=== PATIENT | female | born 1955 | race Hispanic/Latino ===

== ENCOUNTER 2018-09-09 21:10 | Inpatient (IN) | payer MEDICARE, MEDICAID ==
[2018-09-09 21:12] VITALS: BMI 30.7
[2018-09-09] MEDS ORDERED: Etomidate 20 mg/10ml Inj IV ONE (21:19)
[2018-09-09] MEDS ORDERED: Succinylcholine 200 mg/10 ml Inj IV ONE (21:19)
[2018-09-09] MEDS ORDERED: Etomidate 20 mg/10ml Inj IVP STA (21:20)
--- NOTE | 2018-09-09 21:39 | ED PDOC ---
Arrival/HPI - General Time Seen by Provider: 09/09/18 21:28 Historian: Family, EMS - Critical Care Critical Care Minutes: 30 minutes - History of Present Illness Narrative History of Present Illness (Text): 09/09/18 21:36 62 year old female, whose past medical history includes diverticulitis, hypertension, diabetes, depression, and dementia, presents to the emergency department by EMS after being found unresponsive. Patient history and info is given by EMS and by family who arrived later. As per EMS, patient has had an apparent benzodiazepine overdose. Patient is noted to be sonorous, with shallow respiration, and is nonverbal. Family arrived producing empty bottle of Xanax that was filled on 08/29/18. HPI and ROS limited due to patient condition. Time/Duration: Prior to Arrival Symptom Onset: Gradual Symptom Course: Unchanged Context: Home Past Medical History - Provider Review Nursing Documentation Reviewed: Yes Family/Social History - Physician Review Nursing Documentation Reviewed: Yes Family/Social History: No Known Family HX Allergies/Home Meds Allergies/Adverse Reactions: Allergies No Known Allergies Allergy (Verified 09/09/18 21:12) Home Medications: Home Meds Medication Instructions Recorded Confirmed ALPRAZolam [Xanax] 1 tab PO PRN PRN 09/09/18 09/10/18 Glipizide [Glipizide ER] 1 tab PO BID 09/09/18 09/09/18 Levothyroxine [Synthroid] 1 tab PO QAM 09/09/18 09/09/18 Meclizine [Meclizine*] 1 tab PO DAILY 09/09/18 09/10/18 Metoprolol Succinate XL [Toprol XL] 1 tab PO DAILY 09/09/18 09/09/18 Venlafaxine [Effexor XR] 1 cap PO DAILY 09/09/18 09/10/18 Vortioxetine Hydrobromide 1 tab PO DAILY 09/09/18 09/10/18 [Trintellix] lamoTRIgine [Lamictal] 1 tab PO BID 09/09/18 09/10/18 Dapagliflozin Propanediol [Farxiga] 5 mg PO DAILY 09/10/18 09/10/18 Enalapril Maleate 5 mg PO DAILY 09/10/18 09/10/18 Linagliptin [Tradjenta] 1 tab PO DAILY 09/10/18 09/10/18 Lisinopril [Zestril] 1 tab PO DAILY 09/10/18 09/10/18 Sennosides/Docusate Sodium [Ra 2 tab PO HS 09/10/18 09/10/18 Senna Plus Tablet] Review of Systems - Physician Review All systems were reviewed & negative as marked: Yes - Review of Systems Systems not reviewed;Unavailable: Intubated Physical Exam Respiratory Rate: Mechanically Ventilated Mental Status: Positive for: Lethargic Finger Stick Blood Glucose: 221 - Systems Exam Head: Present: Atraumatic, Normocephalic Pupils: Present: PERRL Conjunctiva: Present: Normal Neck: Present: Normal Range of Motion Respiratory/Chest: Present: Clear to Auscultation, Respiratory Distress, Decreased Breath Sounds, Other (ET Tube above the jessica) Cardiovascular: Present: Normal S1, S2, Tachycardic. No: Murmurs Abdomen: No: Tenderness, Distention, Peritoneal Signs Upper Extremity: Present: Normal Inspection. No: Cyanosis, Edema Lower Extremity: Present: Normal Inspection. No: Edema Neurological: Present: Motor Func Grossly Intact, Normal Sensory Function Skin: Present: Warm, Dry, Normal Color. No: Rashes Medical Decision Making ED Course and Treatment: 09/09/18 21:50 Impression: 62 year old female presents by EMS unresponsive Plan: -- ABG -- EKG -- Labs -- Chest X-ray -- Ventilator -- Reassess and disposition Prior Visits: Notes and results from previous visits were reviewed. Progress Notes: PROCEDURE: INTUBATION Performed by the emergency provider Time: 21:05 Consent: Discussion of the risks, benefits, and alternatives to the procedure, along with informed consent was precluded by the urgency of the procedure and the patient condition. Timeout: A timeout to verify the correct patient, procedure, and site was performed. Indication: respiratory failure- drug overdose Pre-oxygenation: [id number] Medications: etomidate. See MAR for details. ETT Size: 7.5 Confirmation: Cords directly visualized as tube passed, good bilateral breath sounds, positive CO2 detector color change, tube fogging, adequate chest rise, improving pulse oximetry reading, improved skin color, and absence of gastric sounds,. ETT Secured: The cuff was inflated and the tube was secured appropriately at a distance of 23cm at the lip. Post-Procedure: There were no immediate complications. CXR Confirmation: Yes 09/09/18 21:54 Case was discussed with pesticide use medical coordinator and Dr Norwood, patient will be on ICU for respiratory failure due to drug overdose. 09/10/18 02:31 Chest X-ray shows: ET tube above the Jessica EKG shows: Sinus tachycardia @101bpm Septal infarct Nonspecific STT wave changes - RAD Interpretation Radiology Orders: 09/09/18 21:30 CHEST PORTABLE [RAD] Stat - Scribe Statement The provider has reviewed the documentation as recorded by the Paulina August Provider Scribe Attestation: All medical record entries made by the Scribe were at my direction and personally dictated by me. I have reviewed the chart and agree that the record accurately reflects my personal performance of the history, physical exam, m edical decision making, and the department course for this patient. I have also personally directed, reviewed, and agree with the discharge instructions and disposition. Disposition/Present on Arrival - Present on Arrival Any Indicators Present on Arrival: No History of DVT/PE: No History of Uncontrolled Diabetes: No Urinary Catheter: No History of Decub. Ulcer: No History Surgical Site Infection Following: None - Disposition Have Diagnosis and Disposition been Completed?: Yes Diagnosis: Respiratory failure, Drug overdose Disposition: HOSPITALIZED Disposition Time: 23:15 Patient Plan: Admission Patient Problems: Current Active Problems Problem Status Onset Drug overdose Acute Respiratory failure Acute Condition: CRITICAL
[2018-09-09 21:42] LABS: HEMOGLOBIN 16.6 g/dL (12.0-16.0); MEAN CELL VOLUME 89.5 fl (80.0-105.0); MEAN CORPUSCULAR HEMOGLOBIN 30.1 pg (25.0-35.0); MEAN CORPUSCULAR HGB CONC 33.7 g/dl (31.0-37.0); MEAN PLATELET VOLUME 9.1 fl (7.0-11.0); RBC 5.51 10^6/uL (3.5-6.1); RED CELL DISTRIBUTION WIDTH 12.7 % (11.5-14.5); WHITE BLOOD COUNT 14.3 10^3/uL (4.5-11.0)
[2018-09-09 21:49] LABS: INR 1.13; PARTIAL THROMBOPLASTIN TIME 25.7 Seconds (25.1-36.5); PROTHROMBIN TIME 12.9 SECONDS (9.4-12.5)
[2018-09-09 21:52] LABS: ACETAMINOPHEN < 10.0 ug/ml (10.0-20.0); SALICYLATE < 1 mg/dL (2.0-20.0)
[2018-09-09 21:53] LABS: ALB/GLOB RATIO 1.1 (1.1-1.8); ALBUMIN 4.7 g/dL (3.0-4.8); ALT/SGPT 27 U/L (7-56); AST/SGOT 33 U/L (14-36); BLOOD UREA NITROGEN 7 mg/dL (7-21); CALCIUM 10.2 mg/dL (8.4-10.5); GFR NON-AFRICAN AMERICAN > 60
[2018-09-09 21:57] LABS: ARTERIAL BLOOD GAS HCO3 24.8 mmol/L (21-28); ARTERIAL BLOOD GAS HEMOGLOBIN 15.5 g/dL (11.7-17.4); ARTERIAL BLOOD GAS O2 CAPACITY 21.3 mL/dl (16-24); ARTERIAL BLOOD GAS O2 CONTENT 21.2 ML/dl (15-23); ARTERIAL BLOOD GAS O2 SAT 99.6 % (95-98); ARTERIAL BLOOD GAS PCO2 42 mm/Hg (35-45); ARTERIAL BLOOD GAS PH 7.38 (7.35-7.45); ARTERIAL BLOOD GAS TCO2 26.1 mmol.L (22-28)
[2018-09-09 22:04] LABS: TROPONIN I < 0.01 ng/mL
[2018-09-09] MEDS ORDERED: Sodium Chloride 0.9% 1,000 ML IV STA (23:02)
[2018-09-09 23:51] LABS: PHENCYCLIDINE, UR NEGATIVE (NEGATIVE)
[2018-09-09 23:59] LABS: BARBITURATES, UR NEGATIVE (NEGATIVE); BENZODIAZEPINES, UR POSITIVE (NEGATIVE); OPIATES, UR NEGATIVE (NEGATIVE)
--- NOTE | 2018-09-10 02:05 | CP.PCM.HP ---
<John Andrade - Last Filed: 09/10/18 01:43> History of Present Illness - History of Present Illness History of Present Illness: John Andrade DO PGY1 Internal Medicine Production Recorder - Medicine H&P CC: AMS / Resp Failure 2/2 Benzo OD Of note patient is intubated and altered at this time; Hx gathered from EMS report as well as previous chart review. Of note patient has multiple charts previous N# is [id number] w/ PMH of anxiety, depression, diabetes, diverticulitis, gallstone, hypertension, hypercholesterolemia, hypothyroidism, presented to [facility] on 09/10 w/ c/o of AMS and Respiratory depression after being found down in field by family. As per EMS report patient was minimally responsive / lethargic and unable to protect airway; subsequently intubated in the field. Patient was also noted to be found w/ a empty bottle of xanax in field. ROS unobtainable due to patient condition PMH: Anxiety, Depression, Diabetes, Diverticulitis, Gallstones, HTN, HLD, HoThyroid PSH: Cholecystectomy, Tonsillectomy PMD: Unknown Home Rx: Unable to verify with pharmacy; Allergies: NKDA as per prior documentation Social: Unable to assess; None reported as per prior documentation Present on Admission - Present on Admission Any Indicators Present on Admission: No Review of Systems - Review of Systems Systems not reviewed;Unavailable: Acuity of Condition Past Patient History - Past Social History Smoking Status: Smoker Currrent Status Unknown - CARDIAC Hx Cardiac Disorders: No - PSYCHIATRIC Hx Anxiety: Yes Hx Bipolar Disorder: Yes Hx Depression: Yes Hx Substance Use: (unknown) - SURGICAL HISTORY Other/Comment: R arm sugery - ANESTHESIA Hx Anesthesia: No Meds Allergies/Adverse Reactions: Allergies Allergy/AdvReac Type Severity Reaction Status Date / Time No Known Allergies Allergy Verified 09/09/18 21:12 Physical Exam - Constitutional Additional comments: Lethargic / Confused - Head Exam Head Exam: ATRAUMATIC, NORMOCEPHALIC Additional comments: ET tube in place -21cm - Eye Exam Additional comments: Pupils equal round; sluggish - ENT Exam Additional comments: ET tube in place - Respiratory Exam Respiratory Exam: Clear to Auscultation Bilateral Additional comments: No crackles appreciated - Cardiovascular Exam Cardiovascular Exam: RRR, +S1, +S2 - GI/Abdominal Exam GI & Abdominal Exam: Normal Bowel Sounds, Soft. absent: Tenderness - Extremities Exam Extremities exam: Positive for: pedal pulses present - Neurological Exam Additional comments: Lethargic/ Somnolent Arousable to verbal stimuli / sternal rub Raas -1 - Skin Skin Exam: Dry, Intact, Normal Color, Warm Results - Vital Signs Recent Vital Signs: Last Vital Signs Temp 97.0 F L 09/09/18 22:54 Pulse 87 09/09/18 23:34 Resp 15 09/09/18 23:34 BP 157/100 H 09/09/18 23:34 Pulse Ox 100 09/09/18 23:34 - Labs Result Diagrams: 09/09/18 21:37 09/09/18 21:37 Labs: Laboratory Results - last 24 hr 09/09/18 09/09/18 09/09/18 21:30 21:37 21:37 WBC RBC Hgb Hct MCV MCH MCHC RDW Plt Count MPV PT INR APTT pCO2 pO2 HCO3 ABG pH ABG Total CO2 ABG O2 Saturation ABG O2 Content ABG Base Excess ABG Hemoglobin ABG Carboxyhemoglobin POC ABG HHb (Measured) ABG Methemoglobin ABG O2 Capacity Hgb O2 Saturation FiO2 Sodium 137 Potassium 3.9 Chloride 98 Carbon Dioxide 27 Anion Gap 16 BUN 7 Creatinine 0.6 L Est GFR ( Amer) > 60 Est GFR (Non-Af Amer) > 60 Random Glucose 246 H Calcium 10.2 Total Bilirubin 0.7 AST 33 ALT 27 Alkaline Phosphatase 200 H Lactate Dehydrogenase 458 Total Creatine Kinase 34 L Troponin I < 0.01 Total Protein 8.9 H Albumin 4.7 Globulin 4.1 Albumin/Globulin Ratio 1.1 Salicylates Urine Opiates Screen Negative Urine Methadone Screen Negative Acetaminophen Ur Barbiturates Screen Negative Ur Phencyclidine Scrn Negative Ur Amphetamines Screen Negative U Benzodiazepines Scrn Positive H U Oth Cocaine Metabols Negative U Cannabinoids Screen Negative Alcohol, Quantitative < 10 09/09/18 09/09/18 09/09/18 21:37 21:37 21:37 WBC 14.3 H RBC 5.51 Hgb 16.6 H Hct 49.3 H MCV 89.5 MCH 30.1 MCHC 33.7 RDW 12.7 Plt Count 385 MPV 9.1 PT 12.9 H INR 1.13 APTT 25.7 pCO2 pO2 HCO3 ABG pH ABG Total CO2 ABG O2 Saturation ABG O2 Content ABG Base Excess ABG Hemoglobin ABG Carboxyhemoglobin POC ABG HHb (Measured) ABG Methemoglobin ABG O2 Capacity Hgb O2 Saturation FiO2 Sodium Potassium Chloride Carbon Dioxide Anion Gap BUN Creatinine Est GFR ( Amer) Est GFR (Non-Af Amer) Random Glucose Calcium Total Bilirubin AST ALT Alkaline Phosphatase Lactate Dehydrogenase Total Creatine Kinase Troponin I Total Protein Albumin Globulin Albumin/Globulin Ratio Salicylates < 1 L Urine Opiates Screen Urine Methadone Screen Acetaminophen < 10.0 L Ur Barbiturates Screen Ur Phencyclidine Scrn Ur Amphetamines Screen U Benzodiazepines Scrn U Oth Cocaine Metabols U Cannabinoids Screen Alcohol, Quantitative 09/09/18 21:55 WBC RBC Hgb Hct MCV MCH MCHC RDW Plt Count MPV PT INR APTT pCO2 42 pO2 128.0 H HCO3 24.8 ABG pH 7.38 ABG Total CO2 26.1 ABG O2 Saturation 99.6 H ABG O2 Content 21.2 ABG Base Excess -0.5 ABG Hemoglobin 15.5 ABG Carboxyhemoglobin 2.1 H POC ABG HHb (Measured) 0.4 ABG Methemoglobin 1.0 ABG O2 Capacity 21.3 Hgb O2 Saturation 96.4 FiO2 70.0 Sodium Potassium Chloride Carbon Dioxide Anion Gap BUN Creatinine Est GFR ( Amer) Est GFR (Non-Af Amer) Random Glucose Calcium Total Bilirubin AST ALT Alkaline Phosphatase Lactate Dehydrogenase Total Creatine Kinase Troponin I Total Protein Albumin Globulin Albumin/Globulin Ratio Salicylates Urine Opiates Screen Urine Methadone Screen Acetaminophen Ur Barbiturates Screen Ur Phencyclidine Scrn Ur Amphetamines Screen U Benzodiazepines Scrn U Oth Cocaine Metabols U Cannabinoids Screen Alcohol, Quantitative Assessment & Plan - Assessment and Plan (Free Text) Assessment: 62F w/ PMH of anxiety, depression, diabetes, diverticulitis, gallstone, hypertension, hypercholesterolemia, hypothyroidism, presented to [facility] ED on 09/10 w/ c/o of AMS and Respiratory depression 2/2 benzo OD. Patient admitted to ICU for management of respiratory depression and AMS. Assessment upon admission: Respiratory failure 2/2 xanax overdose AMS 2/2 xanax overdose Hx Anxiety/ Depression Hx DM Hx HTN Hx HLD Hx Hypothyroidism Plan: Neuro Patient intubated Lethargic 2/2 Benzo OD UDS +Benzos only No need for flumazenil at this time If patient agitated on vent can sedate w/ ketamine/ propofol if needed [place] Q4 RASS -1 ; Maintain RASS -1 to -2 Reorient as needed Hx psych disorder; psych consulted appreciate reccs Pulm Patient intubated in field; unable to protect airway; ABG post intubation wnl 09/09 CXR - RLL shows infiltrate Afebrile; elevated WBC Will give x1 dose zosyn for empiric aspiration pna coverage Repeat CXR in AM Repeat ABG in AM Protective lung ventilation strategy Maintain O2 Sat >95% Aspiration precautions Cardio S1S2 RRR Maintaining pressure well w/o pressor support Hx HTN - normotensive No need for antiHTN at this time Continue monitoring Maintain Map >65 Endocrinology Hx DM + Hx Hypothyroidism Will start patient on ISS LOW w/ fingersticks Q6H Synthroid dose uncertain; will verify w/ PMD/Pharmacy in AM prior to restarting GI: Hx HLD Resume anti-lipid rx once stable NPO Protonix Nephro BUN/Cr - 7/0.6 Maintain euvolemia Maintain electrolyte balance ID: Leukocytosis appreciated CXR w/ RLL infiltrate Will give x1 dose zosyn for empiric coverage BCX/UCX pending PPX: Protonix Lovenox Patient was seen, examined, and discussed w/ attending Dr. Enma ANDRADE DO PGY1 - INTERNAL MEDICINE HIRED HELP - Date & Time Date: 09/10/18 Time: 02:56 <Yoni Norwood - Last Filed: 09/10/18 06:44> Results - Vital Signs Recent Vital Signs: Last Vital Signs Temp 97.0 F L 09/09/18 22:54 Pulse 92 H 09/10/18 02:51 Resp 15 09/10/18 02:51 BP 150/82 09/10/18 02:51 Pulse Ox 100 09/10/18 02:51 - Labs Result Diagrams: 09/09/18 21:37 09/09/18 21:37 Labs: Laboratory Results - last 24 hr 09/09/18 09/09/18 09/09/18 21:30 21:37 21:37 WBC RBC Hgb Hct MCV MCH MCHC RDW Plt Count MPV PT INR APTT pCO2 pO2 HCO3 ABG pH ABG Total CO2 ABG O2 Saturation ABG O2 Content ABG Base Excess ABG Hemoglobin ABG Carboxyhemoglobin POC ABG HHb (Measured) ABG Methemoglobin ABG O2 Capacity Hgb O2 Saturation FiO2 Sodium 137 Potassium 3.9 Chloride 98 Carbon Dioxide 27 Anion Gap 16 BUN 7 Creatinine 0.6 L Est GFR ( Amer) > 60 Est GFR (Non-Af Amer) > 60 POC Glucose (mg/dL) Random Glucose 246 H Calcium 10.2 Total Bilirubin 0.7 AST 33 ALT 27 Alkaline Phosphatase 200 H Lactate Dehydrogenase 458 Total Creatine Kinase 34 L Troponin I < 0.01 Total Protein 8.9 H Albumin 4.7 Globulin 4.1 Albumin/Globulin Ratio 1.1 Salicylates Urine Opiates Screen Negative Urine Methadone Screen Negative Acetaminophen Ur Barbiturates Screen Negative Ur Phencyclidine Scrn Negative Ur Amphetamines Screen Negative U Benzodiazepines Scrn Positive H U Oth Cocaine Metabols Negative U Cannabinoids Screen Negative Alcohol, Quantitative < 10 09/09/18 09/09/18 09/09/18 21:37 21:37 21:37 WBC 14.3 H RBC 5.51 Hgb 16.6 H Hct 49.3 H MCV 89.5 MCH 30.1 MCHC 33.7 RDW 12.7 Plt Count 385 MPV 9.1 PT 12.9 H INR 1.13 APTT 25.7 pCO2 pO2 HCO3 ABG pH ABG Total CO2 ABG O2 Saturation ABG O2 Content ABG Base Excess ABG Hemoglobin ABG Carboxyhemoglobin POC ABG HHb (Measured) ABG Methemoglobin ABG O2 Capacity Hgb O2 Saturation FiO2 Sodium Potassium Chloride Carbon Dioxide Anion Gap BUN Creatinine Est GFR ( Amer) Est GFR (Non-Af Amer) POC Glucose (mg/dL) Random Glucose Calcium Total Bilirubin AST ALT Alkaline Phosphatase Lactate Dehydrogenase Total Creatine Kinase Troponin I Total Protein Albumin Globulin Albumin/Globulin Ratio Salicylates < 1 L Urine Opiates Screen Urine Methadone Screen Acetaminophen < 10.0 L Ur Barbiturates Screen Ur Phencyclidine Scrn Ur Amphetamines Screen U Benzodiazepines Scrn U Oth Cocaine Metabols U Cannabinoids Screen Alcohol, Quantitative 09/09/18 09/10/18 21:55 04:12 WBC RBC Hgb Hct MCV MCH MCHC RDW Plt Count MPV PT INR APTT pCO2 42 pO2 128.0 H HCO3 24.8 ABG pH 7.38 ABG Total CO2 26.1 ABG O2 Saturation 99.6 H ABG O2 Content 21.2 ABG Base Excess -0.5 ABG Hemoglobin 15.5 ABG Carboxyhemoglobin 2.1 H POC ABG HHb (Measured) 0.4 ABG Methemoglobin 1.0 ABG O2 Capacity 21.3 Hgb O2 Saturation 96.4 FiO2 70.0 Sodium Potassium Chloride Carbon Dioxide Anion Gap BUN Creatinine Est GFR ( Amer) Est GFR (Non-Af Amer) POC Glucose (mg/dL) 243 H Random Glucose Calcium Total Bilirubin AST ALT Alkaline Phosphatase Lactate Dehydrogenase Total Creatine Kinase Troponin I Total Protein Albumin Globulin Albumin/Globulin Ratio Salicylates Urine Opiates Screen Urine Methadone Screen Acetaminophen Ur Barbiturates Screen Ur Phencyclidine Scrn Ur Amphetamines Screen U Benzodiazepines Scrn U Oth Cocaine Metabols U Cannabinoids Screen Alcohol, Quantitative Attending/Attestation - Attestation I have personally seen and examined this patient.: Yes I have fully participated in the care of the patient.: Yes I have reviewed all pertinent clinical information: Yes
[2018-09-10] MEDS ORDERED: Piperacillin/Tazobact 3.375 gm 100 ML IVPB STA (02:35)
[2018-09-10] MEDS: Insulin Reg-LOW-Coverage SC SCH ×4 (04:26→21:47)
[2018-09-10 06:44] LABS: BASO # 0.03 K/mm3 (0.0-2.0); BASO % 0.1 % (0.0-3.0); EOS % 0.1 % (1.5-5.0); GRAN # 17.15 (1.4-6.5); GRAN % 81.9 % (50.0-68.0); HEMOGLOBIN 15.4 g/dL (12.0-16.0); LYMPH # 2.6 (1.2-3.4); LYMPH % 12.6 % (22.0-35.0); MEAN CELL VOLUME 89.4 fl (80.0-105.0); MEAN CORPUSCULAR HEMOGLOBIN 30.1 pg (25.0-35.0); MEAN CORPUSCULAR HGB CONC 33.7 g/dl (31.0-37.0); MEAN PLATELET VOLUME 9.1 fl (7.0-11.0); MONO # 1.1 (0.1-0.6); MONO % 5.3 % (1.0-6.0); RBC 5.11 10^6/uL (3.5-6.1); RED CELL DISTRIBUTION WIDTH 12.8 % (11.5-14.5); WHITE BLOOD COUNT 20.9 10^3/uL (4.5-11.0)
--- NOTE | 2018-09-10 06:52 | CP.PCM.CON ---
<Izaiah Ayala - Last Filed: 09/10/18 14:15> History of Present Illness - History of Present Illness History of Present Illness: Izaiah Ayala, PGY-1 Consult Note for ICU CC: AMS / Resp Failure 2/2 Benzo OD Ms. Randle is a 62 F with past medical history of anxiety, depression, diabetes, diverticulitis, gallstone, hypertension, hypercholesterolemia and hypothyroidism who presented to [facility] with AMS and respiratory depression after being found down in field by family. As per EMS report, patient was minimally responsive, lethargic and unable to protect her airway. Patient was subsequently intubated and sedated. Patient was noted by family to be found with an empty bottle of xanax which was filled 08/29/18. Per nursing, poison control was contacted overnight. History has been gathered from EMS report as well as previous chart review. Of note patient has multiple charts previous N# is [id number] ROS unobtainable due to patient condition. PMH: Anxiety, Depression, Diabetes, Diverticulitis, Gallstones, HTN, HLD, Hypothyroid PSH: Cholecystectomy, Tonsillectomy PMD: Unknown Home Rx: Unable to verify with pharmacy; Allergies: NKDA as per prior documentation Social: Unable to assess; None reported as per prior documentation Review of Systems - Review of Systems Systems not reviewed;Unavailable: Intubated Review of Systems: 12 point ROS unable to be ascertained due to clinical condition. Past Patient History - Past Social History Smoking Status: Smoker Currrent Status Unknown - CARDIAC Hx Cardiac Disorders: No - PSYCHIATRIC Hx Anxiety: Yes Hx Bipolar Disorder: Yes Hx Depression: Yes Hx Substance Use: (unknown) - SURGICAL HISTORY Other/Comment: R arm sugery - ANESTHESIA Hx Anesthesia: No Meds Allergies/Adverse Reactions: Allergies Allergy/AdvReac Type Severity Reaction Status Date / Time No Known Allergies Allergy Verified 09/09/18 21:12 - Medications Medications: Current Medications Enoxaparin Sodium (Lovenox) 40 mg SC DAILY [facility]; Protocol Sodium Chloride (Sodium Chloride 0.9%) 1,000 mls @ 75 mls/hr IV .[id number] [facility] Insulin Human Regular (Humulin R Low) 0 units SC Q6H [facility]; Protocol Last Admin: 09/10/18 04:26 Dose: Not Given Lorazepam (Ativan) 1 mg IVP Q2H PRN; Protocol PRN Reason: Seizure activity Pantoprazole Sodium (Protonix Inj) 40 mg IVP DAILY [facility] Physical Exam - Additional Findings Additional findings: - Constitutional Additional comments: Lethargic / responsive to painful stimuli - Head Exam Head Exam: ATRAUMATIC, NORMOCEPHALIC Additional comments: - Eye Exam Additional comments: Pupils equal round; sluggish and mydriatic - ENT Exam Additional comments: ET tube in place 25 at lip - Respiratory Exam Respiratory Exam: Clear to Auscultation Bilateral Additional comments: No wheezes, rales or crackles appreciated - Cardiovascular Exam Cardiovascular Exam: RRR, +S1, +S2 - GI/Abdominal Exam GI & Abdominal Exam: Normal Bowel Sounds, Soft. absent: Tenderness - Extremities Exam Extremities exam: Positive for: pedal pulses present - Neurological Exam Additional comments: Somnolent Arousable to sternal rub - Skin Skin Exam: Dry, Intact, Normal Color, Warm Results - Vital Signs Recent Vital Signs: Last Vital Signs Temp 97.0 F L 09/09/18 22:54 Pulse 92 H 09/10/18 02:51 Resp 15 09/10/18 02:51 BP 150/82 09/10/18 02:51 Pulse Ox 100 09/10/18 02:51 - Labs Result Diagrams: 09/10/18 05:25 09/10/18 05:25 Labs: Laboratory Results - last 24 hr 09/09/18 09/09/18 09/09/18 21:30 21:37 21:37 WBC RBC Hgb Hct MCV MCH MCHC RDW Plt Count MPV Gran % Lymph % (Auto) Upson % (Auto) Eos % (Auto) Baso % (Auto) Gran # Lymph # (Auto) Upson # (Auto) Eos # (Auto) Baso # (Auto) PT INR APTT pCO2 pO2 HCO3 ABG pH ABG Total CO2 ABG O2 Saturation ABG O2 Content ABG Base Excess ABG Hemoglobin ABG Carboxyhemoglobin POC ABG HHb (Measured) ABG Methemoglobin ABG O2 Capacity Hgb O2 Saturation FiO2 Sodium 137 Potassium 3.9 Chloride 98 Carbon Dioxide 27 Anion Gap 16 BUN 7 Creatinine 0.6 L Est GFR ( Amer) > 60 Est GFR (Non-Af Amer) > 60 POC Glucose (mg/dL) Random Glucose 246 H Calcium 10.2 Total Bilirubin 0.7 AST 33 ALT 27 Alkaline Phosphatase 200 H Lactate Dehydrogenase 458 Total Creatine Kinase 34 L Troponin I < 0.01 Total Protein 8.9 H Albumin 4.7 Globulin 4.1 Albumin/Globulin Ratio 1.1 Salicylates Urine Opiates Screen Negative Urine Methadone Screen Negative Acetaminophen Ur Barbiturates Screen Negative Ur Phencyclidine Scrn Negative Ur Amphetamines Screen Negative U Benzodiazepines Scrn Positive H U Oth Cocaine Metabols Negative U Cannabinoids Screen Negative Alcohol, Quantitative < 10 09/09/18 09/09/18 09/09/18 21:37 21:37 21:37 WBC 14.3 H RBC 5.51 Hgb 16.6 H Hct 49.3 H MCV 89.5 MCH 30.1 MCHC 33.7 RDW 12.7 Plt Count 385 MPV 9.1 Gran % Lymph % (Auto) Upson % (Auto) Eos % (Auto) Baso % (Auto) Gran # Lymph # (Auto) Upson # (Auto) Eos # (Auto) Baso # (Auto) PT 12.9 H INR 1.13 APTT 25.7 pCO2 pO2 HCO3 ABG pH ABG Total CO2 ABG O2 Saturation ABG O2 Content ABG Base Excess ABG Hemoglobin ABG Carboxyhemoglobin POC ABG HHb (Measured) ABG Methemoglobin ABG O2 Capacity Hgb O2 Saturation FiO2 Sodium Potassium Chloride Carbon Dioxide Anion Gap BUN Creatinine Est GFR ( Amer) Est GFR (Non-Af Amer) POC Glucose (mg/dL) Random Glucose Calcium Total Bilirubin AST ALT Alkaline Phosphatase Lactate Dehydrogenase Total Creatine Kinase Troponin I Total Protein Albumin Globulin Albumin/Globulin Ratio Salicylates < 1 L Urine Opiates Screen Urine Methadone Screen Acetaminophen < 10.0 L Ur Barbiturates Screen Ur Phencyclidine Scrn Ur Amphetamines Screen U Benzodiazepines Scrn U Oth Cocaine Metabols U Cannabinoids Screen Alcohol, Quantitative 09/09/18 09/10/18 09/10/18 21:55 04:12 05:25 WBC 20.9 H D RBC 5.11 Hgb 15.4 Hct 45.7 MCV 89.4 MCH 30.1 MCHC 33.7 RDW 12.8 Plt Count 342 MPV 9.1 Gran % 81.9 H Lymph % (Auto) 12.6 L Upson % (Auto) 5.3 Eos % (Auto) 0.1 L Baso % (Auto) 0.1 Gran # 17.15 H Lymph # (Auto) 2.6 Upson # (Auto) 1.1 H Eos # (Auto) 0.0 Baso # (Auto) 0.03 PT INR APTT pCO2 42 pO2 128.0 H HCO3 24.8 ABG pH 7.38 ABG Total CO2 26.1 ABG O2 Saturation 99.6 H ABG O2 Content 21.2 ABG Base Excess -0.5 ABG Hemoglobin 15.5 ABG Carboxyhemoglobin 2.1 H POC ABG HHb (Measured) 0.4 ABG Methemoglobin 1.0 ABG O2 Capacity 21.3 Hgb O2 Saturation 96.4 FiO2 70.0 Sodium Potassium Chloride Carbon Dioxide Anion Gap BUN Creatinine Est GFR ( Amer) Est GFR (Non-Af Amer) POC Glucose (mg/dL) 243 H Random Glucose Calcium Total Bilirubin AST ALT Alkaline Phosphatase Lactate Dehydrogenase Total Creatine Kinase Troponin I Total Protein Albumin Globulin Albumin/Globulin Ratio Salicylates Urine Opiates Screen Urine Methadone Screen Acetaminophen Ur Barbiturates Screen Ur Phencyclidine Scrn Ur Amphetamines Screen U Benzodiazepines Scrn U Oth Cocaine Metabols U Cannabinoids Screen Alcohol, Quantitative Assessment & Plan - Assessment and Plan (Free Text) Assessment: Ms. Randle is a 62 year old F w/ PMH of anxiety, depression, diabetes, diverticulitis, gallstone, hypertension, hypercholesterolemia and hypo thyroidism, who presented in AMS and respiratory depression 2/2 benzo overdose. Patient intubated and admitted to ICU for management of respiratory depression and AMS. Plan: Neuro - Responds to painful stimuli - 09/09/[address] shows age appropriate cerebral atrophy, mild microvascular disease, no acute intracranial pathology - Patient intubated on mechanical ventilation 50/5/15/500 - Lethargic 2/2 Benzo OD, currently not agitated - UDS +Benzos only - [place] Q4 - Maintain RASS 0 to -2 - Reorient as needed - Hx psych disorder; Dr. Jacobson consulted - recs appreciated Pulm - Patient intubated in field; unable to protect airway; ABG post intubation wnl - 09/09 CXR - RLL shows infiltrate - Afebrile; elevated WBC - S/p 1 dose zosyn for empiric aspiration PNA coverage, will begin Rocephin 1 g and Azithro 500 mg daily - 09/10/18 Repeat CXR shows perihilar fullness. - 09/10/18 Repeat ABG shows - Protective lung ventilation strategy - Maintain O2 Sat >95% - Aspiration precautions Cardio - S1S2 RRR - EKG on admission shows Sinus tachycardia @101bpm, Septal infarct , Nonspecific STT wave changes - Maintaining pressure well w/o pressor support - Hx HTN - normotensive at this time - No need for antiHTN at this time - Continue monitoring - Maintain Map > 65 Endocrinology - Hx DM + Hx Hypothyroidism - F/U TSH - ISS LOW w/ fingersticks Q6H - Synthroid dose uncertain; will verify w/ PMD/Pharmacy in AM prior to restarting - Maintain euglycemia 110-180 GI: - NGT in place - Hx HLD - Resume anti-lipid rx once stable - NPO - Protonix Nephro - BUN/Cr - 7/0.6 - Maintain euvolemia, NS @ 75 cc/hr - Diehl in place, output not recorded in system - Maintain electrolyte balance ID: - Leukocytosis increased 20.9, Febrile O/N 100.5 - F/U procal, UA - Tylenol 650 q6 for fever - CXR w/ RLL infiltrate - 1 dose zosyn for empiric coverage, continue with Unasyn - BCX/UCX pending PPX: - Protonix 40 - Lovenox 40 IVP Patient seen, case reviewed and plan approved by Dr. Macy Bowden. Izaiah Ayala, PGY-1 <Josué Bowden - Last Filed: 09/10/18 17:49> Meds - Medications Medications: Current Medications Acetaminophen (Tylenol 325mg Tab) 650 mg PO Q6H PRN PRN Reason: Fever >100.4 F Last Admin: 09/10/18 09:49 Dose: 650 mg Enoxaparin Sodium (Lovenox) 40 mg SC DAILY [facility]; Protocol Last Admin: 09/10/18 09:49 Dose: 40 mg Sodium Chloride (Sodium Chloride 0.9%) 1,000 mls @ 75 mls/hr IV .[id number] [facility]ONYA Last Admin: 09/10/18 16:44 Dose: 75 mls/hr Ceftriaxone Sodium (Rocephin 1 Gram Ivpb) 1 gm in 100 mls @ 100 mls/hr IVPB DAILY [facility]; Protocol Stop: 09/14/18 10:59 Last Admin: 09/10/18 15:30 Dose: 100 mls/hr Azithromycin (Zithromax 500mg In Ns) 500 mg in 250 mls @ 167 mls/hr IVPB DAILY [facility]; Protocol Last Admin: 09/10/18 15:30 Dose: 167 mls/hr Insulin Human Regular (Humulin R Low) 0 units SC Q6H [facility]; Protocol Last Admin: 09/10/18 15:45 Dose: 3 units Pantoprazole Sodium (Protonix Inj) 40 mg IVP DAILY [facility] Last Admin: 09/10/18 09:50 Dose: 40 mg Results - Vital Signs Recent Vital Signs: Last Vital Signs Temp 100.9 F H 09/10/18 10:49 Pulse 113 H 09/10/18 13:28 Resp 17 09/10/18 04:05 BP 122/70 09/10/18 08:00 Pulse Ox 99 09/10/18 08:20 - Labs Result Diagrams: 09/10/18 05:25 09/10/18 05:25 Labs: Laboratory Results - last 24 hr 09/09/18 09/09/18 09/09/18 21:30 21:37 21:37 WBC RBC Hgb Hct MCV MCH MCHC RDW Plt Count MPV Gran % Lymph % (Auto) Upson % (Auto) Eos % (Auto) Baso % (Auto) Gran # Lymph # (Auto) Upson # (Auto) Eos # (Auto) Baso # (Auto) PT INR APTT pCO2 pO2 HCO3 ABG pH ABG Total CO2 ABG O2 Saturation ABG O2 Content ABG Base Excess ABG Hemoglobin ABG Carboxyhemoglobin POC ABG HHb (Measured) ABG Methemoglobin ABG O2 Capacity Hgb O2 Saturation FiO2 Sodium 137 Potassium 3.9 Chloride 98 Carbon Dioxide 27 Anion Gap 16 BUN 7 Creatinine 0.6 L Est GFR ( Amer) > 60 Est GFR (Non-Af Amer) > 60 POC Glucose (mg/dL) Random Glucose 246 H Calcium 10.2 Total Bilirubin 0.7 AST 33 ALT 27 Alkaline Phosphatase 200 H Lactate Dehydrogenase 458 Total Creatine Kinase 34 L Troponin I < 0.01 Total Protein 8.9 H Albumin 4.7 Globulin 4.1 Albumin/Globulin Ratio 1.1 TSH 3rd Generation Salicylates Urine Opiates Screen Negative Urine Methadone Screen Negative Acetaminophen Ur Barbiturates Screen Negative Ur Phencyclidine Scrn Negative Ur Amphetamines Screen Negative U Benzodiazepines Scrn Positive H U Oth Cocaine Metabols Negative U Cannabinoids Screen Negative Alcohol, Quantitative < 10 09/09/18 09/09/18 09/09/18 21:37 21:37 21:37 WBC 14.3 H RBC 5.51 Hgb 16.6 H Hct 49.3 H MCV 89.5 MCH 30.1 MCHC 33.7 RDW 12.7 Plt Count 385 MPV 9.1 Gran % Lymph % (Auto) Upson % (Auto) Eos % (Auto) Baso % (Auto) Gran # Lymph # (Auto) Upson # (Auto) Eos # (Auto) Baso # (Auto) PT 12.9 H INR 1.13 APTT 25.7 pCO2 pO2 HCO3 ABG pH ABG Total CO2 ABG O2 Saturation ABG O2 Content ABG Base Excess ABG Hemoglobin ABG Carboxyhemoglobin POC ABG HHb (Measured) ABG Methemoglobin ABG O2 Capacity Hgb O2 Saturation FiO2 Sodium Potassium Chloride Carbon Dioxide Anion Gap BUN Creatinine Est GFR ( Amer) Est GFR (Non-Af Amer) POC Glucose (mg/dL) Random Glucose Calcium Total Bilirubin AST ALT Alkaline Phosphatase Lactate Dehydrogenase Total Creatine Kinase Troponin I Total Protein Albumin Globulin Albumin/Globulin Ratio TSH 3rd Generation Salicylates < 1 L Urine Opiates Screen Urine Methadone Screen Acetaminophen < 10.0 L Ur Barbiturates Screen Ur Phencyclidine Scrn Ur Amphetamines Screen U Benzodiazepines Scrn U Oth Cocaine Metabols U Cannabinoids Screen Alcohol, Quantitative 09/09/18 09/10/18 09/10/18 21:55 04:12 05:25 WBC 20.9 H D RBC 5.11 Hgb 15.4 Hct 45.7 MCV 89.4 MCH 30.1 MCHC 33.7 RDW 12.8 Plt Count 342 MPV 9.1 Gran % 81.9 H Lymph % (Auto) 12.6 L Upson % (Auto) 5.3 Eos % (Auto) 0.1 L Baso % (Auto) 0.1 Gran # 17.15 H Lymph # (Auto) 2.6 Upson # (Auto) 1.1 H Eos # (Auto) 0.0 Baso # (Auto) 0.03 PT INR APTT pCO2 42 pO2 128.0 H HCO3 24.8 ABG pH 7.38 ABG Total CO2 26.1 ABG O2 Saturation 99.6 H ABG O2 Content 21.2 ABG Base Excess -0.5 ABG Hemoglobin 15.5 ABG Carboxyhemoglobin 2.1 H POC ABG HHb (Measured) 0.4 ABG Methemoglobin 1.0 ABG O2 Capacity 21.3 Hgb O2 Saturation 96.4 FiO2 70.0 Sodium Potassium Chloride Carbon Dioxide Anion Gap BUN Creatinine Est GFR ( Amer) Est GFR (Non-Af Amer) POC Glucose (mg/dL) 243 H Random Glucose Calcium Total Bilirubin AST ALT Alkaline Phosphatase Lactate Dehydrogenase Total Creatine Kinase Troponin I Total Protein Albumin Globulin Albumin/Globulin Ratio TSH 3rd Generation Salicylates Urine Opiates Screen Urine Methadone Screen Acetaminophen Ur Barbiturates Screen Ur Phencyclidine Scrn Ur Amphetamines Screen U Benzodiazepines Scrn U Oth Cocaine Metabols U Cannabinoids Screen Alcohol, Quantitative 09/10/18 09/10/18 09/10/18 05:25 08:40 08:57 WBC RBC Hgb Hct MCV MCH MCHC RDW Plt Count MPV Gran % Lymph % (Auto) Upson % (Auto) Eos % (Auto) Baso % (Auto) Gran # Lymph # (Auto) Upson # (Auto) Eos # (Auto) Baso # (Auto) PT INR APTT pCO2 38 pO2 216.0 H HCO3 25.8 ABG pH 7.44 ABG Total CO2 27.0 ABG O2 Saturation 100.0 H ABG O2 Content 21.4 ABG Base Excess 1.7 ABG Hemoglobin 15.3 ABG Carboxyhemoglobin 1.4 POC ABG HHb (Measured) 0 ABG Methemoglobin 1.0 ABG O2 Capacity 21.4 Hgb O2 Saturation 97.6 FiO2 70.0 Sodium 138 Potassium 3.4 L Chloride 99 Carbon Dioxide 24 Anion Gap 18 BUN 9 Creatinine 0.8 Est GFR ( Amer) > 60 Est GFR (Non-Af Amer) > 60 POC Glucose (mg/dL) 270 H Random Glucose 263 H Calcium 9.6 Total Bilirubin 0.6 AST 26 ALT 31 Alkaline Phosphatase 177 H Lactate Dehydrogenase Total Creatine Kinase Troponin I Total Protein 8.1 Albumin 4.3 Globulin 3.8 Albumin/Globulin Ratio 1.1 TSH 3rd Generation Salicylates Urine Opiates Screen Urine Methadone Screen Acetaminophen Ur Barbiturates Screen Ur Phencyclidine Scrn Ur Amphetamines Screen U Benzodiazepines Scrn U Oth Cocaine Metabols U Cannabinoids Screen Alcohol, Quantitative 09/10/18 13:00 WBC RBC Hgb Hct MCV MCH MCHC RDW Plt Count MPV Gran % Lymph % (Auto) Upson % (Auto) Eos % (Auto) Baso % (Auto) Gran # Lymph # (Auto) Upson # (Auto) Eos # (Auto) Baso # (Auto) PT INR APTT pCO2 pO2 HCO3 ABG pH ABG Total CO2 ABG O2 Saturation ABG O2 Content ABG Base Excess ABG Hemoglobin ABG Carboxyhemoglobin POC ABG HHb (Measured) ABG Methemoglobin ABG O2 Capacity Hgb O2 Saturation FiO2 Sodium Potassium Chloride Carbon Dioxide Anion Gap BUN Creatinine Est GFR ( Amer) Est GFR (Non-Af Amer) POC Glucose (mg/dL) Random Glucose Calcium Total Bilirubin AST ALT Alkaline Phosphatase Lactate Dehydrogenase Total Creatine Kinase Troponin I Total Protein Albumin Globulin Albumin/Globulin Ratio TSH 3rd Generation 0.80 Salicylates Urine Opiates Screen Urine Methadone Screen Acetaminophen Ur Barbiturates Screen Ur Phencyclidine Scrn Ur Amphetamines Screen U Benzodiazepines Scrn U Oth Cocaine Metabols U Cannabinoids Screen Alcohol, Quantitative Addendum Addendum: 09/10/18 17:48 ICU Attending Addendum Patient seen and examined. Case reviewed on round with housestaff. Agree with resident note above with the following additions/exceptions: 62 F w/ PMH of anxiety, depression, diabetes, diverticulitis, gallstone, h ypertension, hypercholesterolemia and hypothyroidism admitted after being founded unresponsive. Suspect benzo OD. No role for reversal agent. cont to monitor on vent awaiting her to wake up CT head ruled our bleed check TSH if no improvement by tomorrow will check EEG empiric abx for fever and leukocytosis Rest of care as above Josué Bowden MD Pulmonary Critical Care and Sleep Medicine
[2018-09-10 06:55] LABS: ALB/GLOB RATIO 1.1 (1.1-1.8); ALBUMIN 4.3 g/dL (3.0-4.8); ALT/SGPT 31 U/L (7-56); AST/SGOT 26 U/L (14-36); BLOOD UREA NITROGEN 9 mg/dL (7-21); CALCIUM 9.6 mg/dL (8.4-10.5); GFR NON-AFRICAN AMERICAN > 60
[2018-09-10 08:50] LABS: ARTERIAL BLOOD GAS HCO3 25.8 mmol/L (21-28); ARTERIAL BLOOD GAS HEMOGLOBIN 15.3 g/dL (11.7-17.4); ARTERIAL BLOOD GAS O2 CAPACITY 21.4 mL/dl (16-24); ARTERIAL BLOOD GAS O2 CONTENT 21.4 ML/dl (15-23); ARTERIAL BLOOD GAS PCO2 38 mm/Hg (35-45); ARTERIAL BLOOD GAS PH 7.44 (7.35-7.45)
--- NOTE | 2018-09-10 09:01 | CT ---
Date of service: 09/10/2018 PROCEDURE: CT HEAD WITHOUT CONTRAST. HISTORY: ams COMPARISON: None available. TECHNIQUE: Axial computed tomography images were obtained through the head/brain without intravenous contrast. Radiation dose: Total exam DLP = 823.46 mGy-cm. This CT exam was performed using one or more of the following dose reduction techniques: Automated exposure control, adjustment of the mA and/or kV according to patient size, and/or use of iterative reconstruction technique. FINDINGS: HEMORRHAGE: No intracranial hemorrhage. BRAIN: No mass effect or edema. No atrophy or chronic microvascular ischemic changes. VENTRICLES: Unremarkable. No hydrocephalus. CALVARIUM: Unremarkable. PARANASAL SINUSES: Unremarkable as visualized. No significant inflammatory changes. MASTOID AIR CELLS: Unremarkable as visualized. No inflammatory changes. OTHER FINDINGS: The report concurs with the preliminary [facility] report IMPRESSION: No acute intracranial findings
[2018-09-10] MEDS: Enoxaparin 40 mg Syringe SC SCH (09:49)
--- NOTE | 2018-09-10 10:02 | CP.PCM.PCO ---
Physician Communication Note - Physician Communication Note Physician Communication Note: pt is intubated/sedated, not able to participate in interview, recoconsult
--- NOTE | 2018-09-10 12:14 | RAD ---
Date of service: 09/10/2018 HISTORY: Intubated COMPARISON: 09/09/2018. FINDINGS: LUNGS: No active pulmonary disease. PLEURA: No significant pleural effusion identified, no pneumothorax apparent. CARDIOVASCULAR: No atherosclerotic calcification present Normal. OSSEOUS STRUCTURES: No significant abnormalities. VISUALIZED UPPER ABDOMEN: Normal. OTHER FINDINGS: Stable position of endotracheal tube. Satisfactory position of nasogastric tube. The stomach is now decompressed. IMPRESSION: No active disease. Satisfactory position of recently placed nasogastric tube. Stable position of endotracheal tube.
--- NOTE | 2018-09-10 12:25 | RAD ---
HISTORY: s/p intubation COMPARISON: No prior study available for comparison. TECHNIQUE: Chest, one view. FINDINGS: Endotracheal tube terminates approximately 2.3 cm above the jessica. LUNGS: No focal consolidation. Please note that chest x-ray has limited sensitivity for the detection of pulmonary masses. PLEURA: No significant pleural effusion identified. No definite pneumothorax . CARDIOVASCULAR: Heart size appears within normal limits. Atherosclerotic calcifications of the aorta. OSSEOUS STRUCTURES: Partially imaged metallic plate and screw fixation of the right humerus. VISUALIZED UPPER ABDOMEN: Gaseous distension of the stomach, partially imaged. OTHER FINDINGS: None. IMPRESSION: Endotracheal tube terminates approximately 2.3 cm above the jessica.
[2018-09-10] MEDS: cefTRIAXone 1 gm 1 GM/100 ML BAG IVPB SCH (15:30)
[2018-09-10] MEDS: Azithromycin 500MG/NS 250ml 500 MG/250 ML BAG IVPB SCH (15:30)
[2018-09-10] MEDS: Sodium Chloride 0.9% 1,000 ML IV SCH (16:44)
--- NOTE | 2018-09-10 18:53 | CARD ---
APPROVED REPORT Date of service: 09/10/2018 EKG Measurement Heart [id number] <Conclusion> Sinus tachycardia Possible Left atrial enlargement Borderline ECG
[2018-09-10 20:36] LABS: PH,URINE 5.5 (4.7-8.0); URINE APPEARANCE SL CLOUDY (CLEAR); URINE BILIRUBIN NEGATIVE (NEGATIVE); URINE BLOOD LARGE (NEGATIVE); URINE COLOR LIGHT YELLOW (YELLOW); URINE GLUCOSE (UA) >=1000 mg/dL (NEGATIVE); URINE LEUKOCYTE ESTERASE TRACE Leu/uL (NEGATIVE); URINE PROTEIN TRACE mg/dL (<30 mg/dL); URINE UROBILINOGEN 0.2 E.U./dL (<1 E.U./dL)
[2018-09-10 21:43] LABS: URINE BACTERIA SMALL /hpf; URINE WBC 20 - 25 /hpf (0-6)
[2018-09-11] MEDS: Insulin Reg-LOW-Coverage SC SCH ×3 (02:45→15:00)
[2018-09-11 06:05] LABS: ARTERIAL BLOOD GAS HCO3 23.1 mmol/L (21-28); ARTERIAL BLOOD GAS HEMOGLOBIN 12.7 g/dL (11.7-17.4); ARTERIAL BLOOD GAS O2 CAPACITY 17.6 mL/dl (16-24); ARTERIAL BLOOD GAS O2 CONTENT 17.6 ML/dl (15-23); ARTERIAL BLOOD GAS O2 SAT 99.9 % (95-98); ARTERIAL BLOOD GAS PCO2 40 mm/Hg (35-45); ARTERIAL BLOOD GAS PH 7.37 (7.35-7.45); ARTERIAL BLOOD GAS TCO2 24.3 mmol.L (22-28)
[2018-09-11 06:10] LABS: BASO # 0.05 K/mm3 (0.0-2.0); BASO % 0.4 % (0.0-3.0); EOS # 0.1 (0.0-0.7); GRAN # 8.13 (1.4-6.5); GRAN % 68.1 % (50.0-68.0); HEMOGLOBIN 14.3 g/dL (12.0-16.0); LYMPH # 3.1 (1.2-3.4); MEAN CORPUSCULAR HEMOGLOBIN 30.2 pg (25.0-35.0); MEAN CORPUSCULAR HGB CONC 32.5 g/dl (31.0-37.0); MEAN PLATELET VOLUME 8.7 fl (7.0-11.0); MONO # 0.5 (0.1-0.6); MONO % 4.5 % (1.0-6.0); RBC 4.74 10^6/uL (3.5-6.1); RED CELL DISTRIBUTION WIDTH 13.1 % (11.5-14.5); WHITE BLOOD COUNT 11.9 10^3/uL (4.5-11.0)
[2018-09-11 06:55] LABS: ALBUMIN 4.1 g/dL (3.0-4.8); ALT/SGPT 28 U/L (7-56); AST/SGOT 32 U/L (14-36); BLOOD UREA NITROGEN 9 mg/dL (7-21); GFR NON-AFRICAN AMERICAN > 60
[2018-09-11 06:57] LABS: MEAN CELL VOLUME 92.8 fl (80.0-105.0)
[2018-09-11] MEDS ORDERED: Labetalol 5 mg/ml Inj 20ML IV ONE (08:06)
[2018-09-11] MEDS: Labetalol 5mg/ml (4ml) IV STA ×2 (08:24→17:32)
[2018-09-11] MEDS ORDERED: Albuterol-Ipratrop 3 mg / 0.5 (3 ml) UD IH PRN (08:30)
[2018-09-11] MEDS ORDERED: Levalbuterol 1.25 MG/3 ML Inhal Soln UD IH PRN (08:32)
--- NOTE | 2018-09-11 08:38 | CP.CCUPN ---
<Izaiah Ayala - Last Filed: 09/11/18 11:37> CCU Subjective - Physician Review Subjective (Free Text): Izaiah Ayala PGY-1 Progress Note for Hospitalist Service Patient seen and evaluated at bedside. No acute events reported overnight. Currently on pressure support. Further history unable to obtained due to patient lethargy. CCU Objective - Vital Signs / Intake & Output Vital Signs (Last 4 hours): Vital Signs Temp Pulse Resp BP Pulse Ox 09/11/18 07:05 16 97 09/11/18 07:01 100.0 F H 117 H 184/94 H 94 L 09/11/18 07:00 100.0 F H 109 H 95 09/11/18 06:50 100.4 F H 102 H 97 09/11/18 06:40 100.4 F H 105 H 97 09/11/18 06:30 100.6 F H 106 H 97 09/11/18 06:20 100.6 F H 108 H 97 09/11/18 06:10 100.6 F H 110 H 97 09/11/18 06:00 100.6 F H 115 H 168/89 H 96 09/11/18 05:50 100.6 F H 117 H 97 09/11/18 05:40 100.6 F H 117 H 97 09/11/18 05:30 100.6 F H 116 H 97 09/11/18 05:20 100.6 F H 97 09/11/18 05:10 100.4 F H 112 H 97 09/11/18 05:00 100.4 F H 114 H 173/94 H 96 09/11/18 04:50 100.4 F H 114 H 97 09/11/18 04:40 100.2 F H 115 H 98 Intake and Output (Last 8hrs): Intake & Output 09/10/18 09/11/18 09/11/18 22:59 06:59 14:59 Intake Total 900 Output Total 500 450 Balance -500 450 Weight 70.534 kg Intake: IV 900 Left Hand 900 Oral 0 Output: Gastric Amount 50 Stomach 50 Urine 500 400 Urethral (Diehl) 500 400 Other: # Bowel Movements 0 - Physical Exam Physical Exam Limitations: Positive for: Clinical Condition (Lethargy) Head: Positive for: Atraumatic, Normocephalic Pupils: Positive for: PERRL Conjunctiva: Positive for: Normal Neck: Positive for: Normal Range of Motion Respiratory/Chest: Positive for: Clear to Auscultation, Decreased Breath Sounds, Other (Intubated, plan to extubate). Negative for: Respiratory Distress Cardiovascular: Positive for: Normal S1, S2, Tachycardic. Negative for: Murmurs Abdomen: Negative for: Tenderness, Distention, Peritoneal Signs Upper Extremity: Positive for: Normal Inspection, Neurovascularly Intact. Negative for: Cyanosis, Edema, Normal ROM Lower Extremity: Positive for: Normal Inspection, Neurovascularly Intact. Negative for: Edema, Normal ROM Neurological: Positive for: Normal Sensory Function. Negative for: Motor Func Grossly Intact Skin: Positive for: Warm, Dry, Normal Color. Negative for: Rashes Psychiatric: Positive for: Alert. Negative for: Oriented x 3 (AAOx0) - Medications Active Medications: Active Medications Generic Name Dose Route Start Last Admin Trade Name Freq PRN Reason Stop Dose Admin Acetaminophen 650 mg 09/10/18 09:15 09/11/18 00:47 Tylenol 325mg Tab PO 650 mg Q6H PRN Administration Fever >100.4 F Enoxaparin Sodium 40 mg 09/10/18 10:00 09/10/18 09:49 Lovenox SC 40 mg DAILY TONYA Administration Protocol Sodium Chloride 1,000 mls @ 75 mls/hr 09/10/18 02:15 09/10/18 16:44 Sodium Chloride 0.9% IV 75 mls/hr .[id number] TONYA Administration Ceftriaxone Sodium 1 gm in 100 mls @ 100 mls/hr 09/10/18 14:30 09/10/18 15:30 Rocephin 1 Gram Ivpb IVPB 09/14/18 10:59 100 mls/hr DAILY TONYA Administration Protocol Azithromycin 500 mg in 250 mls @ 167 mls/hr 09/10/18 14:30 09/10/18 15:30 Zithromax 500mg In Ns IVPB 167 mls/hr DAILY TONYA Administration Protocol Insulin Human Regular 0 units 09/10/18 02:45 09/11/18 02:45 Humulin R Low SC Not Given Q6H TONYA Protocol Levalbuterol HCl 1.25 mg 09/11/18 08:32 Xopenex IH [id number] PRN Shortness of Breath Pantoprazole Sodium 40 mg 09/10/18 10:00 09/10/18 09:50 Protonix Inj IVP 40 mg DAILY TONYA Administration - Patient Studies Lab Studies: Microbiology Studies 09/10/18 00:30 Blood Culture - Preliminary Blood-Venous NO GROWTH AFTER 24 HOURS 09/09/18 23:26 Blood Culture - Preliminary Blood-Venous NO GROWTH AFTER 24 HOURS Lab Studies 09/11/18 09/11/18 09/11/18 Range/Units 05:30 05:20 05:20 WBC 11.9 H D (4.5-11.0) 10^3/uL RBC 4.74 (3.5-6.1) 10^6/uL Hgb 14.3 (12.0-16.0) g/dL Hct 44.0 (36.0-48.0) % MCV 92.8 D (80.0-105.0) fl MCH 30.2 (25.0-35.0) pg MCHC 32.5 (31.0-37.0) g/dl RDW 13.1 (11.5-14.5) % Plt Count 315 (120.0-450.0) 10^3/uL MPV 8.7 (7.0-11.0) fl Gran % 68.1 H (50.0-68.0) % Lymph % (Auto) 26.0 (22.0-35.0) % [place] % (Auto) 4.5 (1.0-6.0) % Eos % (Auto) 1.0 L (1.5-5.0) % Baso % (Auto) 0.4 (0.0-3.0) % Gran # 8.13 H (1.4-6.5) Lymph # (Auto) 3.1 (1.2-3.4) [place] # (Auto) 0.5 (0.1-0.6) Eos # (Auto) 0.1 (0.0-0.7) Baso # (Auto) 0.05 (0.0-2.0) K/mm3 pCO2 40 (35-45) mm/Hg pO2 143.0 H (80-100) mm/Hg HCO3 23.1 (21-28) mmol/L ABG pH 7.37 (7.35-7.45) ABG Total CO2 24.3 (22-28) mmol.L ABG O2 Saturation 99.9 H (95-98) % ABG O2 Content 17.6 (15-23) ML/dl ABG Base Excess -2.0 (-2.0-3.0) mmol/L ABG Hemoglobin 12.7 (11.7-17.4) g/dL ABG Carboxyhemoglobin 1.8 H (0.5-1.5) % POC ABG HHb (Measured) 0.1 (0-5) % ABG Methemoglobin 1.0 (0.0-3.0) % ABG O2 Capacity 17.6 (16-24) mL/dl Hgb O2 Saturation 97.2 (95.0-98.0) % FiO2 40.0 % Sodium 141 (132-148) mmol/L Potassium 3.6 (3.6-5.0) mmol/L Chloride 107 (98-107) mmol/L Carbon Dioxide 25 (21-33) mmol/L Anion Gap 13 (10-20) BUN 9 (7-21) mg/dL Creatinine 0.7 (0.7-1.2) mg/dl Est GFR ( Amer) > 60 Est GFR (Non-Af Amer) > 60 POC Glucose (mg/dL) (65-110) mg/dL Random Glucose 162 H (70-110) mg/dL Calcium 9.0 (8.4-10.5) mg/dL Total Bilirubin 0.6 (0.2-1.3) mg/dL AST 32 (14-36) U/L ALT 28 (7-56) U/L Alkaline Phosphatase 145 H (38-126) U/L Total Protein 8.0 (5.8-8.3) g/dL Albumin 4.1 (3.0-4.8) g/dL Globulin 3.9 gm/dL Albumin/Globulin Ratio 1.0 L (1.1-1.8) Procalcitonin (0.19-0.49) NG/ML TSH 3rd Generation (0.46-4.68) mIU/mL Urine Color (YELLOW) Urine Appearance (CLEAR) Urine pH (4.7-8.0) Ur Specific [place] (1.005-1.035) Urine Protein (<30 mg/dL) mg/dL Urine Glucose (UA) (NEGATIVE) mg/dL Urine Ketones (NEGATIVE) mg/dL Urine Blood (NEGATIVE) Urine Nitrate (NEGATIVE) Urine Bilirubin (NEGATIVE) Urine Urobilinogen (<1 E.U./dL) E.U./dL Ur Leukocyte Esterase (NEGATIVE) Cecy/uL Urine RBC (0-2) /hpf Urine WBC (0-6) /hpf Ur Epithelial Cells (0-5) /hpf Urine Bacteria (NONE) /hpf 09/11/18 09/10/18 09/10/18 Range/Units 03:11 21:36 20:00 WBC (4.5-11.0) 10^3/uL RBC (3.5-6.1) 10^6/uL Hgb (12.0-16.0) g/dL Hct (36.0-48.0) % MCV (80.0-105.0) fl MCH (25.0-35.0) pg MCHC (31.0-37.0) g/dl RDW (11.5-14.5) % Plt Count (120.0-450.0) 10^3/uL MPV (7.0-11.0) fl Gran % (50.0-68.0) % Lymph % (Auto) (22.0-35.0) % [place] % (Auto) (1.0-6.0) % Eos % (Auto) (1.5-5.0) % Baso % (Auto) (0.0-3.0) % Gran # (1.4-6.5) Lymph # (Auto) (1.2-3.4) [place] # (Auto) (0.1-0.6) Eos # (Auto) (0.0-0.7) Baso # (Auto) (0.0-2.0) K/mm3 pCO2 (35-45) mm/Hg pO2 (80-100) mm/Hg HCO3 (21-28) mmol/L ABG pH (7.35-7.45) ABG Total CO2 (22-28) mmol.L ABG O2 Saturation (95-98) % ABG O2 Content (15-23) ML/dl ABG Base Excess (-2.0-3.0) mmol/L ABG Hemoglobin (11.7-17.4) g/dL ABG Carboxyhemoglobin (0.5-1.5) % POC ABG HHb (Measured) (0-5) % ABG Methemoglobin (0.0-3.0) % ABG O2 Capacity (16-24) mL/dl Hgb O2 Saturation (95.0-98.0) % FiO2 % Sodium (132-148) mmol/L Potassium (3.6-5.0) mmol/L Chloride (98-107) mmol/L Carbon Dioxide (21-33) mmol/L Anion Gap (10-20) BUN (7-21) mg/dL Creatinine (0.7-1.2) mg/dl Est GFR ( Amer) Est GFR (Non-Af Amer) POC Glucose (mg/dL) 146 H 162 H (65-110) mg/dL Random Glucose (70-110) mg/dL Calcium (8.4-10.5) mg/dL Total Bilirubin (0.2-1.3) mg/dL AST (14-36) U/L ALT (7-56) U/L Alkaline Phosphatase (38-126) U/L Total Protein (5.8-8.3) g/dL Albumin (3.0-4.8) g/dL Globulin gm/dL Albumin/Globulin Ratio (1.1-1.8) Procalcitonin (0.19-0.49) NG/ML TSH 3rd Generation (0.46-4.68) mIU/mL Urine Color Light yellow (YELLOW) Urine Appearance Sl cloudy (CLEAR) Urine pH 5.5 (4.7-8.0) Ur Specific [place] 1.025 (1.005-1.035) Urine Protein Trace H (<30 mg/dL) mg/dL Urine Glucose (UA) >=1000 (NEGATIVE) mg/dL Urine Ketones 15 H (NEGATIVE) mg/dL Urine Blood Large H (NEGATIVE) Urine Nitrate Positive H (NEGATIVE) Urine Bilirubin Negative (NEGATIVE) Urine Urobilinogen 0.2 (<1 E.U./dL) E.U./dL Ur Leukocyte Esterase Trace H (NEGATIVE) Cecy/uL Urine RBC 10 - 15 H (0-2) /hpf Urine WBC 20 - 25 H (0-6) /hpf Ur Epithelial Cells 1 - 3 (0-5) /hpf Urine Bacteria Small (NONE) /hpf 09/10/18 09/10/18 09/10/18 Range/Units 14:38 13:00 13:00 WBC (4.5-11.0) 10^3/uL RBC (3.5-6.1) 10^6/uL Hgb (12.0-16.0) g/dL Hct (36.0-48.0) % MCV (80.0-105.0) fl MCH (25.0-35.0) pg MCHC (31.0-37.0) g/dl RDW (11.5-14.5) % Plt Count (120.0-450.0) 10^3/uL MPV (7.0-11.0) fl Gran % (50.0-68.0) % Lymph % (Auto) (22.0-35.0) % [place] % (Auto) (1.0-6.0) % Eos % (Auto) (1.5-5.0) % Baso % (Auto) (0.0-3.0) % Gran # (1.4-6.5) Lymph # (Auto) (1.2-3.4) [place] # (Auto) (0.1-0.6) Eos # (Auto) (0.0-0.7) Baso # (Auto) (0.0-2.0) K/mm3 pCO2 (35-45) mm/Hg pO2 (80-100) mm/Hg HCO3 (21-28) mmol/L ABG pH (7.35-7.45) ABG Total CO2 (22-28) mmol.L ABG O2 Saturation (95-98) % ABG O2 Content (15-23) ML/dl ABG Base Excess (-2.0-3.0) mmol/L ABG Hemoglobin (11.7-17.4) g/dL ABG Carboxyhemoglobin (0.5-1.5) % POC ABG HHb (Measured) (0-5) % ABG Methemoglobin (0.0-3.0) % ABG O2 Capacity (16-24) mL/dl Hgb O2 Saturation (95.0-98.0) % FiO2 % Sodium (132-148) mmol/L Potassium (3.6-5.0) mmol/L Chloride (98-107) mmol/L Carbon Dioxide (21-33) mmol/L Anion Gap (10-20) BUN (7-21) mg/dL Creatinine (0.7-1.2) mg/dl Est GFR ( Amer) Est GFR (Non-Af Amer) POC Glucose (mg/dL) 252 H (65-110) mg/dL Random Glucose (70-110) mg/dL Calcium (8.4-10.5) mg/dL Total Bilirubin (0.2-1.3) mg/dL AST (14-36) U/L ALT (7-56) U/L Alkaline Phosphatase (38-126) U/L Total Protein (5.8-8.3) g/dL Albumin (3.0-4.8) g/dL Globulin gm/dL Albumin/Globulin Ratio (1.1-1.8) Procalcitonin 0.62 H (0.19-0.49) NG/ML TSH 3rd Generation 0.80 (0.46-4.68) mIU/mL Urine Color (YELLOW) Urine Appearance (CLEAR) Urine pH (4.7-8.0) Ur Specific [place] (1.005-1.035) Urine Protein (<30 mg/dL) mg/dL Urine Glucose (UA) (NEGATIVE) mg/dL Urine Ketones (NEGATIVE) mg/dL Urine Blood (NEGATIVE) Urine Nitrate (NEGATIVE) Urine Bilirubin (NEGATIVE) Urine Urobilinogen (<1 E.U./dL) E.U./dL Ur Leukocyte Esterase (NEGATIVE) Cecy/uL Urine RBC (0-2) /hpf Urine WBC (0-6) /hpf Ur Epithelial Cells (0-5) /hpf Urine Bacteria (NONE) /hpf 09/10/18 09/10/18 Range/Units 08:57 08:40 WBC (4.5-11.0) 10^3/uL RBC (3.5-6.1) 10^6/uL Hgb (12.0-16.0) g/dL Hct (36.0-48.0) % MCV (80.0-105.0) fl MCH (25.0-35.0) pg MCHC (31.0-37.0) g/dl RDW (11.5-14.5) % Plt Count (120.0-450.0) 10^3/uL MPV (7.0-11.0) fl Gran % (50.0-68.0) % Lymph % (Auto) (22.0-35.0) % [place] % (Auto) (1.0-6.0) % Eos % (Auto) (1.5-5.0) % Baso % (Auto) (0.0-3.0) % Gran # (1.4-6.5) Lymph # (Auto) (1.2-3.4) [place] # (Auto) (0.1-0.6) Eos # (Auto) (0.0-0.7) Baso # (Auto) (0.0-2.0) K/mm3 pCO2 38 (35-45) mm/Hg pO2 216.0 H (80-100) mm/Hg HCO3 25.8 (21-28) mmol/L ABG pH 7.44 (7.35-7.45) ABG Total CO2 27.0 (22-28) mmol.L ABG O2 Saturation 100.0 H (95-98) % ABG O2 Content 21.4 (15-23) ML/dl ABG Base Excess 1.7 (-2.0-3.0) mmol/L ABG Hemoglobin 15.3 (11.7-17.4) g/dL ABG Carboxyhemoglobin 1.4 (0.5-1.5) % POC ABG HHb (Measured) 0 (0-5) % ABG Methemoglobin 1.0 (0.0-3.0) % ABG O2 Capacity 21.4 (16-24) mL/dl Hgb O2 Saturation 97.6 (95.0-98.0) % FiO2 70.0 % Sodium (132-148) mmol/L Potassium (3.6-5.0) mmol/L Chloride (98-107) mmol/L Carbon Dioxide (21-33) mmol/L Anion Gap (10-20) BUN (7-21) mg/dL Creatinine (0.7-1.2) mg/dl Est GFR ( Amer) Est GFR (Non-Af Amer) POC Glucose (mg/dL) 270 H (65-110) mg/dL Random Glucose (70-110) mg/dL Calcium (8.4-10.5) mg/dL Total Bilirubin (0.2-1.3) mg/dL AST (14-36) U/L ALT (7-56) U/L Alkaline Phosphatase (38-126) U/L Total Protein (5.8-8.3) g/dL Albumin (3.0-4.8) g/dL Globulin gm/dL Albumin/Globulin Ratio (1.1-1.8) Procalcitonin (0.19-0.49) NG/ML TSH 3rd Generation (0.46-4.68) mIU/mL Urine Color (YELLOW) Urine Appearance (CLEAR) Urine pH (4.7-8.0) Ur Specific [place] (1.005-1.035) Urine Protein (<30 mg/dL) mg/dL Urine Glucose (UA) (NEGATIVE) mg/dL Urine Ketones (NEGATIVE) mg/dL Urine Blood (NEGATIVE) Urine Nitrate (NEGATIVE) Urine Bilirubin (NEGATIVE) Urine Urobilinogen (<1 E.U./dL) E.U./dL Ur Leukocyte Esterase (NEGATIVE) Cecy/uL Urine RBC (0-2) /hpf Urine WBC (0-6) /hpf Ur Epithelial Cells (0-5) /hpf Urine Bacteria (NONE) /hpf Laboratory Results - last 24 hr 09/10/18 09/10/18 09/10/18 08:40 08:57 13:00 WBC RBC Hgb Hct MCV MCH MCHC RDW Plt Count MPV Gran % Lymph % (Auto) [place] % (Auto) Eos % (Auto) Baso % (Auto) Gran # Lymph # (Auto) [place] # (Auto) Eos # (Auto) Baso # (Auto) pCO2 38 pO2 216.0 H HCO3 25.8 ABG pH 7.44 ABG Total CO2 27.0 ABG O2 Saturation 100.0 H ABG O2 Content 21.4 ABG Base Excess 1.7 ABG Hemoglobin 15.3 ABG Carboxyhemoglobin 1.4 POC ABG HHb (Measured) 0 ABG Methemoglobin 1.0 ABG O2 Capacity 21.4 Hgb O2 Saturation 97.6 FiO2 70.0 Sodium Potassium Chloride Carbon Dioxide Anion Gap BUN Creatinine Est GFR ( Amer) Est GFR (Non-Af Amer) POC Glucose (mg/dL) 270 H Random Glucose Calcium Total Bilirubin AST ALT Alkaline Phosphatase Total Protein Albumin Globulin Albumin/Globulin Ratio Procalcitonin 0.62 H TSH 3rd Generation Urine Color Urine Appearance Urine pH Ur Specific [place] Urine Protein Urine Glucose (UA) Urine Ketones Urine Blood Urine Nitrate Urine Bilirubin Urine Urobilinogen Ur Leukocyte Esterase Urine RBC Urine WBC Ur Epithelial Cells Urine Bacteria 09/10/18 09/10/18 09/10/18 13:00 14:38 20:00 WBC RBC Hgb Hct MCV MCH MCHC RDW Plt Count MPV Gran % Lymph % (Auto) [place] % (Auto) Eos % (Auto) Baso % (Auto) Gran # Lymph # (Auto) [place] # (Auto) Eos # (Auto) Baso # (Auto) pCO2 pO2 HCO3 ABG pH ABG Total CO2 ABG O2 Saturation ABG O2 Content ABG Base Excess ABG Hemoglobin ABG Carboxyhemoglobin POC ABG HHb (Measured) ABG Methemoglobin ABG O2 Capacity Hgb O2 Saturation FiO2 Sodium Potassium Chloride Carbon Dioxide Anion Gap BUN Creatinine Est GFR ( Amer) Est GFR (Non-Af Amer) POC Glucose (mg/dL) 252 H Random Glucose Calcium Total Bilirubin AST ALT Alkaline Phosphatase Total Protein Albumin Globulin Albumin/Globulin Ratio Procalcitonin TSH 3rd Generation 0.80 Urine Color Light yellow Urine Appearance Sl cloudy Urine pH 5.5 Ur Specific [place] 1.025 Urine Protein Trace H Urine Glucose (UA) >=1000 Urine Ketones 15 H Urine Blood Large H Urine Nitrate Positive H Urine Bilirubin Negative Urine Urobilinogen 0.2 Ur Leukocyte Esterase Trace H Urine RBC 10 - 15 H Urine WBC 20 - 25 H Ur Epithelial Cells 1 - 3 Urine Bacteria Small 09/10/18 09/11/18 09/11/18 21:36 03:11 05:20 WBC 11.9 H D RBC 4.74 Hgb 14.3 Hct 44.0 MCV 92.8 D MCH 30.2 MCHC 32.5 RDW 13.1 Plt Count 315 MPV 8.7 Gran % 68.1 H Lymph % (Auto) 26.0 [place] % (Auto) 4.5 Eos % (Auto) 1.0 L Baso % (Auto) 0.4 Gran # 8.13 H Lymph # (Auto) 3.1 [place] # (Auto) 0.5 Eos # (Auto) 0.1 Baso # (Auto) 0.05 pCO2 pO2 HCO3 ABG pH ABG Total CO2 ABG O2 Saturation ABG O2 Content ABG Base Excess ABG Hemoglobin ABG Carboxyhemoglobin POC ABG HHb (Measured) ABG Methemoglobin ABG O2 Capacity Hgb O2 Saturation FiO2 Sodium Potassium Chloride Carbon Dioxide Anion Gap BUN Creatinine Est GFR ( Amer) Est GFR (Non-Af Amer) POC Glucose (mg/dL) 162 H 146 H Random Glucose Calcium Total Bilirubin AST ALT Alkaline Phosphatase Total Protein Albumin Globulin Albumin/Globulin Ratio Procalcitonin TSH 3rd Generation Urine Color Urine Appearance Urine pH Ur Specific [place] Urine Protein Urine Glucose (UA) Urine Ketones Urine Blood Urine Nitrate Urine Bilirubin Urine Urobilinogen Ur Leukocyte Esterase Urine RBC Urine WBC Ur Epithelial Cells Urine Bacteria 09/11/18 09/11/18 05:20 05:30 WBC RBC Hgb Hct MCV MCH MCHC RDW Plt Count MPV Gran % Lymph % (Auto) [place] % (Auto) Eos % (Auto) Baso % (Auto) Gran # Lymph # (Auto) [place] # (Auto) Eos # (Auto) Baso # (Auto) pCO2 40 pO2 143.0 H HCO3 23.1 ABG pH 7.37 ABG Total CO2 24.3 ABG O2 Saturation 99.9 H ABG O2 Content 17.6 ABG Base Excess -2.0 ABG Hemoglobin 12.7 ABG Carboxyhemoglobin 1.8 H POC ABG HHb (Measured) 0.1 ABG Methemoglobin 1.0 ABG O2 Capacity 17.6 Hgb O2 Saturation 97.2 FiO2 40.0 Sodium 141 Potassium 3.6 Chloride 107 Carbon Dioxide 25 Anion Gap 13 BUN 9 Creatinine 0.7 Est GFR ( Amer) > 60 Est GFR (Non-Af Amer) > 60 POC Glucose (mg/dL) Random Glucose 162 H Calcium 9.0 Total Bilirubin 0.6 AST 32 ALT 28 Alkaline Phosphatase 145 H Total Protein 8.0 Albumin 4.1 Globulin 3.9 Albumin/Globulin Ratio 1.0 L Procalcitonin TSH 3rd Generation Urine Color Urine Appearance Urine pH Ur Specific [place] Urine Protein Urine Glucose (UA) Urine Ketones Urine Blood Urine Nitrate Urine Bilirubin Urine Urobilinogen Ur Leukocyte Esterase Urine RBC Urine WBC Ur Epithelial Cells Urine Bacteria Radiology Impressions: Radiology Impressions Chest X-Ray 09/09/18 21:30 IMPRESSION: Endotracheal tube terminates approximately 2.3 cm above the jessica. Head CT 09/09/18 21:56 IMPRESSION: No acute intracranial findings Chest X-Ray 09/10/18 08:00 IMPRESSION: No active disease. Satisfactory position of recently placed nasogastric tube. Stable position of endotracheal tube. EKG/Cardiology Studies: Cardiology / EKG Studies 09/10/18 07:36 EKG [ELECTROCARDIOGRAM] Stat Comment: Reason For Exam: benzo O/D 09/11/18 06:00 EKG [ELECTROCARDIOGRAM] Routine Comment: Reason For Exam: benzo OD Fingerstick Blood Sugar Results: 252 Review of Systems - Review of Systems Review of Systems: 12 point ROS unable to be ascertained secondary to clinical condition. Critical Care Progress Note - Extremities/Vascular Does the Patient have a Diehl Catheter?: Yes Does the Patient need a Diehl Catheter?: Yes - Nutrition Nutrition: Nutrition Category Date Time Status NPO Diet [DIET] Diets 09/10/18 Breakfast Ordered Assessment/Plan - Assessment and Plan (Free Text) Assessment: Ms. Randle is a 62 year old F w/ PMH of anxiety, depression, diabetes, hypertension, and hypothyroidism, who presented in AMS and respiratory depression 2/2 benzo overdose. Patient intubated and admitted to ICU for management of respiratory depression and AMS. Plan for extubation today. Plan: Neuro - Responds to painful stimuli - 09/09/[address] shows age appropriate cerebral atrophy, mild microvascular disease, no acute intracranial pathology - Patient intubated on mechanical ventilation 50/5/15/500 - Lethargic 2/2 Benzo OD, currently not agitated - UDS +Benzos only - [place] Q4 - Maintain RASS 0 to -2 - Reorient as needed - Hx psych disorder; Dr. Jacobson re-consulted - recs appreciated Pulm - Patient intubated in field; unable to protect airway; Plan to extubate this morning and and place on NC - Begin BiPAP 10/6, 35%, RR 14 - 09/09 CXR - RLL shows infiltrate - Continue Rocephin 1 g and Azithro 500 mg daily for SIRS of unknown source - 09/10/18 Repeat CXR shows perihilar fullness. No congestion - Protective lung ventilation strategy - Maintain O2 Sat >95% - Aspiration precautions Cardio - S1S2 RRR - EKG on admission shows Sinus tachycardia @101bpm, Septal infarct , Nonspecific STT wave changes - Maintaining pressure well w/o pressor support - Hx HTN - Labetalol 10 mg IVP given overnight and this AM, will resume home dosages of Zestril and Toprol XL - Continue monitoring - Maintain MAP > 65 Endocrinology - Hx DM + Hx Hypothyroidism - TSH 0.8, continue home Synthroid - ISS LOW w/ fingersticks Q6H - Synthroid dose uncertain; will verify w/ PMD/Pharmacy in AM prior to restarting - Maintain euglycemia 110-180 GI: - NGT to be removed when extubated - Hx HLD - Resume anti-lipid rx once stable - NPO, f/u speech and swallow recs s/p extubation Nephro - BUN/Cr - 9/0.7 - Maintain euvolemia, NS @ 75 cc/hr - UA + for Nitrates and leuk esterase - Diehl in place, 1 L output - Maintain electrolyte balance ID: - Improved Leukocytosis 11.9, Febrile O/N 100.6 - Procal 0.62 - Tylenol 650 q6 for fever - CXR w/ RLL infiltrate - BCX x2 neg after 24 hours - UCX pending PPX: - Protonix discontinued when extubated - Lovenox 40 IVP Patient seen, case reviewed and plan approved by Dr. Macy Bowden. Izaiah Ayala, PGY-1 <Josué Bowden - Last Filed: 09/11/18 17:15> CCU Objective - Vital Signs / Intake & Output Vital Signs (Last 4 hours): Vital Signs Temp Pulse Resp BP Pulse Ox 09/11/18 14:59 101.2 F H 09/11/18 14:50 100.8 F H 101 H 16 97 09/11/18 14:40 100.9 F H 100 H 19 97 09/11/18 14:30 101.1 F H 98 H 14 97 09/11/18 14:21 82.4 F L 97 09/11/18 14:20 100.4 F H 100 H 18 97 09/11/18 14:10 100.4 F H 101 H 19 96 09/11/18 14:00 100.4 F H 99 H 18 169/96 H 95 09/11/18 13:50 100.4 F H 99 H 18 96 09/11/18 13:49 100.4 F H 100 H 97 09/11/18 13:40 100.4 F H 99 H 19 97 09/11/18 13:37 100.2 F H 99 H 20 176/98 H 94 L 09/11/18 13:36 100.2 F H 99 H 97 09/11/18 13:30 100.2 F H 97 H 18 97 09/11/18 13:23 100.2 F H 114 H 19 188/104 H 95 09/11/18 13:20 100.2 F H 114 H 19 97 Intake and Output (Last 8hrs): Intake & Output 09/11/18 09/11/18 09/11/18 06:59 14:59 22:59 Intake Total 900 Output Total 450 Balance 450 Weight 70.534 kg Intake: IV 900 Left Hand 900 Oral 0 Output: Gastric Amount 50 Stomach 50 Urine 400 Urethral (Diehl) 400 Other: # Bowel Movements 0 - Medications Active Medications: Active Medications Generic Name Dose Route Start Last Admin Trade Name Freq PRN Reason Stop Dose Admin Acetaminophen 650 mg 09/10/18 09:15 09/11/18 00:47 Tylenol 325mg Tab PO 650 mg Q6H PRN Administration Fever >100.4 F Acetaminophen 325 mg 09/11/18 14:51 09/11/18 14:59 Tylenol 325 Mg Supp RC 325 mg Q6H PRN Administration Fever >100.4 F Enoxaparin Sodium 40 mg 09/10/18 10:00 09/11/18 09:17 Lovenox SC 40 mg DAILY TONYA Administration Protocol Sodium Chloride 1,000 mls @ 75 mls/hr 09/10/18 02:15 09/11/18 09:19 Sodium Chloride 0.9% IV 75 mls/hr .[id number] TONYA Administration Ceftriaxone Sodium 1 gm in 100 mls @ 100 mls/hr 09/10/18 14:30 09/11/18 09:18 Rocephin 1 Gram Ivpb IVPB 09/14/18 10:59 100 mls/hr DAILY TONYA Administration Protocol Azithromycin 500 mg in 250 mls @ 167 mls/hr 09/10/18 14:30 09/11/18 09:20 Zithromax 500mg In Ns IVPB 167 mls/hr DAILY TONYA Administration Protocol Insulin Human Regular 0 units 09/10/18 02:45 09/11/18 15:00 Humulin R Low SC 1 units Q6H TONYA Administration Protocol Levalbuterol HCl 1.25 mg 09/11/18 08:32 Xopenex IH [id number] PRN Shortness of Breath Levothyroxine Sodium 50 mcg 09/11/18 10:00 09/11/18 12:57 Synthroid PO Not Given QAM TONYA Lisinopril 5 mg 09/11/18 10:00 09/11/18 12:58 Zestril PO Not Given DAILY TONYA Metoprolol Succinate 25 mg 09/11/18 10:00 09/11/18 12:57 Toprol Xl PO Not Given DAILY TONYA - Patient Studies Lab Studies: Microbiology Studies 09/10/18 17:18 Gram Stain - Final Trachasp 09/10/18 03:00 MRSA Culture (Admit) - Final Nose MRSA NOT DETECTED 09/09/18 23:05 Urine Culture - Preliminary Urine Random Gram Negative Saqib 09/10/18 00:30 Blood Culture - Preliminary Blood-Venous NO GROWTH AFTER 24 HOURS 09/09/18 23:26 Blood Culture - Preliminary Blood-Venous NO GROWTH AFTER 24 HOURS Lab Studies 09/11/18 09/11/18 09/11/18 Range/Units 05:30 05:20 05:20 WBC 11.9 H D (4.5-11.0) 10^3/uL RBC 4.74 (3.5-6.1) 10^6/uL Hgb 14.3 (12.0-16.0) g/dL Hct 44.0 (36.0-48.0) % MCV 92.8 D (80.0-105.0) fl MCH 30.2 (25.0-35.0) pg MCHC 32.5 (31.0-37.0) g/dl RDW 13.1 (11.5-14.5) % Plt Count 315 (120.0-450.0) 10^3/uL MPV 8.7 (7.0-11.0) fl Gran % 68.1 H (50.0-68.0) % Lymph % (Auto) 26.0 (22.0-35.0) % [place] % (Auto) 4.5 (1.0-6.0) % Eos % (Auto) 1.0 L (1.5-5.0) % Baso % (Auto) 0.4 (0.0-3.0) % Gran # 8.13 H (1.4-6.5) Lymph # (Auto) 3.1 (1.2-3.4) [place] # (Auto) 0.5 (0.1-0.6) Eos # (Auto) 0.1 (0.0-0.7) Baso # (Auto) 0.05 (0.0-2.0) K/mm3 pCO2 40 (35-45) mm/Hg pO2 143.0 H (80-100) mm/Hg HCO3 23.1 (21-28) mmol/L ABG pH 7.37 (7.35-7.45) ABG Total CO2 24.3 (22-28) mmol.L ABG O2 Saturation 99.9 H (95-98) % ABG O2 Content 17.6 (15-23) ML/dl ABG Base Excess -2.0 (-2.0-3.0) mmol/L ABG Hemoglobin 12.7 (11.7-17.4) g/dL ABG Carboxyhemoglobin 1.8 H (0.5-1.5) % POC ABG HHb (Measured) 0.1 (0-5) % ABG Methemoglobin 1.0 (0.0-3.0) % ABG O2 Capacity 17.6 (16-24) mL/dl Hgb O2 Saturation 97.2 (95.0-98.0) % FiO2 40.0 % Sodium 141 (132-148) mmol/L Potassium 3.6 (3.6-5.0) mmol/L Chloride 107 (98-107) mmol/L Carbon Dioxide 25 (21-33) mmol/L Anion Gap 13 (10-20) BUN 9 (7-21) mg/dL Creatinine 0.7 (0.7-1.2) mg/dl Est GFR ( Amer) > 60 Est GFR (Non-Af Amer) > 60 POC Glucose (mg/dL) (65-110) mg/dL Random Glucose 162 H (70-110) mg/dL Calcium 9.0 (8.4-10.5) mg/dL Total Bilirubin 0.6 (0.2-1.3) mg/dL AST 32 (14-36) U/L ALT 28 (7-56) U/L Alkaline Phosphatase 145 H (38-126) U/L Total Protein 8.0 (5.8-8.3) g/dL Albumin 4.1 (3.0-4.8) g/dL Globulin 3.9 gm/dL Albumin/Globulin Ratio 1.0 L (1.1-1.8) Procalcitonin (0.19-0.49) NG/ML Urine Color (YELLOW) Urine Appearance (CLEAR) Urine pH (4.7-8.0) Ur Specific [place] (1.005-1.035) Urine Protein (<30 mg/dL) mg/dL Urine Glucose (UA) (NEGATIVE) mg/dL Urine Ketones (NEGATIVE) mg/dL Urine Blood (NEGATIVE) Urine Nitrate (NEGATIVE) Urine Bilirubin (NEGATIVE) Urine Urobilinogen (<1 E.U./dL) E.U./dL Ur Leukocyte Esterase (NEGATIVE) Cecy/uL Urine RBC (0-2) /hpf Urine WBC (0-6) /hpf Ur Epithelial Cells (0-5) /hpf Urine Bacteria (NONE) /hpf 09/11/18 09/10/18 09/10/18 Range/Units 03:11 21:36 20:00 WBC (4.5-11.0) 10^3/uL RBC (3.5-6.1) 10^6/uL Hgb (12.0-16.0) g/dL Hct (36.0-48.0) % MCV (80.0-105.0) fl MCH (25.0-35.0) pg MCHC (31.0-37.0) g/dl RDW (11.5-14.5) % Plt Count (120.0-450.0) 10^3/uL MPV (7.0-11.0) fl Gran % (50.0-68.0) % Lymph % (Auto) (22.0-35.0) % [place] % (Auto) (1.0-6.0) % Eos % (Auto) (1.5-5.0) % Baso % (Auto) (0.0-3.0) % Gran # (1.4-6.5) Lymph # (Auto) (1.2-3.4) [place] # (Auto) (0.1-0.6) Eos # (Auto) (0.0-0.7) Baso # (Auto) (0.0-2.0) K/mm3 pCO2 (35-45) mm/Hg pO2 (80-100) mm/Hg HCO3 (21-28) mmol/L ABG pH (7.35-7.45) ABG Total CO2 (22-28) mmol.L ABG O2 Saturation (95-98) % ABG O2 Content (15-23) ML/dl ABG Base Excess (-2.0-3.0) mmol/L ABG Hemoglobin (11.7-17.4) g/dL ABG Carboxyhemoglobin (0.5-1.5) % POC ABG HHb (Measured) (0-5) % ABG Methemoglobin (0.0-3.0) % ABG O2 Capacity (16-24) mL/dl Hgb O2 Saturation (95.0-98.0) % FiO2 % Sodium (132-148) mmol/L Potassium (3.6-5.0) mmol/L Chloride (98-107) mmol/L Carbon Dioxide (21-33) mmol/L Anion Gap (10-20) BUN (7-21) mg/dL Creatinine (0.7-1.2) mg/dl Est GFR ( Amer) Est GFR (Non-Af Amer) POC Glucose (mg/dL) 146 H 162 H (65-110) mg/dL Random Glucose (70-110) mg/dL Calcium (8.4-10.5) mg/dL Total Bilirubin (0.2-1.3) mg/dL AST (14-36) U/L ALT (7-56) U/L Alkaline Phosphatase (38-126) U/L Total Protein (5.8-8.3) g/dL Albumin (3.0-4.8) g/dL Globulin gm/dL Albumin/Globulin Ratio (1.1-1.8) Procalcitonin (0.19-0.49) NG/ML Urine Color Light yellow (YELLOW) Urine Appearance Sl cloudy (CLEAR) Urine pH 5.5 (4.7-8.0) Ur Specific [place] 1.025 (1.005-1.035) Urine Protein Trace H (<30 mg/dL) mg/dL Urine Glucose (UA) >=1000 (NEGATIVE) mg/dL Urine Ketones 15 H (NEGATIVE) mg/dL Urine Blood Large H (NEGATIVE) Urine Nitrate Positive H (NEGATIVE) Urine Bilirubin Negative (NEGATIVE) Urine Urobilinogen 0.2 (<1 E.U./dL) E.U./dL Ur Leukocyte Esterase Trace H (NEGATIVE) Cecy/uL Urine RBC 10 - 15 H (0-2) /hpf Urine WBC 20 - 25 H (0-6) /hpf Ur Epithelial Cells 1 - 3 (0-5) /hpf Urine Bacteria Small (NONE) /hpf 09/10/18 09/10/18 Range/Units 14:38 13:00 WBC (4.5-11.0) 10^3/uL RBC (3.5-6.1) 10^6/uL Hgb (12.0-16.0) g/dL Hct (36.0-48.0) % MCV (80.0-105.0) fl MCH (25.0-35.0) pg MCHC (31.0-37.0) g/dl RDW (11.5-14.5) % Plt Count (120.0-450.0) 10^3/uL MPV (7.0-11.0) fl Gran % (50.0-68.0) % Lymph % (Auto) (22.0-35.0) % [place] % (Auto) (1.0-6.0) % Eos % (Auto) (1.5-5.0) % Baso % (Auto) (0.0-3.0) % Gran # (1.4-6.5) Lymph # (Auto) (1.2-3.4) [place] # (Auto) (0.1-0.6) Eos # (Auto) (0.0-0.7) Baso # (Auto) (0.0-2.0) K/mm3 pCO2 (35-45) mm/Hg pO2 (80-100) mm/Hg HCO3 (21-28) mmol/L ABG pH (7.35-7.45) ABG Total CO2 (22-28) mmol.L ABG O2 Saturation (95-98) % ABG O2 Content (15-23) ML/dl ABG Base Excess (-2.0-3.0) mmol/L ABG Hemoglobin (11.7-17.4) g/dL ABG Carboxyhemoglobin (0.5-1.5) % POC ABG HHb (Measured) (0-5) % ABG Methemoglobin (0.0-3.0) % ABG O2 Capacity (16-24) mL/dl Hgb O2 Saturation (95.0-98.0) % FiO2 % Sodium (132-148) mmol/L Potassium (3.6-5.0) mmol/L Chloride (98-107) mmol/L Carbon Dioxide (21-33) mmol/L Anion Gap (10-20) BUN (7-21) mg/dL Creatinine (0.7-1.2) mg/dl Est GFR ( Amer) Est GFR (Non-Af Amer) POC Glucose (mg/dL) 252 H (65-110) mg/dL Random Glucose (70-110) mg/dL Calcium (8.4-10.5) mg/dL Total Bilirubin (0.2-1.3) mg/dL AST (14-36) U/L ALT (7-56) U/L Alkaline Phosphatase (38-126) U/L Total Protein (5.8-8.3) g/dL Albumin (3.0-4.8) g/dL Globulin gm/dL Albumin/Globulin Ratio (1.1-1.8) Procalcitonin 0.62 H (0.19-0.49) NG/ML Urine Color (YELLOW) Urine Appearance (CLEAR) Urine pH (4.7-8.0) Ur Specific [place] (1.005-1.035) Urine Protein (<30 mg/dL) mg/dL Urine Glucose (UA) (NEGATIVE) mg/dL Urine Ketones (NEGATIVE) mg/dL Urine Blood (NEGATIVE) Urine Nitrate (NEGATIVE) Urine Bilirubin (NEGATIVE) Urine Urobilinogen (<1 E.U./dL) E.U./dL Ur Leukocyte Esterase (NEGATIVE) Cecy/uL Urine RBC (0-2) /hpf Urine WBC (0-6) /hpf Ur Epithelial Cells (0-5) /hpf Urine Bacteria (NONE) /hpf Laboratory Results - last 24 hr 09/10/18 09/10/18 09/10/18 13:00 14:38 20:00 WBC RBC Hgb Hct MCV MCH MCHC RDW Plt Count MPV Gran % Lymph % (Auto) [place] % (Auto) Eos % (Auto) Baso % (Auto) Gran # Lymph # (Auto) [place] # (Auto) Eos # (Auto) Baso # (Auto) pCO2 pO2 HCO3 ABG pH ABG Total CO2 ABG O2 Saturation ABG O2 Content ABG Base Excess ABG Hemoglobin ABG Carboxyhemoglobin POC ABG HHb (Measured) ABG Methemoglobin ABG O2 Capacity Hgb O2 Saturation FiO2 Sodium Potassium Chloride Carbon Dioxide Anion Gap BUN Creatinine Est GFR ( Amer) Est GFR (Non-Af Amer) POC Glucose (mg/dL) 252 H Random Glucose Calcium Total Bilirubin AST ALT Alkaline Phosphatase Total Protein Albumin Globulin Albumin/Globulin Ratio Procalcitonin 0.62 H Urine Color Light yellow Urine Appearance Sl cloudy Urine pH 5.5 Ur Specific [place] 1.025 Urine Protein Trace H Urine Glucose (UA) >=1000 Urine Ketones 15 H Urine Blood Large H Urine Nitrate Positive H Urine Bilirubin Negative Urine Urobilinogen 0.2 Ur Leukocyte Esterase Trace H Urine RBC 10 - 15 H Urine WBC 20 - 25 H Ur Epithelial Cells 1 - 3 Urine Bacteria Small 09/10/18 09/11/18 09/11/18 21:36 03:11 05:20 WBC 11.9 H D RBC 4.74 Hgb 14.3 Hct 44.0 MCV 92.8 D MCH 30.2 MCHC 32.5 RDW 13.1 Plt Count 315 MPV 8.7 Gran % 68.1 H Lymph % (Auto) 26.0 [place] % (Auto) 4.5 Eos % (Auto) 1.0 L Baso % (Auto) 0.4 Gran # 8.13 H Lymph # (Auto) 3.1 [place] # (Auto) 0.5 Eos # (Auto) 0.1 Baso # (Auto) 0.05 pCO2 pO2 HCO3 ABG pH ABG Total CO2 ABG O2 Saturation ABG O2 Content ABG Base Excess ABG Hemoglobin ABG Carboxyhemoglobin POC ABG HHb (Measured) ABG Methemoglobin ABG O2 Capacity Hgb O2 Saturation FiO2 Sodium Potassium Chloride Carbon Dioxide Anion Gap BUN Creatinine Est GFR ( Amer) Est GFR (Non-Af Amer) POC Glucose (mg/dL) 162 H 146 H Random Glucose Calcium Total Bilirubin AST ALT Alkaline Phosphatase Total Protein Albumin Globulin Albumin/Globulin Ratio Procalcitonin Urine Color Urine Appearance Urine pH Ur Specific [place] Urine Protein Urine Glucose (UA) Urine Ketones Urine Blood Urine Nitrate Urine Bilirubin Urine Urobilinogen Ur Leukocyte Esterase Urine RBC Urine WBC Ur Epithelial Cells Urine Bacteria 09/11/18 09/11/18 05:20 05:30 WBC RBC Hgb Hct MCV MCH MCHC RDW Plt Count MPV Gran % Lymph % (Auto) [place] % (Auto) Eos % (Auto) Baso % (Auto) Gran # Lymph # (Auto) [place] # (Auto) Eos # (Auto) Baso # (Auto) pCO2 40 pO2 143.0 H HCO3 23.1 ABG pH 7.37 ABG Total CO2 24.3 ABG O2 Saturation 99.9 H ABG O2 Content 17.6 ABG Base Excess -2.0 ABG Hemoglobin 12.7 ABG Carboxyhemoglobin 1.8 H POC ABG HHb (Measured) 0.1 ABG Methemoglobin 1.0 ABG O2 Capacity 17.6 Hgb O2 Saturation 97.2 FiO2 40.0 Sodium 141 Potassium 3.6 Chloride 107 Carbon Dioxide 25 Anion Gap 13 BUN 9 Creatinine 0.7 Est GFR ( Amer) > 60 Est GFR (Non-Af Amer) > 60 POC Glucose (mg/dL) Random Glucose 162 H Calcium 9.0 Total Bilirubin 0.6 AST 32 ALT 28 Alkaline Phosphatase 145 H Total Protein 8.0 Albumin 4.1 Globulin 3.9 Albumin/Globulin Ratio 1.0 L Procalcitonin Urine Color Urine Appearance Urine pH Ur Specific [place] Urine Protein Urine Glucose (UA) Urine Ketones Urine Blood Urine Nitrate Urine Bilirubin Urine Urobilinogen Ur Leukocyte Esterase Urine RBC Urine WBC Ur Epithelial Cells Urine Bacteria EKG/Cardiology Studies: Cardiology / EKG Studies 09/11/18 06:00 EKG [ELECTROCARDIOGRAM] Routine Comment: Reason For Exam: benzo OD Critical Care Progress Note - Nutrition Nutrition: Nutrition Category Date Time Status NPO Diet [DIET] Diets 09/10/18 Breakfast Ordered Addendum Addendum: 09/11/18 17:11 ICU Attending Addendum Patient seen and examined. Case reviewed on round with housestaff. Agree with resident note above with the following additions/exceptions: 62 F w/ PMH of anxiety, depression, diabetes, diverticulitis, gallstone, hypertension, hypercholesterolemia and hypothyroidism admitted after being founded unresponsive. Suspect benzo OD. No role for reversal agent. extubated this am use bipap for now cont to monitor neuro status CT head ruled our bleed check TSH if no improvement by tomorrow will check EEG empiric abx for fever and leukocytosis Rest of care as above Josué Bowden MD Pulmonary Critical Care and Sleep Medicine
--- NOTE | 2018-09-11 09:02 | CP.PCM.PN ---
<Thomas Chung - Last Filed: 09/11/18 13:34> Subjective - Date & Time of Evaluation Date of Evaluation: 09/11/18 Time of Evaluation: 07:40 - Subjective Subjective: Medicine Progress Note for Hospitalist Service, Dr. Rodney Chung, DO PGY-1 Pt seen and examined at bedside. S/p extubation currently on nasal cannula in ICU. Unable to obtain HPI and ROS due to pt being lethargic 2/2 recent extubation. No acute events reported overnight by staff. Objective - Vital Signs/Intake and Output Vital Signs (last 24 hours): Temp Pulse Resp BP Pulse Ox 100.0 F H 117 H 16 184/94 H 97 09/11/18 07:01 09/11/18 07:01 09/11/18 07:05 09/11/18 07:01 09/11/18 07:05 Intake and Output: 09/11/18 09/11/18 06:59 18:59 Intake Total 900 Output Total 450 Balance 450 - Medications Medications: Current Medications Acetaminophen (Tylenol 325mg Tab) 650 mg PO Q6H PRN PRN Reason: Fever >100.4 F Last Admin: 09/11/18 00:47 Dose: 650 mg Enoxaparin Sodium (Lovenox) 40 mg SC DAILY [facility]; Protocol Last Admin: 09/10/18 09:49 Dose: 40 mg Sodium Chloride (Sodium Chloride 0.9%) 1,000 mls @ 75 mls/hr IV .[id number] [facility]ON[facility] Last Admin: 09/10/18 16:44 Dose: 75 mls/hr Ceftriaxone Sodium (Rocephin 1 Gram Ivpb) 1 gm in 100 mls @ 100 mls/hr IVPB DAILY [facility]; Protocol Stop: 09/14/18 10:59 Last Admin: 09/10/18 15:30 Dose: 100 mls/hr Azithromycin (Zithromax 500mg In Ns) 500 mg in 250 mls @ 167 mls/hr IVPB DAILY [facility]; Protocol Last Admin: 09/10/18 15:30 Dose: 167 mls/hr Insulin Human Regular (Humulin R Low) 0 units SC Q6H [facility]; Protocol Last Admin: 09/11/18 08:46 Dose: 1 units Levalbuterol HCl (Xopenex) 1.25 mg IH [id number] PRN PRN Reason: Shortness of Breath Levothyroxine Sodium (Synthroid) 1,000 mcg PO QAM [facility] Lisinopril (Zestril) 1 mg PO DAILY [facility] Metoprolol Succinate (Toprol Xl) 25 mg PO DAILY [facility] Pantoprazole Sodium (Protonix Inj) 40 mg IVP DAILY [facility] Last Admin: 09/10/18 09:50 Dose: 40 mg - Labs Labs: 09/11/18 05:20 09/11/18 05:20 PT 12.9 SECONDS (9.4-12.5) H 09/09/18 21:37 INR 1.13 09/09/18 21:37 APTT 25.7 Seconds (25.1-36.5) 09/09/18 21:37 - Constitutional Appears: Non-toxic, No Acute Distress - Head Exam Head Exam: ATRAUMATIC, NORMOCEPHALIC - Eye Exam Eye Exam: Normal appearance, PERRL - ENT Exam ENT Exam: Mucous Membranes Moist - Respiratory Exam Respiratory Exam: Clear to Ausculation Bilateral, NORMAL BREATHING PATTERN. absent: Rales, Rhonchi, Wheezes - Cardiovascular Exam Cardiovascular Exam: REGULAR RHYTHM, +S1, +S2. absent: Gallop, Rubs, Murmur - GI/Abdominal Exam GI & Abdominal Exam: Soft, Normal Bowel Sounds. absent: Distended, Guarding, Tenderness, Organomegaly - Extremities Exam Extremities Exam: Normal Inspection - Neurological Exam Additional comments: Difficult to arouse on exam - Skin Skin Exam: Dry, Intact, Normal Color, Warm Assessment and Plan - Assessment and Plan (Free Text) Assessment: 62 y o female PMhx anxiety, depression, DM, HTN, hypothyroidism who presented with AMS/respiratory depression 2/2 benzodiazepine overdose. S/p extubation this am, currently being medically managed in ICU at this time. Plan: Respiratory failure 2/2 benzodiazepine overdose S/p extubation in ICU this am, currently on nasal cannula, lethargy on exam Will f/u speech/swallow eval, currently NPO Maintain O2 sat > 95%, aspiration precautions CXRs not demonstrating infiltrates/consolidations Leukocytosis trending down Febrile to 100.9, cont to trend; tachycardic No need for flumazenil at this time Utox pos for Benzos only Psych consulted (Dr. Jacobson), recs appreciated Verified home med Xanax with pharmacy 1 mg tid prn, recently refilled in Aug 2018 Leukocytosis - likely 2/2 UTI, trending down U/a: trace protein, ketones 15, large blood, pos nitrate, trace LE, 10-15 RBC, 20-25 WBC Urine cx pos for gram neg clark, cont to f/u final sensitivities Blood cxs x2 NG for 24 hrs On Rocephin and Azithro currently day #2 CXRs demonstrating no infiltrates/consolidations Hx anxiety/depression Psych consulted, recs appreciated Verified home psych meds with pharmacy Hx DM On Farxiga and Tradjenta for home meds, currently held Cont to trend fingersticks ISS Hx HTN 186/111 today, may also be 2/2 withdrawal symptoms Restarted home med Toprol XL 25 mg PO daily Restarted home med Lisinopril 5 mg PO daily Cont to monitor Hx HLD On no home meds currently Hx hypothyroidism C/w home med Synthroid 50 mcg PO am Pt seen, examined with, and plan discussed with Dr. Stevens, attending physician. Thomas Chung DO PGY-1, Printer Maintainer Pager #[phone] <Andreina Stevens - Last Filed: 09/12/18 17:24> Objective - Vital Signs/Intake and Output Vital Signs (last 24 hours): Temp Pulse Resp BP Pulse Ox 98.6 F 90 12 155/68 H 99 09/12/18 16:00 09/12/18 13:50 09/12/18 13:50 09/12/18 13:00 09/12/18 13:50 Intake and Output: 09/12/18 09/12/18 06:59 18:59 Intake Total 1200 Output Total 1000 Balance 200 - Medications Medications: Current Medications Acetaminophen (Tylenol 325mg Tab) 650 mg PO Q6H PRN PRN Reason: Fever >100.4 F Last Admin: 09/11/18 00:47 Dose: 650 mg Acetaminophen (Tylenol 325 Mg Supp) 325 mg RC Q6H PRN PRN Reason: Fever >100.4 F Last Admin: 09/11/18 20:16 Dose: 325 mg Enoxaparin Sodium (Lovenox) 40 mg SC DAILY [facility]; Protocol Last Admin: 09/12/18 09:04 Dose: 40 mg Ceftriaxone Sodium (Rocephin 1 Gram Ivpb) 1 gm in 100 mls @ 100 mls/hr IVPB DAILY [facility]; Protocol Insulin Human Regular (Humulin R Low) 0 units SC ACHS [facility]; Protocol Last Admin: 09/12/18 16:59 Dose: 2 units Levalbuterol HCl (Xopenex) 1.25 mg IH [id number] PRN PRN Reason: Shortness of Breath Levothyroxine Sodium (Synthroid) 50 mcg PO QAM [facility] Last Admin: 09/12/18 09:04 Dose: 50 mcg Lisinopril (Zestril) 5 mg PO DAILY [facility] Last Admin: 09/12/18 09:05 Dose: 5 mg Lorazepam (Ativan) 1 mg IVP Q6H [facility]; Protocol Last Admin: 09/12/18 14:45 Dose: Not Given Metoprolol Succinate (Toprol Xl) 25 mg PO DAILY [facility] Last Admin: 09/12/18 09:04 Dose: 25 mg Venlafaxine HCl (Effexor Xr) 75 mg PO DAILY [facility] Last Admin: 09/12/18 16:59 Dose: 75 mg - Labs Labs: 09/12/18 05:40 09/12/18 05:40 PT 12.9 SECONDS (9.4-12.5) H 09/09/18 21:37 INR 1.13 09/09/18 21:37 APTT 25.7 Seconds (25.1-36.5) 09/09/18 21:37 Attending/Attestation - Attestation I have personally seen and examined this patient.: Yes I have fully participated in the care of the patient.: Yes I have reviewed all pertinent clinical information, including history, physical exam and plan: Yes Notes (Text): 09/12/18 17:19 Attending note; Patient seen and examined with resident in ICU. Patient is currently extubated. Lethargic. MAXIMUM TEMPERATURE of 101.6. Not in any acute distress. On oxygen nasal cannula. Patient is a 62-year-old female with PMh of anxiety, depression, DM, HTN, hypothyroidism who presented with AMS/respiratory depression 2/2 benzodiazepine overdose. 1. Respiratory failure secondary to drug overdose; currently extubated. Continue oxygen when necessary. Patient is still lethargic. Monitor closely in ICU. 2. History of anxiety and depression; patient follows up with psychiatrist Dr. Oneal. Case discussed with him in detail. We will get psychiatric evaluation once patient is more alert. 3. Fever; chest x-rays negative. Currently on IV Rocephin and Zithromax. Blood culture is pending. Urine culture is pending. 4. GI/DVT prophylaxis. Upon discharge patient will follow-up with PMD Dr. Griggs.
[2018-09-11] MEDS: Enoxaparin 40 mg Syringe SC SCH (09:17)
[2018-09-11] MEDS: cefTRIAXone 1 gm 1 GM/100 ML BAG IVPB SCH (09:18)
[2018-09-11] MEDS: Sodium Chloride 0.9% 1,000 ML IV SCH (09:19)
[2018-09-11] MEDS: Azithromycin 500MG/NS 250ml 500 MG/250 ML BAG IVPB SCH (09:20)
--- NOTE | 2018-09-11 09:43 | CARD ---
APPROVED REPORT Date of service: 09/09/2018 EKG Measurement Heart [id number] <Conclusion> Sinus tachycardia Left atrial enlargement Septal infarct, age undetermined Abnormal ECG
[2018-09-11] MEDS ORDERED: Metoprolol Succinate 25 mg XL Tab PO SCH (10:00)
[2018-09-11] MEDS ORDERED: Levothyroxine 50 MCG TAB PO SCH (10:00)
--- NOTE | 2018-09-11 11:07 | CP.PCM.APN ---
Subjective - Date & Time of Evaluation Date of Evaluation: 09/11/18 Time of Evaluation: 10:45 - Subjective Subjective: pt seen and examined at bedside s/p extubation Review of Systems - Constitutional Constitutional: Fatigue Objective - Vital Signs/Intake and Output Vital Signs (last 24 hours): Temp Pulse Resp BP Pulse Ox 100.0 F H 108 H 16 184/94 H 97 09/11/18 07:01 09/11/18 10:21 09/11/18 07:05 09/11/18 07:01 09/11/18 07:05 Intake and Output: 09/11/18 09/11/18 06:59 18:59 Intake Total 900 Output Total 450 Balance 450 - Medications Medications: Current Medications Acetaminophen (Tylenol 325mg Tab) 650 mg PO Q6H PRN PRN Reason: Fever >100.4 F Last Admin: 09/11/18 00:47 Dose: 650 mg Enoxaparin Sodium (Lovenox) 40 mg SC DAILY [facility]; Protocol Last Admin: 09/11/18 09:17 Dose: 40 mg Sodium Chloride (Sodium Chloride 0.9%) 1,000 mls @ 75 mls/hr IV .[id number] [facility] Last Admin: 09/11/18 09:19 Dose: 75 mls/hr Ceftriaxone Sodium (Rocephin 1 Gram Ivpb) 1 gm in 100 mls @ 100 mls/hr IVPB DAILY [facility]; Protocol Stop: 09/14/18 10:59 Last Admin: 09/11/18 09:18 Dose: 100 mls/hr Azithromycin (Zithromax 500mg In Ns) 500 mg in 250 mls @ 167 mls/hr IVPB DAILY [facility]; Protocol Last Admin: 09/11/18 09:20 Dose: 167 mls/hr Insulin Human Regular (Humulin R Low) 0 units SC Q6H [facility]; Protocol Last Admin: 09/11/18 08:46 Dose: 1 units Levalbuterol HCl (Xopenex) 1.25 mg IH [id number] PRN PRN Reason: Shortness of Breath Levothyroxine Sodium (Synthroid) 50 mcg PO QAM [facility] Lisinopril (Zestril) 5 mg PO DAILY [facility] Metoprolol Succinate (Toprol Xl) 25 mg PO DAILY [facility] Pantoprazole Sodium (Protonix Inj) 40 mg IVP DAILY [facility] Last Admin: 09/11/18 09:17 Dose: 40 mg - Labs Labs: 09/11/18 05:20 09/11/18 05:20 PT 12.9 SECONDS (9.4-12.5) H 09/09/18 21:37 INR 1.13 09/09/18 21:37 APTT 25.7 Seconds (25.1-36.5) 09/09/18 21:37 - Constitutional Appears: Non-toxic, No Acute Distress - Head Exam Head Exam: NORMAL INSPECTION, NORMOCEPHALIC - Eye Exam Eye Exam: Normal appearance - Respiratory Exam Respiratory Exam: Decreased Breath Sounds - Cardiovascular Exam Cardiovascular Exam: +S1, +S2 - Neurological Exam Neurological Exam: Alert, Awake Assessment and Plan - Assessment and Plan (Free Text) Plan: 62 yr old female with pmh sig for anxiety, depression, htn, dm, ? dementia who was found unresponsive by family admitted with resp failure 2nd to benzo overdose admitted for further mgmt #resp failure s/p to OD s/p intubation and extubation this am # benzo OD with hx of anxiety and depression psychiatric eval with Dr Jacobson #Leukocytoiss BC negativ e UC - gm negative clark - will follow ID and Sens iv antibiotics will continue to follow clinical course Nalini Triana APN
[2018-09-11] MEDS: Metoprolol Succinate 25 mg XL Tab PO SCH (12:57)
[2018-09-11] MEDS: Levothyroxine 50 MCG TAB PO SCH (12:57)
--- NOTE | 2018-09-11 15:44 | CP.PCM.PCO ---
Physician Communication Note - Physician Communication Note Physician Communication Note: pt extubated, but still very sedated, please consult when pt is more alert.
[2018-09-11] MEDS ORDERED: Labetalol 5 mg/ml Inj 20ML IV STA (17:19)
--- NOTE | 2018-09-11 20:27 | CARD ---
APPROVED REPORT Date of service: 09/11/2018 EKG Measurement Heart [id number] <Conclusion> Sinus tachycardia Possible Left atrial enlargement Nonspecific T wave abnormality Abnormal ECG
[2018-09-12 06:42] LABS: BASO # 0.06 K/mm3 (0.0-2.0); BASO % 0.4 % (0.0-3.0); EOS % 0.3 % (1.5-5.0); GRAN # 9.98 (1.4-6.5); GRAN % 68.9 % (50.0-68.0); LYMPH # 3.2 (1.2-3.4); LYMPH % 22.2 % (22.0-35.0); MEAN CELL VOLUME 93.2 fl (80.0-105.0); MEAN CORPUSCULAR HEMOGLOBIN 29.3 pg (25.0-35.0); MEAN CORPUSCULAR HGB CONC 31.4 g/dl (31.0-37.0); MONO # 1.2 (0.1-0.6); MONO % 8.2 % (1.0-6.0); RBC 4.44 10^6/uL (3.5-6.1); WHITE BLOOD COUNT 14.5 10^3/uL (4.5-11.0)
[2018-09-12 07:20] LABS: ALB/GLOB RATIO 1.1 (1.1-1.8); ALBUMIN 3.9 g/dL (3.0-4.8); ALT/SGPT 20 U/L (7-56); AST/SGOT 29 U/L (14-36); BLOOD UREA NITROGEN 11 mg/dL (7-21); CALCIUM 9.5 mg/dL (8.4-10.5); GFR NON-AFRICAN AMERICAN > 60
[2018-09-12] MEDS ORDERED: Meropenem IV 1 gm in NS 1 GM/50 ML BAG IVPB SCH (07:30)
--- NOTE | 2018-09-12 07:48 | CP.CCUPN ---
<Izaiah Ayala - Last Filed: 09/12/18 10:56> CCU Subjective - Physician Review Subjective (Free Text): Izaiah Ayala, PGY-1 Progress Note for ICU Patient seen and evaluated at bedside. No acute events reported overnight. Currently on NC 5 L. Febrile overnight Tmax 100.8. Patient remains lethargic but is arousable. Patient is poor historian who is unable to follow commands. Further history unable to be attained. CCU Objective - Vital Signs / Intake & Output Intake and Output (Last 8hrs): Intake & Output 09/11/18 09/12/18 09/12/18 22:59 06:59 14:59 Intake Total 900 Output Total 1000 Balance -100 Intake: IV 900 Left Hand 900 Output: Urine 1000 Urethral (Diehl) 1000 - Physical Exam Head: Positive for: Atraumatic, Normocephalic Pupils: Positive for: PERRL Conjunctiva: Positive for: Normal Neck: Positive for: Normal Range of Motion Respiratory/Chest: Positive for: Clear to Auscultation, Decreased Breath Sounds. Negative for: Respiratory Distress Cardiovascular: Positive for: Normal S1, S2, Tachycardic. Negative for: Murmurs Abdomen: Negative for: Tenderness, Distention, Peritoneal Signs Upper Extremity: Positive for: Normal Inspection, Neurovascularly Intact. Negative for: Cyanosis, Edema, Normal ROM Lower Extremity: Positive for: Normal Inspection, Neurovascularly Intact. Negative for: Edema, Normal ROM Neurological: Positive for: Normal Sensory Function. Negative for: Motor Func Grossly Intact Skin: Positive for: Warm, Dry, Normal Color. Negative for: Rashes Psychiatric: Positive for: Alert. Negative for: Oriented x 3 (AAOx2) - Medications Active Medications: Active Medications Generic Name Dose Route Start Last Admin Trade Name Freq PRN Reason Stop Dose Admin Acetaminophen 650 mg 09/10/18 09:15 09/11/18 00:47 Tylenol 325mg Tab PO 650 mg Q6H PRN Administration Fever >100.4 F Acetaminophen 325 mg 09/11/18 14:51 09/11/18 20:16 Tylenol 325 Mg Supp RC 325 mg Q6H PRN Administration Fever >100.4 F Enoxaparin Sodium 40 mg 09/10/18 10:00 09/11/18 09:17 Lovenox SC 40 mg DAILY TONYA Administration Protocol Azithromycin 500 mg in 250 mls @ 167 mls/hr 09/10/18 14:30 09/11/18 09:20 Zithromax 500mg In Ns IVPB 167 mls/hr DAILY TONYA Administration Protocol Meropenem 1 gm in 50 mls @ 100 mls/hr 09/12/18 07:30 Merrem Iv 1 Gm Premix IVPB Q8 TONYA Protocol Insulin Human Regular 0 units 09/10/18 02:45 09/11/18 15:00 Humulin R Low SC 1 units Q6H TONYA Administration Protocol Levalbuterol HCl 1.25 mg 09/11/18 08:32 Xopenex IH [id number] PRN Shortness of Breath Levothyroxine Sodium 50 mcg 09/11/18 10:00 09/11/18 12:57 Synthroid PO Not Given QAM [facility] Lisinopril 5 mg 09/11/18 10:00 09/11/18 12:58 Zestril PO Not Given DAILY [facility] Metoprolol Succinate 25 mg 09/11/18 10:00 09/11/18 12:57 Toprol Xl PO Not Given DAILY TONYA - Patient Studies Lab Studies: Microbiology Studies 09/10/18 00:30 Blood Culture - Preliminary Blood-Venous NO GROWTH AFTER 48 HOURS 09/09/18 23:26 Blood Culture - Preliminary Blood-Venous NO GROWTH AFTER 48 HOURS 09/10/18 17:18 Gram Stain - Final Trachasp 09/10/18 03:00 MRSA Culture (Admit) - Final Nose MRSA NOT DETECTED 09/09/18 23:05 Urine Culture - Preliminary Urine Random Gram Negative Saqib Lab Studies 09/12/18 09/12/18 09/12/18 Range/Units 05:40 05:40 02:36 WBC 14.5 H D (4.5-11.0) 10^3/uL RBC 4.44 (3.5-6.1) 10^6/uL Hgb 13.0 (12.0-16.0) g/dL Hct 41.4 (36.0-48.0) % MCV 93.2 (80.0-105.0) fl MCH 29.3 (25.0-35.0) pg MCHC 31.4 (31.0-37.0) g/dl RDW 13.0 (11.5-14.5) % Plt Count 334 (120.0-450.0) 10^3/uL MPV 9.0 (7.0-11.0) fl Gran % 68.9 H (50.0-68.0) % Lymph % (Auto) 22.2 (22.0-35.0) % [place] % (Auto) 8.2 H (1.0-6.0) % Eos % (Auto) 0.3 L (1.5-5.0) % Baso % (Auto) 0.4 (0.0-3.0) % Gran # 9.98 H (1.4-6.5) Lymph # (Auto) 3.2 (1.2-3.4) [place] # (Auto) 1.2 H (0.1-0.6) Eos # (Auto) 0.0 (0.0-0.7) Baso # (Auto) 0.06 (0.0-2.0) K/mm3 Sodium 142 (132-148) mmol/L Potassium 3.6 (3.6-5.0) mmol/L Chloride 110 H (98-107) mmol/L Carbon Dioxide 24 (21-33) mmol/L Anion Gap 12 (10-20) BUN 11 (7-21) mg/dL Creatinine 0.8 (0.7-1.2) mg/dl Est GFR ( Amer) > 60 Est GFR (Non-Af Amer) > 60 POC Glucose (mg/dL) 194 H (65-110) mg/dL Random Glucose 178 H (70-110) mg/dL Calcium 9.5 (8.4-10.5) mg/dL Total Bilirubin 0.4 (0.2-1.3) mg/dL AST 29 (14-36) U/L ALT 20 (7-56) U/L Alkaline Phosphatase 145 H (38-126) U/L Total Protein 7.6 (5.8-8.3) g/dL Albumin 3.9 (3.0-4.8) g/dL Globulin 3.7 gm/dL Albumin/Globulin Ratio 1.1 (1.1-1.8) 09/11/18 09/11/18 09/11/18 Range/Units 21:35 14:45 08:33 WBC (4.5-11.0) 10^3/uL RBC (3.5-6.1) 10^6/uL Hgb (12.0-16.0) g/dL Hct (36.0-48.0) % MCV (80.0-105.0) fl MCH (25.0-35.0) pg MCHC (31.0-37.0) g/dl RDW (11.5-14.5) % Plt Count (120.0-450.0) 10^3/uL MPV (7.0-11.0) fl Gran % (50.0-68.0) % Lymph % (Auto) (22.0-35.0) % [place] % (Auto) (1.0-6.0) % Eos % (Auto) (1.5-5.0) % Baso % (Auto) (0.0-3.0) % Gran # (1.4-6.5) Lymph # (Auto) (1.2-3.4) [place] # (Auto) (0.1-0.6) Eos # (Auto) (0.0-0.7) Baso # (Auto) (0.0-2.0) K/mm3 Sodium (132-148) mmol/L Potassium (3.6-5.0) mmol/L Chloride (98-107) mmol/L Carbon Dioxide (21-33) mmol/L Anion Gap (10-20) BUN (7-21) mg/dL Creatinine (0.7-1.2) mg/dl Est GFR ( Amer) Est GFR (Non-Af Amer) POC Glucose (mg/dL) 218 H 196 H 199 H (65-110) mg/dL Random Glucose (70-110) mg/dL Calcium (8.4-10.5) mg/dL Total Bilirubin (0.2-1.3) mg/dL AST (14-36) U/L ALT (7-56) U/L Alkaline Phosphatase (38-126) U/L Total Protein (5.8-8.3) g/dL Albumin (3.0-4.8) g/dL Globulin gm/dL Albumin/Globulin Ratio (1.1-1.8) Laboratory Results - last 24 hr 09/11/18 09/11/18 09/11/18 08:33 14:45 21:35 WBC RBC Hgb Hct MCV MCH MCHC RDW Plt Count MPV Gran % Lymph % (Auto) [place] % (Auto) Eos % (Auto) Baso % (Auto) Gran # Lymph # (Auto) [place] # (Auto) Eos # (Auto) Baso # (Auto) Sodium Potassium Chloride Carbon Dioxide Anion Gap BUN Creatinine Est GFR ( Amer) Est GFR (Non-Af Amer) POC Glucose (mg/dL) 199 H 196 H 218 H Random Glucose Calcium Total Bilirubin AST ALT Alkaline Phosphatase Total Protein Albumin Globulin Albumin/Globulin Ratio 09/12/18 09/12/18 09/12/18 02:36 05:40 05:40 WBC 14.5 H D RBC 4.44 Hgb 13.0 Hct 41.4 MCV 93.2 MCH 29.3 MCHC 31.4 RDW 13.0 Plt Count 334 MPV 9.0 Gran % 68.9 H Lymph % (Auto) 22.2 [place] % (Auto) 8.2 H Eos % (Auto) 0.3 L Baso % (Auto) 0.4 Gran # 9.98 H Lymph # (Auto) 3.2 [place] # (Auto) 1.2 H Eos # (Auto) 0.0 Baso # (Auto) 0.06 Sodium 142 Potassium 3.6 Chloride 110 H Carbon Dioxide 24 Anion Gap 12 BUN 11 Creatinine 0.8 Est GFR ( Amer) > 60 Est GFR (Non-Af Amer) > 60 POC Glucose (mg/dL) 194 H Random Glucose 178 H Calcium 9.5 Total Bilirubin 0.4 AST 29 ALT 20 Alkaline Phosphatase 145 H Total Protein 7.6 Albumin 3.9 Globulin 3.7 Albumin/Globulin Ratio 1.1 Fingerstick Blood Sugar Results: 196 Review of Systems - Review of Systems Review of Systems: 12 point ROS unable to be ascertained due to clinical condition. Critical Care Progress Note - Nutrition Nutrition: Nutrition Category Date Time Status NPO Diet [DIET] Diets 09/10/18 Breakfast Ordered Assessment/Plan - Assessment and Plan (Free Text) Assessment: Ms. Randle is a 62 year old F w/ PMH of anxiety, depression, diabetes, hypertension, and hypothyroidism, who presented in AMS and respiratory depression 2/2 benzo overdose. Patient intubated and admitted to ICU for management of respiratory depression and AMS. Extubation yesterday. Plan: Neuro - Responds to painful stimuli - 1/8/[address] shows age appropriate cerebral atrophy, mild microvascular disease, no acute intracranial pathology - Lethargic 2/2 Benzo OD, currently not agitated - UDS +Benzos only - [place] Q4 - Maintain RASS 0 to -2 - Reorient as needed - Hx psych disorder; Dr. Jacobson re-consulted - recs appreciated Pulm - Patient intubated in field; unable to protect airway; Extubated yesterday, currently on NC - Rocephin 1 g discontinued, begin Merrem 1 g q8 and continue Azithro 500 mg daily per ID - 09/09 CXR - RLL shows infiltrate - 09/10/18 Repeat CXR shows perihilar fullness. No congestion - 09/12/18 repeat CXR shows no congestion - Protective lung ventilation strategy - Maintain O2 Sat > 92% - Aspiration precautions Cardio - S1S2 RRR - EKG on admission shows Sinus tachycardia @101bpm, Septal infarct, Nonspecific STT wave changes, currently tachycardic at 100 bpm - Maintaining pressure well w/o pressor support - Hx HTN - Resume home dosages of Zestril and Toprol XL - Continue monitoring - Maintain MAP > 65 Endocrinology - Hx DM + Hx Hypothyroidism - TSH 0.8, continue home Synthroid - ISS LOW w/ fingersticks Q6H - Maintain euglycemia 110-180 GI: - Hx HLD - Resume anti-lipid rx once stable - NPO, f/u repeat speech and swallow recs as she was too lethargic yesterday to participate Nephro - BUN/Cr - 9/0.7 - Maintain euvolemia, NS @ 75 cc/hr - UA + for Nitrates and leuk esterase, UTI with mild Leukocutosis, currently on Merrem - Diehl in place, 1 L output - Maintain electrolyte balance ID: - Improved Leukocytosis 14.5, Febrile O/N 100.6 - Procal 0.62 - Tylenol 650 q6 for fever, Ofirmev given O/N - BCX x2 neg after 48 hours - UCX pending PPX: - No Protonix warranted - Lovenox 40 IVP Dispo: Downgrade to [facility] [place] today Patient seen, case reviewed and plan approved by Dr. Sanchez. Izaiah Ayala, PGY-1 <Shantanu Sanchez - Last Filed: 09/12/18 11:07> CCU Objective - Vital Signs / Intake & Output Vital Signs (Last 4 hours): Vital Signs Temp Pulse Resp BP Pulse Ox 09/12/18 10:10 100.2 F H 93 H 23 99 09/12/18 10:00 100.4 F H 91 H 17 151/80 H 97 09/12/18 09:50 100.6 F H 91 H 14 97 09/12/18 09:40 100.6 F H 90 16 96 09/12/18 09:30 100.8 F H 93 H 15 96 09/12/18 09:20 100.9 F H 97 H 17 96 09/12/18 09:10 101.1 F H 98 H 20 98 09/12/18 09:05 95 H 154/78 H 09/12/18 09:04 95 H 154/78 H 09/12/18 09:00 100.9 F H 96 H 19 154/78 H 95 09/12/18 08:50 100.9 F H 100 H 21 97 09/12/18 08:45 100.9 F H 103 H 98 09/12/18 08:40 100.9 F H 101 H 24 99 09/12/18 08:30 100.9 F H 99 H 20 98 09/12/18 08:20 100.8 F H 100 H 30 H 99 09/12/18 08:12 100.8 F H 97 H 98 09/12/18 08:10 100.9 F H 98 H 22 98 09/12/18 08:00 100.9 F H 99 H 22 146/91 H 98 09/12/18 07:57 100.8 F H 99 H 99 09/12/18 07:53 100.9 F H 99 H 99 09/12/18 07:50 100.8 F H 101 H 16 99 09/12/18 07:40 100.8 F H 100 H 21 100 09/12/18 07:38 100.4 F H 99 H 100 09/12/18 07:30 100.4 F H 98 H 22 100 09/12/18 07:28 100.4 F H 99 H 99 09/12/18 07:23 100.2 F H 98 H 99 09/12/18 07:22 100.2 F H 99 H 100 09/12/18 07:20 100.2 F H 98 H 99 09/12/18 07:16 100.2 F H 96 H 100 09/12/18 07:10 100.2 F H 99 H 23 99 Intake and Output (Last 8hrs): Intake & Output 09/11/18 09/12/18 09/12/18 22:59 06:59 14:59 Intake Total 900 1200 Output Total 1000 1000 Balance -100 200 Intake: IV 900 1200 IVPB 300 Left Hand 900 900 Oral 0 Output: Urine 1000 1000 Urethral (Diehl) 1000 1000 Other: # Bowel Movements 0 - Medications Active Medications: Active Medications Generic Name Dose Route Start Last Admin Trade Name Freq PRN Reason Stop Dose Admin Acetaminophen 650 mg 09/10/18 09:15 09/11/18 00:47 Tylenol 325mg Tab PO 650 mg Q6H PRN Administration Fever >100.4 F Acetaminophen 325 mg 09/11/18 14:51 09/11/18 20:16 Tylenol 325 Mg Supp RC 325 mg Q6H PRN Administration Fever >100.4 F Enoxaparin Sodium 40 mg 09/10/18 10:00 09/12/18 09:04 Lovenox SC 40 mg DAILY TONYA Administration Protocol Azithromycin 500 mg in 250 mls @ 167 mls/hr 09/10/18 14:30 09/12/18 09:03 Zithromax 500mg In Ns IVPB 167 mls/hr DAILY TONYA Administration Protocol Meropenem 1 gm in 50 mls @ 100 mls/hr 09/12/18 07:30 09/12/18 08:58 Merrem Iv 1 Gm Premix IVPB 100 mls/hr Q8 TONYA Administration Protocol Insulin Human Regular 0 units 09/10/18 02:45 09/12/18 09:18 Humulin R Low SC Not Given Q6H TONYA Protocol Levalbuterol HCl 1.25 mg 09/11/18 08:32 Xopenex IH [id number] PRN Shortness of Breath Levothyroxine Sodium 50 mcg 09/11/18 10:00 09/12/18 09:04 Synthroid PO 50 mcg QAM TONYA Administration Lisinopril 5 mg 09/11/18 10:00 09/12/18 09:05 Zestril PO 5 mg DAILY TONYA Administration Metoprolol Succinate 25 mg 09/11/18 10:00 09/12/18 09:04 Toprol Xl PO 25 mg DAILY TONYA Administration - Patient Studies Lab Studies: Microbiology Studies 09/10/18 17:18 Gram Stain - Final Trachasp Sputum Culture - Preliminary Gram Positive Cocci 09/09/18 23:05 Urine Culture - Final Urine Random Klebsiella Pneumoniae Ssp Pneu 09/10/18 00:30 Blood Culture - Preliminary Blood-Venous NO GROWTH AFTER 48 HOURS 09/09/18 23:26 Blood Culture - Preliminary Blood-Venous NO GROWTH AFTER 48 HOURS 09/10/18 03:00 MRSA Culture (Admit) - Final Nose MRSA NOT DETECTED Lab Studies 09/12/18 09/12/18 09/12/18 Range/Units 05:40 05:40 05:40 WBC 14.5 H D (4.5-11.0) 10^3/uL RBC 4.44 (3.5-6.1) 10^6/uL Hgb 13.0 (12.0-16.0) g/dL Hct 41.4 (36.0-48.0) % MCV 93.2 (80.0-105.0) fl MCH 29.3 (25.0-35.0) pg MCHC 31.4 (31.0-37.0) g/dl RDW 13.0 (11.5-14.5) % Plt Count 334 (120.0-450.0) 10^3/uL MPV 9.0 (7.0-11.0) fl Gran % 68.9 H (50.0-68.0) % Lymph % (Auto) 22.2 (22.0-35.0) % [place] % (Auto) 8.2 H (1.0-6.0) % Eos % (Auto) 0.3 L (1.5-5.0) % Baso % (Auto) 0.4 (0.0-3.0) % Gran # 9.98 H (1.4-6.5) Lymph # (Auto) 3.2 (1.2-3.4) [place] # (Auto) 1.2 H (0.1-0.6) Eos # (Auto) 0.0 (0.0-0.7) Baso # (Auto) 0.06 (0.0-2.0) K/mm3 Sodium 142 (132-148) mmol/L Potassium 3.6 (3.6-5.0) mmol/L Chloride 110 H (98-107) mmol/L Carbon Dioxide 24 (21-33) mmol/L Anion Gap 12 (10-20) BUN 11 (7-21) mg/dL Creatinine 0.8 (0.7-1.2) mg/dl Est GFR ( Amer) > 60 Est GFR (Non-Af Amer) > 60 POC Glucose (mg/dL) (65-110) mg/dL Random Glucose 178 H (70-110) mg/dL Calcium 9.5 (8.4-10.5) mg/dL Total Bilirubin 0.4 (0.2-1.3) mg/dL AST 29 (14-36) U/L ALT 20 (7-56) U/L Alkaline Phosphatase 145 H (38-126) U/L Total Creatine Kinase 274 H (35-230) U/L CK-MB (CK-2) < 0.2 (0.0-3.6) ng/mL CK-MB (CK-2) % Cancelled Total Protein 7.6 (5.8-8.3) g/dL Albumin 3.9 (3.0-4.8) g/dL Globulin 3.7 gm/dL Albumin/Globulin Ratio 1.1 (1.1-1.8) 09/12/18 09/11/18 09/11/18 Range/Units 02:36 21:35 14:45 WBC (4.5-11.0) 10^3/uL RBC (3.5-6.1) 10^6/uL Hgb (12.0-16.0) g/dL Hct (36.0-48.0) % MCV (80.0-105.0) fl MCH (25.0-35.0) pg MCHC (31.0-37.0) g/dl RDW (11.5-14.5) % Plt Count (120.0-450.0) 10^3/uL MPV (7.0-11.0) fl Gran % (50.0-68.0) % Lymph % (Auto) (22.0-35.0) % [place] % (Auto) (1.0-6.0) % Eos % (Auto) (1.5-5.0) % Baso % (Auto) (0.0-3.0) % Gran # (1.4-6.5) Lymph # (Auto) (1.2-3.4) [place] # (Auto) (0.1-0.6) Eos # (Auto) (0.0-0.7) Baso # (Auto) (0.0-2.0) K/mm3 Sodium (132-148) mmol/L Potassium (3.6-5.0) mmol/L Chloride (98-107) mmol/L Carbon Dioxide (21-33) mmol/L Anion Gap (10-20) BUN (7-21) mg/dL Creatinine (0.7-1.2) mg/dl Est GFR ( Amer) Est GFR (Non-Af Amer) POC Glucose (mg/dL) 194 H 218 H 196 H (65-110) mg/dL Random Glucose (70-110) mg/dL Calcium (8.4-10.5) mg/dL Total Bilirubin (0.2-1.3) mg/dL AST (14-36) U/L ALT (7-56) U/L Alkaline Phosphatase (38-126) U/L Total Creatine Kinase (35-230) U/L CK-MB (CK-2) (0.0-3.6) ng/mL CK-MB (CK-2) % Total Protein (5.8-8.3) g/dL Albumin (3.0-4.8) g/dL Globulin gm/dL Albumin/Globulin Ratio (1.1-1.8) 09/11/18 Range/Units 08:33 WBC (4.5-11.0) 10^3/uL RBC (3.5-6.1) 10^6/uL Hgb (12.0-16.0) g/dL Hct (36.0-48.0) % MCV (80.0-105.0) fl MCH (25.0-35.0) pg MCHC (31.0-37.0) g/dl RDW (11.5-14.5) % Plt Count (120.0-450.0) 10^3/uL MPV (7.0-11.0) fl Gran % (50.0-68.0) % Lymph % (Auto) (22.0-35.0) % [place] % (Auto) (1.0-6.0) % Eos % (Auto) (1.5-5.0) % Baso % (Auto) (0.0-3.0) % Gran # (1.4-6.5) Lymph # (Auto) (1.2-3.4) [place] # (Auto) (0.1-0.6) Eos # (Auto) (0.0-0.7) Baso # (Auto) (0.0-2.0) K/mm3 Sodium (132-148) mmol/L Potassium (3.6-5.0) mmol/L Chloride (98-107) mmol/L Carbon Dioxide (21-33) mmol/L Anion Gap (10-20) BUN (7-21) mg/dL Creatinine (0.7-1.2) mg/dl Est GFR ( Amer) Est GFR (Non-Af Amer) POC Glucose (mg/dL) 199 H (65-110) mg/dL Random Glucose (70-110) mg/dL Calcium (8.4-10.5) mg/dL Total Bilirubin (0.2-1.3) mg/dL AST (14-36) U/L ALT (7-56) U/L Alkaline Phosphatase (38-126) U/L Total Creatine Kinase (35-230) U/L CK-MB (CK-2) (0.0-3.6) ng/mL CK-MB (CK-2) % Total Protein (5.8-8.3) g/dL Albumin (3.0-4.8) g/dL Globulin gm/dL Albumin/Globulin Ratio (1.1-1.8) Laboratory Results - last 24 hr 09/11/18 09/11/18 09/11/18 08:33 14:45 21:35 WBC RBC Hgb Hct MCV MCH MCHC RDW Plt Count MPV Gran % Lymph % (Auto) [place] % (Auto) Eos % (Auto) Baso % (Auto) Gran # Lymph # (Auto) [place] # (Auto) Eos # (Auto) Baso # (Auto) Sodium Potassium Chloride Carbon Dioxide Anion Gap BUN Creatinine Est GFR ( Amer) Est GFR (Non-Af Amer) POC Glucose (mg/dL) 199 H 196 H 218 H Random Glucose Calcium Total Bilirubin AST ALT Alkaline Phosphatase Total Creatine Kinase CK-MB (CK-2) CK-MB (CK-2) % Total Protein Albumin Globulin Albumin/Globulin Ratio 09/12/18 09/12/18 09/12/18 02:36 05:40 05:40 WBC 14.5 H D RBC 4.44 Hgb 13.0 Hct 41.4 MCV 93.2 MCH 29.3 MCHC 31.4 RDW 13.0 Plt Count 334 MPV 9.0 Gran % 68.9 H Lymph % (Auto) 22.2 [place] % (Auto) 8.2 H Eos % (Auto) 0.3 L Baso % (Auto) 0.4 Gran # 9.98 H Lymph # (Auto) 3.2 [place] # (Auto) 1.2 H Eos # (Auto) 0.0 Baso # (Auto) 0.06 Sodium 142 Potassium 3.6 Chloride 110 H Carbon Dioxide 24 Anion Gap 12 BUN 11 Creatinine 0.8 Est GFR ( Amer) > 60 Est GFR (Non-Af Amer) > 60 POC Glucose (mg/dL) 194 H Random Glucose 178 H Calcium 9.5 Total Bilirubin 0.4 AST 29 ALT 20 Alkaline Phosphatase 145 H Total Creatine Kinase CK-MB (CK-2) CK-MB (CK-2) % Total Protein 7.6 Albumin 3.9 Globulin 3.7 Albumin/Globulin Ratio 1.1 09/12/18 05:40 WBC RBC Hgb Hct MCV MCH MCHC RDW Plt Count MPV Gran % Lymph % (Auto) [place] % (Auto) Eos % (Auto) Baso % (Auto) Gran # Lymph # (Auto) [place] # (Auto) Eos # (Auto) Baso # (Auto) Sodium Potassium Chloride Carbon Dioxide Anion Gap BUN Creatinine Est GFR ( Amer) Est GFR (Non-Af Amer) POC Glucose (mg/dL) Random Glucose Calcium Total Bilirubin AST ALT Alkaline Phosphatase Total Creatine Kinase 274 H CK-MB (CK-2) < 0.2 CK-MB (CK-2) % Cancelled Total Protein Albumin Globulin Albumin/Globulin Ratio Radiology Impressions: Radiology Impressions Chest X-Ray 09/12/18 07:04 IMPRESSION: No active disease. Critical Care Progress Note - Nutrition Nutrition: Nutrition Category Date Time Status Heart Healthy Diet [DIET] Diets 09/12/18 Breakfast Active Attending/Attestation - Attestation I have personally seen and examined this patient.: Yes I have fully participated in the care of the patient.: Yes I have reviewed all pertinent clinical information: Yes Notes (Text): 09/12/18 11:03 The patient was seen and examined at the bedside. Patient care was discussed with resident Medical records, lab studies, and imaging were reviewed and management issues were discussed and formulated. Agree with above treatment plans as outlined in 's note with addition of the following: Benzodiazepine Overdose \ DM 2 \ HTN \ UTI \ Depression-Suicide -hemodynamic monitoring to maintain MAP>65 -continue anti-HTN meds -O2 supplementation to maintain Spo2>90 Pao2>60; currently comfortable on NC -continue Abx as per ID team and f\u cultures -f\u Bun\Cr and U\o -PO diet as per dysphagia eval and continue aspiration precautions -ISS and BGM monitoring -pshychiatry team eval f\u -continue 1:1 observation -PT\OT eval -DVT prophylaxis CCM time 30min
[2018-09-12 08:07] LABS: CK-MB < 0.2 ng/mL (0.0-3.6)
[2018-09-12] MEDS: Azithromycin 500MG/NS 250ml 500 MG/250 ML BAG IVPB SCH (09:03)
[2018-09-12] MEDS: Levothyroxine 50 MCG TAB PO SCH (09:04)
[2018-09-12] MEDS: Metoprolol Succinate 25 mg XL Tab PO SCH (09:04)
[2018-09-12] MEDS: Enoxaparin 40 mg Syringe SC SCH (09:04)
[2018-09-12] MEDS: Insulin Reg-LOW-Coverage SC SCH ×3 (09:18→22:05)
--- NOTE | 2018-09-12 09:38 | RAD ---
Date of service: 09/12/2018 HISTORY: fever COMPARISON: 09/10/2018 FINDINGS: LUNGS: No active pulmonary disease. PLEURA: No significant pleural effusion identified, no pneumothorax apparent. CARDIOVASCULAR: No aortic atherosclerotic calcification present. Normal cardiac size. No pulmonary vascular congestion. OSSEOUS STRUCTURES: No significant abnormalities. VISUALIZED UPPER ABDOMEN: Normal. OTHER FINDINGS: None. IMPRESSION: No active disease.
--- NOTE | 2018-09-12 11:09 | CP.PCM.CON ---
<Charles De Paz - Last Filed: 09/12/18 13:51> History of Present Illness - History of Present Illness History of Present Illness: ID Consult Note 62 year old female with past medical history of anxiety, depression, diverticulitis, HTN, HLD, hypothyroidism, and previous drug overdose presents to the hospital with AMS and respiratory depression. Patient is a poor historian and much of medical history is taken from prior medical records. Patient was found unconscious by family at home and EMS was called. An empty bottle of Xanax was found near patient. Patient was intubated due to inability to protect her airway. Patient was admitted to ICU for further management. Patient was extubated the next day. Head CT did not demonstrate any acute pathology. Patient admits to dysuria. Patient denies chest pain, shortness of breath, nausea, vomiting, diarrhea, chills. Medical Hx: Anxiety, Depression, Diabetes, Diverticulitis, HTN, HLD, Hypothyroid Surgical Hx: Cholecystectomy, Tonsillectomy Allergies: NKDA Social Hx: Unknown Medications: Reviewed, as per MAR Review of Systems - Review of Systems Review of Systems: 12 point ROS as per HPI, otherwise negative Past Patient History - Past Social History Smoking Status: Smoker Currrent Status Unknown - CARDIAC Hx Cardiac Disorders: No - PULMONARY Hx Respiratory Disorders: No (unable to obtain) - NEUROLOGICAL Hx Neurological Disorder: Yes Hx Dementia: Yes - HEENT Hx HEENT Problems: No - RENAL Hx Chronic Kidney Disease: No - ENDOCRINE/METABOLIC Hx Endocrine Disorders: Yes Hx Diabetes Mellitus Type 2: Yes - HEMATOLOGICAL/ONCOLOGICAL Hx Blood Disorders: No - INTEGUMENTARY Hx Dermatological Problems: No - MUSCULOSKELETAL/RHEUMATOLOGICAL Hx Falls: Yes - GASTROINTESTINAL Hx Gastrointestinal Disorders: No - GENITOURINARY/GYNECOLOGICAL Hx Genitourinary Disorders: No - PSYCHIATRIC Hx Anxiety: Yes Hx Bipolar Disorder: Yes Hx Depression: Yes Hx Substance Use: (unknown) - SURGICAL HISTORY Other/Comment: R leora iyer - ANESTHESIA Hx Anesthesia: No Meds Allergies/Adverse Reactions: Allergies Allergy/AdvReac Type Severity Reaction Status Date / Time No Known Allergies Allergy Verified 09/09/18 21:12 - Medications Medications: Current Medications Acetaminophen (Tylenol 325mg Tab) 650 mg PO Q6H PRN PRN Reason: Fever >100.4 F Last Admin: 09/11/18 00:47 Dose: 650 mg Acetaminophen (Tylenol 325 Mg Supp) 325 mg RC Q6H PRN PRN Reason: Fever >100.4 F Last Admin: 09/11/18 20:16 Dose: 325 mg Enoxaparin Sodium (Lovenox) 40 mg SC DAILY [facility]; Protocol Last Admin: 09/12/18 09:04 Dose: 40 mg Azithromycin (Zithromax 500mg In Ns) 500 mg in 250 mls @ 167 mls/hr IVPB DAILY [facility]; Protocol Last Admin: 09/12/18 09:03 Dose: 167 mls/hr Meropenem (Merrem Iv 1 Gm Premix) 1 gm in 50 mls @ 100 mls/hr IVPB Q8 [facility]; Protocol Last Admin: 09/12/18 08:58 Dose: 100 mls/hr Insulin Human Regular (Humulin R Low) 0 units SC Q6H [facility]; Protocol Last Admin: 09/12/18 09:18 Dose: Not Given Levalbuterol HCl (Xopenex) 1.25 mg IH [id number] PRN PRN Reason: Shortness of Breath Levothyroxine Sodium (Synthroid) 50 mcg PO QAM [facility] Last Admin: 09/12/18 09:04 Dose: 50 mcg Lisinopril (Zestril) 5 mg PO DAILY [facility] Last Admin: 09/12/18 09:05 Dose: 5 mg Metoprolol Succinate (Toprol Xl) 25 mg PO DAILY [facility] Last Admin: 09/12/18 09:04 Dose: 25 mg Physical Exam - Constitutional Appears: Non-toxic - Head Exam Head Exam: ATRAUMATIC, NORMAL INSPECTION, NORMOCEPHALIC - ENT Exam ENT Exam: Mucous Membranes Moist - Respiratory Exam Respiratory Exam: Clear to Auscultation Bilateral, NORMAL BREATHING PATTERN. absent: Rales, Rhonchi, Wheezes - Cardiovascular Exam Cardiovascular Exam: RRR, +S1, +S2 - GI/Abdominal Exam GI & Abdominal Exam: Normal Bowel Sounds, Soft. absent: Tenderness - Extremities Exam Extremities exam: Positive for: pedal edema. Negative for: normal inspection - Neurological Exam Neurological exam: Alert, Oriented x3 - Skin Skin Exam: Dry, Intact, Warm Results - Vital Signs Recent Vital Signs: Last Vital Signs Temp 100.2 F H 09/12/18 10:10 Pulse 93 H 09/12/18 10:10 Resp 23 09/12/18 10:10 BP 151/80 H 09/12/18 10:00 Pulse Ox 99 09/12/18 10:10 - Labs Result Diagrams: 09/12/18 05:40 09/12/18 05:40 Labs: Laboratory Results - last 24 hr 09/11/18 09/11/18 09/11/18 08:33 14:45 21:35 WBC RBC Hgb Hct MCV MCH MCHC RDW Plt Count MPV Gran % Lymph % (Auto) [place] % (Auto) Eos % (Auto) Baso % (Auto) Gran # Lymph # (Auto) [place] # (Auto) Eos # (Auto) Baso # (Auto) Sodium Potassium Chloride Carbon Dioxide Anion Gap BUN Creatinine Est GFR ( Amer) Est GFR (Non-Af Amer) POC Glucose (mg/dL) 199 H 196 H 218 H Random Glucose Calcium Total Bilirubin AST ALT Alkaline Phosphatase Total Creatine Kinase CK-MB (CK-2) CK-MB (CK-2) % Total Protein Albumin Globulin Albumin/Globulin Ratio 09/12/18 09/12/18 09/12/18 02:36 05:40 05:40 WBC 14.5 H D RBC 4.44 Hgb 13.0 Hct 41.4 MCV 93.2 MCH 29.3 MCHC 31.4 RDW 13.0 Plt Count 334 MPV 9.0 Gran % 68.9 H Lymph % (Auto) 22.2 [place] % (Auto) 8.2 H Eos % (Auto) 0.3 L Baso % (Auto) 0.4 Gran # 9.98 H Lymph # (Auto) 3.2 [place] # (Auto) 1.2 H Eos # (Auto) 0.0 Baso # (Auto) 0.06 Sodium 142 Potassium 3.6 Chloride 110 H Carbon Dioxide 24 Anion Gap 12 BUN 11 Creatinine 0.8 Est GFR ( Amer) > 60 Est GFR (Non-Af Amer) > 60 POC Glucose (mg/dL) 194 H Random Glucose 178 H Calcium 9.5 Total Bilirubin 0.4 AST 29 ALT 20 Alkaline Phosphatase 145 H Total Creatine Kinase CK-MB (CK-2) CK-MB (CK-2) % Total Protein 7.6 Albumin 3.9 Globulin 3.7 Albumin/Globulin Ratio 1.1 09/12/18 05:40 WBC RBC Hgb Hct MCV MCH MCHC RDW Plt Count MPV Gran % Lymph % (Auto) [place] % (Auto) Eos % (Auto) Baso % (Auto) Gran # Lymph # (Auto) [place] # (Auto) Eos # (Auto) Baso # (Auto) Sodium Potassium Chloride Carbon Dioxide Anion Gap BUN Creatinine Est GFR ( Amer) Est GFR (Non-Af Amer) POC Glucose (mg/dL) Random Glucose Calcium Total Bilirubin AST ALT Alkaline Phosphatase Total Creatine Kinase 274 H CK-MB (CK-2) < 0.2 CK-MB (CK-2) % Cancelled Total Protein Albumin Globulin Albumin/Globulin Ratio Assessment & Plan - Assessment and Plan (Free Text) Plan: Sepsis secondary to UTI Respiratory depression Hx of depression Hx of anxiety Hx of HTN Hx of DM Hx of Diverticulitis Hx of HLD Hx of hypothyroidism Plan Stop Merrem Continue Azithromycin and add Rocephin Urine culture shows Klebsiella pneumoniae Trachea aspirate culture shows gram positive cocci, likely colonization Blood cultures negative MRSA nasal screen negative Continue current medical management Zandra, PGY-3 <Jonh Gusman S - Last Filed: 09/12/18 16:08> Meds - Medications Medications: Current Medications Acetaminophen (Tylenol 325mg Tab) 650 mg PO Q6H PRN PRN Reason: Fever >100.4 F Last Admin: 09/11/18 00:47 Dose: 650 mg Acetaminophen (Tylenol 325 Mg Supp) 325 mg RC Q6H PRN PRN Reason: Fever >100.4 F Last Admin: 09/11/18 20:16 Dose: 325 mg Enoxaparin Sodium (Lovenox) 40 mg SC DAILY [facility]; Protocol Last Admin: 09/12/18 09:04 Dose: 40 mg Azithromycin (Zithromax 500mg In Ns) 500 mg in 250 mls @ 167 mls/hr IVPB DAILY [facility]; Protocol Last Admin: 09/12/18 09:03 Dose: 167 mls/hr Ceftriaxone Sodium (Rocephin 1 Gram Ivpb) 1 gm in 100 mls @ 100 mls/hr IVPB DAILY [facility]; Protocol Insulin Human Regular (Humulin R Low) 0 units SC ACHS [facility]; Protocol Levalbuterol HCl (Xopenex) 1.25 mg IH [id number] PRN PRN Reason: Shortness of Breath Levothyroxine Sodium (Synthroid) 50 mcg PO QAM [facility] Last Admin: 09/12/18 09:04 Dose: 50 mcg Lisinopril (Zestril) 5 mg PO DAILY [facility] Last Admin: 09/12/18 09:05 Dose: 5 mg Lorazepam (Ativan) 1 mg IVP Q6H [facility]; Protocol Metoprolol Succinate (Toprol Xl) 25 mg PO DAILY [facility] Last Admin: 09/12/18 09:04 Dose: 25 mg Venlafaxine HCl (Effexor Xr) 75 mg PO DAILY [facility] Results - Vital Signs Recent Vital Signs: Last Vital Signs Temp 99.7 F H 09/12/18 12:00 Pulse 90 09/12/18 13:50 Resp 12 09/12/18 13:50 BP 155/68 H 09/12/18 13:00 Pulse Ox 99 09/12/18 13:50 - Labs Result Diagrams: 09/12/18 05:40 09/12/18 05:40 Labs: Laboratory Results - last 24 hr 09/11/18 09/11/18 09/11/18 08:33 14:45 21:35 WBC RBC Hgb Hct MCV MCH MCHC RDW Plt Count MPV Gran % Lymph % (Auto) [place] % (Auto) Eos % (Auto) Baso % (Auto) Gran # Lymph # (Auto) [place] # (Auto) Eos # (Auto) Baso # (Auto) Sodium Potassium Chloride Carbon Dioxide Anion Gap BUN Creatinine Est GFR ( Amer) Est GFR (Non-Af Amer) POC Glucose (mg/dL) 199 H 196 H 218 H Random Glucose Calcium Total Bilirubin AST ALT Alkaline Phosphatase Total Creatine Kinase CK-MB (CK-2) CK-MB (CK-2) % Total Protein Albumin Globulin Albumin/Globulin Ratio Influenza Typ A,B (EIA) 09/12/18 09/12/18 09/12/18 02:36 05:40 05:40 WBC 14.5 H D RBC 4.44 Hgb 13.0 Hct 41.4 MCV 93.2 MCH 29.3 MCHC 31.4 RDW 13.0 Plt Count 334 MPV 9.0 Gran % 68.9 H Lymph % (Auto) 22.2 [place] % (Auto) 8.2 H Eos % (Auto) 0.3 L Baso % (Auto) 0.4 Gran # 9.98 H Lymph # (Auto) 3.2 [place] # (Auto) 1.2 H Eos # (Auto) 0.0 Baso # (Auto) 0.06 Sodium 142 Potassium 3.6 Chloride 110 H Carbon Dioxide 24 Anion Gap 12 BUN 11 Creatinine 0.8 Est GFR ( Amer) > 60 Est GFR (Non-Af Amer) > 60 POC Glucose (mg/dL) 194 H Random Glucose 178 H Calcium 9.5 Total Bilirubin 0.4 AST 29 ALT 20 Alkaline Phosphatase 145 H Total Creatine Kinase CK-MB (CK-2) CK-MB (CK-2) % Total Protein 7.6 Albumin 3.9 Globulin 3.7 Albumin/Globulin Ratio 1.1 Influenza Typ A,B (EIA) 09/12/18 09/12/18 05:40 10:30 WBC RBC Hgb Hct MCV MCH MCHC RDW Plt Count MPV Gran % Lymph % (Auto) [place] % (Auto) Eos % (Auto) Baso % (Auto) Gran # Lymph # (Auto) [place] # (Auto) Eos # (Auto) Baso # (Auto) Sodium Potassium Chloride Carbon Dioxide Anion Gap BUN Creatinine Est GFR ( Amer) Est GFR (Non-Af Amer) POC Glucose (mg/dL) Random Glucose Calcium Total Bilirubin AST ALT Alkaline Phosphatase Total Creatine Kinase 274 H CK-MB (CK-2) < 0.2 CK-MB (CK-2) % Cancelled Total Protein Albumin Globulin Albumin/Globulin Ratio Influenza Typ A,B (EIA) Negative for flu a/b Assessment & Plan - Assessment and Plan (Free Text) Plan: Infectious diseases Attending Physician Attestation Patient seen and examined, discussed with medical affairs specialist. I have reviewed the patient's history of present illness, past medical, social, personal and family histories, pertinent physical exam findings, course so far in this hospital admission, pertinent laboratory and imaging results. I agree with the above findings, assessment and plan. In addition, patient with probable sepsis from Klebsiella UTI - continue Rocephin. Patient with no evidence of pneumonia on CX R. Will continue to monitor clinically. Trend fever curve - still with low grade fever but may be due to drugs and will monitor.
--- NOTE | 2018-09-12 11:36 | CP.PCM.APN ---
Subjective - Date & Time of Evaluation Date of Evaluation: 09/12/18 Time of Evaluation: 11:00 - Subjective Subjective: pt seen and examined in CCU , up in chair , eating breakfast, NAD , answers questions appropriately offers no complaints when questioned except anxious to partake of food being fed to her Review of Systems - Constitutional Constitutional: absent: As Per HPI, Anorexia, Chills, Daytime Sleepiness, Excessive Sweating, Fatigue, Fever, Frequent Falls, Headache, Increased Appetite, Lethargy, Malaise, Night Sweats, Snoring, Sleep Apnea, Weight Gain, Weight Loss, Weakness, Other - EENT Eyes: absent: As Per HPI, Blind Spots, Blurred Vision, Change in Vision, Decreased Night Vision, Diplopia, Discharge, Dry Eye, Exophthalmos, Floaters, Irritation, Itchy Eyes, Loss of Peripheral Vision, Pain, Photophobia, Requires Corrective Lenses, Sees Flashes, Spots in Vision, Tunnel Vision, Other Visual Disturbances, Loss of Vision, Other - Respiratory Respiratory: absent: As Per HPI, Cough, Dyspnea, Hemoptysis, Dyspnea on Exertion, Wheezing, Snoring, Stridor, Pain on Inspiration, Chest Congestion, Excessive Mucous Production, Change in Mucous Color, Pain with Coughing, Other - Gastrointestinal Gastrointestinal: absent: As Per HPI, Abdominal Pain, Belching, Bloating, Change in Bowel Habits, Change in Stool Character, Coffee Ground Emesis, Constipation, Cramping, Diarrhea, Dyspepsia, Dysphagia, Early Satiety, Excessive Flatus, Fecal Incontinence, Heartburn, Hematemesis, Hematochezia, Loose Stools, Melena, Nausea, Odynophagia, Temesmus, Vomiting, Other Objective - Vital Signs/Intake and Output Vital Signs (last 24 hours): Temp Pulse Resp BP Pulse Ox 100.2 F H 93 H 23 151/80 H 99 09/12/18 10:10 09/12/18 10:10 09/12/18 10:10 09/12/18 10:00 09/12/18 10:10 Intake and Output: 09/12/18 09/12/18 06:59 18:59 Intake Total 1200 Output Total 1000 Balance 200 - Medications Medications: Current Medications Acetaminophen (Tylenol 325mg Tab) 650 mg PO Q6H PRN PRN Reason: Fever >100.4 F Last Admin: 09/11/18 00:47 Dose: 650 mg Acetaminophen (Tylenol 325 Mg Supp) 325 mg RC Q6H PRN PRN Reason: Fever >100.4 F Last Admin: 09/11/18 20:16 Dose: 325 mg Enoxaparin Sodium (Lovenox) 40 mg SC DAILY [facility]; Protocol Last Admin: 09/12/18 09:04 Dose: 40 mg Azithromycin (Zithromax 500mg In Ns) 500 mg in 250 mls @ 167 mls/hr IVPB DAILY [facility]; Protocol Last Admin: 09/12/18 09:03 Dose: 167 mls/hr Meropenem (Merrem Iv 1 Gm Premix) 1 gm in 50 mls @ 100 mls/hr IVPB Q8 [facility]; Protocol Last Admin: 09/12/18 08:58 Dose: 100 mls/hr Insulin Human Regular (Humulin R Low) 0 units SC Q6H [facility]; Protocol Last Admin: 09/12/18 09:18 Dose: Not Given Levalbuterol HCl (Xopenex) 1.25 mg IH [id number] PRN PRN Reason: Shortness of Breath Levothyroxine Sodium (Synthroid) 50 mcg PO QAM [facility] Last Admin: 09/12/18 09:04 Dose: 50 mcg Lisinopril (Zestril) 5 mg PO DAILY [facility] Last Admin: 09/12/18 09:05 Dose: 5 mg Metoprolol Succinate (Toprol Xl) 25 mg PO DAILY [facility] Last Admin: 09/12/18 09:04 Dose: 25 mg - Labs Labs: 09/12/18 05:40 09/12/18 05:40 PT 12.9 SECONDS (9.4-12.5) H 09/09/18 21:37 INR 1.13 09/09/18 21:37 APTT 25.7 Seconds (25.1-36.5) 09/09/18 21:37 - Constitutional Appears: Non-toxic, No Acute Distress - Head Exam Head Exam: NORMOCEPHALIC - Eye Exam Eye Exam: Normal appearance, PERRL - ENT Exam ENT Exam: Mucous Membranes Moist - Respiratory Exam Respiratory Exam: Decreased Breath Sounds, NORMAL BREATHING PATTERN - Cardiovascular Exam Cardiovascular Exam: +S1, +S2 - Neurological Exam Neurological Exam: Alert, Awake - Psychiatric Exam Psychiatric exam: Normal Affect, Normal Mood Additional comments: mildly anxious about eating breakfast, repeatedly asking to be fed despite being fed by aide - Skin Skin Exam: Dry, Intact Assessment and Plan - Assessment and Plan (Free Text) Plan: Microbiology 09/10/18 17:18 Trachasp Gram Stain - Final 09/10/18 17:18 Trachasp Sputum Culture - Preliminary Gram Positive Cocci 09/09/18 23:05 Urine Random Urine Culture - Final Klebsiella Pneumoniae Ssp Pneu 09/10/18 00:30 Blood-Venous Blood Culture - Preliminary NO GROWTH AFTER 48 HOURS 09/09/18 23:26 Blood-Venous Blood Culture - Preliminary NO GROWTH AFTER 48 HOURS 09/10/18 03:00 Nose MRSA Culture (Admit) - Final MRSA NOT DETECTED 62 yr old female with pmh sig for anxiety, depression, htn, hypothyroidism, dm, who was found unresponsive by family admitted with resp failure 2nd to benzo overdose admitted for further mgmt initially intubated for airway protection/resp failure. #resp failure s/p to OD s/p intubation and extubation stable resp status post extubation pt had swallow eval - tolerating diet # benzo OD with hx of anxiety and depression psychiatric eval with Dr Jacobson #Leukocytosis and fever procal 0.62 BC negative UC - gm negative clark - klebsiella pneu Trach Sp- gm postiive cocci ID consultation and IV antibiotics regimen with Azithheriberto and Jill noted # hypothyroidism synthroid regimen # DM pt passed swallow eval and has diet and sliding scale in place monitor for hyper/hypoglycemia Per discussion with Rn, pt for transfer to med sug.. will order p.t eval and continue to follow clinically Nalini Triana APN BPCI/TIC - BPCIA/TIC Educated pt/family on BPCIA/CIR/Med to Bed Programs: Yes Flyers given, including [facility] Beneficiary letter: Yes Pt/family verbalized understanding & agreed to program: Yes
[2018-09-12] MEDS: Venlafaxine 75 mg ER Cap PO SCH (16:59)
--- NOTE | 2018-09-12 19:24 | CON ---
DATE: 09/12/2018 HISTORY OF PRESENT ILLNESS: In short, the patient is a 62-year-old female, multiple medical issues including diverticulitis, hypertension, and diabetes. The patient was admitted on the ICU and was intubated after the patient was found unresponsive in her apartment. The patient had empty bottle of Xanax, which was filled 08/29/2018 and medical team suspected overdose on benzodiazepines. The patient was successfully extubated yesterday. This headline writer got involved because the patient has history of mental illness and rule out intentional overdose on benzodiazepines. The patient was seen and examined today. The patient presented somewhat withdrawn, disengaged, and was not fully participating in interview. The patient was interested in food more than talk to this headline writer. The patient seems to be poor and unreliable historian presented with severe thought blocking. The patient reported that she does not remember the circumstances of her admission to the hospital, but adamantly denied any intent or plan to kill herself prior to coming to the hospital. The patient reported that she does not feel depressed at present moment. The patient denied hearing voices, denied seeing things. The patient reported that she lives with her sister as well as nephew. The patient reports that she sees Dr. Pino in the community. Previous notes reviewed. The patient had history of falling and this is not the first episode when the patient would overdosed on benzodiazepines. Last time, the patient was seen by Dr. Pino in 10/2016. Dr. Pino documented that the patient was taking Xanax 2 mg every 8 hours and the patient was on Effexor 225 mg extended-release daily. The patient has history of unintentional overdose on medications and falling. Dr. Pino was contacted. The patient still sees Dr. Pino, but he is not prescribing her benzodiazepines. Medical team was advised to contact the patient's pharmacy as well as speak to the family. As per medical records receptionist's phone number in the chart is inactive and pharmacy medication list was provided to this headline writer. From psychiatric standpoint, the patient was still on Effexor 150 mg plus 75 mg daily. The patient also was prescribed Xanax 1 mg three times a day scheduled and that is from the psychiatric standpoint. Benzodiazepines were prescribed by Dr. Arroyo. If the patient overdosed on medications, most likely the patient took more than 90 pills of Xanax. As per collateral information from Dr. Pino, the patient still sees him in the community. The patient has history of unintentional overdose on benzodiazepines as per Dr. Pino, the chances that the patient tried to kill herself is very low. Vital signs reviewed. The patient is tachycardic, blood pressure is elevated. The patient also presented with upper extremity tremor, withdrawals cannot be excluded. MEDICATIONS: The patient is on Tylenol, azithromycin, Rocephin, Lovenox, Humulin, , Synthroid, Zestril, Ativan was advised to be resumed, Toprol 25 mg daily as well as Effexor 75 mg extended-release daily was advised to be resumed in order to avoid withdrawal symptoms. LABORATORY DATA: Labs reviewed. The patient has leukocytosis. There are no signs of granulocytosis. Chemistry reviewed. Urinalysis showed urinary tract infection and benzodiazepines positive. Serology is negative. Microbiology showed Gram-positive cocci. MENTAL STATUS EXAMINATION: The patient presented to be alert, somewhat anxious. No eye contact, upper extremity tremor. The patient poor and unreliable historian. Mood described as fine. Affect was constricted. Thought process concrete. Thought content, the patient denied visual, auditory, or tactile hallucinations. Denied paranoid ideation. The patient denied thoughts of harming herself or others. Denied intent or plan. The patient denied intentional overdose on medications. Insight and judgment seems to be limited. Impulses are unpredictable. IMPRESSION: As per history, depression and anxiety. PLAN: Xanax was discontinued. Ativan was started in order to avoid benzodiazepine withdrawals. Effexor was advised to be resumed extended-release 75 mg in order to avoid withdrawal symptoms medications needs to be provided in case of agitation. Collaterals from Dr. Pino obtained. Meanwhile, we will continue current medications and current medical management, most likely the patient would need admission to the psychiatric inpatient unit in order to streamline medications list. The patient also has history of falling and confusion and unintentional overdose. The patient might benefit from neurological evaluation by neurologist. Thank you very much for letting me to participate in the care of your patient. Should you have any questions, give me a call back over the weekend, Dr. Barr will follow up on this patient. Indira Juan MD [facility] # [id number]
[2018-09-13 05:56] LABS: ALB/GLOB RATIO 1.1 (1.1-1.8); ALBUMIN 3.6 g/dL (3.0-4.8); ALT/SGPT 25 U/L (7-56); AST/SGOT 36 U/L (14-36); BLOOD UREA NITROGEN 8 mg/dL (7-21); CALCIUM 9.4 mg/dL (8.4-10.5); GFR NON-AFRICAN AMERICAN > 60
[2018-09-13 05:57] LABS: BASO # 0.07 K/mm3 (0.0-2.0); BASO % 0.6 % (0.0-3.0); EOS # 0.4 (0.0-0.7); EOS % 2.9 % (1.5-5.0); GRAN # 6.48 (1.4-6.5); HEMOGLOBIN 12.7 g/dL (12.0-16.0); LYMPH # 4.7 (1.2-3.4); LYMPH % 37.4 % (22.0-35.0); MEAN CELL VOLUME 91.1 fl (80.0-105.0); MEAN CORPUSCULAR HEMOGLOBIN 29.8 pg (25.0-35.0); MEAN CORPUSCULAR HGB CONC 32.7 g/dl (31.0-37.0); MEAN PLATELET VOLUME 9.1 fl (7.0-11.0); MONO # 0.9 (0.1-0.6); MONO % 7.1 % (1.0-6.0); RBC 4.26 10^6/uL (3.5-6.1); RED CELL DISTRIBUTION WIDTH 12.8 % (11.5-14.5); WHITE BLOOD COUNT 12.5 10^3/uL (4.5-11.0)
--- NOTE | 2018-09-13 07:51 | CP.PCM.PN ---
<Julio Cesar Villavicencio - Last Filed: 09/13/18 14:30> Subjective - Date & Time of Evaluation Date of Evaluation: 09/13/18 Time of Evaluation: 07:48 - Subjective Subjective: Anupam Saud PGY2 - Progress Note Patient seen and evaluated this AM. No acute events reported overnight. Patient reports no respiratory difficulties, chest pain, abdominal pain, urinary complaints, fever, chills, nausea, vomiting. Objective - Vital Signs/Intake and Output Vital Signs (last 24 hours): Temp Pulse Resp BP Pulse Ox 99.8 F H 58 L 14 108/57 L 99 09/13/18 00:47 09/13/18 04:10 09/13/18 04:10 09/13/18 04:00 09/13/18 04:10 - Medications Medications: Current Medications Acetaminophen (Tylenol 325mg Tab) 650 mg PO Q6H PRN PRN Reason: Fever >100.4 F Last Admin: 09/13/18 00:47 Dose: 650 mg Acetaminophen (Tylenol 325 Mg Supp) 325 mg RC Q6H PRN PRN Reason: Fever >100.4 F Last Admin: 09/11/18 20:16 Dose: 325 mg Enoxaparin Sodium (Lovenox) 40 mg SC DAILY [facility]; Protocol Last Admin: 09/12/18 09:04 Dose: 40 mg Famotidine (Pepcid) 40 mg PO HS [facility] Last Admin: 09/12/18 22:11 Dose: 40 mg Ceftriaxone Sodium (Rocephin 1 Gram Ivpb) 1 gm in 100 mls @ 100 mls/hr IVPB DAILY [facility]; Protocol Insulin Human Regular (Humulin R Low) 0 units SC ACHS [facility]; Protocol Last Admin: 09/12/18 22:05 Dose: Not Given Levalbuterol HCl (Xopenex) 1.25 mg IH [id number] PRN PRN Reason: Shortness of Breath Levothyroxine Sodium (Synthroid) 50 mcg PO QAM [facility] Last Admin: 09/12/18 09:04 Dose: 50 mcg Lisinopril (Zestril) 5 mg PO DAILY [facility] Last Admin: 09/12/18 09:05 Dose: 5 mg Lorazepam (Ativan) 1 mg IVP Q6H [facility]; Protocol Last Admin: 09/13/18 02:55 Dose: 1 mg Metoprolol Succinate (Toprol Xl) 25 mg PO DAILY [facility] Last Admin: 09/12/18 09:04 Dose: 25 mg Venlafaxine HCl (Effexor Xr) 75 mg PO DAILY [facility] Last Admin: 09/12/18 16:59 Dose: 75 mg - Labs Labs: 09/13/18 05:00 09/13/18 05:00 PT 12.9 SECONDS (9.4-12.5) H 09/09/18 21:37 INR 1.13 09/09/18 21:37 APTT 25.7 Seconds (25.1-36.5) 09/09/18 21:37 - Constitutional Appears: Non-toxic, No Acute Distress - Head Exam Head Exam: ATRAUMATIC, NORMAL INSPECTION, NORMOCEPHALIC - Eye Exam Eye Exam: EOMI, PERRL - ENT Exam ENT Exam: Mucous Membranes Moist - Neck Exam Neck Exam: Full ROM - Respiratory Exam Respiratory Exam: Clear to Ausculation Bilateral, NORMAL BREATHING PATTERN. absent: Wheezes - Cardiovascular Exam Cardiovascular Exam: REGULAR RHYTHM, +S1, +S2 - GI/Abdominal Exam GI & Abdominal Exam: Soft, Normal Bowel Sounds. absent: Firm, Guarding, Rigid, Tenderness - Extremities Exam Extremities Exam: Full ROM. absent: Calf Tenderness, Pedal Edema - Neurological Exam Neurological Exam: Alert, Awake, Oriented x3 Additional comments: motor and sensory grossly intact - Psychiatric Exam Psychiatric exam: Depressed - Skin Skin Exam: Dry, Warm Assessment and Plan - Assessment and Plan (Free Text) Assessment: 62 year old F w/ PMH of anxiety, depression, diabetes, hypertension, and hypothyroidism, who presented in AMS and respiratory depression 2/2 benzo overdose. Patient intubated and admitted to ICU for management of respiratory depression and AMS. Patient has now been extubated for 48 hours and able to protect airway. Patient has noted to have continued fevers with urine positive for klebsiella pneumonia without evidence of pneumoniam on CXR who is on rocephin and azithromycin. ID and Psych are consulted and following the patient. Plan: Respiratory Depresion 2/2 benzo overdose -Patient extubated now for 48 plus hours -Patient tolerating nasal cannula -Maintain SaO2 >92% -Ativan 1 mg Q6H PRN Sepsis 2/2 UTI -Leukocytosis, Febrile, elevated Procal -Bld Clx x2 negative -Urine positive for Klebsiella Pneumonia -Patient is HDS -Originally placed on Merrem, Rocephin, Azithromycin -Merrem and azithromycin has been dc -ID consulted and following Hypokalemia -3.1 on today's labs -replete with 40mEq -continue to monitor Urine positive for Klebsiella Pneumonia -ID consulted and following -Patient to continue Rocephin -CXR showing no evident signs of pneumonia DM2 -ISS low -Fingerstick Q6H -Maintain euglycemia 110-180 Depression -09/09/[address] shows age appropriate cerebral atrophy, mild microvascular disease, no acute intracranial pathology -Patient with history of suicidal attempts -Venlafaxine 75mg PO Daily -Ativan 1 mg Q6H PRN -Psychiatry consulted and following, appreciate recs HTN -Patient BP normotensive, continue to monitor -Continue Zestril and Toprol XL -Maintain MAP >65 Hypothyroidism -TSH 0.8 continue synthroid GI/DVT ppx -Pepcid -lovenox Patient seen, case and plan discussed with attending Dr. Stevens <Andreina Stevens - Last Filed: 09/13/18 15:03> Objective - Vital Signs/Intake and Output Vital Signs (last 24 hours): Temp Pulse Resp BP Pulse Ox 98.4 F 83 20 137/77 99 09/13/18 10:16 09/13/18 10:16 09/13/18 10:16 09/13/18 10:16 09/13/18 10:16 - Medications Medications: Current Medications Acetaminophen (Tylenol 325mg Tab) 650 mg PO Q6H PRN PRN Reason: Fever >100.4 F Last Admin: 09/13/18 09:57 Dose: 650 mg Acetaminophen (Tylenol 325 Mg Supp) 325 mg RC Q6H PRN PRN Reason: Fever >100.4 F Last Admin: 09/11/18 20:16 Dose: 325 mg Enoxaparin Sodium (Lovenox) 40 mg SC DAILY [facility]; Protocol Last Admin: 09/13/18 09:57 Dose: 40 mg Famotidine (Pepcid) 40 mg PO HS [facility] Last Admin: 09/12/18 22:11 Dose: 40 mg Ceftriaxone Sodium (Rocephin 1 Gram Ivpb) 1 gm in 100 mls @ 100 mls/hr IVPB DAILY [facility]; Protocol Last Admin: 09/13/18 10:39 Dose: 100 mls/hr Insulin Human Regular (Humulin R Low) 0 units SC ACHS [facility]; Protocol Last Admin: 09/13/18 12:27 Dose: 2 units Levalbuterol HCl (Xopenex) 1.25 mg IH [id number] PRN PRN Reason: Shortness of Breath Levothyroxine Sodium (Synthroid) 50 mcg PO QAM [facility] Last Admin: 09/13/18 09:59 Dose: 50 mcg Lisinopril (Zestril) 5 mg PO DAILY [facility] Last Admin: 09/13/18 09:59 Dose: 5 mg Lorazepam (Ativan) 1 mg IVP Q6H PRN; Protocol PRN Reason: Anxiety Metoprolol Succinate (Toprol Xl) 25 mg PO DAILY [facility] Last Admin: 09/13/18 10:03 Dose: 25 mg Nystatin (Nystop Topical Powder) 0 gm TOP DAILY [facility] Stop: 09/15/18 12:34 Venlafaxine HCl (Effexor Xr) 75 mg PO DAILY [facility] Last Admin: 09/13/18 09:58 Dose: 75 mg - Labs Labs: 09/13/18 05:00 09/13/18 05:00 PT 12.9 SECONDS (9.4-12.5) H 09/09/18 21:37 INR 1.13 09/09/18 21:37 APTT 25.7 Seconds (25.1-36.5) 09/09/18 21:37 Attending/Attestation - Attestation I have personally seen and examined this patient.: Yes I have fully participated in the care of the patient.: Yes I have reviewed all pertinent clinical information, including history, physical exam and plan: Yes Notes (Text): 09/13/18 14:59 Patient seen and examined with resident. Patient is alert and awake. sitting in bed. Complaining of cough with minimum sputum production. Denies any fevers, chills. Not in any acute distress. Patient is a 62-year-old female with PMH of anxiety, depression, DM, HTN, hypothyroidism who presented with AMS/respiratory depression 2/2 benzodiazepine overdose. 1. Respiratory failure secondary to suspected drug overdose. currently extubated. Continue oxygen when necessary. Patient is more alert and awake. Denies any suicidal ideation. Incentive spirometry. 2. History of anxiety and depression; case discussed with psychiatrist in detail. Started on Ativan and Effexor. Medication reviewed with pharmacy. 3. Fever; resolving. chest x-rays negative. Currently on IV Rocephin. 4. Klebsiella UTI; continue IV Rocephin. Blood cultures negative so far. Sputum culture is positive for beta-hemolytic strep. 5. Hypertension; continue metoprolol and lisinopril. GI/DVT prophylaxis. Out of bed to chair as tolerated. Case discussed with psychiatrist in detail. Discontinue one-to-one observation. Patient will be reevaluated by psychiatrist tomorrow. Inpatient psychiatric admission strongly recommended. PT evaluation requested. Upon discharge patient will follow-up with PMD Dr. Griggs.
[2018-09-13] MEDS: Insulin Reg-LOW-Coverage SC SCH ×4 (09:52→21:59)
[2018-09-13] MEDS: Enoxaparin 40 mg Syringe SC SCH (09:57)
[2018-09-13] MEDS: Venlafaxine 75 mg ER Cap PO SCH (09:58)
[2018-09-13] MEDS: Levothyroxine 50 MCG TAB PO SCH (09:59)
[2018-09-13] MEDS: Metoprolol Succinate 25 mg XL Tab PO SCH (10:03)
[2018-09-13] MEDS: cefTRIAXone 1 gm 1 GM/100 ML BAG IVPB SCH (10:39)
[2018-09-13] MEDS: Nystatin 100,000 Units/gm Topical Pow(15 gm) TOP SCH (12:45)
--- NOTE | 2018-09-13 13:25 | CON ---
DATE: 09/13/2018 HISTORY OF PRESENT ILLNESS: The patient is a 62-year-old female who was admitted to the ICU and intubated after she was found unresponsive in her apartment. Psychiatry was consulted because medical team suspected the patient overdosed from benzos after she was found with empty bottle of Xanax just filled on 08/29/2018. I reviewed Dr. Juan's consultation and appeared that the patient was not very engaged, never forthcoming during the interview process yesterday. She reported she did not remember the circumstances that led to her admission to the hospital and she continues to deny having any knowledge of the circumstance and to the condition though she does report that she is depressed. She denies that she is suicidal or that she attempted to kill herself. Apparently, Dr. Juan contacted Dr. Castaneda, who indicated that it was very unlikely that the patient had tried to kill herself. Apparently, Dr. Castaneda educated that the patient has had unintentional overdose of benzos, which the patient actually denies during my followup with her today. The patient denies having any hallucinations, fairly coherent, but still disengaged with my questioning and does not appear to want psychiatry involved with care, denies any further requests or concerns, and there has not been any major behavioral issues in the unit. Vitals signs and labs were reviewed. RELEVANT PSYCHIATRIC MEDICATIONS: Include Effexor XR 75 mg daily, Ativan 1 mg IV every 6 hours scheduled. IMPRESSION: As per history, depression and anxiety. RECOMMENDATIONS: We will continue with Effexor XR 75 mg daily, likely increase it to help with patient's continued to depression Ativan. We will continue at 1 mg every 6 hours vials and taper as tolerated. Psychiatry will continue to follow the patient. She only recommend that the patient be psychiatrically hospitalized as her story does not appear to be credible if indeed the patient was found with an empty bottle of Xanax. The patient does not require one-to-one; however, this provider will strongly recommend a psychiatric followup to optimize her medications and to ensure her safety. Next followup will be on 09/14/[address] Barr. Traceymarco MD [facility] # [id number]
--- NOTE | 2018-09-13 14:47 | CP.PCM.PN ---
<Mario Mahan - Last Filed: 09/13/18 14:48> Subjective - Date & Time of Evaluation Date of Evaluation: 09/12/18 Time of Evaluation: 07:35 - Subjective Subjective: Mario Mahan DO, PGY-2: Hospitalist Progress Note Patient was seen and examined in bed 129-7. Patient was calling for nurse to be cleaned. Patient had a temperature of 100.2 on ICU monitor. Patient denied any chest pain, nausea, vomiting, or diarrhea. Otherwise, chart review indicates no adverse events overnight. Objective - Vital Signs/Intake and Output Vital Signs (last 24 hours): Temp Pulse Resp BP Pulse Ox 98.4 F 83 20 137/77 99 09/13/18 10:16 09/13/18 10:16 09/13/18 10:16 09/13/18 10:16 09/13/18 10:16 - Medications Medications: Current Medications Acetaminophen (Tylenol 325mg Tab) 650 mg PO Q6H PRN PRN Reason: Fever >100.4 F Last Admin: 09/13/18 09:57 Dose: 650 mg Acetaminophen (Tylenol 325 Mg Supp) 325 mg RC Q6H PRN PRN Reason: Fever >100.4 F Last Admin: 09/11/18 20:16 Dose: 325 mg Enoxaparin Sodium (Lovenox) 40 mg SC DAILY [facility]; Protocol Last Admin: 09/13/18 09:57 Dose: 40 mg Famotidine (Pepcid) 40 mg PO HS [facility] Last Admin: 09/12/18 22:11 Dose: 40 mg Ceftriaxone Sodium (Rocephin 1 Gram Ivpb) 1 gm in 100 mls @ 100 mls/hr IVPB DAILY [facility]; Protocol Last Admin: 09/13/18 10:39 Dose: 100 mls/hr Insulin Human Regular (Humulin R Low) 0 units SC ACHS [facility]; Protocol Last Admin: 09/13/18 12:27 Dose: 2 units Levalbuterol HCl (Xopenex) 1.25 mg IH [id number] PRN PRN Reason: Shortness of Breath Levothyroxine Sodium (Synthroid) 50 mcg PO QAM [facility] Last Admin: 09/13/18 09:59 Dose: 50 mcg Lisinopril (Zestril) 5 mg PO DAILY [facility] Last Admin: 09/13/18 09:59 Dose: 5 mg Lorazepam (Ativan) 1 mg IVP Q6H PRN; Protocol PRN Reason: Anxiety Metoprolol Succinate (Toprol Xl) 25 mg PO DAILY [facility] Last Admin: 09/13/18 10:03 Dose: 25 mg Nystatin (Nystop Topical Powder) 0 gm TOP DAILY [facility] Stop: 09/15/18 12:34 Venlafaxine HCl (Effexor Xr) 75 mg PO DAILY [facility] Last Admin: 09/13/18 09:58 Dose: 75 mg - Labs Labs: 09/13/18 05:00 09/13/18 05:00 PT 12.9 SECONDS (9.4-12.5) H 09/09/18 21:37 INR 1.13 09/09/18 21:37 APTT 25.7 Seconds (25.1-36.5) 09/09/18 21:37 - Constitutional Appears: Older Than Stated Age - Head Exam Head Exam: ATRAUMATIC, NORMOCEPHALIC - Eye Exam Eye Exam: EOMI, Normal appearance - ENT Exam ENT Exam: Mucous Membranes Moist - Neck Exam Neck Exam: Normal Inspection - Respiratory Exam Respiratory Exam: Clear to Ausculation Bilateral, NORMAL BREATHING PATTERN - Cardiovascular Exam Cardiovascular Exam: RRR, +S1, +S2 - GI/Abdominal Exam GI & Abdominal Exam: Soft, Normal Bowel Sounds - Extremities Exam Extremities Exam: Normal Inspection. absent: Calf Tenderness - Neurological Exam Neurological Exam: Alert, Awake - Skin Skin Exam: Dry, Intact, Normal Color, Warm Assessment and Plan - Assessment and Plan (Free Text) Assessment: 62 year old female with a past medical history of anxiety, depression, DM, hypertension, and hypothyroidism who presented with AMS/respiratory depression 2/2 benzodiazepine overdose. Patient is s/p extubation this am. Plan: Respiratory failure 2/2 benzodiazepine overdose S/p extubation in ICU this am, currently on nasal cannula, lethargy on exam Will f/u speech/swallow eval, currently NPO Maintain O2 sat > 95%, aspiration precautions HOB above 30 degree CXRs not demonstrating infiltrates/consolidations Leukocytosis Febrile to 100.9, cont to trend; tachycardic Utox pos for Benzos only Psych consulted (Dr. Jacobson), recs appreciated Verified home med Xanax with pharmacy 1 mg tid prn, recently refilled in Aug 2018 Leukocytosis - UTI with urine culture growing Klebsiella pneumonia - Sputum growing gram positive cocci, but no infiltrate appreciated on chest X- ray - Continue on Rocephin for UTI Hx anxiety/depression Psych consulted, recs appreciated Verified home psych meds with pharmacy Hx DM On and Tradjenta for home meds, currently held Cont to trend fingersticks ISS Hx HTN 186/111 today, may also be 2/2 withdrawal symptoms Restarted home med Toprol XL 25 mg PO daily Restarted home med Lisinopril 5 mg PO daily Cont to monitor Hx HLD On no home meds currently Hx hypothyroidism C/w home med Synthroid 50 mcg PO am Patient seen and examined with attending physician, Dr. Stevens <Andreina Stevens - Last Filed: 09/13/18 14:58> Objective - Vital Signs/Intake and Output Vital Signs (last 24 hours): Temp Pulse Resp BP Pulse Ox 98.4 F 83 20 137/77 99 09/13/18 10:16 09/13/18 10:16 09/13/18 10:16 09/13/18 10:16 09/13/18 10:16 - Medications Medications: Current Medications Acetaminophen (Tylenol 325mg Tab) 650 mg PO Q6H PRN PRN Reason: Fever >100.4 F Last Admin: 09/13/18 09:57 Dose: 650 mg Acetaminophen (Tylenol 325 Mg Supp) 325 mg RC Q6H PRN PRN Reason: Fever >100.4 F Last Admin: 09/11/18 20:16 Dose: 325 mg Enoxaparin Sodium (Lovenox) 40 mg SC DAILY [facility]; Protocol Last Admin: 09/13/18 09:57 Dose: 40 mg Famotidine (Pepcid) 40 mg PO HS [facility] Last Admin: 09/12/18 22:11 Dose: 40 mg Ceftriaxone Sodium (Rocephin 1 Gram Ivpb) 1 gm in 100 mls @ 100 mls/hr IVPB DAILY [facility]; Protocol Last Admin: 09/13/18 10:39 Dose: 100 mls/hr Insulin Human Regular (Humulin R Low) 0 units SC ACHS [facility]; Protocol Last Admin: 09/13/18 12:27 Dose: 2 units Levalbuterol HCl (Xopenex) 1.25 mg IH [id number] PRN PRN Reason: Shortness of Breath Levothyroxine Sodium (Synthroid) 50 mcg PO QAM [facility] Last Admin: 09/13/18 09:59 Dose: 50 mcg Lisinopril (Zestril) 5 mg PO DAILY [facility] Last Admin: 09/13/18 09:59 Dose: 5 mg Lorazepam (Ativan) 1 mg IVP Q6H [facility]; Protocol PRN Reason: Anxiety Metoprolol Succinate (Toprol Xl) 25 mg PO DAILY [facility] Last Admin: 09/13/18 10:03 Dose: 25 mg Nystatin (Nystop Topical Powder) 0 gm TOP DAILY [facility] Stop: 09/15/18 12:34 Potassium Chloride (K-Dur 20 Meq Er Tab) 20 meq PO ONCE ONE Stop: 09/13/18 14:50 Potassium Chloride (K-Dur 20 Meq Er Tab) 20 meq PO STAT [facility] Stop: 09/13/18 14:50 Venlafaxine HCl (Effexor Xr) 75 mg PO DAILY [facility] Last Admin: 09/13/18 09:58 Dose: 75 mg - Labs Labs: 09/13/18 05:00 09/13/18 05:00 PT 12.9 SECONDS (9.4-12.5) H 09/09/18 21:37 INR 1.13 09/09/18 21:37 APTT 25.7 Seconds (25.1-36.5) 09/09/18 21:37 Attending/Attestation - Attestation I have personally seen and examined this patient.: Yes I have fully participated in the care of the patient.: Yes I have reviewed all pertinent clinical information, including history, physical exam and plan: Yes Notes (Text): 09/13/18 14:54 Progress note for 09/12/18. Attending note; Patient seen and examined with resident in ICU. Patient is alert and awake. Able to give some history. Complaining of cough with minimum sputum production. Has Diehl catheter in place. Denies any fevers, chills. Not in any acute distress. Patient is a 62-year-old female with PMH of anxiety, depression, DM, HTN, hypothyroidism who presented with AMS/respiratory depression 2/2 benzodiazepine overdose. 1. Respiratory failure secondary to drug overdose; currently extubated. Continue oxygen when necessary. Patient is more alert and awake. Denies any suicidal ideation. Does not remember getting admitted to the hospital. Denies any previous illness. 2. History of anxiety and depression; case discussed with psychiatrist in detail. Started on Ativan and Effexor. Medication reviewed with pharmacy. 3. Fever; resolving. chest x-rays negative. Currently on IV Rocephin and Zithromax. 4. Klebsiella UTI; continue IV Rocephin. Blood cultures negative so far. Sputum culture is pending. 5. Hypertension; continue metoprolol and lisinopril. GI/DVT prophylaxis. Out of bed to chair as tolerated. Discontinue Diehl catheter today. Transferred to [facility] bed. Monitor patient closely. Upon discharge patient will follow-up with PMD Dr. Griggs.
[2018-09-13] MEDS ORDERED: Potassium Chloride 20 mEq ER Tab PO STA (14:49)
[2018-09-13] MEDS ORDERED: Potassium Chloride 20 mEq ER Tab PO ONE (14:49)
--- NOTE | 2018-09-13 23:44 | PN ---
DATE: 09/13/2018 SUBJECTIVE: The patient is in bed, in no acute distress, was seen early this morning. PHYSICAL EXAMINATION: VITAL SIGNS: Temperature is 98, blood pressure is 120/60, respiratory rate 18, and heart rate of 70. HEENT: Unremarkable. NECK: Supple. LUNGS: Have decreased breath sounds. HEART: Normal S1, S2. ABDOMEN: Soft. LABORATORY EXAMINATION: Reveals white count is down to 12,500. Chemistries are noted. Procalcitonin is elevated at 0.62. Urinalysis is noted. Toxicology is noted, and serology is negative. Microbiology revealed the influenza is negative. ASSESSMENT AND PLAN: This is a 62-year-old female with anxiety, depression, diverticulitis, hyperlipidemia, hypertension, hypothyroidism with probable sepsis with Klebsiella urinary tract infection. Current review of orders reveals the patient to be on ceftriaxone. We will follow with you. Andrews Bliss MD
[2018-09-14 07:39] LABS: BASO # 0.05 K/mm3 (0.0-2.0); BASO % 0.5 % (0.0-3.0); EOS # 0.3 (0.0-0.7); EOS % 3.6 % (1.5-5.0); GRAN # 6.06 (1.4-6.5); GRAN % 63.6 % (50.0-68.0); HEMOGLOBIN 13.1 g/dL (12.0-16.0); LYMPH # 2.5 (1.2-3.4); LYMPH % 26.1 % (22.0-35.0); MEAN CELL VOLUME 88.1 fl (80.0-105.0); MEAN CORPUSCULAR HEMOGLOBIN 29.3 pg (25.0-35.0); MEAN CORPUSCULAR HGB CONC 33.2 g/dl (31.0-37.0); MEAN PLATELET VOLUME 9.1 fl (7.0-11.0); MONO # 0.6 (0.1-0.6); MONO % 6.2 % (1.0-6.0); RBC 4.47 10^6/uL (3.5-6.1); RED CELL DISTRIBUTION WIDTH 12.5 % (11.5-14.5); WHITE BLOOD COUNT 9.5 10^3/uL (4.5-11.0)
[2018-09-14 07:59] VITALS: BP 150/85
[2018-09-14 08:19] LABS: ALB/GLOB RATIO 1.1 (1.1-1.8); ALBUMIN 3.6 g/dL (3.0-4.8); ALT/SGPT 31 U/L (7-56); AST/SGOT 35 U/L (14-36); BLOOD UREA NITROGEN 3 mg/dL (7-21); CALCIUM 9.3 mg/dL (8.4-10.5); GFR NON-AFRICAN AMERICAN > 60
[2018-09-14] MEDS: Insulin Reg-LOW-Coverage SC SCH ×3 (08:34→16:57)
[2018-09-14] MEDS ORDERED: Potassium Chloride 20 mEq ER Tab PO STA ×2 (09:19)
[2018-09-14] MEDS: Enoxaparin 40 mg Syringe SC SCH (10:32)
[2018-09-14] MEDS: Levothyroxine 50 MCG TAB PO SCH (10:34)
[2018-09-14] MEDS: Metoprolol Succinate 25 mg XL Tab PO SCH (10:34)
[2018-09-14] MEDS: Nystatin 100,000 Units/gm Topical Pow(15 gm) TOP SCH (10:39)
[2018-09-14] MEDS: cefTRIAXone 1 gm 1 GM/100 ML BAG IVPB SCH (11:05)
[2018-09-14] MEDS: Venlafaxine 75 mg ER Cap PO SCH (11:18)
--- NOTE | 2018-09-14 13:05 | CP.PCM.DIS ---
<Edu Pimentel - Last Filed: 09/14/18 12:51> Provider - Provider Date of Admission: 09/09/18 23:09 Attending physician: Andreina Stevens MD Primary care physician: Serafin Hernandez MD Consults: 09/09/18 22:28 Psychiatry Consult Stat Comment: Consulting Provider: Indira Juan Consulting Physician: Indira Juan Reason for Consult: Suicidal Ideation 09/11/18 08:50 Psychiatry Consult Routine Comment: Consulting Provider: Indira Juan Consulting Physician: Indira Juan Reason for Consult: reconsult, extubated 09/12/18 06:53 Psychiatry Consult Routine Comment: Consulting Provider: Indira Juan Consulting Physician: Indira Juan Reason for Consult: extuabted and alert, please evaluate today 09/12/18 07:03 Consult [Physician Consult] Routine Comment: Consulting Provider: Moy Alvarez Consulting Physician: Moy Alvarez Reason for Consult: fevers, uti Time Spent in preparation of Discharge (in minutes): 47 Diagnosis - Discharge Diagnosis (1) Drug overdose Status: Acute (2) Respiratory failure Status: Acute Hospital Course - Lab Results Lab Results: Micro Results 09/10/18 00:30 Blood-Venous Blood Culture - Preliminary NO GROWTH AFTER 4 DAYS 09/09/18 23:26 Blood-Venous Blood Culture - Preliminary NO GROWTH AFTER 4 DAYS 09/12/18 13:40 Blood Blood Culture - Preliminary NO GROWTH AFTER 24 HOURS 09/12/18 13:10 Blood Blood Culture - Preliminary NO GROWTH AFTER 24 HOURS 09/10/18 17:18 Trachasp Gram Stain - Final 09/10/18 17:18 Trachasp Sputum Culture - Final Beta Hemolytic Strep Group B 09/09/18 23:05 Urine Random Urine Culture - Final Klebsiella Pneumoniae Ssp Pneu 09/10/18 03:00 Nose MRSA Culture (Admit) - Final MRSA NOT DETECTED Most Recent Lab Values WBC 9.5 10^3/uL (4.5-11.0) D 09/14/18 07:00 RBC 4.47 10^6/uL (3.5-6.1) 09/14/18 07:00 Hgb 13.1 g/dL (12.0-16.0) 09/14/18 07:00 Hct 39.4 % (36.0-48.0) 09/14/18 07:00 MCV 88.1 fl (80.0-105.0) D 09/14/18 07:00 MCH 29.3 pg (25.0-35.0) 09/14/18 07:00 MCHC 33.2 g/dl (31.0-37.0) 09/14/18 07:00 RDW 12.5 % (11.5-14.5) 09/14/18 07:00 Plt Count 298 10^3/uL (120.0-450.0) 09/14/18 07:00 MPV 9.1 fl (7.0-11.0) 09/14/18 07:00 Gran % 63.6 % (50.0-68.0) 09/14/18 07:00 Lymph % (Auto) 26.1 % (22.0-35.0) 09/14/18 07:00 Patrick % (Auto) 6.2 % (1.0-6.0) H 09/14/18 07:00 Eos % (Auto) 3.6 % (1.5-5.0) 09/14/18 07:00 Baso % (Auto) 0.5 % (0.0-3.0) 09/14/18 07:00 Gran # 6.06 (1.4-6.5) 09/14/18 07:00 Lymph # (Auto) 2.5 (1.2-3.4) 09/14/18 07:00 Patrick # (Auto) 0.6 (0.1-0.6) 09/14/18 07:00 Eos # (Auto) 0.3 (0.0-0.7) 09/14/18 07:00 Baso # (Auto) 0.05 K/mm3 (0.0-2.0) 09/14/18 07:00 PT 12.9 SECONDS (9.4-12.5) H 09/09/18 21:37 INR 1.13 09/09/18 21:37 APTT 25.7 Seconds (25.1-36.5) 09/09/18 21:37 pCO2 40 mm/Hg (35-45) 09/11/18 05:30 pO2 143.0 mm/Hg (80-100) H 09/11/18 05:30 HCO3 23.1 mmol/L (21-28) 09/11/18 05:30 ABG pH 7.37 (7.35-7.45) 09/11/18 05:30 ABG Total CO2 24.3 mmol.L (22-28) 09/11/18 05:30 ABG O2 Saturation 99.9 % (95-98) H 09/11/18 05:30 ABG O2 Content 17.6 ML/dl (15-23) 09/11/18 05:30 ABG Base Excess -2.0 mmol/L (-2.0-3.0) 09/11/18 05:30 ABG Hemoglobin 12.7 g/dL (11.7-17.4) 09/11/18 05:30 ABG Carboxyhemoglobin 1.8 % (0.5-1.5) H 09/11/18 05:30 POC ABG HHb (Measured) 0.1 % (0-5) 09/11/18 05:30 ABG Methemoglobin 1.0 % (0.0-3.0) 09/11/18 05:30 ABG O2 Capacity 17.6 mL/dl (16-24) 09/11/18 05:30 Hgb O2 Saturation 97.2 % (95.0-98.0) 09/11/18 05:30 FiO2 40.0 % 09/11/18 05:30 Sodium 136 mmol/L (132-148) 09/14/18 07:00 Potassium 3.2 mmol/L (3.6-5.0) L 09/14/18 07:00 Chloride 100 mmol/L (98-107) 09/14/18 07:00 Carbon Dioxide 31 mmol/L (21-33) 09/14/18 07:00 Anion Gap 8 (10-20) L 09/14/18 07:00 BUN 3 mg/dL (7-21) L 09/14/18 07:00 Creatinine 0.5 mg/dl (0.7-1.2) L 09/14/18 07:00 Est GFR ( Amer) > 60 09/14/18 07:00 Est GFR (Non-Af Amer) > 60 09/14/18 07:00 POC Glucose (mg/dL) 192 mg/dL (65-110) H 09/14/18 11:08 Random Glucose 172 mg/dL (70-110) H 09/14/18 07:00 Calcium 9.3 mg/dL (8.4-10.5) 09/14/18 07:00 Total Bilirubin 0.3 mg/dL (0.2-1.3) 09/14/18 07:00 AST 35 U/L (14-36) 09/14/18 07:00 ALT 31 U/L (7-56) 09/14/18 07:00 Alkaline Phosphatase 141 U/L (38-126) H 09/14/18 07:00 Lactate Dehydrogenase 458 U/L (333-699) 09/09/18 21:37 Total Creatine Kinase 274 U/L (35-230) H 09/12/18 05:40 CK-MB (CK-2) < 0.2 ng/mL (0.0-3.6) 09/12/18 05:40 CK-MB (CK-2) % Cancelled 09/12/18 05:40 Troponin I < 0.01 ng/mL 09/09/18 21:37 Total Protein 6.8 g/dL (5.8-8.3) 09/14/18 07:00 Albumin 3.6 g/dL (3.0-4.8) 09/14/18 07:00 Globulin 3.3 gm/dL 09/14/18 07:00 Albumin/Globulin Ratio 1.1 (1.1-1.8) 09/14/18 07:00 Procalcitonin 0.62 NG/ML (0.19-0.49) H 09/10/18 13:00 TSH 3rd Generation 0.80 mIU/mL (0.46-4.68) 09/10/18 13:00 Urine Color Light yellow (YELLOW) 09/10/18 20:00 Urine Appearance Sl cloudy (CLEAR) 09/10/18 20:00 Urine pH 5.5 (4.7-8.0) 09/10/18 20:00 Ur Specific Edmond 1.025 (1.005-1.035) 09/10/18 20:00 Urine Protein Trace mg/dL (<30 mg/dL) H 09/10/18 20:00 Urine Glucose (UA) >=1000 mg/dL (NEGATIVE) 09/10/18 20:00 Urine Ketones 15 mg/dL (NEGATIVE) H 09/10/18 20:00 Urine Blood Large (NEGATIVE) H 09/10/18 20:00 Urine Nitrate Positive (NEGATIVE) H 09/10/18 20:00 Urine Bilirubin Negative (NEGATIVE) 09/10/18 20:00 Urine Urobilinogen 0.2 E.U./dL (<1 E.U./dL) 09/10/18 20:00 Ur Leukocyte Esterase Trace Cecy/uL (NEGATIVE) H 09/10/18 20:00 Urine RBC 10 - 15 /hpf (0-2) H 09/10/18 20:00 Urine WBC 20 - 25 /hpf (0-6) H 09/10/18 20:00 Ur Epithelial Cells 1 - 3 /hpf (0-5) 09/10/18 20:00 Urine Bacteria Small /hpf (NONE) 09/10/18 20:00 Salicylates < 1 mg/dL (2.0-20.0) L 09/09/18 21:37 Urine Opiates Screen Negative (NEGATIVE) 09/09/18 21:30 Urine Methadone Screen Negative (NEGATIVE) 09/09/18 21:30 Acetaminophen < 10.0 ug/ml (10.0-20.0) L 09/09/18 21:37 Ur Barbiturates Screen Negative (NEGATIVE) 09/09/18 21:30 Ur Phencyclidine Scrn Negative (NEGATIVE) 09/09/18 21:30 Ur Amphetamines Screen Negative (NEGATIVE) 09/09/18 21:30 U Benzodiazepines Scrn Positive (NEGATIVE) H 09/09/18 21:30 U Oth Cocaine Metabols Negative (NEGATIVE) 09/09/18 21:30 U Cannabinoids Screen Negative (NEGATIVE) 09/09/18 21:30 Alcohol, Quantitative < 10 mg/dL (0-10) 09/09/18 21:37 Influenza Typ A,B (EIA) Negative for flu a/b (NEGATIVE) 09/12/18 10:30 - Hospital Course Hospital Course: 62 year old female with a past medical history significant for HTN, HLD, hypothyroid, DM2, anxiety and depression who presented unresponsive after overdosing on an unknown quantity of Xanax. Patient was intubated and sedated in the field as she was unable to protect her airway. A CT head was unremarkable on presentation. Patient was placed on 1-to-1 as it was suspected that patient took the Xanax in an attempted suicide. Patient was admitted to the ICU. Psychiatry was consulted. Patient was noted to be febrile and with a leukocytosis on admission and a UTI was found on routine UA. ID was consulted and patient was placed on Rocephin, Zithromax and Zosyn empirically. Urine cultures later grew Klebsiella and patient was switched to PO Ciprofloxacin based on sensitivity report. Patient was successfully extubated 48 hours after presentation was transferred from the ICU to the med/surg floor. Psychiatry recommended treatment within the voluntary BHU at [facility] once medically optimized, with patient in agreement to this. After patient was medically optimized, she was discharged (09/14/2018) to the BHU at [facility] for further mental health treatment. Patient is currently without any homicidal or suicidal ideation. - Date & Time of H&P Date of H&P: 09/10/18 Time of H&P: 01:43 Discharge Exam - Head Exam Head Exam: ATRAUMATIC, NORMOCEPHALIC - Eye Exam Eye Exam: EOMI, Normal appearance, PERRL - ENT Exam ENT Exam: Normal Exam - Neck Exam Neck exam: Full Rom - Respiratory Exam Respiratory Exam: Clear to PA & Lateral, NORMAL BREATHING PATTERN, UNREMARKABLE - Cardiovascular Exam Cardiovascular Exam: REGULAR RHYTHM - GI/Abdominal Exam GI & Abdominal Exam: Normal Bowel Sounds, Unremarkable - Neurological Exam Neurological exam: Alert, Oriented x3 - Psychiatric Exam Psychiatric exam: Depressed - Skin Skin Exam: Dry, Intact, Warm Discharge Plan - Follow Up Plan Condition: CRITICAL Disposition: DISCHARGE TO PSYCH HOSPITAL Instructions: Adult Respiratory Distress Syndrome, Narcotic Overdose (DC), Taking Narcotics Safely Additional Instructions: Patient to be discharged to (Behavioral Health Unit at [facility]). Patient to continue all medications as currently ordered unless otherwise stopped or adjusted by a physician. Please follow up with your primary care doctor within one to two weeks after being discharged from U at [facility] Please follow up with your psychiatrist within one week of being discharged from [facility] at [facility] Please continue to take Ciprofloxacin, as ordered at 500mg PO Q12, for a total of three days Please continue to take all other home medications as previously prescribed Please return to the nearest emergency room immediately if your presenting symptoms return Referrals: Serafin Hernandez MD [Primary Care Provider] - <Andreina Stevens - Last Filed: 09/14/18 13:39> Provider - Provider Date of Admission: 09/09/18 23:09 Attending physician: Andreina Stevens MD Primary care physician: Serafin Hernandez MD Consults: 09/09/18 22:28 Psychiatry Consult Stat Comment: Consulting Provider: Indira Juan Consulting Physician: Indira Juan Reason for Consult: Suicidal Ideation 09/11/18 08:50 Psychiatry Consult Routine Comment: Consulting Provider: Indira Juan Consulting Physician: Indira Juan Reason for Consult: reconsult, extubated 09/12/18 06:53 Psychiatry Consult Routine Comment: Consulting Provider: Indira Juan Consulting Physician: Indira Juan Reason for Consult: extuabted and alert, please evaluate today 09/12/18 07:03 Consult [Physician Consult] Routine Comment: Consulting Provider: Moy Alvarez Consulting Physician: Moy Alvarez Reason for Consult: fevers, uti Hospital Course - Lab Results Lab Results: Micro Results 09/12/18 13:10 Blood Blood Culture - Preliminary NO GROWTH AFTER 48 HOURS 09/10/18 00:30 Blood-Venous Blood Culture - Preliminary NO GROWTH AFTER 4 DAYS 09/09/18 23:26 Blood-Venous Blood Culture - Preliminary NO GROWTH AFTER 4 DAYS 09/12/18 13:40 Blood Blood Culture - Preliminary NO GROWTH AFTER 24 HOURS 09/10/18 17:18 Trachasp Gram Stain - Final 09/10/18 17:18 Trachasp Sputum Culture - Final Beta Hemolytic Strep Group B 09/09/18 23:05 Urine Random Urine Culture - Final Klebsiella Pneumoniae Ssp Pneu 09/10/18 03:00 Nose MRSA Culture (Admit) - Final MRSA NOT DETECTED Most Recent Lab Values WBC 9.5 10^3/uL (4.5-11.0) D 09/14/18 07:00 RBC 4.47 10^6/uL (3.5-6.1) 09/14/18 07:00 Hgb 13.1 g/dL (12.0-16.0) 09/14/18 07:00 Hct 39.4 % (36.0-48.0) 09/14/18 07:00 MCV 88.1 fl (80.0-105.0) D 09/14/18 07:00 MCH 29.3 pg (25.0-35.0) 09/14/18 07:00 MCHC 33.2 g/dl (31.0-37.0) 09/14/18 07:00 RDW 12.5 % (11.5-14.5) 09/14/18 07:00 Plt Count 298 10^3/uL (120.0-450.0) 09/14/18 07:00 MPV 9.1 fl (7.0-11.0) 09/14/18 07:00 Gran % 63.6 % (50.0-68.0) 09/14/18 07:00 Lymph % (Auto) 26.1 % (22.0-35.0) 09/14/18 07:00 Patrick % (Auto) 6.2 % (1.0-6.0) H 09/14/18 07:00 Eos % (Auto) 3.6 % (1.5-5.0) 09/14/18 07:00 Baso % (Auto) 0.5 % (0.0-3.0) 09/14/18 07:00 Gran # 6.06 (1.4-6.5) 09/14/18 07:00 Lymph # (Auto) 2.5 (1.2-3.4) 09/14/18 07:00 Patrick # (Auto) 0.6 (0.1-0.6) 09/14/18 07:00 Eos # (Auto) 0.3 (0.0-0.7) 09/14/18 07:00 Baso # (Auto) 0.05 K/mm3 (0.0-2.0) 09/14/18 07:00 PT 12.9 SECONDS (9.4-12.5) H 09/09/18 21:37 INR 1.13 09/09/18 21:37 APTT 25.7 Seconds (25.1-36.5) 09/09/18 21:37 pCO2 40 mm/Hg (35-45) 09/11/18 05:30 pO2 143.0 mm/Hg (80-100) H 09/11/18 05:30 HCO3 23.1 mmol/L (21-28) 09/11/18 05:30 ABG pH 7.37 (7.35-7.45) 09/11/18 05:30 ABG Total CO2 24.3 mmol.L (22-28) 09/11/18 05:30 ABG O2 Saturation 99.9 % (95-98) H 09/11/18 05:30 ABG O2 Content 17.6 ML/dl (15-23) 09/11/18 05:30 ABG Base Excess -2.0 mmol/L (-2.0-3.0) 09/11/18 05:30 ABG Hemoglobin 12.7 g/dL (11.7-17.4) 09/11/18 05:30 ABG Carboxyhemoglobin 1.8 % (0.5-1.5) H 09/11/18 05:30 POC ABG HHb (Measured) 0.1 % (0-5) 09/11/18 05:30 ABG Methemoglobin 1.0 % (0.0-3.0) 09/11/18 05:30 ABG O2 Capacity 17.6 mL/dl (16-24) 09/11/18 05:30 Hgb O2 Saturation 97.2 % (95.0-98.0) 09/11/18 05:30 FiO2 40.0 % 09/11/18 05:30 Sodium 136 mmol/L (132-148) 09/14/18 07:00 Potassium 3.2 mmol/L (3.6-5.0) L 09/14/18 07:00 Chloride 100 mmol/L (98-107) 09/14/18 07:00 Carbon Dioxide 31 mmol/L (21-33) 09/14/18 07:00 Anion Gap 8 (10-20) L 09/14/18 07:00 BUN 3 mg/dL (7-21) L 09/14/18 07:00 Creatinine 0.5 mg/dl (0.7-1.2) L 09/14/18 07:00 Est GFR ( Amer) > 60 09/14/18 07:00 Est GFR (Non-Af Amer) > 60 09/14/18 07:00 POC Glucose (mg/dL) 192 mg/dL (65-110) H 09/14/18 11:08 Random Glucose 172 mg/dL (70-110) H 09/14/18 07:00 Calcium 9.3 mg/dL (8.4-10.5) 09/14/18 07:00 Total Bilirubin 0.3 mg/dL (0.2-1.3) 09/14/18 07:00 AST 35 U/L (14-36) 09/14/18 07:00 ALT 31 U/L (7-56) 09/14/18 07:00 Alkaline Phosphatase 141 U/L (38-126) H 09/14/18 07:00 Lactate Dehydrogenase 458 U/L (333-699) 09/09/18 21:37 Total Creatine Kinase 274 U/L (35-230) H 09/12/18 05:40 CK-MB (CK-2) < 0.2 ng/mL (0.0-3.6) 09/12/18 05:40 CK-MB (CK-2) % Cancelled 09/12/18 05:40 Troponin I < 0.01 ng/mL 09/09/18 21:37 Total Protein 6.8 g/dL (5.8-8.3) 09/14/18 07:00 Albumin 3.6 g/dL (3.0-4.8) 09/14/18 07:00 Globulin 3.3 gm/dL 09/14/18 07:00 Albumin/Globulin Ratio 1.1 (1.1-1.8) 09/14/18 07:00 Procalcitonin 0.62 NG/ML (0.19-0.49) H 09/10/18 13:00 TSH 3rd Generation 0.80 mIU/mL (0.46-4.68) 09/10/18 13:00 Urine Color Light yellow (YELLOW) 09/10/18 20:00 Urine Appearance Sl cloudy (CLEAR) 09/10/18 20:00 Urine pH 5.5 (4.7-8.0) 09/10/18 20:00 Ur Specific Edmond 1.025 (1.005-1.035) 09/10/18 20:00 Urine Protein Trace mg/dL (<30 mg/dL) H 09/10/18 20:00 Urine Glucose (UA) >=1000 mg/dL (NEGATIVE) 09/10/18 20:00 Urine Ketones 15 mg/dL (NEGATIVE) H 09/10/18 20:00 Urine Blood Large (NEGATIVE) H 09/10/18 20:00 Urine Nitrate Positive (NEGATIVE) H 09/10/18 20:00 Urine Bilirubin Negative (NEGATIVE) 09/10/18 20:00 Urine Urobilinogen 0.2 E.U./dL (<1 E.U./dL) 09/10/18 20:00 Ur Leukocyte Esterase Trace Cecy/uL (NEGATIVE) H 09/10/18 20:00 Urine RBC 10 - 15 /hpf (0-2) H 09/10/18 20:00 Urine WBC 20 - 25 /hpf (0-6) H 09/10/18 20:00 Ur Epithelial Cells 1 - 3 /hpf (0-5) 09/10/18 20:00 Urine Bacteria Small /hpf (NONE) 09/10/18 20:00 Salicylates < 1 mg/dL (2.0-20.0) L 09/09/18 21:37 Urine Opiates Screen Negative (NEGATIVE) 09/09/18 21:30 Urine Methadone Screen Negative (NEGATIVE) 09/09/18 21:30 Acetaminophen < 10.0 ug/ml (10.0-20.0) L 09/09/18 21:37 Ur Barbiturates Screen Negative (NEGATIVE) 09/09/18 21:30 Ur Phencyclidine Scrn Negative (NEGATIVE) 09/09/18 21:30 Ur Amphetamines Screen Negative (NEGATIVE) 09/09/18 21:30 U Benzodiazepines Scrn Positive (NEGATIVE) H 09/09/18 21:30 U Oth Cocaine Metabols Negative (NEGATIVE) 09/09/18 21:30 U Cannabinoids Screen Negative (NEGATIVE) 09/09/18 21:30 Alcohol, Quantitative < 10 mg/dL (0-10) 09/09/18 21:37 Influenza Typ A,B (EIA) Negative for flu a/b (NEGATIVE) 09/12/18 10:30 Attending/Attestation - Attestation I have personally seen and examined this patient.: Yes I have fully participated in the care of the patient.: Yes I have reviewed all pertinent clinical information, including history, physical exam and plan: Yes Notes (Text): 09/14/18 13:35 Patient seen and examined with resident. Patient is alert and awake. Denies any fevers, chills. Not in any acute distress. Patient is a 62-year-old female with PMH of anxiety, depression, DM, HTN, hypothyroidism who presented with AMS/respiratory depression 2/2 benzodiazepine overdose. 1. Respiratory failure secondary to suspected drug overdose. currently extubated. Currently off oxygen. Patient is more alert and awake. Denies any suicidal ideation. Incentive spirometry. 2. History of anxiety and depression; case discussed with psychiatrist in detail. Started on Ativan and Effexor. Patient agreed to go to psychiatric floor for further treatment. 3. Fever; resolved. chest x-rays negative. 4. Klebsiella UTI; continue IV Rocephin. Complete po ciprofloxacin. Blood cultures negative so far. Sputum culture is positive for beta-hemolytic strep. 5. Hypertension; continue metoprolol and lisinopril. 6 hypokalemia; continue potassium supplementation. Physical therapy evaluation appreciated. Case discussed with psychiatrist in detail. Transfer to psychiatric floor today. We will follow the patient on psychiatric floor as needed. Upon discharge patient will follow-up with PMD Dr. Griggs.
--- NOTE | 2018-09-14 13:18 | CON ---
DATE: 09/14/2018 HISTORY OF PRESENT ILLNESS: The patient is a 62-year-old female who was admitted to the ICU and intubated after she was found unresponsive in her apartment. Psychiatry has been following the patient because the circumstances leading to her medical presentation were holding unknown and medical team suspected the patient overdosed from benzos because she was found with an empty bottle of Xanax just filled on 08/29/2018. I met with the patient at bedside again today. She is a little bit more engaged. She is alert and oriented to month, year, location and superficially to circumstances. The patient still reports that she does not remember the circumstances that led to her admission, although she can be coherent and consistent for most of her interview. She is certainly inconsistent when it comes to regarding circumstances leading to her admission. The patient indicates that she did not see a doctor in a while and that is why the Xanax that the Xanax bottle was just filled and that was confirmed. The patient she indicates that she statement about empty Xanax bottle, none of which makes sense and I have a lot of concerns about the patient being forthcoming about the circumstances that led to her admission and whether she is actually unaware of how she became hospitalized. She does report that she is depressed. She denies being suicidal right now. She is not hallucinating, fairly coherent, still a little disengaged with my questioning, but appears to be more agreeable to transfer to the voluntary psychiatric unit once she is medically cleared. Vital signs and labs were reviewed. MEDICATIONS: Relevant psychiatric medications include Effexor XR 75 daily, Ativan 1 mg every 6 hours. IMPRESSION: As per history, depression and anxiety, possible status post overdose on Xanax, intentional versus unintentional. RECOMMENDATIONS: We will continue with medications as prescribed. The patient is to go to the psychiatric unit once she is medically cleared. Fernando Barr MD
[2018-09-14 14:35] VITALS: PULSE 80; RESP 18; TEMP 97.7; O2SAT 100
--- NOTE | 2018-09-14 14:45 | PN ---
DATE: 09/14/2018 SUBJECTIVE: The patient is in bed. PHYSICAL EXAMINATION: VITAL SIGNS: Temperature is 98, blood pressure is 150/80, respiratory rate 18, and heart rate of 70. HEENT: Unremarkable. NECK: Supple. LUNGS: Decreased breath sounds. HEART: Normal S1, S2. ABDOMEN: Soft and nontender. LABORATORY DATA: Reveals a white count of 9.5, hemoglobin of 13, platelets of 298, BUN of 3, creatinine of 0.5. Urinalysis is noted. Urine culture is sensitive Klebsiella. Review of EKG reveals the patient's QTC to be 430, another one at 450 and 459. Review of orders reveals the patient is now on Cipro started by ____. ASSESSMENT AND PLAN: This is a 62-year-old female with anxiety, depression, diverticulitis, hyperlipidemia, hypertension, hypothyroidism, sepsis with sensitive Klebsiella, urine is the source. I am going to switch the oral antibiotics ____ complete the therapy. Andrews Bliss MD
== END 2018-09-14 20:12 | DRG 917 ==
LOC: ED 21:10 → ERH 23:09 → CCU 09-10 03:09 → 5RNO 09-13 08:49
PROVIDERS: ADMIT Hospitalist; ATTEND Internal Medicine
PROC: 5A1945Z Respiratory Ventilation, 24-96 Consecutive Hours (ICD-10-PCS; principal; 2018-09-09)
PROC: 0BH17EZ Insertion of Endotracheal Airway into Trachea, Via Natural or Artificial Opening (ICD-10-PCS; 2018-09-09)
PROC: 5A09357 Assistance with Respiratory Ventilation, Less than 24 Consecutive Hours, Continuous Positive Airway Pressure (ICD-10-PCS; 2018-09-11)
DX: T42.4X2A Poisoning by benzodiazepines, intentional self-harm, initial encounter (principal); J96.00 Acute respiratory failure, unspecified whether with hypoxia or hypercapnia; A41.9 Sepsis, unspecified organism; N39.0 Urinary tract infection, site not specified; B96.1 Klebsiella pneumoniae [K. pneumoniae] as the cause of diseases classified elsewhere; I10 Essential (primary) hypertension; F31.9 Bipolar disorder, unspecified; F03.90 Unspecified dementia, unspecified severity, without behavioral disturbance, psychotic disturbance, mood disturbance, and anxiety; E87.6 Hypokalemia; E03.9 Hypothyroidism, unspecified; E11.9 Type 2 diabetes mellitus without complications; E78.00 Pure hypercholesterolemia, unspecified; F41.9 Anxiety disorder, unspecified; Z79.84 Long term (current) use of oral hypoglycemic drugs

== ENCOUNTER 2018-09-14 20:14 | Inpatient (IN) | payer MEDICARE, MEDICAID ==
[2018-09-14] MEDS ORDERED: Levalbuterol 1.25 MG/3 ML Inhal Soln UD IH PRN (21:29)
[2018-09-14] MEDS: Insulin Reg-LOW-Coverage SC SCH (22:19)
[2018-09-14] MEDS: Docusate-Senna 50 mg-8.6 mg Tab PO SCH (22:21)
[2018-09-14] MEDS: Venlafaxine 75 mg ER Cap PO SCH (22:22)
--- NOTE | 2018-09-15 03:13 | PCM.BM ---
<Alden Paul O - Last Filed: 09/15/18 03:10> Treatment Plan Problems - Problems identified on initial assessmt Ineffective coping Date Initiated: 09/14/18 Time Initiated: 21:45 Assessment reference: NA Status: Monitor Social isolation Date Initiated: 09/14/18 Time Initiated: 22:45 Assessment reference: NA Status: Monitor Activity intolerance Date Initiated: 09/14/18 Time Initiated: 22:00 Assessment reference: NA Status: Monitor Treatment assets and liabiliti Patient Assests: cooperative, good interpersonal skills Patient Liabilities: poor support system, medical problems - Milieu Protocol Maintain good personal hygiene: daily Encourage regular showers, daily Remind patient to perform daily oral care, daily Assist patient to perform ADL's Maintain personal safety: daily Educate patient to report safety concerns to staff, daily Monitor environment for contraband/sharps Medication safety: Monitor for expected outcome, potential side effects: daily, Assess barriers to learning: daily, Assess readiness for medication education: daily Family Contact Family involvement: No known Family/SO - Goals for Treatment Patient goals for treatment: Control my anxiety Discharge/Continuing Care - Education Needs Education Needs: Patient Medication, Patient Diagnosis/Disease Process, Patient Coping Skills - Discharge Discharge Criteria: Free of Suicidal thoughts <Indira Juan A - Last Filed: 09/15/18 12:41> - Diagnosis (1) MDD (major depressive disorder) Status: Acute Interventions: 09/15/18 12:41 Psychoeducation Psychopharmacology/adjustment of medications as needed/ monitoring possible side effects Evaluate pt on daily basis Compliance with medications and follow up appointments Suicide and homicide risk assessment and prevention Relapse prevention Reduction of symptoms Improve functional status Family involvement As outpatient: cognitive behavioral therapy (2) ISMAEL (generalized anxiety disorder) Status: Acute Interventions: 09/15/18 12:42 Psychoeducation Psychopharmacology/adjustment of medications as needed/ monitoring possible side effects Evaluate pt on daily basis Discussion of importance of being compliant with medications and follow up appointments Suicide and homicide risk assessment and prevention, coping strategies, safety plan Reduction of symptoms Relaxation techniques and breathing exercises Improve functional status Family involvement Cognitive behavioral therapy as outpatient (3) Anxiolytic dependence with current use Status: Acute Interventions: 09/15/18 12:43 Monitoring withdrawal symptoms Medical detoxification Pharmacotherapy for alcohol/benzos/opioid dependence Maintaining sobriety Relapse prevention Possible rehabilitation Motivational interviewing 12-step programs: AA meetings Family Contact - Outside Agency Dr. Castaneda Care involvment: Information-sharing Agency contact name: Dr. Castaneda <Yulisa Herrera - Last Filed: 09/15/18 15:24> Family Contact Family involvement: Famliy/SO not involved
[2018-09-15] MEDS: Levothyroxine 50 MCG TAB PO SCH (05:49)
[2018-09-15] MEDS ORDERED: VORTIOXETINE HYDROBROMIDE 10 MG PO SCH (08:00)
[2018-09-15] MEDS ORDERED: DAPAGLIFLOZIN PROPANEDIOL 5 MG PO SCH (08:00)
[2018-09-15] MEDS ORDERED: LINAGLIPTIN PO SCH (08:00)
[2018-09-15] MEDS ORDERED: Venlafaxine 75 mg ER Cap PO SCH (08:00)
[2018-09-15] MEDS: Insulin Reg-LOW-Coverage SC SCH ×4 (08:35→21:13)
[2018-09-15] MEDS: Enoxaparin 40 mg Syringe SC SCH (08:36)
[2018-09-15] MEDS: Metoprolol Succinate 25 mg XL Tab PO SCH (08:37)
[2018-09-15] MEDS: Nystatin 100,000 Units/gm Topical Pow(15 gm) TOP SCH (08:37)
[2018-09-15] MEDS: Venlafaxine 75 mg ER Cap PO SCH ×2 (08:38→21:13)
[2018-09-15] MEDS: GlipiZIDE 10 mg SR Tab PO SCH ×2 (08:39→16:19)
--- NOTE | 2018-09-15 14:04 | CP.PCM.CON ---
<Sergio Pandey - Last Filed: 09/15/18 16:39> History of Present Illness - History of Present Illness History of Present Illness: INTERNAL MEDICINE CONSULT NOTE FOR HOSPITALIST SERVICE- DR. CRUZ Pandey PGY1 62 year old female with past medical history of anxiety, depression, diverticulitis, HTN, HLD, hypothyroidism, and previous drug overdose presents to the hospital with AMS and respiratory depression. Patient is a poor historian and much of medical history is taken from prior medical records. Patient was found unconscious by family at home and EMS was called. An empty bottle of Xanax was found near patient. Patient was intubated due to inability to protect her airway. Patient was admitted to ICU for further management. Patient was extubated the next day. Head CT did not demonstrate any acute pathology. Patient admits to dysuria. Pt has been transferred to psychiatry unit for management of underlying psychiatric disorders. Patient denies fevers, headache, dizziness, chest pain, shortness of breath, nausea, vomiting, diarrhea, chills, suicidal or homicidal ideations. PMH: anxiety, depression, diverticulitis, HTN , HLD, Hypothyroidism, previous drug OD All: NKDA PSH: R shoulder surgery. Cholecystectomy, tonsillectomy SH: Smokes 1 pack/day. Denies ETOH FH: Mother: (): CHF, Stroke x 2. Father: unknown Meds: Effexor XR 75mg HS, Effexor 150mg qd, Toprol xl 25mg qd, Lisinopril 5mg qd, Lamictal 25mg bid, senna plus 8mg 2 tab hs, colase 100mg 1 cap bid, xanax 1mg q8hm trajenta 5mg qd, meclizine 25mg qd, glipizide ER 10mg bid, Farxiga 5mg qd, Trintellix 10mg qd, levothyroxine 50mcg qd Pharmacy: [facility] pharmacy PMD: Dr. Manoj Arroyo Review of Systems - Review of Systems Review of Systems: as per HPI Past Patient History - Past Social History Smoking Status: Smoker Currrent Status Unknown - CARDIAC Hx Hypercholesterolemia: Yes Hx Hypertension: Yes - PULMONARY Hx Respiratory Disorders: No - NEUROLOGICAL Hx Neurological Disorder: Yes Hx Dementia: Yes - HEENT Hx HEENT Problems: No - RENAL Hx Chronic Kidney Disease: No - ENDOCRINE/METABOLIC Hx Diabetes Mellitus Type 2: Yes Hx Hypothyroidism: Yes - HEMATOLOGICAL/ONCOLOGICAL Hx Blood Disorders: No - INTEGUMENTARY Hx Dermatological Problems: No - MUSCULOSKELETAL/RHEUMATOLOGICAL Hx Falls: Yes - GASTROINTESTINAL Hx Gastrointestinal Disorders: No - GENITOURINARY/GYNECOLOGICAL Hx Genitourinary Disorders: No - PSYCHIATRIC Hx Anxiety: Yes Hx Depression: Yes Hx Substance Use: No - SURGICAL HISTORY Other/Comment: R arm sugery - ANESTHESIA Hx Anesthesia: No Meds Allergies/Adverse Reactions: Allergies Allergy/AdvReac Type Severity Reaction Status Date / Time No Known Allergies Allergy Verified 09/14/18 23:23 - Medications Medications: Current Medications Acetaminophen (Tylenol 325mg Tab) 650 mg PO Q6H PRN PRN Reason: Fever >100.4 F Ciprofloxacin (Cipro) 500 mg PO Q12 [facility]; Protocol Last Admin: 09/15/18 05:49 Dose: 500 mg Enoxaparin Sodium (Lovenox) 40 mg SC DAILY [facility]; Protocol Last Admin: 09/15/18 08:36 Dose: 40 mg Famotidine (Pepcid) 40 mg PO HS [facility] Last Admin: 09/14/18 22:22 Dose: 40 mg Gabapentin (Neurontin) 300 mg PO TID [facility]; Protocol Last Admin: 09/15/18 12:32 Dose: 300 mg Glipizide (Glucotrol Xl) 10 mg PO BID [facility] Last Admin: 09/15/18 08:39 Dose: 10 mg Insulin Human Regular (Humulin R Low) 1 units SC ACHS [facility]; Protocol Last Admin: 09/15/18 12:31 Dose: 2 unit Lamotrigine (Lamictal) 25 mg PO BID [facility]; Protocol Last Admin: 09/15/18 08:38 Dose: 25 mg Levalbuterol HCl (Xopenex) 1.25 mg IH [id number] PRN PRN Reason: Shortness of Breath Levothyroxine Sodium (Synthroid) 50 mcg PO 0600 [facility] Last Admin: 09/15/18 05:49 Dose: 50 mcg Lisinopril (Zestril) 5 mg PO DAILY [facility] Last Admin: 09/15/18 08:37 Dose: 5 mg Meclizine HCl (Antivert) 25 mg PO DAILY [facility] Last Admin: 09/15/18 08:39 Dose: 25 mg Metoprolol Succinate (Toprol Xl) 25 mg PO DAILY [facility] Last Admin: 09/15/18 08:37 Dose: 25 mg Non-Formulary Medication (Dapagliflozin Propanediol [Farxiga]) 5 mg PO DAILY [facility] Non-Formulary Medication (Linagliptin [Tradjenta]) 5 tab PO DAILY [facility] Non Formulary Medication ( Vortioxetine Hydrobromide [ Trintellix] 10 Mg) 1 tab PO DAILY [facility] Nystatin (Nystop Topical Powder) 0 gm TOP DAILY [facility] Last Admin: 09/15/18 08:37 Dose: 1 applic Senna/Docusate Sodium (Senokot S 50 Mg-8.6 Mg) 2 tab PO HS [facility] Last Admin: 09/14/18 22:21 Dose: 2 tab Venlafaxine HCl (Effexor Xr) 75 mg PO DAILY [facility] Last Admin: 09/15/18 08:38 Dose: 75 mg Venlafaxine HCl (Effexor Xr) 150 mg PO HS [facility] Last Admin: 09/14/18 22:22 Dose: 150 mg Zaleplon (Sonata) 5 mg PO HS PRN PRN Reason: Insomnia Physical Exam - Constitutional Appears: Well, Non-toxic, No Acute Distress - Head Exam Head Exam: ATRAUMATIC, NORMAL INSPECTION - Eye Exam Eye Exam: EOMI, Normal appearance, PERRL - ENT Exam ENT Exam: Mucous Membranes Moist, Normal Exam - Neck Exam Neck exam: Positive for: Normal Inspection. Negative for: Meningismus - Respiratory Exam Respiratory Exam: Clear to Auscultation Bilateral, NORMAL BREATHING PATTERN - Cardiovascular Exam Cardiovascular Exam: REGULAR RHYTHM, +S1, +S2 - GI/Abdominal Exam GI & Abdominal Exam: Normal Bowel Sounds, Soft - Extremities Exam Extremities exam: Positive for: normal inspection. Negative for: calf tenderness - Back Exam Back exam: NORMAL INSPECTION. absent: CVA tenderness (L), CVA tenderness (R) - Neurological Exam Neurological exam: Alert, Oriented x3 - Psychiatric Exam Psychiatric exam: Normal Affect, Normal Mood - Skin Skin Exam: Dry, Intact, Warm Results - Vital Signs Recent Vital Signs: Last Vital Signs Temp 98.4 F 09/15/18 07:22 Pulse 71 09/15/18 08:37 Resp 20 09/15/18 07:22 BP 160/99 H 09/15/18 08:37 Pulse Ox - Labs Labs: Laboratory Results - last 24 hr 09/14/18 21:23 POC Glucose (mg/dL) 225 H Assessment & Plan - Assessment and Plan (Free Text) Assessment: 62-year-old female with PMH of anxiety, depression, DM, HTN, hypothyroidism who presented with AMS/respiratory depression 2/2 benzodiazepine overdose. Pt was intubated and subsequently extubated and transferred to psychiatry unit for management of psychiatric conditions. Medicine consulted for management of past medical conditions Plan: UTI UCx grew klebsiella pneumonia, ssp pneumonia Sensitive to ciprofloxacin, continue f/u ID recs URI sputum grows beta hemolytic group B strep f/u ID recs for abx treatment Hx of peripheral neuropathy continue gabapentin 300mg tid Hx of DM2 Continue home glipizide 10mg Continue home tradjenta 5mg Hx of hypothyroidism Continue home levothyroxine Hx of HTN Continue home lisinopril 5mg Continue home metoprolol 25mg Hx of vertigo Continue home meclizine Hx of depression Continue home venlafaxine 75mg and 150mg Appreciate psychiatry recs for psychiatric medication management Hx of Insomnia Continue zaleplon 5mg appreciate psych recs Continue home lamictal Respiratory failure 2/2 benzodiazepine overdose Resolved Educated and advised cessation of overdosing DVT/GI: LVX/Famotidine Case seen, examined and discussed with attending physician, Dr Cruz Pandey PGY1 <Elli Arroyo - Last Filed: 09/15/18 18:41> Meds - Medications Medications: Current Medications Acetaminophen (Tylenol 325mg Tab) 650 mg PO Q6H PRN PRN Reason: Fever >100.4 F Ciprofloxacin (Cipro) 500 mg PO Q12 [facility]; Protocol Last Admin: 09/15/18 17:51 Dose: 500 mg Enoxaparin Sodium (Lovenox) 40 mg SC DAILY [facility]; Protocol Last Admin: 09/15/18 08:36 Dose: 40 mg Famotidine (Pepcid) 40 mg PO HS [facility] Last Admin: 09/14/18 22:22 Dose: 40 mg Gabapentin (Neurontin) 300 mg PO TID [facility]; Protocol Last Admin: 09/15/18 17:52 Dose: 300 mg Glipizide (Glucotrol Xl) 10 mg PO BID [facility] Last Admin: 09/15/18 16:19 Dose: 10 mg Insulin Human Regular (Humulin R Low) 1 units SC ACHS [facility]; Protocol Last Admin: 09/15/18 17:52 Dose: 1 unit Lamotrigine (Lamictal) 25 mg PO BID [facility]; Protocol Last Admin: 09/15/18 16:19 Dose: 25 mg Levalbuterol HCl (Xopenex) 1.25 mg IH [id number] PRN PRN Reason: Shortness of Breath Levothyroxine Sodium (Synthroid) 50 mcg PO 0600 [facility] Last Admin: 09/15/18 05:49 Dose: 50 mcg Lisinopril (Zestril) 5 mg PO DAILY [facility] Last Admin: 09/15/18 08:37 Dose: 5 mg Meclizine HCl (Antivert) 25 mg PO DAILY [facility] Last Admin: 09/15/18 08:39 Dose: 25 mg Metoprolol Succinate (Toprol Xl) 25 mg PO DAILY [facility] Last Admin: 09/15/18 08:37 Dose: 25 mg Non-Formulary Medication (Dapagliflozin Propanediol [Farxiga]) 5 mg PO DAILY [facility] Non-Formulary Medication (Linagliptin [Tradjenta]) 5 tab PO DAILY [facility] Non Formulary Medication ( Vortioxetine Hydrobromide [ Trintellix] 10 Mg) 1 tab PO DAILY [facility] Nystatin (Nystop Topical Powder) 0 gm TOP DAILY [facility] Last Admin: 09/15/18 08:37 Dose: 1 applic Senna/Docusate Sodium (Senokot S 50 Mg-8.6 Mg) 2 tab PO HS [facility] Last Admin: 09/14/18 22:21 Dose: 2 tab Venlafaxine HCl (Effexor Xr) 75 mg PO DAILY [facility] Last Admin: 09/15/18 08:38 Dose: 75 mg Venlafaxine HCl (Effexor Xr) 150 mg PO HS [facility] Last Admin: 09/14/18 22:22 Dose: 150 mg Zaleplon (Sonata) 5 mg PO HS PRN PRN Reason: Insomnia Results - Vital Signs Recent Vital Signs: Last Vital Signs Temp 98.4 F 09/15/18 07:22 Pulse 71 09/15/18 08:37 Resp 20 09/15/18 07:22 BP 160/99 H 09/15/18 08:37 Pulse Ox - Labs Labs: Laboratory Results - last 24 hr 09/14/18 21:23 POC Glucose (mg/dL) 225 H Attending/Attestation - Attestation I have personally seen and examined this patient.: Yes I have fully participated in the care of the patient.: Yes I have reviewed all pertinent clinical information: Yes Notes (Text): Patient seen and examined by me with resident at 12PM on 09/15/18. Case including HPI, physical exam, and assessment and plan discussed with resident. Agree with above with following additions/corrections. Patient is a 62-year-old female past medical history significant for anxiety, depression, diabetes, diverticulitis, gallstones, hypertension, hypercholesterolemia, drug overdose and hypothyroidism that presented to the emergency room on 09/09/2018 for altered mental status and respiratory failure secondary to benzodiazepine overdose. Patient was treated and transferred to psychiatric unit on 09/14/2018. We are consulted for medical management. Patient states that she is feeling okay. She states that she has been ambulating with a walker. She states that she has a history of vertigo and tends to get dizzy when walking and the walker helps. Patient denies any dysuria or burning with urination. She does complain of a little bit of "throat discomfort." No difficulty swallowing or pain with swallowing. Patient denies any chest pain or shortness of breath. No palpitations. No headaches or lightheadedness. No change in vision. No fevers or chills. No nausea, vomiting, or abdominal pain. No diarrhea or constipation. Dizziness is intermittent and with walking. Patient states it has improved. 12 point review of systems reviewed by me. Please see above HPI, all other systems negative. Physical exam: General: Awake and alert sitting up in bed in no acute distress HEENT: Normocephalic, atraumatic. Extraocular muscles intact, pupils equal and reactive, no scleral icterus. Oropharynx is pink and moist. No pharyngeal erythema or exudate appreciated. Neck is supple. Cardiovascular: Regular rhythm. Normal S1 and S2. No murmurs, rubs, or gallops appreciated Pulmonary: Normal respiratory effort. No rhonchi, rales, or wheezing appreciated. Gastrointestinal: Soft, nondistended. Nontender. Positive bowel sounds all 4 quadrants. No guarding. Musculoskeletal: Moves all extremities. No calf tenderness. No edema appreciated. No CVA tenderness. Central nervous system: AAOx3, CN 2-12 grossly intact. Dermatologic: Skin warm and dry. Assessment and plan: Patient is a 62-year-old female past medical history significant for anxiety, depression, diabetes, diverticulitis, gallstones, hypertension, hypercholesterolemia, drug overdose and hypothyroidism that presented to the emergency room on 09/09/2018 for altered mental status and respiratory failure secondary to benzodiazepine overdose. Patient was treated and transferred to psychiatric unit on 09/14/2018. We are consulted for medical management. 1. Klebsiella UTI. Continue Cipro. ID consulted, follow up recommendations. 2. Sputum culture postiive for Beta hemolytic strep Group B. S/P treatment with Rocephin and Zithromax. ID consulted, follow up recommendations. 3. S/P Respiratory failure secondary to overdose. Resolved. Continue nebulizer treatments as needed. Patient counseled on drug overdose. 4. DM2. Continue Tradjenta, Glipizide and Farxiga 5. Hypertension. Continue Toprol XL and Lisinopril 6. Hypothyroidism, Continue synthroid. 7. Vertigo. Continue home meclizine. 8. Constipation. Continue Senna at bedtime. Per patient, she is having bowel movements. 9. Depression and anxiety. Insomnia. Benzodiazepine overdose. Care as per primary team Case was discussed in detail with the patient regarding her diagnosis and treatment plan. All questions answered. Thank you for allowing us to participate in the care of your patient, we will follow with you.
--- NOTE | 2018-09-15 15:14 | PCM.PSYCH ---
Initial Psychiatric Evaluation - Initial Psychiatric Evaluation Type of Admission: Voluntary Legal Status: Capacity (Patient has a capacity to sign for treatment) Chief Complaint (in patient's own words): "I feel anxious like a car going a 100miles per hour". Patient's Reaction to Hospitalization: pt was transferred from the medical floor, where she was downgraded from ICU, prior to that pt was found to be unresponsive at home overdosed on benzodiazepines about one month worth, pt was intubated, then extubated, medically stabilized and transferred to the psych unit. History of Present Illness and Precipitating Events: shortly pt is 62 year old female with reported h/o depression and anxiety, h/o unintentional overdose on benzodiazepines and h/o falls, ? h/o abusing benzos, multiple medical issues including diverticulitis, hypertension, diabetes, ? dementia, pt was transferred from the medical floor, where she was downgraded from ICU, prior to that pt was found to be unresponsive at home overdosed on benzodiazepines about one month worth, pt was intubated, then extubated, medically stabilized and transferred to the psych unit for evaluation of possible depressive symptoms, possible s/p overdose, r/o abuse benzos. please see ER/ICU notes for more detailed information. pt was seen at the treatment team meeting, hygiene improved, fair ADLs, ambulates with a walker. pt is poor and unreliable historian, pt was providing inconsistent stories. for example pt said that all she remember was "FALL", pt denied any overdose on benzos, denied that it was intentional overdose (off note pt had empty bottle next to her). pt said that she was feeling depressed/hopeless and helpless, but denied SI/denied intent or plan to harm self or others. pt denied voices, denied seeing things, denied paranoia. pt denied using drugs, denied smoking (pt quit two months prior), pt denied drinking alcohol. pt denieid h/o abuse. Medical h/o:Respiratory failure secondary to suspected drug overdose, pt also had UTI, was on IV antibiotics, HTN, hypokalemia. Past psych h/o: pt currently under care of her outpatient psychiatrist is Dr. Castaneda. collaterals were obtained from him last week, see CL note for more detailed info, did not prescribed benzos to the pt, but effexor. Patient reports having about 2 psychiatric admissions at [facility], denied h/o suicidal attempts. family h/o: pt initially said that she has two uncles from the father side who suffered from schizophrenia, after that pt said that she never said so, pt then said that she had one uncle from mother side who is schizophrenic. denied family h/o suicidal attempts. Lab Results 09/14/18 21:23: POC Glucose (mg/dL) 225 H Vital Signs Temp Pulse Pulse Resp BP 09/15/18 08:37 71 160/99 H 09/15/18 07:22 98.4 F 71 20 160/99 H 09/15/18 02:32 95 H 21 The patient failed the outpatient lower level of care: Yes Current Medications: Active Medications Generic Name Dose Route Start Last Admin Trade Name Freq PRN Reason Stop Dose Admin Acetaminophen 650 mg 09/14/18 21:29 Tylenol 325mg Tab PO Q6H PRN Fever >100.4 F Ciprofloxacin 500 mg 09/15/18 06:00 09/15/18 05:49 Cipro PO 500 mg Q12 [facility] Administration Protocol Enoxaparin Sodium 40 mg 09/15/18 08:00 09/15/18 08:36 Lovenox SC 40 mg DAILY [facility] Administration Protocol Famotidine 40 mg 09/14/18 22:00 09/14/18 22:22 Pepcid PO 40 mg HS [facility] Administration Gabapentin 300 mg 09/15/18 13:00 09/15/18 12:32 Neurontin PO 300 mg TID [facility] Administration Protocol Glipizide 10 mg 09/15/18 08:00 09/15/18 08:39 Glucotrol Xl PO 10 mg BID [facility] Administration Insulin Human Regular 1 units 09/14/18 22:00 09/15/18 12:31 Humulin R Low SC 2 unit ACHS [facility] Administration Protocol Lamotrigine 25 mg 09/15/18 08:00 09/15/18 08:38 Lamictal PO 25 mg BID [facility] Administration Protocol Levalbuterol HCl 1.25 mg 09/14/18 21:29 Xopenex IH [id number] PRN Shortness of Breath Levothyroxine Sodium 50 mcg 09/15/18 06:00 09/15/18 05:49 Synthroid PO 50 mcg 0600 [facility] Administration Lisinopril 5 mg 09/15/18 08:00 09/15/18 08:37 Zestril PO 5 mg DAILY [facility] Administration Meclizine HCl 25 mg 09/15/18 08:00 09/15/18 08:39 Antivert PO 25 mg DAILY [facility] Administration Metoprolol Succinate 25 mg 09/15/18 08:00 09/15/18 08:37 Toprol Xl PO 25 mg DAILY [facility] Administration Non-Formulary Medication 5 mg 09/15/18 08:00 Dapagliflozin Propanediol [Farxiga] PO DAILY [facility] Non-Formulary Medication 5 tab 09/15/18 08:00 Linagliptin [Tradjenta] PO DAILY [facility] Non Formulary 1 tab 09/15/18 08:00 Medication ( PO Vortioxetine DAILY [facility] Hydrobromide [ Trintellix] 10 Mg) Nystatin 0 gm 09/15/18 08:00 09/15/18 08:37 Nystop Topical Powder TOP 1 applic DAILY [facility] Administration Senna/Docusate Sodium 2 tab 09/14/18 22:00 09/14/18 22:21 Senokot S 50 Mg-8.6 Mg PO 2 tab HS [facility] Administration Venlafaxine HCl 75 mg 09/15/18 08:00 09/15/18 08:38 Effexor Xr PO 75 mg DAILY [facility] Administration Venlafaxine HCl 150 mg 09/14/18 22:15 09/14/18 22:22 Effexor Xr PO 150 mg HS [facility] Administration Zaleplon 5 mg 09/15/18 10:11 Sonata PO HS PRN Insomnia Present on Admission - Present on Admission Any Indicators Present on Admission: No Review of Systems - Review of Systems Systems not reviewed;Unavailable: Acuity of Condition - Constitutional Constitutional: As Per HPI - EENT Eyes: As Per HPI Ears: As Per HPI Nose/Mouth/Throat: As Per HPI - Breasts Breasts: As Per HPI - Cardiovascular Cardiovascular: As Per HPI - Respiratory Respiratory: As Per HPI - Gastrointestinal Gastrointestinal: As Per HPI - Genitourinary Genitourinary: As Per HPI - Reproductive: Female Reproductive:Female: As Per HPI - Menstruation Menstruation: As Per HPI - Musculoskeletal Musculoskeletal: As Per HPI - Integumentary Integumentary: As Per HPI - Neurological Neurological: As Per HPI - Psychiatric Psychiatric: As Per HPI - Endocrine Endocrine: As Per HPI - Hematologic/Lymphatic Hematologic: As Per HPI Past Patient History - Past Psychiatric History Previous Treatment History: Inpatient Prior Professional Help: see HPI Prior Psychiatric Treatment: see HPI At what hospital: see HPI Duration: see HPI Nature of Treatment: see HPI Explanation of prior treatment: see HPI - PSYCHIATRIC Hx Anxiety: Yes Hx Depression: Yes Hx Substance Use: No - CARDIAC Hx Hypercholesterolemia: Yes Hx Hypertension: Yes - PULMONARY Hx Respiratory Disorders: No (unable to obtain) - NEUROLOGICAL Hx Neurological Disorder: Yes Hx Dementia: Yes - HEENT Hx HEENT Problems: No - RENAL Hx Chronic Kidney Disease: No - ENDOCRINE/METABOLIC Hx Diabetes Mellitus Type 2: Yes Hx Hypothyroidism: Yes - HEMATOLOGICAL/ONCOLOGICAL Hx Blood Disorders: No - INTEGUMENTARY Hx Dermatological Problems: No - MUSCULOSKELETAL/RHEUMATOLOGICAL Hx Falls: Yes - GASTROINTESTINAL Hx Gastrointestinal Disorders: No - GENITOURINARY/GYNECOLOGICAL Hx Genitourinary Disorders: No - SURGICAL HISTORY Other/Comment: R arm sugery - ANESTHESIA Hx Anesthesia: No - Medical/Surgical History Reviewed & confirmed: by nc Meds Allergies/Adverse Reactions: Allergies Allergy/AdvReac Type Severity Reaction Status Date / Time No Known Allergies Allergy Verified 09/14/18 23:23 Mental Status Examination - Personal Presentation Personal Presentation: Looks stated age - Affect Affect: Flat - Motor Activity Motor Activity: Calm - Reliability in Providing Information Reliability in Providing Information: Poor, due to alteration in thoughts, Poor, due to cognitve impairment - Speech Speech: Disorganized - Mood Mood: Depressed, Anxious - Formal Thought Process Formal Thought Process: No Impairment - Obsessions/Compulsions Obsessions: None Compulsions: None - Cognitive Functions Orientation: Person, Place, Situation Sensorium: Alert Attention/Concentration: Easily distracted Abstract Thinking: [place] Judgement: Intact, as evidence by: Insight regarding need for hospitalization - Risk Risk: Diminished functioning - Strength & Assets Inventory Strength & Assets Inventory: Cooperative - Limitations Limitations: Other (h/o unintentional overdoses, h/o multiple medical issues) Psychiatric Physical Exam - Physical Exam Reviewed and confirmed: Emergency Department Physical Exam Results - Vital Signs Recent Vital Signs: Last Vital Signs Temp 98.4 F 09/15/18 07:22 Pulse 71 09/15/18 08:37 Resp 20 09/15/18 07:22 BP 160/99 H 09/15/18 08:37 Pulse Ox - Labs Labs: Laboratory Results - last 24 hr 09/14/18 21:23 POC Glucose (mg/dL) 225 H - EKG Data EKG Interpreted by: ER Physician DSM Plan - DSM 5 DSM 5 Diagnosis: MDD ISMAEL misuse and abuse benzos - Recommended/Plan of Treatment Treatment Recommendations and Plan of Treatment: Milieu/structure/supportive therapy Medical consult appreciated, see medical team note for more detailed info SW consultation for discharge plan and social issues Med management effexor PRN meds collaterals from primary psychiatrist obtained pharmacy contacted Family involvement Follow up on labs Will monitor closely Pt was educated about risk/benefits and alternatives of medications, coping strategies (safety plan, suicide prevention), relapse prevention, importance of follow up with psychiatrist and therapist, stay away from drugs/alcohol/smoking Projected ELOS: 7days Prognosis: guarded Discharge Plan and Discharge Criteria: Pt will be not depressed or manic, will be more hopeful, will be not psychotic or anxious, will be not having thoughts of harming self or others, will be tolerating medications well, will not have major side effects, will be able to function, will not pose threat to self or others. - Tobacco Cessation Tobacco Use Status for the last 30 days: Non User Tobacco Use Treatment Practical Counseling Provided: No - Alcohol or Substance Abuse Does the patient have an Alcohol or Substance Abuse Disorder: No Initial Psych Certification - Initial Certification I certify that the inpatient psychiatric facility admission was medically necessary for either: Treatment which could reasonbly be expected to improve pt's condition, Diagnostic study I estimate of hospitalization is necessary for proper treatment of the patient: 7 Unit of Time: Days My plans for post-hospital care for this patient are: f/u
[2018-09-15] MEDS: Docusate-Senna 50 mg-8.6 mg Tab PO SCH (21:12)
[2018-09-16] MEDS: Venlafaxine 75 mg ER Cap PO SCH ×2 (08:38→22:18)
[2018-09-16] MEDS: Levothyroxine 50 MCG TAB PO SCH (08:38)
[2018-09-16] MEDS: Metoprolol Succinate 25 mg XL Tab PO SCH (08:47)
[2018-09-16] MEDS: GlipiZIDE 10 mg SR Tab PO SCH ×2 (08:48→18:01)
[2018-09-16] MEDS: Enoxaparin 40 mg Syringe SC SCH (08:48)
[2018-09-16] MEDS: Insulin Reg-LOW-Coverage SC SCH ×5 (08:49→22:21)
--- NOTE | 2018-09-16 10:28 | CP.PCM.CON ---
<Charles De Paz - Last Filed: 09/16/18 13:20> History of Present Illness - History of Present Illness History of Present Illness: ID Consult Note 62 year old female with past medical history of anxiety, depression, diverticulitis, HTN, HLD, hypothyroidism, and previous drug overdose presents to the hospital with AMS and respiratory depression. Patient was found to have a Xanax overdose. Patient was admitted to the ICU where she was intubated and extubated the next day. Patient had a urine culture showing Klebsiella and tracheal aspirate showing beta hemolytic strep. Patient was transferred to psychiatry for further management. Patient admits to cough and congestion. Denies chest pain, shortness of breath, nausea, vomiting, diarrhea, fever, chills. Medical Hx: Anxiety, Depression, Diabetes, Diverticulitis, HTN, HLD, Hypothyroid Surgical Hx: Cholecystectomy, Tonsillectomy Allergies: NKDA Social Hx: Unknown Medications: Reviewed, as per MAR Review of Systems - Review of Systems Review of Systems: 12 point ROS as per HPI, otherwise negative Past Patient History - Past Social History Smoking Status: Smoker Currrent Status Unknown - CARDIAC Hx Hypercholesterolemia: Yes Hx Hypertension: Yes - PULMONARY Hx Respiratory Disorders: No - NEUROLOGICAL Hx Neurological Disorder: Yes Hx Dementia: Yes - HEENT Hx HEENT Problems: No - RENAL Hx Chronic Kidney Disease: No - ENDOCRINE/METABOLIC Hx Diabetes Mellitus Type 2: Yes Hx Hypothyroidism: Yes - HEMATOLOGICAL/ONCOLOGICAL Hx Blood Disorders: No - INTEGUMENTARY Hx Dermatological Problems: No - MUSCULOSKELETAL/RHEUMATOLOGICAL Hx Falls: Yes - GASTROINTESTINAL Hx Gastrointestinal Disorders: No - GENITOURINARY/GYNECOLOGICAL Hx Genitourinary Disorders: No - PSYCHIATRIC Hx Anxiety: Yes Hx Depression: Yes Hx Substance Use: No - SURGICAL HISTORY Other/Comment: R arm sugery - ANESTHESIA Hx Anesthesia: No Meds Allergies/Adverse Reactions: Allergies Allergy/AdvReac Type Severity Reaction Status Date / Time No Known Allergies Allergy Verified 09/14/18 23:23 - Medications Medications: Current Medications Acetaminophen (Tylenol 325mg Tab) 650 mg PO Q6H PRN PRN Reason: Fever >100.4 F Ciprofloxacin (Cipro) 500 mg PO Q12 [facility]; Protocol Last Admin: 09/16/18 08:38 Dose: 500 mg Enoxaparin Sodium (Lovenox) 40 mg SC DAILY [facility]; Protocol Last Admin: 09/16/18 08:48 Dose: 40 mg Famotidine (Pepcid) 40 mg PO HS [facility] Last Admin: 09/15/18 21:13 Dose: 40 mg Gabapentin (Neurontin) 300 mg PO TID [facility]; Protocol Last Admin: 09/16/18 08:38 Dose: 300 mg Glipizide (Glucotrol Xl) 10 mg PO BID [facility] Last Admin: 09/16/18 08:48 Dose: 10 mg Insulin Human Regular (Humulin R Low) 1 units SC ACHS [facility]; Protocol Last Admin: 09/16/18 09:36 Dose: 2 unit Lamotrigine (Lamictal) 25 mg PO BID [facility]; Protocol Last Admin: 09/16/18 08:47 Dose: 25 mg Levalbuterol HCl (Xopenex) 1.25 mg IH [id number] PRN PRN Reason: Shortness of Breath Levothyroxine Sodium (Synthroid) 50 mcg PO 0600 [facility] Last Admin: 09/16/18 08:38 Dose: 50 mcg Lisinopril (Zestril) 5 mg PO DAILY [facility] Last Admin: 09/16/18 08:39 Dose: 5 mg Meclizine HCl (Antivert) 25 mg PO DAILY [facility] Last Admin: 09/16/18 08:38 Dose: 25 mg Metoprolol Succinate (Toprol Xl) 25 mg PO DAILY [facility] Last Admin: 09/16/18 08:47 Dose: 25 mg Non-Formulary Medication (Dapagliflozin Propanediol [Farxiga]) 5 mg PO DAILY [facility] Non-Formulary Medication (Linagliptin [Tradjenta]) 5 tab PO DAILY [facility] Non Formulary Medication ( Vortioxetine Hydrobromide [ Trintellix] 10 Mg) 1 tab PO DAILY [facility] Nystatin (Nystop Topical Powder) 0 gm TOP DAILY [facility] Last Admin: 09/15/18 08:37 Dose: 1 applic Senna/Docusate Sodium (Senokot S 50 Mg-8.6 Mg) 2 tab PO [facility] Last Admin: 09/15/18 21:12 Dose: 2 tab Venlafaxine HCl (Effexor Xr) 75 mg PO DAILY [facility] Last Admin: 09/16/18 08:38 Dose: 75 mg Venlafaxine HCl (Effexor Xr) 150 mg PO HS [facility] Last Admin: 09/15/18 21:13 Dose: 150 mg Zaleplon (Sonata) 5 mg PO HS PRN PRN Reason: Insomnia Last Admin: 09/15/18 21:14 Dose: 5 mg Physical Exam - Constitutional Appears: Non-toxic, No Acute Distress - Head Exam Head Exam: ATRAUMATIC, NORMAL INSPECTION, NORMOCEPHALIC - ENT Exam ENT Exam: Mucous Membranes Moist - Respiratory Exam Respiratory Exam: Clear to Auscultation Bilateral, NORMAL BREATHING PATTERN - Cardiovascular Exam Cardiovascular Exam: RRR, +S1, +S2 - GI/Abdominal Exam GI & Abdominal Exam: Normal Bowel Sounds, Soft. absent: Tenderness - Extremities Exam Extremities exam: Positive for: pedal edema (Trace b/l) - Neurological Exam Neurological exam: Alert, CN II-XII Intact, Oriented x3 - Psychiatric Exam Psychiatric exam: Normal Affect, Normal Mood - Skin Skin Exam: Intact, Normal Color, Warm Results - Vital Signs Recent Vital Signs: Last Vital Signs Temp 98.4 F 09/15/18 07:22 Pulse 76 09/16/18 08:47 Resp 20 09/15/18 07:22 BP 145/91 H 09/16/18 08:47 Pulse Ox - Labs Labs: Laboratory Results - last 24 hr 09/15/18 09/15/18 09/15/18 07:27 11:12 16:53 POC Glucose (mg/dL) 232 H 245 H 193 H 09/15/18 09/16/18 21:10 07:33 POC Glucose (mg/dL) 205 H 235 H Assessment & Plan - Assessment and Plan (Free Text) Plan: Klebsiella UTI Hx of drug overdose Hx of depression Hx of anxiety Hx of HTN Hx of DM Hx of Diverticulitis Hx of HLD Hx of hypothyroidism Plan Complete 2 more days Ciprofloxacin Tracheal aspirate show beta hemolytic strep, likely secondary to colonization Urine culture shows Klebsiella pneumoniae Blood cultures negative MRSA nasal screen negative Bhagwandin, PGY-3 <Jonh Gusman - Last Filed: 09/16/18 17:46> Meds - Medications Medications: Current Medications Acetaminophen (Tylenol 325mg Tab) 650 mg PO Q6H PRN PRN Reason: Fever >100.4 F Ciprofloxacin (Cipro) 500 mg PO Q12 [facility]; Protocol Last Admin: 09/16/18 08:38 Dose: 500 mg Famotidine (Pepcid) 40 mg PO HS [facility] Last Admin: 09/15/18 21:13 Dose: 40 mg Gabapentin (Neurontin) 300 mg PO TID [facility]; Protocol Last Admin: 09/16/18 12:52 Dose: 300 mg Glipizide (Glucotrol Xl) 10 mg PO BID [facility] Last Admin: 09/16/18 08:48 Dose: 10 mg Insulin Human Regular (Humulin R Low) 1 units SC ACHS [facility]; Protocol Last Admin: 09/16/18 12:48 Dose: 3 unit Lamotrigine (Lamictal) 25 mg PO BID [facility]; Protocol Last Admin: 09/16/18 08:47 Dose: 25 mg Levalbuterol HCl (Xopenex) 1.25 mg IH [id number] PRN PRN Reason: Shortness of Breath Levothyroxine Sodium (Synthroid) 50 mcg PO 0600 [facility] Last Admin: 09/16/18 08:38 Dose: 50 mcg Lisinopril (Zestril) 5 mg PO DAILY [facility] Last Admin: 09/16/18 08:39 Dose: 5 mg Meclizine HCl (Antivert) 25 mg PO DAILY [facility] Last Admin: 09/16/18 08:38 Dose: 25 mg Metoprolol Succinate (Toprol Xl) 25 mg PO DAILY [facility] Last Admin: 09/16/18 08:47 Dose: 25 mg Non-Formulary Medication (Dapagliflozin Propanediol [Farxiga]) 5 mg PO DAILY [facility] Non-Formulary Medication (Linagliptin [Tradjenta]) 5 tab PO DAILY [facility] Non Formulary Medication ( Vortioxetine Hydrobromide [ Trintellix] 10 Mg) 1 tab PO DAILY [facility] Nystatin (Nystop Topical Powder) 0 gm TOP DAILY [facility] Last Admin: 09/16/18 12:50 Dose: 1 applic Senna/Docusate Sodium (Senokot S 50 Mg-8.6 Mg) 2 tab PO HS [facility] Last Admin: 09/15/18 21:12 Dose: 2 tab Venlafaxine HCl (Effexor Xr) 75 mg PO DAILY [facility] Last Admin: 09/16/18 08:38 Dose: 75 mg Venlafaxine HCl (Effexor Xr) 150 mg PO HS [facility] Last Admin: 09/15/18 21:13 Dose: 150 mg Zaleplon (Sonata) 5 mg PO HS PRN PRN Reason: Insomnia Last Admin: 09/15/18 21:14 Dose: 5 mg Results - Vital Signs Recent Vital Signs: Last Vital Signs Temp 98.4 F 09/15/18 07:22 Pulse 76 09/16/18 08:47 Resp 20 09/15/18 07:22 BP 145/91 H 09/16/18 08:47 Pulse Ox - Labs Labs: Laboratory Results - last 24 hr 09/15/18 09/15/18 09/15/18 07:27 11:12 16:53 POC Glucose (mg/dL) 232 H 245 H 193 H 09/15/18 09/16/18 09/16/18 21:10 07:33 11:11 POC Glucose (mg/dL) 205 H 235 H 253 H Assessment & Plan - Assessment and Plan (Free Text) Plan: Infectious diseases Attending Physician Attestation Patient seen and examined, discussed with medical clerk. I have reviewed the patient's history of present illness, past medical, social, personal and family histories, pertinent physical exam findings, course so far in this hospital admission, pertinent laboratory and imaging results. I agree with the above findings, assessment and plan. In addition, complete course of Ciprofloxacin for Klebsiella UTI.
[2018-09-16] MEDS: Nystatin 100,000 Units/gm Topical Pow(15 gm) TOP SCH (12:50)
--- NOTE | 2018-09-16 13:38 | CP.PCM.PN ---
<Sergio Pandey - Last Filed: 09/16/18 13:34> Subjective - Date & Time of Evaluation Date of Evaluation: 09/16/18 Time of Evaluation: 13:34 - Subjective Subjective: INTERNAL MEDICINE PROGRESS NOTE FOR DR RAYMOND Pandey Pt seen and examined at bedside this am. No acute nursing events overnight. Pt complained of shoulder pain thats relived with acetaminophen. 12 point ROS is otherwise negative. Objective - Vital Signs/Intake and Output Vital Signs (last 24 hours): Temp Pulse Resp BP Pulse Ox 98.4 F 76 20 145/91 H 09/15/18 07:22 09/16/18 08:47 09/15/18 07:22 09/16/18 08:47 - Medications Medications: Current Medications Acetaminophen (Tylenol 325mg Tab) 650 mg PO Q6H PRN PRN Reason: Fever >100.4 F Ciprofloxacin (Cipro) 500 mg PO Q12 [facility]; Protocol Last Admin: 09/16/18 08:38 Dose: 500 mg Famotidine (Pepcid) 40 mg PO HS [facility] Last Admin: 09/15/18 21:13 Dose: 40 mg Gabapentin (Neurontin) 300 mg PO TID [facility]; Protocol Last Admin: 09/16/18 12:52 Dose: 300 mg Glipizide (Glucotrol Xl) 10 mg PO BID [facility] Last Admin: 09/16/18 08:48 Dose: 10 mg Insulin Human Regular (Humulin R Low) 1 units SC ACHS [facility]; Protocol Last Admin: 09/16/18 12:48 Dose: 3 unit Lamotrigine (Lamictal) 25 mg PO BID [facility]; Protocol Last Admin: 09/16/18 08:47 Dose: 25 mg Levalbuterol HCl (Xopenex) 1.25 mg IH [id number] PRN PRN Reason: Shortness of Breath Levothyroxine Sodium (Synthroid) 50 mcg PO 0600 [facility] Last Admin: 09/16/18 08:38 Dose: 50 mcg Lisinopril (Zestril) 5 mg PO DAILY [facility] Last Admin: 09/16/18 08:39 Dose: 5 mg Meclizine HCl (Antivert) 25 mg PO DAILY [facility] Last Admin: 09/16/18 08:38 Dose: 25 mg Metoprolol Succinate (Toprol Xl) 25 mg PO DAILY [facility] Last Admin: 09/16/18 08:47 Dose: 25 mg Non-Formulary Medication (Dapagliflozin Propanediol [Farxiga]) 5 mg PO DAILY [facility] Non-Formulary Medication (Linagliptin [Tradjenta]) 5 tab PO DAILY [facility] Non Formulary Medication ( Vortioxetine Hydrobromide [ Trintellix] 10 Mg) 1 tab PO DAILY [facility] Nystatin (Nystop Topical Powder) 0 gm TOP DAILY [facility] Last Admin: 09/16/18 12:50 Dose: 1 applic Senna/Docusate Sodium (Senokot S 50 Mg-8.6 Mg) 2 tab PO HS [facility] Last Admin: 09/15/18 21:12 Dose: 2 tab Venlafaxine HCl (Effexor Xr) 75 mg PO DAILY [facility] Last Admin: 09/16/18 08:38 Dose: 75 mg Venlafaxine HCl (Effexor Xr) 150 mg PO HS [facility] Last Admin: 09/15/18 21:13 Dose: 150 mg Zaleplon (Sonata) 5 mg PO HS PRN PRN Reason: Insomnia Last Admin: 09/15/18 21:14 Dose: 5 mg - Constitutional Appears: Well, Non-toxic, No Acute Distress - Head Exam Head Exam: ATRAUMATIC, NORMAL INSPECTION - Eye Exam Eye Exam: EOMI, Normal appearance - ENT Exam ENT Exam: Mucous Membranes Moist, Normal Exam - Neck Exam Neck Exam: Normal Inspection - Respiratory Exam Respiratory Exam: Clear to Ausculation Bilateral, NORMAL BREATHING PATTERN - Cardiovascular Exam Cardiovascular Exam: REGULAR RHYTHM, +S1, +S2 - GI/Abdominal Exam GI & Abdominal Exam: Soft. absent: Tenderness - Extremities Exam Extremities Exam: Normal Inspection. absent: Calf Tenderness - Back Exam Back Exam: NORMAL INSPECTION - Neurological Exam Neurological Exam: Alert, Awake, Oriented x3 - Psychiatric Exam Psychiatric exam: Normal Affect, Normal Mood - Skin Skin Exam: Dry, Intact, Warm Assessment and Plan - Assessment and Plan (Free Text) Assessment: 62-year-old female past medical history significant for anxiety, depression, diabetes, diverticulitis, gallstones, hypertension, hypercholesterolemia, drug overdose and hypothyroidism that presented to the emergency room on 09/09/2018 for altered mental status and respiratory failure secondary to benzodiazepine overdose. Patient was treated and transferred to psychiatric unit on 09/14/2018. We are consulted for medical management. Plan: UTI UCx grew klebsiella pneumonia, ssp pneumonia Sensitive to ciprofloxacin, continue ID recommended continuing ciprofloxacin URI sputum grows beta hemolytic group B strep per ID: likely colonized Respiratory failure 2/2 benzodiazepine overdose Resolved Educated and advised cessation of overdosing Continue nebulizer treatments as needed Peripheral neuropathy continue gabapentin 300mg tid DM2 Continue home glipizide 10mg, tradjenta and farxiga Hypothyroidism Continue home levothyroxine HTN Continue home lisinopril 5mg Continue home metoprolol 25mg Vertigo Continue home meclizine Depression Continue home venlafaxine 75mg and 150mg Appreciate psychiatry recs Insomnia Continue zaleplon 5mg appreciate psych recs Continue home lamictal Constipation Continue senna. Pt reports she is having BM's DVT/GI: LVX/Famotidine Pt is feeling better today, vitals are stable. At this point, no acute management is required by medical team. Will sign off at this time. <Elli Arroyo R - Last Filed: 09/17/18 07:57> Objective - Vital Signs/Intake and Output Vital Signs (last 24 hours): Temp Pulse Resp BP Pulse Ox 98.1 F 75 20 156/100 H 09/17/18 07:48 09/17/18 07:48 09/17/18 07:48 09/17/18 07:48 - Medications Medications: Current Medications Acetaminophen (Tylenol 325mg Tab) 650 mg PO Q6H PRN PRN Reason: Fever >100.4 F Ciprofloxacin (Cipro) 500 mg PO Q12 [facility]; Protocol Last Admin: 09/17/18 05:19 Dose: 500 mg Famotidine (Pepcid) 40 mg PO HS [facility] Last Admin: 09/16/18 22:18 Dose: 40 mg Gabapentin (Neurontin) 300 mg PO TID [facility]; Protocol Last Admin: 09/16/18 17:59 Dose: 300 mg Glipizide (Glucotrol Xl) 10 mg PO BID [facility] Last Admin: 09/16/18 18:01 Dose: 10 mg Insulin Human Regular (Humulin R Low) 1 units SC ACHS [facility]; Protocol Last Admin: 09/16/18 22:21 Dose: 2 unit Lamotrigine (Lamictal) 25 mg PO BID [facility]; Protocol Last Admin: 09/16/18 18:01 Dose: 25 mg Levalbuterol HCl (Xopenex) 1.25 mg IH [id number] PRN PRN Reason: Shortness of Breath Levothyroxine Sodium (Synthroid) 50 mcg PO 0600 [facility] Last Admin: 09/17/18 05:19 Dose: 50 mcg Lisinopril (Zestril) 5 mg PO DAILY [facility] Last Admin: 09/16/18 08:39 Dose: 5 mg Meclizine HCl (Antivert) 25 mg PO DAILY [facility] Last Admin: 09/16/18 08:38 Dose: 25 mg Metoprolol Succinate (Toprol Xl) 25 mg PO DAILY [facility] Last Admin: 09/16/18 08:47 Dose: 25 mg Non-Formulary Medication (Dapagliflozin Propanediol [Farxiga]) 5 mg PO DAILY [facility] Non-Formulary Medication (Linagliptin [Tradjenta]) 5 tab PO DAILY [facility] Non Formulary Medication ( Vortioxetine Hydrobromide [ Trintellix] 10 Mg) 1 tab PO DAILY [facility] Nystatin (Nystop Topical Powder) 0 gm TOP DAILY [facility] Last Admin: 09/16/18 12:50 Dose: 1 applic Senna/Docusate Sodium (Senokot S 50 Mg-8.6 Mg) 2 tab PO HS [facility] Last Admin: 09/16/18 22:18 Dose: 2 tab Venlafaxine HCl (Effexor Xr) 75 mg PO DAILY [facility] Last Admin: 09/16/18 08:38 Dose: 75 mg Venlafaxine HCl (Effexor Xr) 150 mg PO HS [facility] Last Admin: 09/16/18 22:18 Dose: 150 mg Zaleplon (Sonata) 5 mg PO HS PRN PRN Reason: Insomnia Last Admin: 09/15/18 21:14 Dose: 5 mg Attending/Attestation - Attestation I have personally seen and examined this patient.: Yes I have fully participated in the care of the patient.: Yes I have reviewed all pertinent clinical information, including history, physical exam and plan: Yes Notes (Text): Patient seen and examined by me with resident at 12:10PM on 09/16/18. Case including HPI, physical exam, and assessment and plan discussed with resident. Agree with above with following additions/corrections. Patient is a 62-year-old female past medical history significant for anxiety, depression, diabetes, diverticulitis, gallstones, hypertension, hypercholesterolemia, drug overdose and hypothyroidism that presented to the emergency room on 09/09/2018 for altered mental status and respiratory failure secondary to benzodiazepine overdose. Patient states she is feeling ok. Feels a little anxious. Patient is ambulating with walker. Patient denies any chest pain or shortness of breath. No headaches or lightheadedness. Denies any dizziness today. No change in vision. No fevers or chills. No nausea, vomiting, or abdominal pain. No diarrhea or constipation. Physical exam: General: Awake and alert sitting up in bed in no acute distress HEENT: Normocephalic, atraumatic. Extraocular muscles intact, pupils equal and reactive, no scleral icterus. Oropharynx is pink and moist. No pharyngeal erythema or exudate appreciated. Neck is supple. Cardiovascular: Regular rhythm. Normal S1 and S2. No murmurs, rubs, or gallops appreciated Pulmonary: Normal respiratory effort. No rhonchi, rales, or wheezing appreciated. Gastrointestinal: Soft, nondistended. Nontender. Positive bowel sounds all 4 quadrants. No guarding. Musculoskeletal: Moves all extremities. No calf tenderness. No edema appreciated. No CVA tenderness. Central nervous system: AAOx3, CN 2-12 grossly intact. Dermatologic: Skin warm and dry. Assessment and plan: Patient is a 62-year-old female past medical history significant for anxiety, depression, diabetes, diverticulitis, gallstones, hypertension, hypercholesterolemia, drug overdose and hypothyroidism that presented to the emergency room on 09/09/2018 for altered mental status and respiratory failure secondary to benzodiazepine overdose. Patient was treated and transferred to psychiatric unit on 09/14/2018. We are consulted for medical management. 1. Klebsiella UTI. Continue Cipro. ID following, recommendations appreciated. 2. Sputum culture postiive for Beta hemolytic strep Group B. Likely coloniz ation. ID following, recommendations appreciated. 3. S/P Respiratory failure secondary to overdose. Resolved. Continue nebulizer treatments as needed. Patient counseled on drug overdose. 4. DM2. Continue Tradjenta, Glipizide and Farxiga 5. Hypertension. Continue Toprol XL and Lisinopril 6. Hypothyroidism, Continue synthroid. 7. Vertigo. Continue home meclizine. 8. Constipation. Continue Senna at bedtime. Per patient, she is having bowel movements. 9. Depression and anxiety. Insomnia. Benzodiazepine overdose. Care as per primary team Case was discussed in detail with the patient regarding her diagnosis and treatment plan. All questions answered. Patient is doing better. ID is following. We will sign off. Please re-consult at any time if needed.
--- NOTE | 2018-09-16 15:26 | PCM.PYCHPN ---
Psychiatric Progress Note - Psychiatric Progress Note Patient seen today, length of contact: 30 minutes Patient Chief Complaint: "I am feeling better" Problems Identified/Issues Discussed: Suicide/ homicide prevention, past psychiatric h/o, current psychiatric symptoms, medical problems, risk/benefits and alternatives of medications, medications compliance, coping strategies, substance abuse h/o, relapse prevention, importance of follow up with psychiatrist and therapist, discharge plan. Medical Problems: Please see medical team notes for more detailed information, patient was found unresponsive, possible overdose on benzodiazepines Diagnostic Results: Lab Results 09/16/18 07:33: POC Glucose (mg/dL) 235 H 09/15/18 21:10: POC Glucose (mg/dL) 205 H 09/15/18 16:53: POC Glucose (mg/dL) 193 H 09/15/18 11:12: POC Glucose (mg/dL) 245 H 09/15/18 07:27: POC Glucose (mg/dL) 232 H 09/14/18 21:23: POC Glucose (mg/dL) 225 H Vital Signs Temp Pulse Pulse Resp BP 09/16/18 08:47 76 145/91 H 09/16/18 08:39 76 145/91 H 09/15/18 16:11 79 159/86 H 09/15/18 08:37 71 160/99 H 09/15/18 07:22 98.4 F 71 20 160/99 H 09/15/18 02:32 95 H 21 DSM 5 Symptoms Update: shortly pt is 62 year old female with reported h/o depression and anxiety, h/o unintentional overdose on benzodiazepines and h/o falls, ? h/o abusing benzos, multiple medical issues including diverticulitis, hypertension, diabetes, ? dementia, pt was transferred from the medical floor, where she was downgraded from ICU, prior to that pt was found to be unresponsive at home overdosed on benzodiazepines about one month worth, pt was intubated, then extubated, medically stabilized and transferred to the psych unit for evaluation of possible depressive symptoms, possible s/p overdose, r/o abuse benzos. please see ER/ICU notes for more detailed information. pt was seen at the dining area with mental health worker, hygiene improved, fair ADLs, ambulates with a walker. pt is poor and unreliable historian, pt was providing inconsistent stories. Overall patient is pleasant, reported to feel "better". As per director social welfare, most likely patient will be not accepted back by her sister, most likely placement. So far patient tolerates medications well, no side effects observed or reported, aims 0, no EPS. DSM 5 Diagnosis: MDD ISMAEL misuse and abuse benzos Medication Change: Yes Medical Record Reviewed: Yes Consults ordered or reviewed: Medical consult appreciated, please see notes for more detailed information Mental Status Examination - Cognitive Function Orientation: Person, Place, Situation Memory: Impaired Attention: Poor Concentration: Poor Association: WNL Fund of Knowledge: WNL - Mood Mood: Depressed, Anxious - Affect Affect: Flat - Formal Thought Process Formal Thought Process: No Impairment - Suicidal Ideation Suicidal Ideation: No - Homicidal Ideation Homicidal Ideation: No Goal/Treatment Plan - Goal/Treatment Plan Need for Continued Stay: Remain at risks for inpatient hospitalization, Severe depression anxiety, Discharge may exacerbated symptoms, Severe functional impairment Progress Toward Problem(s) and Goals/Treatment Plan: Milieu/structure/supportive therapy Medical consult appreciated, see medical team note for more detailed info SW consultation for discharge plan and social issues Med management effexor resumed Benzodiazepines weaned off Sonata as needed for insomnia PRN meds collaterals from primary psychiatrist obtained pharmacy contacted Family involvement Follow up on labs Will monitor closely Pt was educated about risk/benefits and alternatives of medications, coping strategies (safety plan, suicide prevention), relapse prevention, importance of follow up with psychiatrist and therapist, stay away from drugs/alcohol/smoking Estimated Date of D/C: 09/19/18
[2018-09-16] MEDS: Docusate-Senna 50 mg-8.6 mg Tab PO SCH (22:18)
[2018-09-17] MEDS: Levothyroxine 50 MCG TAB PO SCH (05:19)
[2018-09-17] MEDS: GlipiZIDE 10 mg SR Tab PO SCH ×2 (09:37→17:33)
[2018-09-17] MEDS: Metoprolol Succinate 25 mg XL Tab PO SCH (09:37)
[2018-09-17] MEDS: Venlafaxine 75 mg ER Cap PO SCH ×2 (09:37→21:31)
[2018-09-17] MEDS: Insulin Reg-LOW-Coverage SC SCH ×4 (09:38→21:33)
[2018-09-17] MEDS: Nystatin 100,000 Units/gm Topical Pow(15 gm) TOP SCH (09:39)
--- NOTE | 2018-09-17 09:47 | CP.PCM.PN ---
<Charles De Paz - Last Filed: 09/17/18 13:16> Subjective - Date & Time of Evaluation Date of Evaluation: 09/17/18 Time of Evaluation: 08:00 - Subjective Subjective: ID progress note Patient seen and examined. Patient feels well, with no complaints. Denies chest pain, shortness of breath, dysuria, congestion, fever, chills. Objective - Vital Signs/Intake and Output Vital Signs (last 24 hours): Temp Pulse Resp BP Pulse Ox 98.1 F 75 20 156/100 H 09/17/18 07:48 09/17/18 07:48 09/17/18 07:48 09/17/18 07:48 - Medications Medications: Current Medications Acetaminophen (Tylenol 325mg Tab) 650 mg PO Q6H PRN PRN Reason: Fever >100.4 F Ciprofloxacin (Cipro) 500 mg PO Q12 [facility]; Protocol Last Admin: 09/17/18 05:19 Dose: 500 mg Famotidine (Pepcid) 40 mg PO HS [facility] Last Admin: 09/16/18 22:18 Dose: 40 mg Gabapentin (Neurontin) 300 mg PO TID [facility]; Protocol Last Admin: 09/17/18 09:37 Dose: 300 mg Glipizide (Glucotrol Xl) 10 mg PO BID [facility] Last Admin: 09/17/18 09:37 Dose: 10 mg Insulin Human Regular (Humulin R Low) 1 units SC ACHS [facility]; Protocol Last Admin: 09/17/18 09:38 Dose: 1 unit Lamotrigine (Lamictal) 25 mg PO BID [facility]; Protocol Last Admin: 09/17/18 09:37 Dose: 25 mg Levalbuterol HCl (Xopenex) 1.25 mg IH [id number] PRN PRN Reason: Shortness of Breath Levothyroxine Sodium (Synthroid) 50 mcg PO 0600 [facility] Last Admin: 09/17/18 05:19 Dose: 50 mcg Lisinopril (Zestril) 5 mg PO DAILY [facility] Last Admin: 09/17/18 09:37 Dose: 5 mg Meclizine HCl (Antivert) 25 mg PO DAILY [facility] Last Admin: 09/17/18 09:37 Dose: 25 mg Metoprolol Succinate (Toprol Xl) 25 mg PO DAILY [facility] Last Admin: 09/17/18 09:37 Dose: 25 mg Non-Formulary Medication (Dapagliflozin Propanediol [Farxiga]) 5 mg PO DAILY [facility] Non-Formulary Medication (Linagliptin [Tradjenta]) 5 tab PO DAILY [facility] Non Formulary Medication ( Vortioxetine Hydrobromide [ Trintellix] 10 Mg) 1 tab PO DAILY [facility] Nystatin (Nystop Topical Powder) 0 gm TOP DAILY [facility] Last Admin: 09/17/18 09:39 Dose: 1 applic Senna/Docusate Sodium (Senokot S 50 Mg-8.6 Mg) 2 tab PO HS [facility] Last Admin: 09/16/18 22:18 Dose: 2 tab Venlafaxine HCl (Effexor Xr) 75 mg PO DAILY [facility] Last Admin: 09/17/18 09:37 Dose: 75 mg Venlafaxine HCl (Effexor Xr) 150 mg PO HS [facility] Last Admin: 09/16/18 22:18 Dose: 150 mg Zaleplon (Sonata) 5 mg PO HS PRN PRN Reason: Insomnia Last Admin: 09/15/18 21:14 Dose: 5 mg - Constitutional Appears: Non-toxic, No Acute Distress - Head Exam Head Exam: ATRAUMATIC, NORMAL INSPECTION, NORMOCEPHALIC - ENT Exam ENT Exam: Mucous Membranes Moist - Cardiovascular Exam Cardiovascular Exam: RRR, +S1, +S2 - GI/Abdominal Exam GI & Abdominal Exam: Soft, Normal Bowel Sounds. absent: Tenderness - Extremities Exam Extremities Exam: Normal Inspection. absent: Pedal Edema - Neurological Exam Neurological Exam: Alert, Awake, CN II-XII Intact, Oriented x3 - Psychiatric Exam Psychiatric exam: Normal Affect, Normal Mood - Skin Skin Exam: Dry, Intact, Warm Assessment and Plan - Assessment and Plan (Free Text) Plan: Klebsiella UTI Hx of drug overdose Hx of depression Hx of anxiety Hx of HTN Hx of DM Hx of Diverticulitis Hx of HLD Hx of hypothyroidism Plan Complete 1 more day of Ciprofloxacin Tracheal aspirate show beta hemolytic strep, secondary to colonization Urine culture shows Klebsiella pneumoniae Blood cultures and MRSA screen negative Zandra, PGY-3 <Jonh Gusman - Last Filed: 09/17/18 21:06> Objective - Vital Signs/Intake and Output Vital Signs (last 24 hours): Temp Pulse Resp BP Pulse Ox 98.1 F 74 20 142/86 09/17/18 07:48 09/17/18 16:30 09/17/18 07:48 09/17/18 16:30 - Medications Medications: Current Medications Acetaminophen (Tylenol 325mg Tab) 650 mg PO Q6H PRN PRN Reason: Fever >100.4 F Ciprofloxacin (Cipro) 500 mg PO Q12 [facility]; Protocol Last Admin: 09/17/18 17:32 Dose: 500 mg Famotidine (Pepcid) 40 mg PO HS [facility] Last Admin: 09/16/18 22:18 Dose: 40 mg Gabapentin (Neurontin) 300 mg PO TID [facility]; Protocol Last Admin: 09/17/18 17:32 Dose: 300 mg Glipizide (Glucotrol Xl) 10 mg PO BID [facility] Last Admin: 09/17/18 17:33 Dose: 10 mg Insulin Human Regular (Humulin R Low) 1 units SC ACHS [facility]; Protocol Last Admin: 09/17/18 17:28 Dose: 1 unit Lamotrigine (Lamictal) 25 mg PO BID [facility]; Protocol Last Admin: 09/17/18 17:32 Dose: 25 mg Levalbuterol HCl (Xopenex) 1.25 mg IH [id number] PRN PRN Reason: Shortness of Breath Levothyroxine Sodium (Synthroid) 50 mcg PO 0600 [facility] Last Admin: 09/17/18 05:19 Dose: 50 mcg Lisinopril (Zestril) 5 mg PO DAILY [facility] Last Admin: 09/17/18 09:37 Dose: 5 mg Meclizine HCl (Antivert) 25 mg PO DAILY [facility] Last Admin: 09/17/18 09:37 Dose: 25 mg Metoprolol Succinate (Toprol Xl) 25 mg PO DAILY [facility] Last Admin: 09/17/18 09:37 Dose: 25 mg Nystatin (Nystop Topical Powder) 0 gm TOP DAILY [facility] Last Admin: 09/17/18 09:39 Dose: 1 applic Risperidone (Risperdal Tab) 0.25 mg PO HS [facility]; Protocol Senna/Docusate Sodium (Senokot S 50 Mg-8.6 Mg) 2 tab PO HS [facility] Last Admin: 09/16/18 22:18 Dose: 2 tab Venlafaxine HCl (Effexor Xr) 150 mg PO [facility] Last Admin: 09/16/18 22:18 Dose: 150 mg Zaleplon (Sonata) 5 mg PO HS PRN PRN Reason: Insomnia Last Admin: 09/15/18 21:14 Dose: 5 mg Assessment and Plan - Assessment and Plan (Free Text) Plan: Infectious diseases Attending Physician Attestation Patient seen and examined, discussed with medical examiner. I have reviewed the patient's history of present illness, past medical, social, personal and family histories, pertinent physical exam findings, course so far in this hospital admission, pertinent laboratory and imaging results. I agree with the above findings, assessment and plan. In addition, complete course of Ciprofloxacin for Klebisella UTI.
--- NOTE | 2018-09-17 15:04 | PCM.PYCHPN ---
Psychiatric Progress Note - Psychiatric Progress Note Patient seen today, length of contact: 30 minutes Patient Chief Complaint: "I am okay, I was looking for something, I don't remember, this is what I am trying to say..' Problems Identified/Issues Discussed: Suicide/ homicide prevention, past psychiatric h/o, current psychiatric symptoms, medical problems, risk/benefits and alternatives of medications, medications compliance, coping strategies, substance abuse h/o, relapse prevention, importance of follow up with psychiatrist and therapist, discharge plan. Medical Problems: Please see medical team notes for more detailed information, patient was found unresponsive, possible overdose on benzodiazepines Diagnostic Results: Lab Results 09/16/18 07:33: POC Glucose (mg/dL) 235 H 09/15/18 21:10: POC Glucose (mg/dL) 205 H 09/15/18 16:53: POC Glucose (mg/dL) 193 H 09/15/18 11:12: POC Glucose (mg/dL) 245 H 09/15/18 07:27: POC Glucose (mg/dL) 232 H 09/14/18 21:23: POC Glucose (mg/dL) 225 H Vital Signs Temp Pulse Pulse Resp BP 09/16/18 08:47 76 145/91 H 09/16/18 08:39 76 145/91 H 09/15/18 16:11 79 159/86 H 09/15/18 08:37 71 160/99 H 09/15/18 07:22 98.4 F 71 20 160/99 H 09/15/18 02:32 95 H 21 DSM 5 Symptoms Update: shortly pt is 62 year old female with reported h/o depression and anxiety, h/o unintentional overdose on benzodiazepines and h/o falls, ? h/o abusing benzos, multiple medical issues including diverticulitis, hypertension, diabetes, ? dementia, pt was transferred from the medical floor, where she was downgraded from ICU, prior to that pt was found to be unresponsive at home overdosed on benzodiazepines about one month worth, pt was intubated, then extubated, medically stabilized and transferred to the psych unit for evaluation of possible depressive symptoms, possible s/p overdose, r/o abuse benzos. please see ER/ICU notes for more detailed information. pt was seen at the dining area, patient appears to be anxious, confused, patient had difficulty to stay focused and concentrate, as per staff patient was observed talking to herself, was wandering in the unit, walking to the different rooms looking for nail clipper , thought that she is at her house. hygiene improved, fair ADLs, ambulates with a walker. pt is poor and unreliable historian, pt was providing inconsistent stories. As per social worker palliative care, most likely patient will be not accepted back by her sister, most likely placement, Today patient said that she is on the lease for her apartment with her sister as well as her nephew, patient reported that she contributes part of the rent, patient wants to go back into her apartment., Collateral's needs to obtain from the sister about sister disconnected phone number. Dr. Oneal will be contacted. So far patient tolerates medications well, no side effects observed or reported, aims 0, no EPS. DSM 5 Diagnosis: MDD ISMAEL misuse and abuse benzos Medication Change: Yes Medical Record Reviewed: Yes Mental Status Examination - Cognitive Function Orientation: Person, Place, Situation Memory: Impaired Attention: Poor Concentration: Poor Association: WNL Fund of Knowledge: WNL - Mood Mood: Depressed, Anxious - Affect Affect: Flat - Formal Thought Process Formal Thought Process: No Impairment - Suicidal Ideation Suicidal Ideation: No - Homicidal Ideation Homicidal Ideation: No Goal/Treatment Plan - Goal/Treatment Plan Need for Continued Stay: Remain at risks for inpatient hospitalization, Severe depression anxiety, Discharge may exacerbated symptoms, Severe functional impairment Progress Toward Problem(s) and Goals/Treatment Plan: Milieu/structure/supportive therapy Medical consult appreciated, see medical team note for more detailed info SW consultation for discharge plan and social issues Med management effexor 175 daily for depression and anxiety Lamictal 25 mg twice a day for mood stabilization We will add Risperdal 0.25 mg at the nighttime for psychotic symptoms Benzodiazepines weaned off Sonata as needed for insomnia PRN meds collaterals from primary psychiatrist obtained pharmacy contacted Family involvement Follow up on labs Will monitor closely Pt was educated about risk/benefits and alternatives of medications, coping strategies (safety plan, suicide prevention), relapse prevention, importance of follow up with psychiatrist and therapist, stay away from drugs/alcohol/smoking Estimated Date of D/C: 09/22/18
[2018-09-17] MEDS: Docusate-Senna 50 mg-8.6 mg Tab PO SCH (21:30)
[2018-09-18] MEDS: Levothyroxine 50 MCG TAB PO SCH (05:21)
[2018-09-18] MEDS: GlipiZIDE 10 mg SR Tab PO SCH ×2 (09:17→17:43)
[2018-09-18] MEDS: Insulin Reg-LOW-Coverage SC SCH ×4 (09:18→21:34)
[2018-09-18] MEDS: Metoprolol Succinate 25 mg XL Tab PO SCH (09:19)
--- NOTE | 2018-09-18 09:55 | CP.PCM.PN ---
<Charles De Paz - Last Filed: 09/18/18 12:45> Subjective - Date & Time of Evaluation Date of Evaluation: 09/18/18 Time of Evaluation: 07:45 - Subjective Subjective: ID Progress Note Patient doing well with no acute complaints. Denies chest pain, shortness of breath, nauesa, vomiting, diarrhea, fever, chills. Objective - Vital Signs/Intake and Output Vital Signs (last 24 hours): Temp Pulse Resp BP Pulse Ox 97.8 F 76 20 171/86 H 09/18/18 07:15 09/18/18 09:20 09/18/18 07:15 09/18/18 09:20 - Medications Medications: Current Medications Acetaminophen (Tylenol 325mg Tab) 650 mg PO Q6H PRN PRN Reason: Fever >100.4 F Ciprofloxacin (Cipro) 500 mg PO Q12 [facility]; Protocol Last Admin: 09/18/18 05:20 Dose: 500 mg Famotidine (Pepcid) 40 mg PO HS [facility] Last Admin: 09/17/18 21:30 Dose: 40 mg Gabapentin (Neurontin) 300 mg PO TID [facility]; Protocol Last Admin: 09/18/18 09:17 Dose: 300 mg Glipizide (Glucotrol Xl) 10 mg PO BID [facility] Last Admin: 09/18/18 09:17 Dose: 10 mg Insulin Human Regular (Humulin R Low) 1 units SC ACHS [facility]; Protocol Last Admin: 09/18/18 09:18 Dose: 1 unit Lamotrigine (Lamictal) 25 mg PO BID [facility]; Protocol Last Admin: 09/18/18 09:18 Dose: 25 mg Levalbuterol HCl (Xopenex) 1.25 mg IH [id number] PRN PRN Reason: Shortness of Breath Levothyroxine Sodium (Synthroid) 50 mcg PO 0600 [facility] Last Admin: 09/18/18 05:21 Dose: 50 mcg Lisinopril (Zestril) 5 mg PO DAILY [facility] Last Admin: 09/18/18 09:20 Dose: 5 mg Meclizine HCl (Antivert) 25 mg PO DAILY [facility] Last Admin: 09/18/18 09:17 Dose: 25 mg Metoprolol Succinate (Toprol Xl) 25 mg PO DAILY [facility] Last Admin: 09/18/18 09:19 Dose: 25 mg Nystatin (Nystop Topical Powder) 0 gm TOP DAILY [facility] Last Admin: 09/17/18 09:39 Dose: 1 applic Risperidone (Risperdal Tab) 0.25 mg PO HS [facility]; Protocol Last Admin: 09/17/18 21:30 Dose: 0.25 mg Senna/Docusate Sodium (Senokot S 50 Mg-8.6 Mg) 2 tab PO HS [facility] Last Admin: 09/17/18 21:30 Dose: 2 tab Venlafaxine HCl (Effexor Xr) 150 mg PO HS [facility] Last Admin: 09/17/18 21:31 Dose: 150 mg Zaleplon (Sonata) 5 mg PO HS PRN PRN Reason: Insomnia Last Admin: 09/17/18 21:30 Dose: 5 mg - Constitutional Appears: Non-toxic, No Acute Distress - Head Exam Head Exam: ATRAUMATIC, NORMAL INSPECTION, NORMOCEPHALIC - ENT Exam ENT Exam: Mucous Membranes Moist - Respiratory Exam Respiratory Exam: Clear to Ausculation Bilateral, NORMAL BREATHING PATTERN - Cardiovascular Exam Cardiovascular Exam: RRR, +S1, +S2 - Extremities Exam Extremities Exam: Normal Inspection. absent: Pedal Edema - Neurological Exam Neurological Exam: Alert, Awake, CN II-XII Intact, Oriented x3 - Psychiatric Exam Psychiatric exam: Normal Affect, Normal Mood - Skin Skin Exam: Dry, Intact, Warm Assessment and Plan - Assessment and Plan (Free Text) Plan: Klebsiella UTI Hx of drug overdose Hx of depression Hx of anxiety Hx of HTN Hx of DM Hx of Diverticulitis Hx of HLD Hx of hypothyroidism Plan Last day of Ciprofloxacin Tracheal aspirate show beta hemolytic strep, secondary to colonization Urine culture shows Klebsiella pneumoniae Blood cultures and MRSA screen negative Continue management as per psychiatry Zandra, PGY-3 <Jonh Gusman - Last Filed: 09/18/18 16:59> Objective - Vital Signs/Intake and Output Vital Signs (last 24 hours): Temp Pulse Resp BP Pulse Ox 97.8 F 76 20 171/86 H 09/18/18 07:15 09/18/18 09:20 09/18/18 07:15 09/18/18 09:20 - Medications Medications: Current Medications Acetaminophen (Tylenol 325mg Tab) 650 mg PO Q6H PRN PRN Reason: Fever >100.4 F Ciprofloxacin (Cipro) 500 mg PO Q12 [facility]; Protocol Stop: 09/18/18 23:00 Last Admin: 09/18/18 05:20 Dose: 500 mg Famotidine (Pepcid) 40 mg PO HS [facility] Last Admin: 09/17/18 21:30 Dose: 40 mg Gabapentin (Neurontin) 300 mg PO TID [facility]; Protocol Last Admin: 09/18/18 12:59 Dose: 300 mg Glipizide (Glucotrol Xl) 10 mg PO BID [facility] Last Admin: 09/18/18 09:17 Dose: 10 mg Insulin Human Regular (Humulin R Low) 1 units SC ACHS [facility]; Protocol Last Admin: 09/18/18 12:59 Dose: 3 unit Lamotrigine (Lamictal) 25 mg PO BID [facility]; Protocol Last Admin: 09/18/18 09:18 Dose: 25 mg Levalbuterol HCl (Xopenex) 1.25 mg IH [id number] PRN PRN Reason: Shortness of Breath Levothyroxine Sodium (Synthroid) 50 mcg PO 0600 [facility] Last Admin: 09/18/18 05:21 Dose: 50 mcg Lisinopril (Zestril) 5 mg PO DAILY [facility] Last Admin: 09/18/18 09:20 Dose: 5 mg Meclizine HCl (Antivert) 25 mg PO DAILY [facility] Last Admin: 09/18/18 09:17 Dose: 25 mg Metoprolol Succinate (Toprol Xl) 25 mg PO DAILY [facility] Last Admin: 09/18/18 09:19 Dose: 25 mg Nystatin (Nystop Topical Powder) 0 gm TOP DAILY [facility] Last Admin: 09/18/18 14:53 Dose: 1 applic Risperidone (Risperdal Tab) 0.5 mg PO HS [facility]; Protocol Senna/Docusate Sodium (Senokot S 50 Mg-8.6 Mg) 2 tab PO HS [facility] Last Admin: 09/17/18 21:30 Dose: 2 tab Venlafaxine HCl (Effexor Xr) 150 mg PO HS [facility] Last Admin: 09/17/18 21:31 Dose: 150 mg Zaleplon (Sonata) 5 mg PO HS PRN PRN Reason: Insomnia Last Admin: 09/17/18 21:30 Dose: 5 mg Assessment and Plan - Assessment and Plan (Free Text) Plan: Infectious diseases Attending Physician Attestation Patient seen and examined, discussed with biomedical specialist. I have reviewed the patient's history of present illness, past medical, social, personal and family histories, pertinent physical exam findings, course so far in this hospital admission, pertinent laboratory and imaging results. I agree with the above findings, assessment and plan. In addition, complete course of Ciprofloxacin for Klebsiella UTI.
[2018-09-18] MEDS: Nystatin 100,000 Units/gm Topical Pow(15 gm) TOP SCH (14:53)
--- NOTE | 2018-09-18 14:53 | PCM.PYCHPN ---
Psychiatric Progress Note - Psychiatric Progress Note Patient seen today, length of contact: 30 minutes Patient Chief Complaint: "..." speech at times incoherent Problems Identified/Issues Discussed: Suicide/ homicide prevention, past psychiatric h/o, current psychiatric sym ptoms, medical problems, risk/benefits and alternatives of medications, medications compliance, coping strategies, substance abuse h/o, relapse prevention, importance of follow up with psychiatrist and therapist, discharge plan. Medical Problems: Please see medical team notes for more detailed information, patient was found unresponsive, possible overdose on benzodiazepines Diagnostic Results: Lab Results 09/16/18 07:33: POC Glucose (mg/dL) 235 H 09/15/18 21:10: POC Glucose (mg/dL) 205 H 09/15/18 16:53: POC Glucose (mg/dL) 193 H 09/15/18 11:12: POC Glucose (mg/dL) 245 H 09/15/18 07:27: POC Glucose (mg/dL) 232 H 09/14/18 21:23: POC Glucose (mg/dL) 225 H Vital Signs Temp Pulse Pulse Resp BP 09/16/18 08:47 76 145/91 H 09/16/18 08:39 76 145/91 H 09/15/18 16:11 79 159/86 H 09/15/18 08:37 71 160/99 H 09/15/18 07:22 98.4 F 71 20 160/99 H 09/15/18 02:32 95 H 21 DSM 5 Symptoms Update: shortly pt is 62 year old female with reported h/o depression and anxiety, h/o unintentional overdose on benzodiazepines and h/o falls, ? h/o abusing benzos, multiple medical issues including diverticulitis, hypertension, diabetes, ? dementia, pt was transferred from the medical floor, where she was downgraded from ICU, prior to that pt was found to be unresponsive at home overdosed on benzodiazepines about one month worth, pt was intubated, then extubated, medically stabilized and transferred to the psych unit for evaluation of possible depressive symptoms, possible s/p overdose, r/o abuse benzos. please see ER/ICU notes for more detailed information. pt was seen next to the nursing station, as per staff report pt wandering in the unit, at times speech is incoherent. hygiene improved, fair ADLs, ambulates independently. pt is poor and unreliable historian, pt was providing inconsistent stories. As per social staff worker, most likely patient will be not accepted back by her sister, most likely placement, Today patient said that she is on the lease for her apartment with her sister as well as her nephew, patient reported that she contributes part of the rent, patient wants to go back into her apartment., Collateral's needs to obtain from the sister about sister disconnected phone number. Dr. Oneal will be contacted. So far patient tolerates medications well, no side effects observed or reported, aims 0, no EPS. DSM 5 Diagnosis: MDD ISMAEL misuse and abuse benzos Medication Change: Yes Medical Record Reviewed: Yes Mental Status Examination - Cognitive Function Orientation: Person, Place, Situation Memory: Impaired Attention: Poor Concentration: Poor Association: WNL Fund of Knowledge: WNL - Mood Mood: Depressed, Anxious - Affect Affect: Flat - Formal Thought Process Formal Thought Process: No Impairment - Suicidal Ideation Suicidal Ideation: No - Homicidal Ideation Homicidal Ideation: No Goal/Treatment Plan - Goal/Treatment Plan Need for Continued Stay: Remain at risks for inpatient hospitalization, Severe depression anxiety, Discharge may exacerbated symptoms, Severe functional impairment Progress Toward Problem(s) and Goals/Treatment Plan: Milieu/structure/supportive therapy Medical consult appreciated, see medical team note for more detailed info SW consultation for discharge plan and social issues Med management effexor 175 daily for depression and anxiety Lamictal 25 mg twice a day for mood stabilization Risperdal 0.55 mg at the nighttime for psychotic symptoms Benzodiazepines weaned off Sonata as needed for insomnia PRN meds collaterals from primary psychiatrist obtained pharmacy contacted Family involvement Follow up on labs Will monitor closely Pt was educated about risk/benefits and alternatives of medications, coping strategies (safety plan, suicide prevention), relapse prevention, importance of follow up with psychiatrist and therapist, stay away from drugs/alcohol/smoking Estimated Date of D/C: 09/22/18
[2018-09-18] MEDS: Venlafaxine 75 mg ER Cap PO SCH (21:36)
[2018-09-18] MEDS: Docusate-Senna 50 mg-8.6 mg Tab PO SCH (21:36)
[2018-09-19] MEDS: Levothyroxine 50 MCG TAB PO SCH (07:06)
[2018-09-19] MEDS: GlipiZIDE 10 mg SR Tab PO SCH ×2 (08:58→18:11)
[2018-09-19] MEDS: Metoprolol Succinate 25 mg XL Tab PO SCH (08:58)
[2018-09-19] MEDS: Insulin Reg-LOW-Coverage SC SCH ×4 (09:00→21:37)
[2018-09-19] MEDS: Venlafaxine 37.5 mg ER Cap PO SCH (12:27)
[2018-09-19] MEDS: Nystatin 100,000 Units/gm Topical Pow(15 gm) TOP SCH (13:34)
--- NOTE | 2018-09-19 14:19 | CP.PCM.PN ---
<Charles De Paz - Last Filed: 09/19/18 14:18> Subjective - Date & Time of Evaluation Date of Evaluation: 09/19/18 Time of Evaluation: 09:15 - Subjective Subjective: ID Progress Note Patient seen and examined. No complaints at this time. No fevers overnight. No chills. Objective - Vital Signs/Intake and Output Vital Signs (last 24 hours): Temp Pulse Resp BP Pulse Ox 98.5 F 86 20 136/81 09/19/18 07:25 09/19/18 08:59 09/19/18 07:25 09/19/18 08:59 - Medications Medications: Current Medications Acetaminophen (Tylenol 325mg Tab) 650 mg PO Q6H PRN PRN Reason: Fever >100.4 F Famotidine (Pepcid) 40 mg PO HS [facility] Last Admin: 09/18/18 21:36 Dose: 40 mg Gabapentin (Neurontin) 600 mg PO TID [facility]; Protocol Last Admin: 09/19/18 12:27 Dose: 600 mg Glipizide (Glucotrol Xl) 10 mg PO BID [facility] Last Admin: 09/19/18 08:58 Dose: 10 mg Hydroxyzine Pamoate (Vistaril) 25 mg PO Q8 PRN; Protocol PRN Reason: Anxiety Last Admin: 09/19/18 12:28 Dose: 25 mg Insulin Human Regular (Humulin R Low) 1 units SC ACHS [facility]; Protocol Last Admin: 09/19/18 13:33 Dose: 3 unit Lamotrigine (Lamictal) 25 mg PO BID [facility]; Protocol Last Admin: 09/19/18 08:59 Dose: 25 mg Levalbuterol HCl (Xopenex) 1.25 mg IH [id number] PRN PRN Reason: Shortness of Breath Levothyroxine Sodium (Synthroid) 50 mcg PO 0600 [facility] Last Admin: 09/19/18 07:06 Dose: 50 mcg Lisinopril (Zestril) 5 mg PO DAILY [facility] Last Admin: 09/19/18 08:59 Dose: 5 mg Meclizine HCl (Antivert) 25 mg PO DAILY [facility] Last Admin: 09/19/18 08:58 Dose: 25 mg Metoprolol Succinate (Toprol Xl) 25 mg PO DAILY [facility] Last Admin: 09/19/18 08:58 Dose: 25 mg Nystatin (Nystop Topical Powder) 0 gm TOP DAILY [facility] Last Admin: 09/19/18 13:34 Dose: 1 applic Risperidone (Risperdal Tab) 0.5 mg PO HS [facility]; Protocol Last Admin: 09/18/18 21:36 Dose: 0.5 mg Senna/Docusate Sodium (Senokot S 50 Mg-8.6 Mg) 2 tab PO HS [facility] Last Admin: 09/18/18 21:36 Dose: 2 tab Venlafaxine HCl (Effexor Xr) 37.5 mg PO DAILY [facility] Last Admin: 09/19/18 12:27 Dose: 37.5 mg Venlafaxine HCl (Effexor Xr) 150 mg PO DAILY [facility] Zaleplon (Sonata) 5 mg PO HS PRN PRN Reason: Insomnia Last Admin: 09/17/18 21:30 Dose: 5 mg - Constitutional Appears: Non-toxic, No Acute Distress - Head Exam Head Exam: ATRAUMATIC, NORMAL INSPECTION, NORMOCEPHALIC - ENT Exam ENT Exam: Mucous Membranes Moist - Respiratory Exam Respiratory Exam: Clear to Ausculation Bilateral, NORMAL BREATHING PATTERN - Cardiovascular Exam Cardiovascular Exam: RRR, +S1, +S2 - GI/Abdominal Exam GI & Abdominal Exam: Soft, Normal Bowel Sounds. absent: Tenderness - Extremities Exam Extremities Exam: absent: Pedal Edema - Neurological Exam Neurological Exam: Alert, Awake, Oriented x3 - Psychiatric Exam Psychiatric exam: Normal Affect, Normal Mood - Skin Skin Exam: Intact, Normal Color, Warm Assessment and Plan - Assessment and Plan (Free Text) Plan: Klebsiella UTI, resovled Hx of drug overdose Hx of depression Hx of anxiety Hx of HTN Hx of DM Hx of Diverticulitis Hx of HLD Hx of hypothyroidism Plan S/p full course of Ciprofloxacin Continue to monitor off of antibiotics Tracheal aspirate show beta hemolytic strep, secondary to colonization Urine culture shows Klebsiella pneumoniae Blood cultures and MRSA screen negative Continue management as per psychiatry Zandra, PGY-3 <Jonh Gusman S - Last Filed: 09/19/18 16:59> Objective - Vital Signs/Intake and Output Vital Signs (last 24 hours): Temp Pulse Resp BP Pulse Ox 98.5 F 86 20 136/81 09/19/18 07:25 09/19/18 08:59 09/19/18 07:25 09/19/18 08:59 - Medications Medications: Current Medications Acetaminophen (Tylenol 325mg Tab) 650 mg PO Q6H PRN PRN Reason: Fever >100.4 F Famotidine (Pepcid) 40 mg PO HS [facility] Last Admin: 09/18/18 21:36 Dose: 40 mg Gabapentin (Neurontin) 600 mg PO TID [facility]; Protocol Last Admin: 09/19/18 12:27 Dose: 600 mg Glipizide (Glucotrol Xl) 10 mg PO BID [facility] Last Admin: 09/19/18 08:58 Dose: 10 mg Hydroxyzine Pamoate (Vistaril) 25 mg PO Q8 PRN; Protocol PRN Reason: Anxiety Last Admin: 09/19/18 12:28 Dose: 25 mg Insulin Human Regular (Humulin R Low) 1 units SC ACHS [facility]; Protocol Last Admin: 09/19/18 13:33 Dose: 3 unit Lamotrigine (Lamictal) 25 mg PO BID [facility]; Protocol Last Admin: 09/19/18 08:59 Dose: 25 mg Levalbuterol HCl (Xopenex) 1.25 mg IH [id number] PRN PRN Reason: Shortness of Breath Levothyroxine Sodium (Synthroid) 50 mcg PO 0600 [facility] Last Admin: 09/19/18 07:06 Dose: 50 mcg Lisinopril (Zestril) 5 mg PO DAILY [facility] Last Admin: 09/19/18 08:59 Dose: 5 mg Meclizine HCl (Antivert) 25 mg PO DAILY [facility] Last Admin: 09/19/18 08:58 Dose: 25 mg Metoprolol Succinate (Toprol Xl) 25 mg PO DAILY [facility] Last Admin: 09/19/18 08:58 Dose: 25 mg Nystatin (Nystop Topical Powder) 0 gm TOP DAILY [facility] Last Admin: 09/19/18 13:34 Dose: 1 applic Risperidone (Risperdal Tab) 0.5 mg PO HS [facility]; Protocol Last Admin: 09/18/18 21:36 Dose: 0.5 mg Senna/Docusate Sodium (Senokot S 50 Mg-8.6 Mg) 2 tab PO HS [facility] Last Admin: 09/18/18 21:36 Dose: 2 tab Venlafaxine HCl (Effexor Xr) 37.5 mg PO DAILY [facility] Last Admin: 09/19/18 12:27 Dose: 37.5 mg Venlafaxine HCl (Effexor Xr) 150 mg PO DAILY [facility] Zaleplon (Sonata) 5 mg PO HS PRN PRN Reason: Insomnia Last Admin: 09/17/18 21:30 Dose: 5 mg Assessment and Plan - Assessment and Plan (Free Text) Plan: Infectious diseases Attending Physician Attestation Patient seen and examined, discussed with medical equipment technician. I have reviewed the patient's history of present illness, past medical, social, personal and family histories, pertinent physical exam findings, course so far in this hospital admission, pertinent laboratory and imaging results. I agree with the above findings, assessment and plan. In addition, patient has completed course of Ciprofloxacin for Klebsiella UTI. Will continue to monitor off antibiotics.
--- NOTE | 2018-09-19 16:23 | PCM.PYCHPN ---
Psychiatric Progress Note - Psychiatric Progress Note Patient seen today, length of contact: 30 minutes Patient Chief Complaint: "by the way my sister visited me yesterday" Problems Identified/Issues Discussed: Suicide/ homicide prevention, past psychiatric h/o, current psychiatric symptoms, medical problems, risk/benefits and alternatives of medications, medications compliance, coping strategies, substance abuse h/o, relapse prevention, importance of follow up with psychiatrist and therapist, discharge plan. Medical Problems: Please see medical team notes for more detailed information, patient was found unresponsive, possible overdose on benzodiazepines Diagnostic Results: Lab Results 09/16/18 07:33: POC Glucose (mg/dL) 235 H 09/15/18 21:10: POC Glucose (mg/dL) 205 H 09/15/18 16:53: POC Glucose (mg/dL) 193 H 09/15/18 11:12: POC Glucose (mg/dL) 245 H 09/15/18 07:27: POC Glucose (mg/dL) 232 H 09/14/18 21:23: POC Glucose (mg/dL) 225 H Vital Signs Temp Pulse Pulse Resp BP 09/16/18 08:47 76 145/91 H 09/16/18 08:39 76 145/91 H 09/15/18 16:11 79 159/86 H 09/15/18 08:37 71 160/99 H 09/15/18 07:22 98.4 F 71 20 160/99 H 09/15/18 02:32 95 H 21 DSM 5 Symptoms Update: shortly pt is 62 year old female with reported h/o depression and anxiety, h/o unintentional overdose on benzodiazepines and h/o falls, ? h/o abusing benzos, multiple medical issues including diverticulitis, hypertension, diabetes, ? dementia, pt was transferred from the medical floor, where she was downgraded from ICU, prior to that pt was found to be unresponsive at home overdosed on benzodiazepines about one month worth, pt was intubated, then extubated, medically stabilized and transferred to the psych unit for evaluation of possible depressive symptoms, possible s/p overdose, r/o abuse benzos. please see ER/ICU notes for more detailed information. pt was seen at the treatment team meeting room, patient presented to be disorganized, difficult to stay focused and concentrate, as per report patient's sister does not want patient to be back in the house. patient's sister is not picking on the phone. utility worker forge explained to the patient that there is an option to call police to do well checkup visit, patient said that she does not want to go this route. Patient left the room after 5 minutes patient came back and said that her sister visited her yesterday, this is kind of unusual, especially after this script writer and social professionals spoke to the patient about sara ent's sister not picking up the phone. pt was advised to ask her sister to call SW. Patient reported that she feels very anxious, ask about her medications, patient does not want to take benzodiazepines at this time, Vistaril was offered. as per staff report pt wandering in the unit, at times speech is incoherent. hygiene improved, fair ADLs, ambulates independently. pt is poor and unreliable historian, pt was providing inconsistent stories. Dr. Oneal (outpatient psychiatrist) was contacted by [facility]. So far patient tolerates medications well, no side effects observed or reported, aims 0, no EPS. DSM 5 Diagnosis: MDD ISMAEL misuse and abuse benzos Medication Change: Yes (Vistaril added) Medical Record Reviewed: Yes Mental Status Examination - Cognitive Function Orientation: Person, Place, Situation Memory: Impaired Attention: Poor Concentration: Poor Association: WNL Fund of Knowledge: WNL - Mood Mood: Depressed, Anxious - Affect Affect: Flat - Formal Thought Process Formal Thought Process: No Impairment - Suicidal Ideation Suicidal Ideation: No - Homicidal Ideation Homicidal Ideation: No Goal/Treatment Plan - Goal/Treatment Plan Need for Continued Stay: Remain at risks for inpatient hospitalization, Severe depression anxiety, Discharge may exacerbated symptoms, Severe functional impairment Progress Toward Problem(s) and Goals/Treatment Plan: Milieu/structure/supportive therapy Medical consult appreciated, see medical team note for more detailed info consultation for discharge plan and social issues Med management effexor 175 daily for depression and anxiety Lamictal 25 mg twice a day for mood stabilization Risperdal 0.5 mg at the nighttime for psychotic symptoms Benzodiazepines weaned off Sonata as needed for insomnia vistaril PRN for anxiety PRN meds collaterals from primary psychiatrist obtained pharmacy contacted Family involvement Follow up on labs Will monitor closely Pt was educated about risk/benefits and alternatives of medications, coping strategies (safety plan, suicide prevention), relapse prevention, importance of follow up with psychiatrist and therapist, stay away from drugs/alcohol/smoking Estimated Date of D/C: 09/22/18
[2018-09-19] MEDS: Docusate-Senna 50 mg-8.6 mg Tab PO SCH (21:42)
[2018-09-20] MEDS: Levothyroxine 50 MCG TAB PO SCH (07:34)
[2018-09-20] MEDS: Venlafaxine 75 mg ER Cap PO SCH (08:49)
[2018-09-20] MEDS: Metoprolol Succinate 25 mg XL Tab PO SCH (08:49)
[2018-09-20] MEDS: Venlafaxine 37.5 mg ER Cap PO SCH (08:49)
[2018-09-20] MEDS: GlipiZIDE 10 mg SR Tab PO SCH ×2 (08:49→17:59)
[2018-09-20] MEDS: Nystatin 100,000 Units/gm Topical Pow(15 gm) TOP SCH (08:51)
[2018-09-20] MEDS: Insulin Reg-LOW-Coverage SC SCH ×4 (08:55→21:39)
--- NOTE | 2018-09-20 11:39 | PCM.PYCHPN ---
Psychiatric Progress Note - Psychiatric Progress Note Patient seen today, length of contact: 30 minutes Problems Identified/Issues Discussed: I reviewed assessment and recent notes. Patient was interviewed at bedside. Grooming is adequate and patient is superficially cooperative. Patient reports that she feels "all right" except for restless sleep last night. She remains anxious with scattered thought process. Staff reports se is confused and forgetful, seen wandering the unit at times. She keeps to herself and minimally participates in groups. Patient continues to deny SI, AVH. She is tolerating her medications, denies any new discomfort or pain at this time. l Diagnostic Results: MDD ISMAEL misuse and abuse benzos Medication Change: No ( ) Medical Record Reviewed: Yes Mental Status Examination - Cognitive Function Orientation: Person, Place, Situation Memory: Impaired Attention: Poor Concentration: Poor Association: WNL Fund of Knowledge: WNL - Mood Mood: Depressed, Anxious - Affect Affect: Flat - Formal Thought Process Formal Thought Process: No Impairment - Suicidal Ideation Suicidal Ideation: No - Homicidal Ideation Homicidal Ideation: No Goal/Treatment Plan - Goal/Treatment Plan Need for Continued Stay: Remain at risks for inpatient hospitalization, Severe depression anxiety, Discharge may exacerbated symptoms, Severe functional impai rment Progress Toward Problem(s) and Goals/Treatment Plan: * c/w current tx and plan * Vitals reviewed and noted below; Selected Entries 09/20/18 09/20/18 07:30 08:49 Temperature 98.8 F Pulse Rate 86 86 Respiratory 20 Rate Blood Pressure 150/78 150/78 * No new weekend lab results noted thus far. Estimated Date of D/C: 09/22/18
[2018-09-20] MEDS: Docusate-Senna 50 mg-8.6 mg Tab PO SCH (21:38)
[2018-09-21] MEDS: Levothyroxine 50 MCG TAB PO SCH (06:19)
[2018-09-21] MEDS: GlipiZIDE 10 mg SR Tab PO SCH ×2 (09:01→17:49)
[2018-09-21] MEDS: Venlafaxine 75 mg ER Cap PO SCH (09:01)
[2018-09-21] MEDS: Insulin Reg-LOW-Coverage SC SCH ×4 (09:02→21:45)
[2018-09-21] MEDS: Metoprolol Succinate 25 mg XL Tab PO SCH (09:02)
[2018-09-21] MEDS: Venlafaxine 37.5 mg ER Cap PO SCH (09:02)
[2018-09-21] MEDS: Nystatin 100,000 Units/gm Topical Pow(15 gm) TOP SCH (09:03)
--- NOTE | 2018-09-21 11:27 | PCM.PYCHPN ---
Psychiatric Progress Note - Psychiatric Progress Note Patient seen today, length of contact: 30 minutes Problems Identified/Issues Discussed: I reviewed recent notes and met with patient at bedside. Grooming is adequate and patient is superficially cooperative. Patient reports that she feels re stless and anxious. Sleep was up and down again last night. Affect is still anxious and thought process is scattered at times. Patient continues to deny SI, AVH. She is tolerating her medications, denies any new discomfort or pain at this time however has concerns about being able to function if she is discharged soon. Diagnostic Results: MDD ISMAEL misuse and abuse benzos Medication Change: No ( ) Medical Record Reviewed: Yes Mental Status Examination - Cognitive Function Orientation: Person, Place, Situation Memory: Impaired Attention: Poor Concentration: Poor Association: WNL Fund of Knowledge: WNL - Mood Mood: Depressed, Anxious - Affect Affect: Flat - Formal Thought Process Formal Thought Process: No Impairment - Suicidal Ideation Suicidal Ideation: No - Homicidal Ideation Homicidal Ideation: No Goal/Treatment Plan - Goal/Treatment Plan Need for Continued Stay: Remain at risks for inpatient hospitalization, Severe depression anxiety, Discharge may exacerbated symptoms, Severe functional impairment Progress Toward Problem(s) and Goals/Treatment Plan: * c/w current tx and plan * Vitals reviewed and noted below; Selected Entries 09/20/18 09/21/18 09/21/18 15:45 07:00 09:02 Temperature 97.8 F Pulse Rate 88 90 90 Respiratory 19 Rate Blood Pressure 147/112 H 130/89 130/89 * No new weekend lab results noted thus far. * Patient encouraged to request Sonata if sleep continues to be restless. Estimated Date of D/C: 09/22/18
[2018-09-21] MEDS: Docusate-Senna 50 mg-8.6 mg Tab PO SCH (21:57)
[2018-09-22] MEDS: Levothyroxine 50 MCG TAB PO SCH (07:17)
[2018-09-22] MEDS: Insulin Reg-LOW-Coverage SC SCH ×4 (09:35→21:29)
[2018-09-22] MEDS: Metoprolol Succinate 25 mg XL Tab PO SCH (09:36)
[2018-09-22] MEDS: Venlafaxine 75 mg ER Cap PO SCH (09:37)
[2018-09-22] MEDS: Venlafaxine 37.5 mg ER Cap PO SCH (09:38)
[2018-09-22] MEDS: GlipiZIDE 10 mg SR Tab PO SCH ×2 (09:38→17:52)
[2018-09-22] MEDS: Nystatin 100,000 Units/gm Topical Pow(15 gm) TOP SCH (09:48)
--- NOTE | 2018-09-22 12:11 | PCM.BM ---
<Yulisa Herrera Y - Last Filed: 09/22/18 12:11> Treatment Plan Problems - Problems identified on initial assessmt Ineffective coping Date Initiated: 09/14/18 Time Initiated: 21:45 Assessment reference: NA Status: Monitor Social isolation Date Initiated: 09/14/18 Time Initiated: 22:45 Assessment reference: NA Status: Monitor Activity intolerance Date Initiated: 09/14/18 Time Initiated: 22:00 Assessment reference: NA Status: Monitor Treatment assets and liabiliti Patient Assests: cooperative, good interpersonal skills Patient Liabilities: poor support system, medical problems - Milieu Protocol Maintain good personal hygiene: daily Encourage regular showers, daily Remind patient to perform daily oral care, daily Assist patient to perform ADL's Maintain personal safety: daily Educate patient to report safety concerns to staff, daily Monitor environment for contraband/sharps Medication safety: Monitor for expected outcome, potential side effects: daily, Assess barriers to learning: daily, Assess readiness for medication education: daily Milieu Narrative: * c/w current tx and plan * Vitals reviewed and noted below; Selected Entries 09/20/18 09/21/18 09/21/18 15:45 07:00 09:02 Temperature 97.8 F Pulse Rate 88 90 90 Respiratory 19 Rate Blood Pressure 147/112 H 130/89 130/89 * No new weekend lab results noted thus far. * Patient encouraged to request Sonata if sleep continues to be restless. Family Contact Family involvement: Famliy/SO not involved - Outside Agency Dr. Castaneda Care involvment: Information-sharing Agency contact name: Dr. Castaneda - Goals for Treatment Patient goals for treatment: Control my anxiety Discharge/Continuing Care - Education Needs Education Needs: Patient Medication, Patient Diagnosis/Disease Process, Patient Coping Skills - Discharge Discharge Criteria: Free of Suicidal thoughts - Treatment Team Participation Patient/Family/SO Statement: * c/w current tx and plan * Vitals reviewed and noted below; Selected Entries 09/20/18 09/21/18 09/21/18 15:45 07:00 09:02 Temperature 97.8 F Pulse Rate 88 90 90 Respiratory 19 Rate Blood Pressure 147/112 H 130/89 130/89 * No new weekend lab results noted thus far. * Patient encouraged to request Sonata if sleep continues to be restless. Treatment Plan Review - Problem Ineffective coping Time Initiated: 21:45 Social isolation Time Initiated: :45 Activity intolerance Time Initiated: 22:00 <Indira Juan - Last Filed: 09/22/18 15:47> - Diagnosis (1) MDD (major depressive disorder) Status: Acute Interventions: 09/22/18 15:47 Some improvement with depressive symptoms, patient denies suicidal or homicidal ideations, so far patient tolerates medications well, no side effects observed or reported, Family is involved Patient attending groups Visible in the unit (2) ISMAEL (generalized anxiety disorder) Status: Acute Interventions: 09/22/18 15:47 Patient continued feeling anxious Vistaril increased, patient agreed not to resume benzodiazepines (3) Anxiolytic dependence with current use Status: Acute Interventions: 09/22/18 15:48 Benzodiazepines weaned off <Sharon Stewart - Last Filed: 09/23/18 11:59>
--- NOTE | 2018-09-22 15:59 | PCM.PYCHPN ---
Psychiatric Progress Note - Psychiatric Progress Note Patient seen today, length of contact: 30 minutes Patient Chief Complaint: "I feel very anxious, I feel not myself" Problems Identified/Issues Discussed: Suicide/ homicide prevention, past psychiatric h/o, current psychiatric symptoms, medical problems, risk/benefits and alternatives of medications, medications compliance, coping strategies, substance abuse h/o, relapse prevention, importance of follow up with psychiatrist and therapist, discharge plan. Medical Problems: Please see medical team notes for more detailed information, patient was found unresponsive, possible overdose on benzodiazepines Diagnostic Results: Lab Results 09/16/18 07:33: POC Glucose (mg/dL) 235 H 09/15/18 21:10: POC Glucose (mg/dL) 205 H 09/15/18 16:53: POC Glucose (mg/dL) 193 H 09/15/18 11:12: POC Glucose (mg/dL) 245 H 09/15/18 07:27: POC Glucose (mg/dL) 232 H 09/14/18 21:23: POC Glucose (mg/dL) 225 H Vital Signs Temp Pulse Pulse Resp BP 09/16/18 08:47 76 145/91 H 09/16/18 08:39 76 145/91 H 09/15/18 16:11 79 159/86 H 09/15/18 08:37 71 160/99 H 09/15/18 07:22 98.4 F 71 20 160/99 H 09/15/18 02:32 95 H 21 DSM 5 Symptoms Update: shortly pt is 62 year old female with reported h/o depression and anxiety, h/o unintentional overdose on benzodiazepines and h/o falls, ? h/o abusing benzos, multiple medical issues including diverticulitis, hypertension, diabetes, ? dementia, pt was transferred from the medical floor, where she was downgraded from ICU, prior to that pt was found to be unresponsive at home overdosed on benzodiazepines about one month worth, pt was intubated, then extubated, medically stabilized and transferred to the psych unit for evaluation of possible depressive symptoms, possible s/p overdose, r/o abuse benzos. please see ER/ICU notes for more detailed information. pt was seen at the treatment team meeting room, patient presented to be better organized, but repetitive, patient was asked same question over and over again, difficult to stay focused and concentrate. As per staff, over the weekend patient has some mild improvement with her presentation, pt is less anxious, pt is more organized. pt agreed to increase risperdal, will increase vistaril, neurontin for mood stabilization and off label for anxiety. So far patient tolerates medications well, no side effects observed or reported, aims 0, no EPS. DSM 5 Diagnosis: MDD ISMAEL misuse and abuse benzos Medication Change: Yes (Effexor increased,Vistaril increased) Medical Record Reviewed: Yes Consults ordered or reviewed: Medical consult appreciated, please see notes for more detailed information Mental Status Examination - Cognitive Function Orientation: Person, Place, Situation Memory: Impaired Attention: Poor Concentration: Poor Association: WNL Fund of Knowledge: WNL - Mood Mood: Depressed, Anxious ("I am very anxious") - Affect Affect: Flat - Formal Thought Process Formal Thought Process: No Impairment - Suicidal Ideation Suicidal Ideation: No - Homicidal Ideation Homicidal Ideation: No Goal/Treatment Plan - Goal/Treatment Plan Need for Continued Stay: Remain at risks for inpatient hospitalization, Severe depression anxiety, Discharge may exacerbated symptoms, Severe functional impairment Progress Toward Problem(s) and Goals/Treatment Plan: Milieu/structure/supportive therapy Medical consult appreciated, see medical team note for more detailed info SW consultation for discharge plan and social issues Med management effexor 225mg daily for depression and anxiety Lamictal 25 mg twice a day for mood stabilization Risperdal 1 mg at the nighttime for psychotic symptoms Benzodiazepines weaned off Sonata as needed for insomnia vistaril 50mg po tid for anxiety vistaril PRN for anxiety PRN meds collaterals from primary psychiatrist obtained pharmacy contacted Family involvement Follow up on labs Will monitor closely Pt was educated about risk/benefits and alternatives of medications, coping strategies (safety plan, suicide prevention), relapse prevention, importance of follow up with psychiatrist and therapist, stay away from drugs/alcohol/smoking Estimated Date of D/C: 09/26/18
[2018-09-22] MEDS: Docusate-Senna 50 mg-8.6 mg Tab PO SCH (21:28)
[2018-09-23] MEDS: Levothyroxine 50 MCG TAB PO SCH (05:44)
[2018-09-23] MEDS: GlipiZIDE 10 mg SR Tab PO SCH ×2 (09:35→16:47)
[2018-09-23] MEDS: Venlafaxine 75 mg ER Cap PO SCH (09:35)
[2018-09-23] MEDS: Venlafaxine 37.5 mg ER Cap PO SCH (09:37)
[2018-09-23] MEDS: Metoprolol Succinate 25 mg XL Tab PO SCH (09:39)
[2018-09-23] MEDS: Insulin Reg-LOW-Coverage SC SCH ×4 (09:41→22:12)
[2018-09-23] MEDS: Nystatin 100,000 Units/gm Topical Pow(15 gm) TOP SCH (10:31)
--- NOTE | 2018-09-23 15:16 | PCM.PYCHPN ---
Psychiatric Progress Note - Psychiatric Progress Note Patient seen today, length of contact: 30 minutes Patient Chief Complaint: "I feel the same, I feel very depressed, I feel very anxious, this is what I wanted to tell you, by the way what my medications are?" Problems Identified/Issues Discussed: Suicide/ homicide prevention, past psychiatric h/o, current psychiatric symptoms, medical problems, risk/benefits and alternatives of medications, medications compliance, coping strategies, substance abuse h/o, relapse prevention, importance of follow up with psychiatrist and therapist, discharge plan. Medical Problems: Please see medical team notes for more detailed information, patient was found unresponsive, possible overdose on benzodiazepines Diagnostic Results: Lab Results 09/16/18 07:33: POC Glucose (mg/dL) 235 H 09/15/18 21:10: POC Glucose (mg/dL) 205 H 09/15/18 16:53: POC Glucose (mg/dL) 193 H 09/15/18 11:12: POC Glucose (mg/dL) 245 H 09/15/18 07:27: POC Glucose (mg/dL) 232 H 09/14/18 21:23: POC Glucose (mg/dL) 225 H Vital Signs Temp Pulse Pulse Resp BP 09/16/18 08:47 76 145/91 H 09/16/18 08:39 76 145/91 H 09/15/18 16:11 79 159/86 H 09/15/18 08:37 71 160/99 H 09/15/18 07:22 98.4 F 71 20 160/99 H 09/15/18 02:32 95 H 21 DSM 5 Symptoms Update: shortly pt is 62 year old female with reported h/o depression and anxiety, h/o unintentional overdose on benzodiazepines and h/o falls, ? h/o abusing benzos, multiple medical issues including diverticulitis, hypertension, diabetes, ? dementia, pt was transferred from the medical floor, where she was downgraded from ICU, prior to that pt was found to be unresponsive at home overdosed on benzodiazepines about one month worth, pt was intubated, then extubated, medically stabilized and transferred to the psych unit for evaluation of possible depressive symptoms, possible s/p overdose, r/o abuse benzos. please see ER/ICU notes for more detailed information. pt was seen at the treatment team meeting room, patient presented to be better organized, but repetitive, patient was asked same question over and over again, difficult to stay focused and concentrate, pt said "they said that I slept, but I don't remember, I don't feel rested, I feel the same, I feel very anxious, I feel very depressed", this typewriter mechanic educated pt about treatment plan, pt verbalized understanding. pt left the room, then came back with the same set of questions. pt tolerates risperdal well, slept, there is no improvement with patient's anxiety symptoms, Vistaril is not helpful, more over it could give urinary retention for elderly patients, Klonopin 0.5 mg twice a day resumed, Neurontin will be continued. Moreover this typewriter mechanic will recommend day treatment program for adult day treatment program where patient will be provided with her current medications, patient will have low chance of misusing and abusing medications. So far patient tolerates medications well, no side effects observed or reported, aims 0, no EPS. DSM 5 Diagnosis: MDD ISMAEL misuse and abuse benzos Medication Change: Yes (Vistaril discontinued, Klonopin resumed.) Medical Record Reviewed: Yes Mental Status Examination - Cognitive Function Orientation: Person, Place, Situation Memory: Impaired Attention: Poor Concentration: Poor Association: WNL Fund of Knowledge: WNL - Mood Mood: Depressed, Anxious ("I am very anxious") - Affect Affect: Flat - Formal Thought Process Formal Thought Process: No Impairment - Suicidal Ideation Suicidal Ideation: No - Homicidal Ideation Homicidal Ideation: No Goal/Treatment Plan - Goal/Treatment Plan Need for Continued Stay: Remain at risks for inpatient hospitalization, Severe depression anxiety, Discharge may exacerbated symptoms, Severe functional impairment Progress Toward Problem(s) and Goals/Treatment Plan: Milieu/structure/supportive therapy Medical consult appreciated, see medical team note for more detailed info SW consultation for discharge plan and social issues Med management effexor 225mg daily for depression and anxiety Lamictal 25 mg twice a day for mood stabilization Risperdal 1 mg at the nighttime for psychotic symptoms Klonopin 0.5 mg twice a day for anxiety Sonata as needed for insomnia Vistaril will be discontinued collaterals from primary psychiatrist obtained pharmacy contacted Family involvement Follow up on labs Will monitor closely Pt was educated about risk/benefits and alternatives of medications, coping strategies (safety plan, suicide prevention), relapse prevention, importance of follow up with psychiatrist and therapist, stay away from drugs/alcohol/smoking Estimated Date of D/C: 09/26/18
[2018-09-23] MEDS: Docusate-Senna 50 mg-8.6 mg Tab PO SCH (22:08)
[2018-09-24] MEDS: Levothyroxine 50 MCG TAB PO SCH (05:57)
[2018-09-24] MEDS: GlipiZIDE 10 mg SR Tab PO SCH ×2 (09:12→17:14)
[2018-09-24] MEDS: Metoprolol Succinate 25 mg XL Tab PO SCH (09:12)
[2018-09-24] MEDS: Venlafaxine 75 mg ER Cap PO SCH (09:12)
[2018-09-24] MEDS: Insulin Reg-LOW-Coverage SC SCH ×4 (09:13→21:25)
[2018-09-24] MEDS: Venlafaxine 37.5 mg ER Cap PO SCH (09:13)
[2018-09-24] MEDS: Nystatin 100,000 Units/gm Topical Pow(15 gm) TOP SCH (09:14)
--- NOTE | 2018-09-24 15:17 | PCM.PYCHPN ---
Psychiatric Progress Note - Psychiatric Progress Note Patient seen today, length of contact: 30 minutes Patient Chief Complaint: "I depressed and anxious" Problems Identified/Issues Discussed: Suicide/ homicide prevention, past psychiatric h/o, current psychiatric symptoms, medical problems, risk/benefits and alternatives of medications, medications compliance, coping strategies, substance abuse h/o, relapse prevention, importance of follow up with psychiatrist and therapist, discharge plan. Medical Problems: Please see medical team notes for more detailed information, patient was found unresponsive, possible overdose on benzodiazepines Diagnostic Results: Lab Results 09/16/18 07:33: POC Glucose (mg/dL) 235 H 09/15/18 21:10: POC Glucose (mg/dL) 205 H 09/15/18 16:53: POC Glucose (mg/dL) 193 H 09/15/18 11:12: POC Glucose (mg/dL) 245 H 09/15/18 07:27: POC Glucose (mg/dL) 232 H 09/14/18 21:23: POC Glucose (mg/dL) 225 H Vital Signs Temp Pulse Pulse Resp BP 09/16/18 08:47 76 145/91 H 09/16/18 08:39 76 145/91 H 09/15/18 16:11 79 159/86 H 09/15/18 08:37 71 160/99 H 09/15/18 07:22 98.4 F 71 20 160/99 H 09/15/18 02:32 95 H 21 DSM 5 Symptoms Update: shortly pt is 62 year old female with reported h/o depression and anxiety, h/o unintentional overdose on benzodiazepines and h/o falls, ? h/o abusing benzos, multiple medical issues including diverticulitis, hypertension, diabetes, ? dementia, pt was transferred from the medical floor, where she was d owngraded from ICU, prior to that pt was found to be unresponsive at home overdosed on benzodiazepines about one month worth, pt was intubated, then extubated, medically stabilized and transferred to the psych unit for evaluation of possible depressive symptoms, possible s/p overdose, r/o abuse benzos. please see ER/ICU notes for more detailed information. pt was seen at the dining room with mental health worker, patient presented to be repetitive, was keeps asking the same questions over and over again, patient reported that she feels less anxious, patient still feels reluctant to go to day treatment program, but at the same time this travel writer educated patient if she is not willing to go to adult day treatment program this travel writer will be not able to prescribe her benzodiazepines, this decision was made because patient has a tendency of misusing and taking more medication than she was prescribed. pt was intubated in ICU due to possible overdose on benzos. pt tolerates risperdal well, slept, Klonopin 0.5 mg twice a day resumed, Neurontin will be continued. Moreover this travel writer will recommend day treatment program for adult day treatment program where patient will be provided with her current medications, patient will have low chance of misusing and abusing medications. So far patient tolerates medications well, no side effects observed or reported, aims 0, no EPS. DSM 5 Diagnosis: MDD ISMAEL misuse and abuse benzos Medication Change: Yes (Vistaril discontinued, Klonopin resumed.) Medical Record Reviewed: Yes Mental Status Examination - Cognitive Function Orientation: Person, Place, Situation Memory: Impaired Attention: Poor Concentration: Poor Association: WNL Fund of Knowledge: WNL - Mood Mood: Depressed, Anxious ("I am very anxious") - Affect Affect: Flat - Formal Thought Process Formal Thought Process: No Impairment - Suicidal Ideation Suicidal Ideation: No - Homicidal Ideation Homicidal Ideation: No Goal/Treatment Plan - Goal/Treatment Plan Need for Continued Stay: Remain at risks for inpatient hospitalization, Severe depression anxiety, Discharge may exacerbated symptoms, Severe functional impairment Progress Toward Problem(s) and Goals/Treatment Plan: Milieu/structure/supportive therapy Medical consult appreciated, see medical team note for more detailed info SW consultation for discharge plan and social issues Med management effexor 225mg daily for depression and anxiety Lamictal 25 mg twice a day for mood stabilization Risperdal 1 mg at the nighttime for psychotic symptoms Klonopin 0.5 mg twice a day for anxiety Sonata as needed for insomnia Vistaril will be discontinued collaterals from primary psychiatrist obtained pharmacy contacted Family meeting requested Will monitor closely Pt was educated about risk/benefits and alternatives of medications, coping strategies (safety plan, suicide prevention), relapse prevention, importance of follow up with psychiatrist and therapist, stay away from drugs/alcohol/smoking Estimated Date of D/C: 09/26/18
[2018-09-24] MEDS: Docusate-Senna 50 mg-8.6 mg Tab PO SCH (21:16)
[2018-09-25] MEDS: Levothyroxine 50 MCG TAB PO SCH (06:30)
[2018-09-25] MEDS: Venlafaxine 75 mg ER Cap PO SCH (08:24)
[2018-09-25] MEDS: GlipiZIDE 10 mg SR Tab PO SCH ×2 (08:25→16:55)
[2018-09-25] MEDS: Venlafaxine 37.5 mg ER Cap PO SCH (08:25)
[2018-09-25] MEDS: Metoprolol Succinate 25 mg XL Tab PO SCH (08:26)
[2018-09-25] MEDS: Insulin Reg-LOW-Coverage SC SCH ×4 (08:27→21:27)
[2018-09-25] MEDS: Nystatin 100,000 Units/gm Topical Pow(15 gm) TOP SCH (09:40)
--- NOTE | 2018-09-25 15:04 | PCM.PYCHPN ---
Psychiatric Progress Note - Psychiatric Progress Note Patient seen today, length of contact: 30 minutes Patient Chief Complaint: "I am still depressed and anxious" Problems Identified/Issues Discussed: Suicide/ homicide prevention, past psychiatric h/o, current psychiatric s ymptoms, medical problems, risk/benefits and alternatives of medications, medications compliance, coping strategies, substance abuse h/o, relapse prevention, importance of follow up with psychiatrist and therapist, discharge plan. Medical Problems: Please see medical team notes for more detailed information, patient was found unresponsive, possible overdose on benzodiazepines Diagnostic Results: Lab Results 09/16/18 07:33: POC Glucose (mg/dL) 235 H 09/15/18 21:10: POC Glucose (mg/dL) 205 H 09/15/18 16:53: POC Glucose (mg/dL) 193 H 09/15/18 11:12: POC Glucose (mg/dL) 245 H 09/15/18 07:27: POC Glucose (mg/dL) 232 H 09/14/18 21:23: POC Glucose (mg/dL) 225 H Vital Signs Temp Pulse Pulse Resp BP 09/16/18 08:47 76 145/91 H 09/16/18 08:39 76 145/91 H 09/15/18 16:11 79 159/86 H 09/15/18 08:37 71 160/99 H 09/15/18 07:22 98.4 F 71 20 160/99 H 09/15/18 02:32 95 H 21 DSM 5 Symptoms Update: shortly pt is 62 year old female with reported h/o depression and anxiety, h/o unintentional overdose on benzodiazepines and h/o falls, ? h/o abusing benzos, multiple medical issues including diverticulitis, hypertension, diabetes, ? dementia, pt was transferred from the medical floor, where she was downgraded from ICU, prior to that pt was found to be unresponsive at home overdosed on benzodiazepines about one month worth, pt was intubated, then extubated, medically stabilized and transferred to the psych unit for evaluation of possible depressive symptoms, possible s/p overdose, r/o abuse benzos. please see ER/ICU notes for more detailed information. pt was seen in her room, pt complaint that she still did not sleep, but as per RN report pt slept through the night. pt was keep asking who will be giving her medications, this bond underwriter explained that pt's sister will be involved to the family meeting and this question will be addressed. pt still has circumstantial and tangential thought process, will increase risperdal. This bond underwriter will recommend day treatment program for adult day treatment program where patient will be provided with her current medications, patient will have low chance of misusing and abusing medications. in case pt will refuse to go to [facility], will d/c klonopin. So far patient tolerates medications well, no side effects observed or reported, aims 0, no EPS. DSM 5 Diagnosis: MDD ISMAEL misuse and abuse benzos Medication Change: Yes (lamictal d/c) Medical Record Reviewed: Yes Mental Status Examination - Cognitive Function Orientation: Person, Place, Situation Memory: Impaired Attention: Poor Concentration: Poor Association: WNL Fund of Knowledge: WNL - Mood Mood: Depressed, Anxious ("I am very anxious") - Affect Affect: Flat - Formal Thought Process Formal Thought Process: No Impairment - Suicidal Ideation Suicidal Ideation: No - Homicidal Ideation Homicidal Ideation: No Goal/Treatment Plan - Goal/Treatment Plan Need for Continued Stay: Remain at risks for inpatient hospitalization, Severe depression anxiety, Discharge may exacerbated symptoms, Severe functional impairment Progress Toward Problem(s) and Goals/Treatment Plan: Milieu/structure/supportive therapy Medical consult appreciated, see medical team note for more detailed info SW consultation for discharge plan and social issues Med management effexor 225mg daily for depression and anxiety Lamictal 25 mg twice a day for mood stabilization Risperdal 1 mg at the nighttime for psychotic symptoms Klonopin 0.5 mg twice a day for anxiety Sonata as needed for insomnia Vistaril will be discontinued collaterals from primary psychiatrist obtained pharmacy contacted Family meeting requested Will monitor closely Pt was educated about risk/benefits and alternatives of medications, coping strategies (safety plan, suicide prevention), relapse prevention, importance of follow up with psychiatrist and therapist, stay away from drugs/alcohol/smoking Estimated Date of D/C: 09/30/18
[2018-09-25] MEDS: Docusate-Senna 50 mg-8.6 mg Tab PO SCH (23:15)
[2018-09-26] MEDS: Levothyroxine 50 MCG TAB PO SCH (06:19)
[2018-09-26] MEDS: Venlafaxine 37.5 mg ER Cap PO SCH (09:23)
[2018-09-26] MEDS: Venlafaxine 75 mg ER Cap PO SCH (09:25)
[2018-09-26] MEDS: GlipiZIDE 10 mg SR Tab PO SCH ×2 (09:26→16:32)
[2018-09-26] MEDS: Metoprolol Succinate 25 mg XL Tab PO SCH (09:29)
[2018-09-26] MEDS: Insulin Reg-LOW-Coverage SC SCH ×3 (09:32→17:33)
[2018-09-26] MEDS: Nystatin 100,000 Units/gm Topical Pow(15 gm) TOP SCH (13:12)
--- NOTE | 2018-09-26 14:37 | PCM.PYCHPN ---
Psychiatric Progress Note - Psychiatric Progress Note Patient seen today, length of contact: 30 minutes Patient Chief Complaint: "I am very anxious, what is about my program, what is about my psychiatrist, what is about my sister, who will be giving me medications..." Problems Identified/Issues Discussed: Suicide/ homicide prevention, past psychiatric h/o, current psychiatric symptoms, medical problems, risk/benefits and alternatives of medications, medications compliance, coping strategies, substance abuse h/o, relapse prevention, importance of follow up with psychiatrist and therapist, discharge plan. Medical Problems: Please see medical team notes for more detailed information, patient was found unresponsive, possible overdose on benzodiazepines Diagnostic Results: Lab Results 09/16/18 07:33: POC Glucose (mg/dL) 235 H 09/15/18 21:10: POC Glucose (mg/dL) 205 H 09/15/18 16:53: POC Glucose (mg/dL) 193 H 09/15/18 11:12: POC Glucose (mg/dL) 245 H 09/15/18 07:27: POC Glucose (mg/dL) 232 H 09/14/18 21:23: POC Glucose (mg/dL) 225 H Vital Signs Temp Pulse Pulse Resp BP 09/16/18 08:47 76 145/91 H 09/16/18 08:39 76 145/91 H 09/15/18 16:11 79 159/86 H 09/15/18 08:37 71 160/99 H 09/15/18 07:22 98.4 F 71 20 160/99 H 09/15/18 02:32 95 H 21 DSM 5 Symptoms Update: shortly pt is 62 year old female with reported h/o depression and anxiety, h/o unintentional overdose on benzodiazepines and h/o falls, ? h/o abusing benzos, multiple medical issues including diverticulitis, hypertension, diabetes, ? dementia, pt was transferred from the medical floor, where she was downgraded from ICU, prior to that pt was found to be unresponsive at home overdosed on benzodiazepines about one month worth, pt was intubated, then extubated, medically stabilized and transferred to the psych unit for evaluation of possible depressive symptoms, possible s/p overdose, r/o abuse benzos. please see ER/ICU notes for more detailed information. pt was seen in her room, pt complaint that she still did not sleep, but as per RN report pt slept through the night. pt was keep asking who will be giving her medications, this principal technical writer explained that pt's sister will be involved to the family meeting and this question will be addressed. pt said that effexor is not helping her, willing to try lexapro. pt still has circumstantial and tangential thought process, risperdal was increased yesterday. This principal technical writer will recommend day treatment program for adult day treatment program where patient will be provided with her current medications, patient will have low chance of misusing and abusing medications. in case pt will refuse to go to [facility], will d/c klonopin. So far patient tolerates medications well, no side effects observed or reported, aims 0, no EPS. DSM 5 Diagnosis: MDD ISMAEL misuse and abuse benzos Medication Change: Yes (klonopin increased, lexapro started) Medical Record Reviewed: Yes Mental Status Examination - Cognitive Function Orientation: Person, Place, Situation Memory: Impaired Attention: Poor Concentration: Poor Association: WNL Fund of Knowledge: WNL - Mood Mood: Depressed, Anxious ("I am very anxious") - Affect Affect: Flat - Formal Thought Process Formal Thought Process: No Impairment - Suicidal Ideation Suicidal Ideation: No - Homicidal Ideation Homicidal Ideation: No Goal/Treatment Plan - Goal/Treatment Plan Need for Continued Stay: Remain at risks for inpatient hospitalization, Severe depression anxiety, Discharge may exacerbated symptoms, Severe functional impairment Progress Toward Problem(s) and Goals/Treatment Plan: Milieu/structure/supportive therapy Medical consult appreciated, see medical team note for more detailed info SW consultation for discharge plan and social issues Med management effexor decreased, 150mg daily with the plan to wean it off lexapro 10mg po daily for depression and anxiety Lamictal 25 mg twice a day for mood stabilization Risperdal 1 mg at the nighttime for psychotic symptoms Klonopin 0.5 mg three times a day for anxiety Sonata as needed for insomnia collaterals from primary psychiatrist obtained pharmacy contacted Family meeting requested Will monitor closely Pt was educated about risk/benefits and alternatives of medications, coping strategies (safety plan, suicide prevention), relapse prevention, importance of follow up with psychiatrist and therapist, stay away from drugs/alcohol/smoking Estimated Date of D/C: 09/30/18
[2018-09-27] MEDS: Insulin Reg-LOW-Coverage SC SCH ×5 (00:28→22:05)
[2018-09-27] MEDS: Levothyroxine 50 MCG TAB PO SCH (07:18)
[2018-09-27] MEDS: Docusate-Senna 50 mg-8.6 mg Tab PO SCH ×2 (07:18→22:03)
[2018-09-27] MEDS: Metoprolol Succinate 25 mg XL Tab PO SCH (09:43)
[2018-09-27] MEDS: Venlafaxine 75 mg ER Cap PO SCH (09:46)
[2018-09-27] MEDS: GlipiZIDE 10 mg SR Tab PO SCH ×2 (09:48→16:31)
[2018-09-27] MEDS: Nystatin 100,000 Units/gm Topical Pow(15 gm) TOP SCH (09:57)
[2018-09-27] MEDS ORDERED: Venlafaxine 75 mg ER Cap PO SCH (11:47)
--- NOTE | 2018-09-27 12:18 | PN ---
DATE: 09/27/2018 SUBJECTIVE: The patient is seen earlier today in psychiatric floor. No fevers, no chills. The patient had an uneventful night. PHYSICAL EXAMINATION: VITAL SIGNS: Temperature is 97, blood pressure is 130/70, respiratory rate of 18, heart rate of 76. HEENT: Unremarkable. NECK: Supple. LUNGS: Have decreased breath sounds. HEART: Normal S1, S2. ABDOMEN: Soft, nontender. LABORATORY DATA: Reviewed and laboratory examination from the acute care also reviewed. ASSESSMENT AND PLAN: This is a 62-year-old female with Klebsiella urinary tract infection which is resolved, history of drug abuse, depression, anxiety, hypertension, diabetes. The patient had a full course of ciprofloxacin, currently off of antibiotics. The patient is at risk for developing nosocomial infections. Review of orders confirms the patient to be off of antibiotics. Andrews Bliss MD
--- NOTE | 2018-09-27 14:56 | PCM.PYCHPN ---
Psychiatric Progress Note - Psychiatric Progress Note Patient seen today, length of contact: 30 minutes Patient Chief Complaint: "I am very anxious, what is about my program, what is about my psychiatrist, what is about my sister, who will be giving me medications..." Problems Identified/Issues Discussed: Suicide/ homicide prevention, past psychiatric h/o, current psychiatric symptoms, medical problems, risk/benefits and alternatives of medications, medications compliance, coping strategies, substance abuse h/o, relapse prevention, importance of follow up with psychiatrist and therapist, discharge plan. Medical Problems: Please see medical team notes for more detailed information, patient was found unresponsive, possible overdose on benzodiazepines Diagnostic Results: Lab Results 09/16/18 07:33: POC Glucose (mg/dL) 235 H 09/15/18 21:10: POC Glucose (mg/dL) 205 H 09/15/18 16:53: POC Glucose (mg/dL) 193 H 09/15/18 11:12: POC Glucose (mg/dL) 245 H 09/15/18 07:27: POC Glucose (mg/dL) 232 H 09/14/18 21:23: POC Glucose (mg/dL) 225 H Vital Signs Temp Pulse Pulse Resp BP 09/16/18 08:47 76 145/91 H 09/16/18 08:39 76 145/91 H 09/15/18 16:11 79 159/86 H 09/15/18 08:37 71 160/99 H 09/15/18 07:22 98.4 F 71 20 160/99 H 09/15/18 02:32 95 H 21 DSM 5 Symptoms Update: shortly pt is 62 year old female with reported h/o depression and anxiety, h/o unintentional overdose on benzodiazepines and h/o falls, ? h/o abusing benzos, multiple medical issues including diverticulitis, hypertension, diabetes, ? dementia, pt was transferred from the medical floor, where she was downgraded from ICU, prior to that pt was found to be unresponsive at home overdosed on benzodiazepines about one month worth, pt was intubated, then extubated, medically stabilized and transferred to the psych unit for evaluation of possible depressive symptoms, possible s/p overdose, r/o abuse benzos. please see ER/ICU notes for more detailed information. pt was seen at the dining area with mental health worker, pt complaint that she still did not sleep, but as per RN report pt slept through the night. pt was keep asking who will be giving her medications after discharge, this automatic typewriter inspector explained that pt's sister will be involved to the family meeting and this question will be addressed. pt said that effexor is not helping her, willing to try lexapro. pt still has circumstantial and tangential thought process, but overall patient presented with no bit better. Patient is in the process of discontinuation of Effexor, Lexapro is on titration schedule. This automatic typewriter inspector will recommend day treatment program for adult day treatment program where patient will be provided with her current medications, patient will have low chance of misusing and abusing medications. in case pt will refuse to go to [facility], will d/c klonopin. So far patient tolerates medications well, no side effects observed or reported, aims 0, no EPS. DSM 5 Diagnosis: MDD ISMAEL misuse and abuse benzos Medication Change: Yes (klonopin increased, lexapro started) Medical Record Reviewed: Yes Mental Status Examination - Cognitive Function Orientation: Person, Place, Situation Memory: Impaired Attention: Poor Concentration: Poor Association: WNL Fund of Knowledge: WNL - Mood Mood: Depressed, Anxious ("I am very anxious") - Affect Affect: Flat - Formal Thought Process Formal Thought Process: No Impairment - Suicidal Ideation Suicidal Ideation: No - Homicidal Ideation Homicidal Ideation: No Goal/Treatment Plan - Goal/Treatment Plan Need for Continued Stay: Remain at risks for inpatient hospitalization, Severe depression anxiety, Discharge may exacerbated symptoms, Severe functional impairment Progress Toward Problem(s) and Goals/Treatment Plan: Milieu/structure/supportive therapy Medical consult appreciated, see medical team note for more detailed info SW consultation for discharge plan and social issues Med management effexor decreased, 75mg daily with the plan to wean it off lexapro 10mg po daily for depression and anxiety Lamictal discontinued Risperdal 1 mg at the nighttime for psychotic symptoms Klonopin 0.5 mg three times a day for anxiety Sonata as needed for insomnia collaterals from primary psychiatrist obtained pharmacy contacted Family meeting requested Will monitor closely Pt was educated about risk/benefits and alternatives of medications, coping strategies (safety plan, suicide prevention), relapse prevention, importance of follow up with psychiatrist and therapist, stay away from drugs/alcohol/smoking Estimated Date of D/C: 10/02/18
[2018-09-28] MEDS: Levothyroxine 50 MCG TAB PO SCH (06:44)
[2018-09-28] MEDS: Insulin Reg-LOW-Coverage SC SCH ×4 (08:00→21:55)
[2018-09-28] MEDS: GlipiZIDE 10 mg SR Tab PO SCH ×2 (09:13→16:08)
[2018-09-28] MEDS: Metoprolol Succinate 25 mg XL Tab PO SCH (09:13)
[2018-09-28] MEDS: Nystatin 100,000 Units/gm Topical Pow(15 gm) TOP SCH (10:51)
[2018-09-28] MEDS ORDERED: Venlafaxine 37.5 mg ER Cap PO SCH (10:56)
--- NOTE | 2018-09-28 12:49 | PCM.PYCHPN ---
Psychiatric Progress Note - Psychiatric Progress Note Patient seen today, length of contact: 30 minutes Patient Chief Complaint: "I am very anxious, what is about my program, what is about my psychiatrist, what is about my sister, who will be giving me medications..." Problems Identified/Issues Discussed: Suicide/ homicide prevention, past psychiatric h/o, current psychiatric symptoms, medical problems, risk/benefits and alternatives of medications, medications compliance, coping strategies, substance abuse h/o, relapse prevention, importance of follow up with psychiatrist and therapist, discharge plan. Medical Problems: Please see medical team notes for more detailed information, patient was found unresponsive, possible overdose on benzodiazepines Diagnostic Results: Lab Results 09/16/18 07:33: POC Glucose (mg/dL) 235 H 09/15/18 21:10: POC Glucose (mg/dL) 205 H 09/15/18 16:53: POC Glucose (mg/dL) 193 H 09/15/18 11:12: POC Glucose (mg/dL) 245 H 09/15/18 07:27: POC Glucose (mg/dL) 232 H 09/14/18 21:23: POC Glucose (mg/dL) 225 H Vital Signs Temp Pulse Pulse Resp BP 09/16/18 08:47 76 145/91 H 09/16/18 08:39 76 145/91 H 09/15/18 16:11 79 159/86 H 09/15/18 08:37 71 160/99 H 09/15/18 07:22 98.4 F 71 20 160/99 H 09/15/18 02:32 95 H 21 DSM 5 Symptoms Update: shortly pt is 62 year old female with reported h/o depression and anxiety, h/o unintentional overdose on benzodiazepines and h/o falls, ? h/o abusing benzos, multiple medical issues including diverticulitis, hypertension, diabetes, ? dementia, pt was transferred from the medical floor, where she was downgraded from ICU, prior to that pt was found to be unresponsive at home overdosed on benzodiazepines about one month worth, pt was intubated, then extubated, medically stabilized and transferred to the psych unit for evaluation of possible depressive symptoms, possible s/p overdose, r/o abuse benzos. please see ER/ICU notes for more detailed information. pt was seen in her room, patient presented to be anxious, was keeps asking about her discharge plan and will be providing patient medications at home/day treatment program.patient has tenderness complaining not sleeping through the night but but as per RN report pt slept through the night. Patient tolerated Lexapro well, patient is on tapering dose of Effexor. pt still has circumstantial and tangential thought process, but overall patient presented with no bit better. this repairer typewriter will recommend day treatment program for adult day treatment program where patient will be provided with her current medications, patient will have low chance of misusing and abusing medications. in case pt will refuse to go to [facility], will d/c klonopin. So far patient tolerates medications well, no side effects observed or reported, aims 0, no EPS. DSM 5 Diagnosis: MDD ISMAEL misuse and abuse benzos Medication Change: Yes (klonopin increased, lexapro increased, Effexor decreased) Medical Record Reviewed: Yes Mental Status Examination - Cognitive Function Orientation: Person, Place, Situation Memory: Impaired Attention: Poor Concentration: Poor Association: WNL Fund of Knowledge: WNL - Mood Mood: Depressed, Anxious ("I am very anxious") - Affect Affect: Flat - Formal Thought Process Formal Thought Process: No Impairment - Suicidal Ideation Suicidal Ideation: No - Homicidal Ideation Homicidal Ideation: No Goal/Treatment Plan - Goal/Treatment Plan Need for Continued Stay: Remain at risks for inpatient hospitalization, Severe depression anxiety, Discharge may exacerbated symptoms, Severe functional impairment Progress Toward Problem(s) and Goals/Treatment Plan: Milieu/structure/supportive therapy Medical consult appreciated, see medical team note for more detailed info SW consultation for discharge plan and social issues Med management effexor decreased, 37.5mg daily with the plan to wean it off lexapro 15 mg po daily for depression and anxiety Lamictal discontinued Risperdal 1 mg at the nighttime for psychotic symptoms Klonopin 1mg bid for anxiety Sonata as needed for insomnia collaterals from primary psychiatrist obtained pharmacy contacted Family meeting requested Will monitor closely Pt was educated about risk/benefits and alternatives of medications, coping strategies (safety plan, suicide prevention), relapse prevention, importance of follow up with psychiatrist and therapist, stay away from drugs/alcohol/smoking Estimated Date of D/C: 10/02/18
--- NOTE | 2018-09-28 17:36 | PN ---
DATE: 09/28/2018 SUBJECTIVE: The patient is in bed in no acute distress, nontoxic. PHYSICAL EXAMINATION VITAL SIGNS: Temperature is 97, blood pressure is 140/60, respiratory rate of 18. HEENT: Examination of HEENT is unremarkable. NECK: Supple. LUNGS: Have decreased breath sounds. HEART: Normal S1 and S2. ABDOMEN: Soft, nontender. Laboratory examination is noted. ASSESSMENT AND PLAN: This is a 62-year-old female with Klebsiella urinary tract infection which has resolved with history of drug abuse, depression, anxiety, hypertension, diabetes of Cipro. We will follow with you. Andrews Bliss MD
[2018-09-28] MEDS: Docusate-Senna 50 mg-8.6 mg Tab PO SCH (21:51)
[2018-09-29] MEDS: Levothyroxine 50 MCG TAB PO SCH (06:24)
[2018-09-29] MEDS: Insulin Reg-LOW-Coverage SC SCH ×4 (08:40→22:36)
[2018-09-29] MEDS: Metoprolol Succinate 25 mg XL Tab PO SCH (08:41)
[2018-09-29] MEDS: GlipiZIDE 10 mg SR Tab PO SCH ×2 (08:42→16:16)
[2018-09-29] MEDS: Nystatin 100,000 Units/gm Topical Pow(15 gm) TOP SCH (12:04)
--- NOTE | 2018-09-29 15:02 | PCM.PYCHPN ---
Psychiatric Progress Note - Psychiatric Progress Note Patient seen today, length of contact: 30 minutes Patient Chief Complaint: "I need to have home health services because I have vertigo" Problems Identified/Issues Discussed: Suicide/ homicide prevention, past psychiatric h/o, current psychiatric symptoms, medical problems, risk/benefits and alternatives of medications, medications compliance, coping strategies, substance abuse h/o, relapse prevention, importance of follow up with psychiatrist and therapist, discharge plan. Medical Problems: Please see medical team notes for more detailed information, patient was found unresponsive, possible overdose on benzodiazepines Diagnostic Results: Lab Results 09/16/18 07:33: POC Glucose (mg/dL) 235 H 09/15/18 21:10: POC Glucose (mg/dL) 205 H 09/15/18 16:53: POC Glucose (mg/dL) 193 H 09/15/18 11:12: POC Glucose (mg/dL) 245 H 09/15/18 07:27: POC Glucose (mg/dL) 232 H 09/14/18 21:23: POC Glucose (mg/dL) 225 H Vital Signs Temp Pulse Pulse Resp BP 09/16/18 08:47 76 145/91 H 09/16/18 08:39 76 145/91 H 09/15/18 16:11 79 159/86 H 09/15/18 08:37 71 160/99 H 09/15/18 07:22 98.4 F 71 20 160/99 H 09/15/18 02:32 95 H 21 DSM 5 Symptoms Update: Meeting for Maria R about I forgot to tell you shortly pt is 62 year old [place] female with reported h/o depression and anxiety, h/o unintentional overdose on benzodiazepines and h/o falls, ? h/o abusing benzos, multiple medical issues including diverticulitis, hypertension, diabetes, ? dementia, pt was transferred from the medical floor, where she was downgraded from ICU, prior to that pt was found to be unresponsive at home overdosed on benzodiazepines about one month worth, pt was intubated, then extubated, medically stabilized and transferred to the psych unit for evaluation of possible depressive symptoms, possible s/p overdose, r/o abuse benzos. please see ER/ICU notes for more detailed information. pt was seen in her room, patient presented to be anxious, was keeps asking about her discharge plan and will be providing patient medications, patient also asked to have home health services because she has "vertigo". patient has tendency of complaining not sleeping, but but as per RN report pt slept through the night. Patient tolerated Lexapro well, patient is on tapering dose of Effexor. pt still has circumstantial and tangential thought process, but overall patient presented better. 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 in case pt will refuse to go to [facility], will d/c klonopin. So far patient tolerates medications well, no side effects observed or reported, aims 0, no EPS. DSM 5 Diagnosis: MDD ISMAEL misuse and abuse benzos Medication Change: Yes (Effexor discontinued, Lexapro increased) Medical Record Reviewed: Yes Consults ordered or reviewed: Medical consult appreciated, please see notes for more detailed information Mental Status Examination - Cognitive Function Orientation: Person, Place, Situation Memory: Impaired Attention: Poor Concentration: Poor Association: WNL Fund of Knowledge: WNL - Mood Mood: Depressed, Anxious ("I am very anxious") - Affect Affect: Flat - Formal Thought Process Formal Thought Process: No Impairment - Suicidal Ideation Suicidal Ideation: No - Homicidal Ideation Homicidal Ideation: No Goal/Treatment Plan - Goal/Treatment Plan Need for Continued Stay: Remain at risks for inpatient hospitalization, Severe depression anxiety, Discharge may exacerbated symptoms, Severe functional impairment Progress Toward Problem(s) and Goals/Treatment Plan: Milieu/structure/supportive therapy Medical consult appreciated, see medical team note for more detailed info SW consultation for discharge plan and social issues Med management effexor discontinued lexapro 20 mg po daily for depression and anxiety Lamictal discontinued Risperdal 1 mg at am and at the nighttime for psychotic symptoms Klonopin 1mg bid for anxiety Sonata as needed for insomnia collaterals from primary psychiatrist obtained pharmacy contacted Family meeting requested Will monitor closely Pt was educated about risk/benefits and alternatives of medications, coping strategies (safety plan, suicide prevention), relapse prevention, importance of follow up with psychiatrist and therapist, stay away from drugs/alcohol/smoking Estimated Date of D/C: 10/02/18
[2018-09-29] MEDS: Docusate-Senna 50 mg-8.6 mg Tab PO SCH (22:42)
[2018-09-30] MEDS: Levothyroxine 50 MCG TAB PO SCH (07:10)
[2018-09-30] MEDS: Metoprolol Succinate 25 mg XL Tab PO SCH (09:20)
[2018-09-30] MEDS: Nystatin 100,000 Units/gm Topical Pow(15 gm) TOP SCH (09:23)
[2018-09-30] MEDS: GlipiZIDE 10 mg SR Tab PO SCH ×2 (09:24→17:56)
[2018-09-30] MEDS: Insulin Reg-LOW-Coverage SC SCH ×4 (09:25→21:35)
--- NOTE | 2018-09-30 16:19 | PCM.PYCHPN ---
Psychiatric Progress Note - Psychiatric Progress Note Patient seen today, length of contact: 30 minutes Patient Chief Complaint: "I am not feeling well, very depressed, getting better?, I do not remember when I was feeling better, probably never.." Problems Identified/Issues Discussed: Suicide/ homicide prevention, past psychiatric h/o, current psychiatric symptoms, medical problems, risk/benefits and alternatives of medications, medications compliance, coping strategies, substance abuse h/o, relapse prevention, importance of follow up with psychiatrist and therapist, discharge plan. Medical Problems: Please see medical team notes for more detailed information, patient was found unresponsive, possible overdose on benzodiazepines Diagnostic Results: Lab Results 09/16/18 07:33: POC Glucose (mg/dL) 235 H 09/15/18 21:10: POC Glucose (mg/dL) 205 H 09/15/18 16:53: POC Glucose (mg/dL) 193 H 09/15/18 11:12: POC Glucose (mg/dL) 245 H 09/15/18 07:27: POC Glucose (mg/dL) 232 H 09/14/18 21:23: POC Glucose (mg/dL) 225 H Vital Signs Temp Pulse Pulse Resp BP 09/16/18 08:47 76 145/91 H 09/16/18 08:39 76 145/91 H 09/15/18 16:11 79 159/86 H 09/15/18 08:37 71 160/99 H 09/15/18 07:22 98.4 F 71 20 160/99 H 09/15/18 02:32 95 H 21 DSM 5 Symptoms Update: Meeting for Maria R about I forgot to tell you shortly pt is 62 year old female with reported h/o depression and anxiety, h/o unintentional overdose on benzodiazepines and h/o falls, ? h/o abusing benzos, multiple medical issues including diverticulitis, hypertension, diabetes, ? dementia, pt was transferred from the medical floor, where she was downgraded from ICU, prior to that pt was found to be unresponsive at home overdosed on benzodiazepines about one month worth, pt was intubated, then extubated, medically stabilized and transferred to the psych unit for evaluation of possible depressive symp toms, possible s/p overdose, r/o abuse benzos. please see ER/ICU notes for more detailed information. pt was seen in her room, patient presented to be anxious, was keeps asking about her discharge plan and will be providing patient medications, patient also asked to have home health services because she has "vertigo", patient was seen by health care social worker, patient applied for home health services, patient reported that she does not remember when she was feeling better and asking this process description writer when that she feels that she will be improving. patient has tendency of complaining not sleeping, but but as per RN report pt slept through the night. Patient tolerated Lexapro well, patient is on tapering dose of Effexor. pt still has circumstantial and tangential thought process, but overall patient presented better. this process description writer will recommend adult day treatment program, where patient will be provided with her current medications, patient will have low chance of misusing and abusing medications. in case pt will refuse to go to [facility], will d/c benzodiazepines. cardroom worker contacted patient sister about discharge plan, was not able to leave a message because her phone was disconnected. So far patient tolerates medications well, no side effects observed or reported, aims 0, no EPS. DSM 5 Diagnosis: MDD ISMAEL misuse and abuse benzos Medication Change: Yes (Klonopin discontinued Xanax initiated) Medical Record Reviewed: Yes Mental Status Examination - Cognitive Function Orientation: Person, Place, Situation Memory: Impaired Attention: Poor Concentration: Poor Association: WNL Fund of Knowledge: WNL - Mood Mood: Depressed, Anxious ("I am very anxious") - Affect Affect: Flat - Formal Thought Process Formal Thought Process: No Impairment - Suicidal Ideation Suicidal Ideation: No - Homicidal Ideation Homicidal Ideation: No Goal/Treatment Plan - Goal/Treatment Plan Need for Continued Stay: Remain at risks for inpatient hospitalization, Severe depression anxiety, Discharge may exacerbated symptoms, Severe functional impairment Progress Toward Problem(s) and Goals/Treatment Plan: Milieu/structure/supportive therapy Medical consult appreciated, see medical team note for more detailed info SW consultation for discharge plan and social issues Med management effexor discontinued lexapro 20 mg po daily for depression and anxiety Lamictal discontinued Risperdal 1 mg at am and at the nighttime for psychotic symptoms Klonopin was discontinued 09/30/2018 Xanax 1 mg 3 times a day initiated 09/30/2018 Sonata as needed for insomnia collaterals from primary psychiatrist obtained pharmacy contacted Family meeting requested Will monitor closely Pt was educated about risk/benefits and alternatives of medications, coping strategies (safety plan, suicide prevention), relapse prevention, importance of follow up with psychiatrist and therapist, stay away from drugs/alcohol/smoking Estimated Date of D/C: 10/03/18
[2018-09-30] MEDS: Docusate-Senna 50 mg-8.6 mg Tab PO SCH (22:11)
[2018-10-01] MEDS: Levothyroxine 50 MCG TAB PO SCH (06:06)
[2018-10-01] MEDS: Insulin Reg-LOW-Coverage SC SCH ×4 (08:34→21:41)
[2018-10-01] MEDS: Metoprolol Succinate 25 mg XL Tab PO SCH (08:40)
[2018-10-01] MEDS: GlipiZIDE 10 mg SR Tab PO SCH ×2 (08:40→17:21)
[2018-10-01] MEDS: Nystatin 100,000 Units/gm Topical Pow(15 gm) TOP SCH (09:59)
--- NOTE | 2018-10-01 12:15 | PCM.PYCHPN ---
Psychiatric Progress Note - Psychiatric Progress Note Patient seen today, length of contact: 30 minutes Problems Identified/Issues Discussed: I reviewed recent notes and met with patient at bedside. Grooming is adequate and patient is superficially cooperative. Patient continues to report that she feels restless and anxious. This is consistent with Dr. Juan's progress notes as well as staff reports. She has a tendency to repeat herself due to anxiety (not a psychotic process). Sleep was up and down again last night~this appears to be chronic complaint of hers regardless of how she slept as nursing notes that she sleeps through the night. Affect is still anxious and thought process is a little scattered at times. Patient continues to deny SI, AVH. Laz specifically reports that mood is better, she is hopeful and "definitely not hopeless" though still has depressive symptoms. Patient is tolerating her medications, denies any new discomfort or pain at this time. She has been visible on the unit, compliant and preoccupied with her medications. There have been no major behavioral concerns/issues on the unit. Diagnostic Results: MDD ISMAEL misuse and abuse benzos Medication Change: No ( ) Medical Record Reviewed: Yes Mental Status Examination - Cognitive Function Orientation: Person, Place, Situation Memory: Impaired Attention: Poor Concentration: Poor Association: WNL Fund of Knowledge: WNL - Mood Mood: Depressed ("not hopeless"), Anxious ("I am very anxious") - Affect Affect: Flat - Speech Speech: Appropriate - Formal Thought Process Formal Thought Process: No Impairment, Other (a little scattered secondary to anxiety) - Suicidal Ideation Suicidal Ideation: No - Homicidal Ideation Homicidal Ideation: No Goal/Treatment Plan - Goal/Treatment Plan Need for Continued Stay: Remain at risks for inpatient hospitalization, Severe depression anxiety, Discharge may exacerbated symptoms, Severe functional impairment Progress Toward Problem(s) and Goals/Treatment Plan: * c/w current tx and plan * Vitals reviewed and noted below; Selected Entries 09/30/18 09/30/18 09/30/18 07:00 09:20 16:00 Temperature 98.2 F Pulse Rate 86 86 93 H Respiratory 19 Rate Blood Pressure 130/84 * No new weekend lab results noted thus today. Estimated Date of D/C: 10/03/18
--- NOTE | 2018-10-01 14:39 | PCM.BM ---
Treatment Plan Problems - Problems identified on initial assessmt Ineffective coping Date Initiated: 09/14/18 Time Initiated: :45 Assessment reference: NA Status: Monitor Social isolation Date Initiated: 09/14/18 Time Initiated: :45 Assessment reference: NA Status: Monitor Activity intolerance Date Initiated: 09/14/18 Time Initiated: 22:00 Assessment reference: NA Status: Monitor Treatment assets and liabiliti Patient Assests: cooperative, good interpersonal skills Patient Liabilities: poor support system, medical problems - Milieu Protocol Maintain good personal hygiene: daily Encourage regular showers, daily Remind patient to perform daily oral care, daily Assist patient to perform ADL's Maintain personal safety: daily Educate patient to report safety concerns to staff, daily Monitor environment for contraband/sharps Medication safety: Monitor for expected outcome, potential side effects: daily, Assess barriers to learning: daily, Assess readiness for medication education: daily Milieu Narrative: * c/w current tx and plan * Vitals reviewed and noted below; Selected Entries 09/30/18 09/30/18 09/30/18 07:00 09:20 16:00 Temperature 98.2 F Pulse Rate 86 86 93 H Respiratory 19 Rate Blood Pressure 130/84 * No new weekend lab results noted thus today. Family Contact Family involvement: Family/SO is involved - Outside Agency Dr. Castaneda Care involvment: Information-sharing Agency contact name: Dr. Castaneda - Goals for Treatment Patient goals for treatment: Control my anxiety Discharge/Continuing Care - Education Needs Education Needs: Patient Medication, Patient Diagnosis/Disease Process, Patient Coping Skills - Discharge Discharge Criteria: Free of Suicidal thoughts - Treatment Team Participation Patient/Family/SO Statement: * c/w current tx and plan * Vitals reviewed and noted below; Selected Entries 09/30/18 09/30/18 09/30/18 07:00 09:20 16:00 Temperature 98.2 F Pulse Rate 86 86 93 H Respiratory 19 Rate Blood Pressure 130/84 * No new weekend lab results noted thus today. Treatment Plan Review - Problem Ineffective coping Time Initiated: :45 Social isolation Time Initiated: :45 Activity intolerance Time Initiated: 22:00
[2018-10-01] MEDS: Docusate-Senna 50 mg-8.6 mg Tab PO SCH (22:22)
[2018-10-02] MEDS: Levothyroxine 50 MCG TAB PO SCH (06:26)
[2018-10-02] MEDS: Insulin Reg-LOW-Coverage SC SCH ×4 (08:50→22:26)
[2018-10-02] MEDS: Metoprolol Succinate 25 mg XL Tab PO SCH (09:46)
[2018-10-02] MEDS: GlipiZIDE 10 mg SR Tab PO SCH ×2 (09:47→17:05)
[2018-10-02] MEDS: Nystatin 100,000 Units/gm Topical Pow(15 gm) TOP SCH (09:48)
--- NOTE | 2018-10-02 10:05 | PCM.PYCHPN ---
Psychiatric Progress Note - Psychiatric Progress Note Patient seen today, length of contact: 30 minutes Problems Identified/Issues Discussed: I reviewed recent notes and met with patient at bedside again. Grooming is adequate and patient is superficially cooperative. Patient continues to report that she feels restless and anxious. This is consistent with Dr. Juan's progress notes as well as staff reports. She has a tendency to repeat herself due to anxiety (not due to an overt psychotic process). Sleep was up and down again last night~this appears to be chronic complaint of hers regardless of how she slept as nursing notes indicate that she sleeps through the night. Affect is still anxious and thought process is a little scattered at times. Patient continues to deny SI, AVH. Patient specifically reports that mood is better, she is hopeful and "definitely not hopeless" though still has depressive symptoms and feels tired during the day. Patient denies any new discomfort or pain at this time. She has been visible on the unit, compliant and preoccupied with her medications. She requests a decrease in her neurontin dose as she feels this medication is contributing to her fatigue during the day. There have been no major behavioral concerns/issues on the unit. Diagnostic Results: MDD ISMAEL misuse and abuse benzos Medication Change: Yes (neurontin decreased) Medical Record Reviewed: Yes Mental Status Examination - Cognitive Function Orientation: Person, Place, Situation Memory: Impaired Attention: Poor Concentration: Poor Association: WNL Fund of Knowledge: WNL - Mood Mood: Depressed ("not hopeless"), Anxious ("I am very anxious") - Affect Affect: Flat - Speech Speech: Appropriate - Formal Thought Process Formal Thought Process: No Impairment, Other (a little scattered secondary to anxiety) - Suicidal Ideation Suicidal Ideation: No - Homicidal Ideation Homicidal Ideation: No Goal/Treatment Plan - Goal/Treatment Plan Need for Continued Stay: Remain at risks for inpatient hospitalization, Severe depression anxiety, Discharge may exacerbated symptoms, Severe functional impairment Progress Toward Problem(s) and Goals/Treatment Plan: * c/w current tx and plan * Neurontin decreased from 800 TID to 400 BID and 800 HS on 10/02/18 to address complaints of daytime fatigue. * Vitals reviewed and noted below; Selected Entries 10/02/18 07:19 Temperature 97.5 F L Pulse Rate 86 Respiratory 20 Rate Blood Pressure 130/77 * No new weekend lab results noted thus today. Estimated Date of D/C: 10/03/18
[2018-10-02] MEDS: Docusate-Senna 50 mg-8.6 mg Tab PO SCH (21:02)
[2018-10-03] MEDS: Levothyroxine 50 MCG TAB PO SCH (06:08)
[2018-10-03] MEDS: Insulin Reg-LOW-Coverage SC SCH ×4 (08:28→21:01)
[2018-10-03] MEDS: Metoprolol Succinate 25 mg XL Tab PO SCH (09:56)
[2018-10-03] MEDS: GlipiZIDE 10 mg SR Tab PO SCH ×2 (10:00→16:34)
[2018-10-03] MEDS: Nystatin 100,000 Units/gm Topical Pow(15 gm) TOP SCH (10:02)
--- NOTE | 2018-10-03 14:06 | PCM.PYCHPN ---
Psychiatric Progress Note - Psychiatric Progress Note Patient seen today, length of contact: 30 minutes Patient Chief Complaint: "I am not feeling well, very anxious, when I will feel better?" Problems Identified/Issues Discussed: Suicide/ homicide prevention, past psychiatric h/o, current psychiatric symptoms, medical problems, risk/benefits and alternatives of medications, medications compliance, coping strategies, substance abuse h/o, relapse prevention, importance of follow up with psychiatrist and therapist, discharge plan. Medical Problems: Please see medical team notes for more detailed information, patient was found u nresponsive, possible overdose on benzodiazepines Diagnostic Results: Lab Results 09/16/18 07:33: POC Glucose (mg/dL) 235 H 09/15/18 21:10: POC Glucose (mg/dL) 205 H 09/15/18 16:53: POC Glucose (mg/dL) 193 H 09/15/18 11:12: POC Glucose (mg/dL) 245 H 09/15/18 07:27: POC Glucose (mg/dL) 232 H 09/14/18 21:23: POC Glucose (mg/dL) 225 H Vital Signs Temp Pulse Pulse Resp BP 09/16/18 08:47 76 145/91 H 09/16/18 08:39 76 145/91 H 09/15/18 16:11 79 159/86 H 09/15/18 08:37 71 160/99 H 09/15/18 07:22 98.4 F 71 20 160/99 H 09/15/18 02:32 95 H 21 DSM 5 Symptoms Update: shortly pt is 62 year old female with reported h/o depression and anxiety, h/o unintentional overdose on benzodiazepines and h/o falls, ? h/o abusing benzos, multiple medical issues including diverticulitis, hypertension, diabetes, ? dementia, pt was transferred from the medical floor, where she was downgraded from ICU, prior to that pt was found to be unresponsive at home overdosed on benzodiazepines about one month worth, pt was intubated, then extubated, medically stabilized and transferred to the psych unit for evaluation of possible depressive symptoms, possible s/p overdose, r/o abuse benzos. please see ER/ICU notes for more detailed information. Patient denied suicidal attempt, but patient has a tendency of misusing and abusing benzodiazepines because of her anxiety. pt was seen in her room, patient presented to be anxious, patient reported "I do not feel any better, when I will start feeling better?", Patient reported "I am not ready to go home yet, I need to feel better, I am not ready." SW arranging home health services as well as an adult day care program. Patient feels very anxious about this plan, was asking the same question all over and over again. patient has tendency of complaining not sleeping, but but as per RN report pt slept through the night. Patient tolerated Lexapro well, Effexor was tapered off. pt still has circumstantial and tangential thought process, but overall patient presented better. this chief writer will recommend adult day treatment program, where patient will be provided with her current medications, patient will have low chance of misusing and abusing medications. in case pt will refuse to go to [facility], will d/c benzodiazepines. oyster worker contacted patient sister about discharge plan, was not able to leave a message because her phone was disconnected. So far patient tolerates medications well, no side effects observed or reported, aims 0, no EPS. DSM 5 Diagnosis: MDD ISMAEL misuse and abuse benzos Medication Change: Yes (neurontin decreased) Medical Record Reviewed: Yes Mental Status Examination - Cognitive Function Orientation: Person, Place, Situation Memory: Impaired Attention: Poor (Somewhat better) Concentration: Poor Association: WNL Fund of Knowledge: WNL - Mood Mood: Depressed ("not hopeless"), Anxious ("I am very anxious") - Affect Affect: Flat - Speech Speech: Appropriate - Formal Thought Process Formal Thought Process: No Impairment, Other (a little scattered secondary to anxiety) - Suicidal Ideation Suicidal Ideation: No - Homicidal Ideation Homicidal Ideation: No Goal/Treatment Plan - Goal/Treatment Plan Need for Continued Stay: Remain at risks for inpatient hospitalization, Severe depression anxiety, Discharge may exacerbated symptoms, Severe functional impairment Progress Toward Problem(s) and Goals/Treatment Plan: Milieu/structure/supportive therapy Medical consult appreciated, see medical team note for more detailed info consultation for discharge plan and social issues Med management effexor discontinued lexapro 20 mg po daily for depression and anxiety Lamictal discontinued Risperdal 1 mg at am and at the nighttime for psychotic symptoms Klonopin was discontinued 09/30/2018 Xanax 1 mg 3 times a day this chief writer ended 1 mg as needed daily Sonata as needed for insomnia collaterals from primary psychiatrist obtained Dr. Oneal pharmacy contacted Family meeting requested Will monitor closely Pt was educated about risk/benefits and alternatives of medications, coping strategies (safety plan, suicide prevention), relapse prevention, importance of follow up with psychiatrist and therapist, stay away from drugs/alcohol/smoking Estimated Date of D/C: 10/06/18
[2018-10-03] MEDS: Docusate-Senna 50 mg-8.6 mg Tab PO SCH (23:05)
[2018-10-04] MEDS: Levothyroxine 50 MCG TAB PO SCH (05:46)
[2018-10-04] MEDS: GlipiZIDE 10 mg SR Tab PO SCH ×2 (08:58→17:09)
[2018-10-04] MEDS: Insulin Reg-LOW-Coverage SC SCH ×4 (09:01→21:15)
[2018-10-04] MEDS: Nystatin 100,000 Units/gm Topical Pow(15 gm) TOP SCH (09:03)
[2018-10-04] MEDS: Metoprolol Succinate 25 mg XL Tab PO SCH (09:05)
--- NOTE | 2018-10-04 10:11 | PCM.PYCHPN ---
Psychiatric Progress Note - Psychiatric Progress Note Patient seen today, length of contact: 30 minutes Problems Identified/Issues Discussed: I reviewed recent notes and met with patient at bedside again. Grooming is adequate and patient is superficially cooperative. Patient continues to report that she is still nervous and tired during the day. She is also very worried about leaving. Depression persists and patient indicates that she "just wants to lie in bed". She still has a tendency to repeat herself (but not excessively). Sleep was up and down again last night~this appears to be chronic complaint of hers regardless of how she slept as nursing notes indicate that she sleeps through the night. Affect is still anxious and thought process is a little scattered at times. Patient continues to deny SI, AVH.. Patient denies any new discomfort or pain at this time. She has been visible on the unit, compliant and preoccupied with her medications. There have been no major behavioral concerns/issues on the unit Diagnostic Results: MDD ISMAEL misuse and abuse benzos Medication Change: Yes (neurontin decreased) Medical Record Reviewed: Yes Mental Status Examination - Cognitive Function Orientation: Person, Place, Situation Memory: Impaired Attention: Poor (Somewhat better) Concentration: Poor Association: WNL Fund of Knowledge: WNL - Mood Mood: Depressed ("not hopeless"), Anxious ("I am very anxious") - Affect Affect: Flat - Speech Speech: Appropriate - Formal Thought Process Formal Thought Process: No Impairment, Other (a little scattered secondary to anxiety) - Suicidal Ideation Suicidal Ideation: No - Homicidal Ideation Homicidal Ideation: No Goal/Treatment Plan - Goal/Treatment Plan Need for Continued Stay: Remain at risks for inpatient hospitalization, Severe depression anxiety, Discharge may exacerbated symptoms, Severe functional impairment Progress Toward Problem(s) and Goals/Treatment Plan: * c/w current tx and plan * Vitals reviewed and noted below; Selected Entries 10/03/18 10/03/18 07:14 15:00 Temperature 98.2 F Pulse Rate 75 79 Respiratory 20 20 Rate Blood Pressure 117/68 108/62 * No new weekend lab results noted thus today. Estimated Date of D/C: 10/06/18
--- NOTE | 2018-10-04 17:14 | CP.PCM.PN ---
Subjective - Date & Time of Evaluation Date of Evaluation: 10/04/18 Time of Evaluation: 13:45 - Subjective Subjective: No fevers, not in distress. Objective - Vital Signs/Intake and Output Vital Signs (last 24 hours): Temp Pulse Resp BP Pulse Ox 98.1 F 80 20 119/70 10/04/18 07:34 10/04/18 07:34 10/04/18 07:34 10/04/18 07:34 - Medications Medications: Current Medications Acetaminophen (Tylenol 325mg Tab) 650 mg PO Q6H PRN PRN Reason: Fever >100.4 F Last Admin: 09/30/18 13:55 Dose: 650 mg Alprazolam (Xanax) 1 mg PO 0900,1400,2100 [facility]; Protocol Last Admin: 10/04/18 09:05 Dose: 1 mg Alprazolam (Xanax) 1 mg PO DAILY PRN; Protocol PRN Reason: Anxiety Diphenhydramine HCl (Benadryl) 50 mg PO HS PRN PRN Reason: Insomnia Last Admin: 10/02/18 21:02 Dose: 50 mg Escitalopram Oxalate (Lexapro) 20 mg PO DAILY [facility] Last Admin: 10/04/18 09:02 Dose: 20 mg Famotidine (Pepcid) 40 mg PO HS [facility] Last Admin: 10/03/18 20:59 Dose: 40 mg Gabapentin (Neurontin) 800 mg PO HS [facility]; Protocol Last Admin: 10/03/18 20:59 Dose: 800 mg Gabapentin (Neurontin) 400 mg PO BID [facility]; Protocol Last Admin: 10/04/18 08:58 Dose: 400 mg Glipizide (Glucotrol Xl) 10 mg PO BID [facility] Last Admin: 10/04/18 08:58 Dose: 10 mg Insulin Human Regular (Humulin R Low) 1 units SC ACHS [facility]; Protocol Last Admin: 10/04/18 09:01 Dose: 2 unit Levalbuterol HCl (Xopenex) 1.25 mg IH [id number] PRN PRN Reason: Shortness of Breath Levothyroxine Sodium (Synthroid) 50 mcg PO 0600 [facility] Last Admin: 10/04/18 05:46 Dose: 50 mcg Lisinopril (Zestril) 5 mg PO DAILY [facility] Last Admin: 10/04/18 08:58 Dose: 5 mg Meclizine HCl (Antivert) 25 mg PO DAILY [facility] Last Admin: 10/04/18 08:58 Dose: 25 mg Metoprolol Succinate (Toprol Xl) 25 mg PO DAILY [facility] Last Admin: 10/04/18 09:05 Dose: 25 mg Nystatin (Nystop Topical Powder) 0 gm TOP DAILY [facility] Last Admin: 10/04/18 09:03 Dose: 1 applic Risperidone (Risperdal Tab) 1 mg PO [facility]; Protocol Last Admin: 10/04/18 09:03 Dose: 1 mg Senna/Docusate Sodium (Senokot S 50 Mg-8.6 Mg) [address] tab [address] [facility] Last Admin: 10/03/18 23:05 Dose: Not Given - Constitutional Appears: Chronically Ill - Head Exam Head Exam: NORMAL INSPECTION Assessment and Plan - Assessment and Plan (Free Text) Plan: Assessment S/P klebsiella UTI depression anxiety HTN DM history of diverticulitis hypothyroidism Plan continue to monitor clinically off antibiotics since she is at risk for infections; completed course of Ciprofloxacin
[2018-10-04] MEDS: Docusate-Senna 50 mg-8.6 mg Tab PO SCH (21:16)
[2018-10-05] MEDS: Levothyroxine 50 MCG TAB PO SCH (06:06)
--- NOTE | 2018-10-05 09:00 | PCM.PYCHPN ---
Psychiatric Progress Note - Psychiatric Progress Note Patient seen today, length of contact: 30 minutes Problems Identified/Issues Discussed: I reviewed recent notes and met with patient at bedside again. Grooming is unkempt and patient is superficially cooperative. Patient continues to report that she is still nervous and tired during the day. She is also very worried about leaving. Depression persists and patient indicates that she "just wants to lie in bed". She feels overwhelmed and scared. Patient still has a tendency to repeat herself (more excessive today) and affect is anxious. Thought process is still a little scattered and patient continues to deny SI, AVH. Patient denies any new discomfort or pain at this time. She has been visible on the unit, compliant and preoccupied with her medications. Diagnostic Results: MDD ISMAEL misuse and abuse benzos Medication Change: No ( ) Medical Record Reviewed: Yes Mental Status Examination - Cognitive Function Orientation: Person, Place, Situation Memory: Impaired Attention: Poor (Somewhat better) Concentration: Poor Association: WNL Fund of Knowledge: WNL - Mood Mood: Depressed ("not hopeless"), Anxious ("I am very anxious") - Affect Affect: Flat, Other (more emotional and anxious today) - Speech Speech: Appropriate - Formal Thought Process Formal Thought Process: No Impairment, Other (a little scattered secondary to anxiety) - Suicidal Ideation Suicidal Ideation: No - Homicidal Ideation Homicidal Ideation: No Goal/Treatment Plan - Goal/Treatment Plan Need for Continued Stay: Remain at risks for inpatient hospitalization, Severe depression anxiety, Discharge may exacerbated symptoms, Severe functional impairment Progress Toward Problem(s) and Goals/Treatment Plan: * c/w current tx and plan * Appreciate f/u by Dr. Gusman on 10/04/18~Patient completed course of Cipro, will monitor patient off abx. * Vitals reviewed and noted below Selected Entries 10/05/18 07:00 Temperature 98.4 F Pulse Rate 84 Respiratory 20 Rate Blood Pressure 127/90 * No new weekend lab results noted thus far today. Estimated Date of D/C: 10/06/18
[2018-10-05] MEDS: GlipiZIDE 10 mg SR Tab PO SCH ×2 (09:40→16:04)
[2018-10-05] MEDS: Insulin Reg-LOW-Coverage SC SCH ×4 (09:41→21:00)
[2018-10-05] MEDS: Metoprolol Succinate 25 mg XL Tab PO SCH (09:44)
[2018-10-05] MEDS: Nystatin 100,000 Units/gm Topical Pow(15 gm) TOP SCH (09:46)
[2018-10-05] MEDS: Docusate-Senna 50 mg-8.6 mg Tab PO SCH (20:59)
--- NOTE | 2018-10-05 20:59 | PN ---
DATE: 10/05/2018 SUBJECTIVE: The patient seen in psychiatric floor earlier today in room 517. PHYSICAL EXAMINATION: VITAL SIGNS: Temperature is 98, blood pressure is 120/90, respiratory rate 20. HEENT: Unremarkable. NECK: Supple. HEART: Normal S1, S2. LUNGS: Have decreased breath sounds. ABDOMEN: Soft, nontender. LABORATORY DATA: Reviewed. ASSESSMENT AND PLAN: A 62-year-old female with status post Klebsiella urinary tract infection, depression, anxiety, hypertension, diabetes. Currently now off antibiotics, afebrile, and the patient is at risk for developing nosocomial infections. Andrews Bliss MD
[2018-10-06] MEDS: Levothyroxine 50 MCG TAB PO SCH (05:17)
[2018-10-06 07:06] VITALS: BP 120/80; PULSE 76; RESP 18; TEMP 98.5
[2018-10-06] MEDS: Insulin Reg-LOW-Coverage SC SCH ×2 (08:21→11:38)
[2018-10-06] MEDS: Metoprolol Succinate 25 mg XL Tab PO SCH (08:22)
[2018-10-06] MEDS: GlipiZIDE 10 mg SR Tab PO SCH (08:22)
[2018-10-06] MEDS: Nystatin 100,000 Units/gm Topical Pow(15 gm) TOP SCH (08:28)
--- NOTE | 2018-10-06 17:15 | PCM.PYCHDC ---
Mental Status Examination - Mental Status Examination Orientation: Person, Place, Situation, Time Memory: Intact Mood: Anxious (Seems to be at her baseline) Affect: Constricted Attention: WNL (Much improved) Concentration: WNL (Much improved) Association: WNL Fund of Knowledge: WNL Formal Thought Process: No Impairment Description of patient's judgement and insight: Pt has improved insight into mental and medical illness, pt was compliant with medications and unit rules and regulations, pt was going to groups, was calm, cooperative, socially appropriate, no behavioral incidents, no agitation, no aggression. Psychotic Thoughts and Behaviors: Pt denied v/a/t hallucinations, denied paranoid ideations, pt does not appear to be psychotic, and thought process is goal directed. Suicidal Ideation: No Current Homicidal Ideation?: No Plan: pt adamantly denied thoughts of harming self or others denied intent or plan. Discharge Summary - Discharge Note Reason for Hospitalization: pt was transferred from the medical floor, where she was downgraded from ICU, prior to that pt was found to be unresponsive at home overdosed on benzodiazepines about one month worth, pt was intubated, then extubated, medically stabilized and transferred to the psych unit. Please see admission note for more detailed information. Psychiatric History (includes Medical, Family, Personal Hx): see HPI Laboratory Data: Abnormal Lab Results 10/05/18 10/05/18 10/06/18 16:02 20:59 07:56 POC Glucose (mg/dL) 271 H 294 H 239 H 10/06/18 11:31 POC Glucose (mg/dL) 295 H Consultations:: List each consultation separately and include: 1. Reason for request. 2. Findings. 3. Follow-up Consultations: Medical consult appreciated, please see notes for more detailed information Patient was seen by infectious disease please see notes for more detailed information Summary of Hospital Course include:: 1. Description of specific treatment plan utilized for patients during their course of treatmen. 2. Summarize the time- course for resolution of acute symptoms and/or regressed behaviors. 3. Describe issues identified and worked on during hospitalization. 4. Describe medication utilized. 5. Describe medical problems identified and treated. 6. Reassessment of suicide risk Summary of Hospital Course: shortly pt is 62 year old female with reported h/o depression and anxiety, h/o unintentional overdose on benzodiazepines and h/o falls, ? h/o abusing benzos, multiple medical issues including diverticulitis, hypertension, diabetes, ? dementia, pt was transferred from the medical floor, where she was downgraded from ICU, prior to that pt was found to be unresponsive at home o verdosed on benzodiazepines about one month worth, pt was intubated, then extubated, medically stabilized and transferred to the psych unit for evaluation of possible depressive symptoms, possible s/p overdose, r/o abuse benzos. please see ER/ICU notes for more detailed information. At the time of admission patient presented to be poor and unreliable historian, pt was providing inconsistent stories. for example pt said that all she remember was "FALL", pt denied any overdose on benzos, denied that it was intentional overdose (off note pt had empty bottle next to her). pt said that she was feeling depressed/hopeless and helpless, but denied SI/denied intent or plan to harm self or others. Respiratory failure secondary to suspected drug overdose, pt also had UTI, was on IV antibiotics, HTN, hypokalemia. Past psych h/o: pt currently under care of her outpatient psychiatrist is Dr. Castaneda. collaterals were obtained from him last week, see CL note for more detailed info, did not prescribed benzos to the pt, but effexor. Patient reports having about 2 psychiatric admissions at [facility], denied h/o suicidal attempts. family h/o: pt initially said that she has two uncles from the father side who suffered from schizophrenia, after that pt said that she never said so, pt then said that she had one uncle from mother side who is schizophrenic. denied family h/o suicidal attempts. Lab Results 09/14/18 21:23: POC Glucose (mg/dL) 225 H Vital Signs Temp Pulse Pulse Resp BP 09/15/18 08:37 71 160/99 H 09/15/18 07:22 98.4 F 71 20 160/99 H 09/15/18 02:32 95 H 21 Patient was stabilized on the following medications: effexor discontinued lexapro 20 mg po daily for depression and anxiety Lamictal discontinued Risperdal 1 mg at am and at the nighttime for psychotic symptoms Klonopin was discontinued 09/30/2018 Xanax 1 mg 3 times a day for anxiety, patient was not improvement without benzodiazepines Sonata as needed for insomnia Overall patient improved, was more visible in the unit, sleep is better, patient denied thoughts of harming herself or others, no agitation, no aggression, no psychotic symptoms. field crop harvest worker did a great job in regards off referral patient to home health services as well as an adult day program referral. Patient will attend adult day treatment program where medications will be given to her and patient about have less chance to misuse and abuse medications, more over well patient will be at home home health services might be helpful. Patient was in agreement with discharge plan, patient's sister also was in agreement with discharge plan and willing to accept patient back home. This health underwriter had prolonged conversation with Dr. Oneal today October 06, 2018 discharge plan was discussed in details, Dr. Oneal and agreed with discharge plan for the patient. Patient also will be provided Coumadin with 1 week supply and 3 refills of all of the medications. In the future references if patient will be not improving on this discharge plan "we will consider to have ECT treatment in the future. Over the course of this hospitalization pt was attending groups, pt also had medication management, had therapeutic milieu. Overall pt improved, patient deemed ready for discharge because patient reached maximum effect from this hospitalization. Patient wants to stay in the hospital, reported to feel anxious, but denied any thoughts of harming himself or others. At the time of the discharge patient pose no imminent danger to self or others, will be following up at Dr. Oneal's office, as well as well adult care program, information about follow up appointment, time and address provided to the pt, (see SW note for more detailed information). It is a patient responsibility to follow up with outpatient clinic, PMD as well as specialists In case patient will need to obtain results of studies pending at discharge, patient was provided with contact information of Psychiatric Inpatient unit [phone] as well as Medical Record Department [phone], as well as [facility] team [phone]. Patient denies using any drugs, denied consumption, denied smoking cigarettes pt was provided with prescriptions for two weeks and one refill for psychotropic meds and one week for medical meds (see medication reconciliation form) Pt was educated about safety plan in case of worsening of symptoms or in case of suicidal or homicidal ideation call 911 or go to the nearest ER, also was educa susanna to take meds as prescribed and stay away from drugs, pt verbalized understanding. 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 Oneal's office, as well as well adult care program, information about follow up appointment, time and address provided to the pt, (see SW note for more detailed information). It is a patient responsibility to follow up with outpatient clinic, PMD as well as specialists In case patient will need to obtain results of studies pending at discharge, patient was provided with contact information of Psychiatric Inpatient unit [phone] as well as Medical Record Department [phone], as well as [facility] team [phone]. Patient denies using any drugs, denied consumption, denied smoking cigarettes pt was provided with prescriptions for two weeks and one refill for psychotropic meds and one week for medical meds (see medication reconciliation form) Pt was educated about safety plan in case of worsening of symptoms or in case of suicidal or homicidal ideation call 911 or go to the nearest ER, also was educated to take meds as prescribed and stay away from drugs, pt verbalized understanding. d/c took more than 30min of this health underwriter time Prescriptions/Medication Reconciliation: ALPRAZolam [Xanax] 1 mg PO 0900,1400,2100 #21 tab Docusate Sodium/Sennosides A [Senokot S 50 MG-8.6 MG] 2 tab PO HS #7 tab Escitalopram [Lexapro] 20 mg PO DAILY #7 tab Gabapentin 300 mg PO TID #21 capsule GlipiZIDE [Glucotrol] 10 mg PO DAILY #14 tab Levothyroxine [Synthroid] 50 mcg PO DAILY #7 tab Lisinopril [Prinivil] 5 mg PO DAILY #7 tablet Meclizine [Meclizine*] 25 mg PO DAILY #7 tab Metoprolol Tartrate [Lopressor] 12.5 mg PO BID #14 tab Nystatin [Nystop Topical Powder] 1 gm TOP DAILY #1 bottle risperiDONE [RisperDAL Tab] 1 mg PO [facility] #14 tab - Smoking Cessation Smoking Cessation Medication prescribed: No Reason for not providing: Patient denies smoking - Antipsychotic Medications Pt discharged on 2 or more routine antipsychotic medications: No
== END 2018-10-06 13:40 | disposition home or self-care (01) | DRG 881 ==
LOC: MERGE 20:14 → PSYC 20:14
PROVIDERS: ADMIT Psychiatry & Neurology Psychiatry; ATTEND Psychiatry & Neurology Psychiatry
DX: F32.9 Major depressive disorder, single episode, unspecified (principal); F13.20 Sedative, hypnotic or anxiolytic dependence, uncomplicated; N39.0 Urinary tract infection, site not specified; B96.1 Klebsiella pneumoniae [K. pneumoniae] as the cause of diseases classified elsewhere; F41.1 Generalized anxiety disorder; I10 Essential (primary) hypertension; E11.42 Type 2 diabetes mellitus with diabetic polyneuropathy; E03.9 Hypothyroidism, unspecified; E78.00 Pure hypercholesterolemia, unspecified; K59.00 Constipation, unspecified; E78.5 Hyperlipidemia, unspecified; F17.210 Nicotine dependence, cigarettes, uncomplicated; G47.00 Insomnia, unspecified; R42 Dizziness and giddiness; Z91.5 Personal history of self-harm; Z81.8 Family history of other mental and behavioral disorders; Z79.4 Long term (current) use of insulin

== ENCOUNTER 2019-01-01 13:54 | Emergency (ER) | payer MEDICAID, MEDICARE ==
[2019-01-01 14:09] VITALS: RESP 18; TEMP 98.3
[2019-01-01] MEDS ORDERED: Amoxicillin-Clav 875-125 mg Tab PO STA (14:39)
[2019-01-01 14:42] VITALS: BMI 29.7
--- NOTE | 2019-01-01 14:43 | ED PDOC ---
Arrival/HPI - General Chief Complaint: Bite Historian: Patient - History of Present Illness Narrative History of Present Illness (Text): 01/01/19 14:40 63 y/o female, pmh including dm/pneumonia/hypothyroidism/UTI, nkda, last tetanus under 2 years ago, c/o dog bite wound to the rt. hand/wrist x 2 hours. Pt. stated that she was walking on the street, attacked and bitten by the street dog with unknown rabies status, unable to see the shipping clerk packing and unable locate the immunization status, no numbness or tingling, no headache or night sweat, no rash, no dizziness, no change in vision, no difficulty moving the rt. hand/wrist region, no other medical or psychological complaints. Past Medical History - Provider Review Nursing Documentation Reviewed: Yes - Infectious Disease Hx of Infectious Diseases: None - Reproductive Menopause: Yes - Cardiac Hx Hypertension: Yes - Pulmonary Hx Respiratory Disorders: No - Neurological Hx Neurological Disorder: Yes Hx Dementia: Yes - HEENT Hx HEENT Disorder: No - Renal Hx Renal Disorder: No - Endocrine/Metabolic Hx Diabetes Mellitus Type 2: Yes Hx Hypothyroidism: Yes - Hematological/Oncological Hx Blood Disorders: No - Integumentary Hx Dermatological Disorder: No - Musculoskeletal/Rheumatological Hx Falls: Yes - Gastrointestinal Hx Gastrointestinal Disorders: Yes - Genitourinary/Gynecological Hx Genitourinary Disorders: Yes - Psychiatric Hx Anxiety: Yes Hx Depression: Yes Hx Substance Use: No - Surgical History Other/Comment: BLADDER SURGERY WHICH CORRECTED STRESS INCONTINENCE, BUT NOT URGENCY. DOESN'T KNOW WHAT THEY DID. - Anesthesia Hx Anesthesia: Yes - Suicidal Assessment Feels Threatened In Home Enviroment: No Family/Social History - Physician Review Nursing Documentation Reviewed: Yes Family/Social History: Unknown Family HX Smoking Status: Smoker Currrent Status Unknown Hx Alcohol Use: No Hx Substance Use: No Allergies/Home Meds Allergies/Adverse Reactions: Allergies SEASONAL Allergy (Mild, Uncoded 10/07/18 08:35) SHORTNESS OF BREATH Home Medications: Home Meds Medication Instructions Recorded Confirmed Levothyroxine [Synthroid] 50 mcg PO DAILY 01/21/17 01/21/17 Metoprolol Succinate XL [Toprol XL] 25 mg PO DAILY 01/21/17 01/21/17 SITagliptin [Januvia] 100 mg PO DAILY 01/21/17 01/21/17 Simvastatin 20 mg PO DAILY 01/21/17 01/21/17 Review of Systems - Review of Systems Constitutional: absent: Fatigue, Fevers Eyes: absent: Vision Changes ENT: absent: Hearing Changes Respiratory: absent: SOB, Cough Cardiovascular: absent: Chest Pain Gastrointestinal: absent: Abdominal Pain, Nausea, Vomiting Skin: Other (puncture wound). absent: Rash, Pruritis, Skin Lesions, Laceration, Abscess, Ulcer Neurological: absent: Headache, Dizziness Psychiatric: absent: Anxiety, Depression, Suicidal Ideation Physical Exam Vital Signs Reviewed: Yes Vital Signs Temp Pulse Resp BP Pulse Ox 01/01/19 14:05 98.3 F 80 18 134/78 98 Temperature: Afebrile Blood Pressure: Normal Pulse: Regular Respiratory Rate: Normal Appearance: Positive for: Well-Appearing, Non-Toxic, Comfortable Pain Distress: Mild Mental Status: Positive for: Alert and Oriented X 3 - Systems Exam Head: Present: Atraumatic, Normocephalic Pupils: Present: PERRL Extroacular Muscles: Present: EOMI Conjunctiva: Present: Normal Mouth: Present: Moist Mucous Membranes Neck: Present: Normal Range of Motion Respiratory/Chest: Present: Clear to Auscultation, Good Air Exchange. No: Respiratory Distress, Accessory Muscle Use, Wheezes, Decreased Breath Sounds, Rales, Retracting, Rhonchi, Tachypneic, Tender to Palpation Cardiovascular: Present: Regular Rate and Rhythm, Normal S1, S2. No: Murmurs Abdomen: No: Tenderness, Distention, Peritoneal Signs, Rebound, Guarding Back: Present: Normal Inspection Upper Extremity: Present: Normal Inspection, Normal ROM, NORMAL PULSES, Neurovascularly Intact, Other (Rt. hand/wrist: rt. hand dorsum visible skin tear approx. 2.5cm noted with no deep puncture/laceration wound, rt. wrist dorsum visible two superficial 0.75cm superficial skin tears, FROM without limitation, sensation intact, motor 5/5, +radial pulse, capillary refill< 2 seconds, neurovascular intact, no visible foreign bodies. ). No: Cyanosis, Edema Lower Extremity: Present: Normal Inspection, NORMAL PULSES, Normal ROM, Neurovascularly Intact, Capillary Refill < 2 s. No: Edema, Tenderness, Swelling, Deformity Neurological: Present: GCS=15, CN II-XII Intact, Speech Normal, Motor Func Grossly Intact, Normal Cerebellar Funct, Gait Normal, Memory Normal Skin: Present: Warm, Dry, Normal Color. No: Rashes Psychiatric: Present: Alert, Oriented x 3, Normal Insight, Normal Concentration Medical Decision Making ED Course and Treatment: 01/01/19 14:46 -ED RN already contacted the [facility] -Augmentin/tylenol -Rabies immunoglobulin and rabies vacine -Wound irrigated with 2000cc, clean with betadine, bacitracin and gauze dressing 01/01/19 17:13 -Rt. hand xray No acute displaced fracture or dislocation. Mild dorsal soft tissue swelling. -Rt. wrist xray Mild dorsal soft tissue swelling. -rabies immunoglobulin to the wound and remaining to the IM injection and vaccine administered, xerofoam and gauze dressing. -Discharge home with augmentin, tylenol, bacitracin oinment, follow up with your own pmd and orthopedic/hand surgeon within 2 days, return to the ER on day day 3 (01/03/2019), day 7 (01/07/2019), day 14 (01/14/2019) for additional rabies vaccine, return to the ER for any new or worsening signs or symptoms. - RAD Interpretation Radiology Orders: RT. hand Date of service: 01/01/2019 PROCEDURE: Radiographs of the right hand HISTORY: Dog bite COMPARISON: None. FINDINGS: Three views were obtained BONES: Bone alignment and mineralization are normal. There is no acute displaced fracture or bone destruction. 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 OTHER FINDINGS: None. IMPRESSION: No acute displaced fracture or dislocation. Mild dorsal soft tissue swelling. Rt. wrist xray: Date of service: 01/01/2019 PROCEDURE: Right Wrist Radiographs. HISTORY: rt. wrist dorsum dog bite. COMPARISON: None. TECHNIQUE: 4 views obtained. FINDINGS: BONES: There is mild periarticular bone demineralization. Bone alignment is normal. Acute fracture or dislocation JOINTS: Normal. No dislocation. SOFT TISSUES: Mild dorsal soft tissue swelling. OTHER FINDINGS: None. IMPRESSION: Mild dorsal soft tissue swelling. 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 Disposition/Present on Arrival - Present on Arrival Any Indicators Present on Arrival: No History of DVT/PE: No History of Uncontrolled Diabetes: Yes Urinary Catheter: No History of Decub. Ulcer: No History Surgical Site Infection Following: None - Disposition Have Diagnosis and Disposition been Completed?: Yes Diagnosis: Dog bite, Puncture wound, hand Disposition: HOME/ ROUTINE Disposition Time: 15:50 Patient Plan: Discharge Patient Problems: Current Active Problems Problem Status Onset Dog bite Acute Puncture wound, hand Acute Condition: GOOD Additional Instructions: -Discharge home with augmentin, tylenol, bacitracin oinment, follow up with your own pmd and orthopedic/hand surgeon within 2 days, return to the ER on day day 3 (01/03/2019), day 7 (01/07/2019), day 14 (01/14/2019) for additional rabies vaccine, return to the ER for any new or worsening signs or symptoms. Prescriptions: Acetaminophen [Tylenol] 2 cap PO QID PRN #30 capsule PRN Reason: Other Amoxicillin/Clavulanate [Augmentin 875 MG-125 MG] 1 tab PO BID #20 tab Bacitracin Ointment [Bacitracin] 1 appful TOP BID #15 g Referrals: Dolores Arroyo MD [Primary Care Provider] - Follow up with primary Romero Harris MD [Staff Provider] - Follow up with primary Lloyd Putnam MD [Staff Provider] - Follow up with primary Forms: [email or web address] ([place]), WORK NOTE
[2019-01-01] MEDS: Rabies Immune Globulin 150 INTLU/ML VIAL IM ONE ×2 (15:23→16:07)
--- NOTE | 2019-01-01 16:35 | RAD ---
Date of service: 01/01/2019 PROCEDURE: Radiographs of the right hand HISTORY: Dog bite COMPARISON: None. FINDINGS: Three views were obtained BONES: Bone alignment and mineralization are normal. There is no acute displaced fracture or bone destruction. 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 OTHER FINDINGS: None. IMPRESSION: No acute displaced fracture or dislocation. Mild dorsal soft tissue swelling.
--- NOTE | 2019-01-01 16:39 | RAD ---
Date of service: 01/01/2019 PROCEDURE: Right Wrist Radiographs. HISTORY: rt. wrist dorsum dog bite. COMPARISON: None. TECHNIQUE: 4 views obtained. FINDINGS: BONES: There is mild periarticular bone demineralization. Bone alignment is normal. Acute fracture or dislocation JOINTS: Normal. No dislocation. SOFT TISSUES: Mild dorsal soft tissue swelling. OTHER FINDINGS: None. IMPRESSION: Mild dorsal soft tissue swelling.
[2019-01-01 17:58] VITALS: BP 131/75; PULSE 81; O2SAT 100
== END 2019-01-01 18:01 | disposition home or self-care (01) ==
LOC: ED 13:54
DX: S61.451A Open bite of right hand, initial encounter (principal); W54.0XXA Bitten by dog, initial encounter; Y93.01 Activity, walking, marching and hiking; I10 Essential (primary) hypertension; E11.9 Type 2 diabetes mellitus without complications; E03.9 Hypothyroidism, unspecified; Z23 Encounter for immunization